=== PATIENT | female | born 1945 | race Caucasian/White ===

== ENCOUNTER 2019-12-08 06:51 | Outpatient (REF) | payer MEDICARE, SELFPAY ==
[2019-12-08 08:43] LABS: Alanine Aminotransferase 17 U/L (0-31); Anion Gap 12 (12-20); Aspartate Amino Transferase 15 U/L (5-31); Blood Urea Nitrogen 14 mg/dL (9-16); Calcium 9.5 mg/dL (8.4-10.2); Carbon Dioxide 32 mmol/L (22-29); Chloride 103 mmol/L (96-108); Cholesterol 183 mg/dL; Estimated Glomerular Filt Rate > 60; Glucose Random 138 mg/dL (60-115); HDL Cholesterol 53 mg/dL; LDL Cholesterol Calculated 107 mg/dl; Potassium 4.8 mmol/l (3.3-5.1); Sodium 142 mmol/L (135-145); Triglycerides 118 mg/dL
[2019-12-08 08:44] LABS: Creatinine Urine 74.77 mg/dL
[2019-12-08 09:12] LABS: Estimated Average Glucose 160 mg/dL; Hemoglobin A1c % 7.2 %
== END 2019-12-08 06:52 | disposition home or self-care (01) ==
LOC: HO.LAB 06:51
PROVIDERS: PCP Internal Medicine; Visit Provider Internal Medicine
DX: I10 Essential (primary) hypertension (principal); E78.5 Hyperlipidemia, unspecified; E11.9 Type 2 diabetes mellitus without complications
CPT/HCPCS: 80048; 80061; 82043; 83036; 84450; 84460

== ENCOUNTER → 2020-02-07 13:41 | Outpatient (BNVA) | payer MEDICARE, SELFPAY | PROVIDERS: PCP Internal Medicine; Visit Provider Hospitalist | DX: R91.1 Solitary pulmonary nodule (principal); G47.33 Obstructive sleep apnea (adult) (pediatric); J32.9 Chronic sinusitis, unspecified; J44.9 Chronic obstructive pulmonary disease, unspecified | CPT/HCPCS: Q3014 ==

== ENCOUNTER 2020-03-17 11:25 | Outpatient (REF) | payer MEDICARE, SELFPAY ==
[2020-03-17 14:44] LABS: Alanine Aminotransferase 17 U/L (0-31); Anion Gap 15 (12-20); Aspartate Amino Transferase 16 U/L (5-31); Blood Urea Nitrogen 15 mg/dL (9-16); Calcium 9.3 mg/dL (8.4-10.2); Carbon Dioxide 27 mmol/L (22-29); Chloride 101 mmol/L (96-108); Cholesterol 168 mg/dL; Estimated Glomerular Filt Rate > 60; Glucose Fasting 131 mg/dL (60-99); HDL Cholesterol 54 mg/dL; LDL Cholesterol Calculated 90 mg/dl; Potassium 4.2 mmol/l (3.3-5.1); Sodium 139 mmol/L (135-145); Triglycerides 121 mg/dL
[2020-03-17 14:54] LABS: Creatinine Urine 37.66 mg/dL; Microalbumin Urine < 5.0 mg/L
[2020-03-17 14:56] LABS: Estimated Average Glucose 148 mg/dL; Hemoglobin A1c % 6.8 %
[2020-03-17 15:07] LABS: Vitamin D 25-OH Total 45.7 ng/mL (>30)
== END 2020-03-17 11:26 | disposition home or self-care (01) ==
LOC: HO.HMGCLDS 11:25
PROVIDERS: PCP Internal Medicine; Visit Provider Internal Medicine
DX: E11.65 Type 2 diabetes mellitus with hyperglycemia (principal); E78.5 Hyperlipidemia, unspecified; I10 Essential (primary) hypertension; Z78.0 Asymptomatic menopausal state
CPT/HCPCS: 36415; 80048; 80061; 82043; 82306; 83036; 84450; 84460

== ENCOUNTER 2020-05-22 11:22 | Outpatient (REF) | payer MEDICARE, SELFPAY | END 2020-05-22 11:23 | disposition home or self-care (01) | LOC: HO.LAB 11:22 | PROVIDERS: Visit Provider Nurse Practitioner Family | DX: B37.49 Other urogenital candidiasis (principal) | CPT/HCPCS: 87086 ==

== ENCOUNTER 2020-07-24 06:06 | Outpatient (REF) | payer MEDICARE, SELFPAY ==
[2020-07-24 08:09] LABS: Estimated Average Glucose 160 mg/dL; Hemoglobin A1c % 7.2 %
[2020-07-24 08:25] LABS: Alanine Aminotransferase 14 U/L (0-31); Anion Gap 15 (12-20); Aspartate Amino Transferase 17 U/L (5-31); Blood Urea Nitrogen 14 mg/dL (9-16); Calcium 9.9 mg/dL (8.4-10.2); Carbon Dioxide 28 mmol/L (22-29); Chloride 101 mmol/L (96-108); Cholesterol 158 mg/dL; Estimated Glomerular Filt Rate > 60; Glucose Fasting 151 mg/dL (60-99); HDL Cholesterol 51 mg/dL; LDL Cholesterol Calculated 79 mg/dl; Potassium 4.3 mmol/L (3.3-5.1); Sodium 140 mmol/L (135-145); Triglycerides 141 mg/dL
[2020-07-24 08:31] LABS: Vitamin D 25-OH Total 54.3 ng/mL (>30)
== END 2020-07-24 06:07 | disposition home or self-care (01) ==
LOC: HO.LAB 06:06
PROVIDERS: PCP Internal Medicine; Visit Provider Internal Medicine
DX: E11.9 Type 2 diabetes mellitus without complications (principal); E78.5 Hyperlipidemia, unspecified; I10 Essential (primary) hypertension; Z78.0 Asymptomatic menopausal state
CPT/HCPCS: 36415; 80048; 80061; 82306; 83036; 84450; 84460

== ENCOUNTER 2020-07-27 10:38 | Outpatient (REF) | payer MEDICARE, SELFPAY ==
--- NOTE | ~2020-07-27 | MM_ITS ---
EXAMINATION: MM SCREENING DIGITAL BREAST TOMOSYNTHESIS, BILATERAL CLINICAL INFORMATION: Screening. Asymptomatic. The lifetime risk of breast cancer based on the Tyrer-Cuzick Model is 4.4%. COMPARISON: Mammography: May 20, 2019 and studies dating back to August 02, 2013 TECHNIQUE: Digital breast tomosynthesis is performed in both the craniocaudal and mediolateral oblique views along with computer-aided detection (CAD). Synthesized 2D images are generated from the tomosynthesis. FINDINGS: There are scattered areas of fibroglandular density (ACR BI-RADS breast composition Category b). There are no significant masses, abnormal calcifications, or other abnormalities. MM/MM tomosynthesis screening BI IMPRESSION: There are no significant changes from prior study. ASSESSMENT: BI-RADS 1: Negative RECOMMENDATION: Routine annual mammography screening. This patient's information was entered into a reminder system with a target due date for their next mammogram.
== END 2020-07-27 10:39 | disposition home or self-care (01) ==
LOC: HO.MAMMO 10:38
PROVIDERS: Visit Provider Internal Medicine
DX: Z12.31 Encounter for screening mammogram for malignant neoplasm of breast (principal)
CPT/HCPCS: 77063; 77067

== ENCOUNTER 2020-10-11 12:42 | Outpatient (REF) | payer MEDICARE, SELFPAY ==
--- NOTE | ~2020-10-11 | CT_ITS ---
EXAMINATION: CT CHEST WITHOUT CONTRAST CLINICAL INFORMATION: Lung disease. COMPARISON: 10/18/2019 and 06/05/2017 TECHNIQUE: Multidetector volumetric CT imaging of the chest was done. Axial MIP volume rendering provided. Sagittal and coronal reformatted images were obtained. This CT examination was performed using dose optimization techniques as appropriate, variously including the following: Automated exposure control. Adjustment of mA and/or kV according to patient size (this includes techniques or standardized protocols for targeted exams where dose is matched to indication/reason for exam; i.e. extremities or head). Use of iterative reconstruction technique. DLP: 267 mGy-cm FINDINGS: LUNGS: Central airways are patent. No confluent parenchymal disease. No bronchiectasis. No significant change of emphysema identified. There are numerous sub-4 mm densities present with a few being calcified. Within the right upper lobe, there is a 4 mm noncalcified density on image 172 of 534 in series #6. This is stable. There is a triangular-shaped subpleural noncalcified density seen within the right lower lobe on image 290 of 534. This is new and likely related to either atelectasis or scarring. There is a 4 mm noncalcified nodule seen within the left lower lobe on image 297 of 534. This is unchanged. There is a 7 mm noncalcified density seen within the left lower lobe on image 361 of 534. This is unchanged. MEDIASTINUM: Heart normal size. Coronary artery calcification present. Aortic and mitral valve calcification seen. No pericardial effusion. No thoracic aortic aneurysm. No mediastinal or hilar lymphadenopathy. PLEURA: There is no pleural effusion. No pleural mass or thickening. AXILLA: No lymphadenopathy. UPPER ABDOMEN: There appears to be a few subcentimeter splenic cyst present. OSSEOUS STRUCTURES: Status post right shoulder arthroplasty. No suspicious destructive bony lesions identified. CT/CT chest wo con IMPRESSION: Old granulomatous disease. Multiple stable lung nodules. New triangular-shaped subpleural density right lower lobe likely related to atelectasis.
== END 2020-10-11 12:43 | disposition home or self-care (01) ==
LOC: HO.CT 12:42
PROVIDERS: PCP Internal Medicine; Visit Provider Hospitalist
DX: R91.8 Other nonspecific abnormal finding of lung field (principal); J44.9 Chronic obstructive pulmonary disease, unspecified
CPT/HCPCS: 71250

== ENCOUNTER 2020-11-20 06:57 | Outpatient (REF) | payer MEDICARE, SELFPAY ==
[2020-11-20 08:23] LABS: Estimated Average Glucose 146 mg/dL; Hemoglobin A1c % 6.7 %
[2020-11-20 08:33] LABS: Alanine Aminotransferase 12 U/L (0-31); Anion Gap 14 (12-20); Aspartate Amino Transferase 15 U/L (5-31); Blood Urea Nitrogen 15 mg/dL (9-16); Calcium 9.6 mg/dL (8.4-10.2); Carbon Dioxide 30 mmol/L (22-29); Chloride 103 mmol/L (96-108); Cholesterol 160 mg/dL; Estimated Glomerular Filt Rate > 60; Glucose Fasting 122 mg/dL (60-99); HDL Cholesterol 50 mg/dL; LDL Cholesterol Calculated 77 mg/dl; Potassium 4.5 mmol/L (3.3-5.1); Sodium 142 mmol/L (135-145); Triglycerides 169 mg/dL
[2020-11-20 09:29] LABS: Vitamin D 25-OH Total 44.7 ng/mL (>30)
== END 2020-11-20 06:58 | disposition home or self-care (01) ==
LOC: HO.LAB 06:57
PROVIDERS: PCP Internal Medicine; Visit Provider Internal Medicine
DX: E11.65 Type 2 diabetes mellitus with hyperglycemia (principal); E78.5 Hyperlipidemia, unspecified; I10 Essential (primary) hypertension
CPT/HCPCS: 36415; 80048; 80061; 82306; 83036; 84450; 84460

== ENCOUNTER → 2020-12-01 13:40 | Outpatient (BNVA) | payer MEDICARE, SELFPAY | PROVIDERS: PCP Internal Medicine; Visit Provider Hospitalist | DX: G47.33 Obstructive sleep apnea (adult) (pediatric) (principal); J44.9 Chronic obstructive pulmonary disease, unspecified; R91.8 Other nonspecific abnormal finding of lung field | CPT/HCPCS: 99212 ==

== ENCOUNTER 2020-12-18 07:39 | Day surgery (SDC) | payer MEDICARE, SELFPAY ==
[2020-12-12 12:52] VITALS: BMI 36.0
--- NOTE | 2020-12-13 13:00 | MHC.SHP ---
Pre-Procedural Eval Section A Date of Service: 12/13/20 The patient is an INPATIENT: No Changes since office visit: No Cold of Flu in the past 2 weeks, No New Medical Problems, No Changes in Medication and No Patient answered all questions The History & Physical has been completed within 30 days and I have reviewed it.: Yes Section B Chief Complaint: cataract Allergies: Allergies Allergy/AdvReac Type Severity Reaction Status Date / Time oxycodone [Oxycodone] AdvReac Severe VOMITTING Verified 12/12/20 12:50 From OxyContin AdvReac Severe VOMITTING Uncoded 12/12/20 12:50 Plan Diagnosis/Plan: Unchanged I have reviewed the history and physical and performed a pertinent physical examination on my patient. No changes have occurred unless specified.
--- NOTE | 2020-12-15 09:45 | P.CONAN_ITS ---
Documented by User: Cesilia Arrieta NP 12/15/20 09:46 HPI - Anesthesia Eval Consult details Narrative: 75yo F for Left Cataract Extraction IOL Insertion PCP cleared No prev cataract on record O2 dependant QHS PMFSH Active Problems Active Problems: All Active Problems (Updated 12/12/20 @ 12:48 by Rosemary Alaniz, RN) Cindy infection of genital region (Acute) Preoperative examination (Acute) Pulmonary nodules (Acute) Family history of breast cancer gene mutation in first degree relative (Acute) Diabetes mellitus with hyperglycemia, without long-term current use of insulin (Acute) Type 2 diabetes mellitus without complication, without long-term current use of insulin (Acute) Asthma-COPD overlap syndrome (Acute) Menopause (Acute) Mild intermittent asthma in adult without complication (Acute) Pulmonary nodule (Acute) Obstructive sleep apnea (Acute) Irritable bowel syndrome (Acute) GERD (gastroesophageal reflux disease) (Acute) Dyslipidemia (Acute) Past Medical History Medical History (Updated 12/12/20 @ 12:48 by Rosemary Alaniz RN) Asthma-COPD overlap syndrome COVID-19 virus infection Diabetes mellitus with hyperglycemia, without long-term current use of insulin Dyslipidemia Family history of breast cancer gene mutation in first degree relative GERD (gastroesophageal reflux disease) Irritable bowel syndrome Menopause Mild intermittent asthma in adult without complication Obstructive sleep apnea PONV (postoperative nausea and vomiting) Preoperative examination Pulmonary nodule Pulmonary nodules Requires supplemental oxygen Type 2 diabetes mellitus without complication, without long-term current use of insulin Family History Family History Father Stroke Mother HTN (hypertension) Diabetes mellitus Brother Kidney disease Brother Pneumonia Daughter Invasive ductal carcinoma of breast, Onset Age: 53 Surgical History Surgical History History of appendectomy History of shoulder surgery History of total knee replacement Hx of cholecystectomy Social History Social History Housing: House Alcohol intake: never Patient Tobacco Use Status: Former Tobacco user Quit Date: 1999 Are you DNR?: No Advance Directives: No Advance Directives Information Provided: Yes (mailed info) Advance Directives on File: No Recently lost weight without trying: No Current occupational status: retired Meds Allergies Allergy/AdvReac Type Severity Reaction Status Date / Time oxycodone [Oxycodone] AdvReac Severe VOMITTING Verified 12/12/20 12:50 From OxyContin AdvReac Severe VOMITTING Uncoded 12/12/20 12:50 Home Medications Medication Instructions Recorded Confirmed Last Taken Type albuterol sulfate 90 mcg/actuation 2 puff INHALATION Q6H PRN 12/15/19 12/12/20 Unknown History aerosol inhaler carvedilol 25 mg tablet 25 mg PO BID 12/15/19 12/12/20 Unknown History dicyclomine 10 mg capsule 10 mg PO QID PRN 12/15/19 12/12/20 Unknown History escitalopram oxalate 20 mg tablet 20 mg PO DAILY 12/15/19 12/12/20 Unknown History fluticasone propionate 50 50 spray INTRANASAL DIRECTED 12/15/19 12/12/20 Unknown History mcg/actuation nasal spray,suspension magnesium oxide 250 mg PO DAILY 12/15/19 12/12/20 Unknown History meclizine 25 mg tablet 25 mg PO DIRECTED 12/15/19 12/12/20 Unknown History nystatin 100,000 unit/gram topical 100,000 unit TOPICAL TID PRN 12/15/19 12/12/20 Unknown History powder flu vacc [id number](65yr up)-PF 240 ml IM DIRECTED 02/07/20 12/08/20 Unknown History mcg/0.7 mL intramuscular syringe one touch delica plus lancets SUBCUT DAILY 05/16/20 12/08/20 Unknown History lorazepam 0.5 mg tablet 0.5 mg PO DAILY PRN 12/01/20 12/12/20 Unknown History Exam Exam Date and Time: December 15, 2020 0945 Height,Weight and Vital Signs: Height 5 ft 2 in Weight 89.358 kg Pertinent Lab Results Pertinent Lab Results: Laboratory Tests 08/22/20 11/20/20 13:37 07:08 WBC 8.5 Hgb 13.0 Hct 39.8 Plt Count 230 Sodium 142 Potassium 4.5 Chloride 103 Carbon Dioxide 30 H BUN 15 Creatinine 0.71 Assessment and Plan Assessment Anesthesia Assessment: Chart Reviewed Documented by User: Art Hammer MD 12/18/20 08:30 [facility] Past Medical History Medical History (Updated 12/12/20 @ 12:48 by Rosemary Alaniz, GENNARO) Asthma-COPD overlap syndrome COVID-19 virus infection Diabetes mellitus with hyperglycemia, without long-term current use of insulin Dyslipidemia Family history of breast cancer gene mutation in first degree relative GERD (gastroesophageal reflux disease) Irritable bowel syndrome Menopause Mild intermittent asthma in adult without complication Obstructive sleep apnea PONV (postoperative nausea and vomiting) Preoperative examination Pulmonary nodule Pulmonary nodules Requires supplemental oxygen Type 2 diabetes mellitus without complication, without long-term current use of insulin Family History Family History Father Stroke Mother HTN (hypertension) Diabetes mellitus Brother Kidney disease Brother Pneumonia Daughter Invasive ductal carcinoma of breast, Onset Age: 53 Family history of problems with anesthesia: No Surgical History Surgical History History of appendectomy History of shoulder surgery History of total knee replacement Hx of cholecystectomy History of Problems with Anesthesia: No Social History Social History Housing: House Alcohol intake: never Patient Tobacco Use Status: Former Tobacco user Quit Date: 1999 Are you DNR?: No Advance Directives: No Advance Directives Information Provided: Yes (mailed info) Advance Directives on File: No Recently lost weight without trying: No Current occupational status: retired Meds Allergies Allergy/AdvReac Type Severity Reaction Status Date / Time oxycodone [Oxycodone] AdvReac Severe VOMITTING Verified 12/12/20 12:50 From OxyContin AdvReac Severe VOMITTING Uncoded 12/12/20 12:50 Home Medications Medication Instructions Recorded Confirmed Last Taken Type albuterol sulfate 90 mcg/actuation 2 puff INHALATION Q6H PRN 12/15/19 12/12/20 Unknown History aerosol inhaler carvedilol 25 mg tablet 25 mg PO BID 12/15/19 12/12/20 Unknown History dicyclomine 10 mg capsule 10 mg PO QID PRN 12/15/19 12/12/20 Unknown History escitalopram oxalate 20 mg tablet 20 mg PO DAILY 12/15/19 12/12/20 Unknown History fluticasone propionate 50 50 spray INTRANASAL DIRECTED 12/15/19 12/12/20 Unknown History mcg/actuation nasal spray,suspension magnesium oxide 250 mg PO DAILY 12/15/19 12/12/20 Unknown History meclizine 25 mg tablet 25 mg PO DIRECTED 12/15/19 12/12/20 Unknown History nystatin 100,000 unit/gram topical 100,000 unit TOPICAL TID PRN 12/15/19 12/12/20 Unknown History powder flu vacc [id number](65yr up)-PF 240 ml IM DIRECTED 02/07/20 12/08/20 Unknown History mcg/0.7 mL intramuscular syringe one touch delica plus lancets SUBCUT DAILY 05/16/20 12/08/20 Unknown History lorazepam 0.5 mg tablet 0.5 mg PO DAILY PRN 12/01/20 12/12/20 Unknown History Exam Airway Mallampati Class: III TM Dist: >3cm Neck ROM: Full Denture: Upper and Lower Heart: [id number] Lungs: cta b/l Assessment and Plan Assessment Anesthesia Assessment: Anesthesia Plan Discussed Final Anesthetic Review Family History of Problems with Anesthesia: No History of Problems with Anesthesia: No NPO: Yes ASA Class: III Final Preanesthetic Review: No Changes in Pt Med Stat, Meds/Allgs Chart Reviewed, Consent Obtained/Reviewed and Anes Risks/Benef Reviewed Patient Risk: Intermediate Procedure Risk: Low Assessment/Block/Sedation in SS: Assess/Block/Sedation-SS Anesthetic Plan Anesthetic Plan: MAC: and Agree w/ Assess. and Plan Disposition: Standard PACU
[2020-12-18 08:42] VITALS: BP 170/84; PULSE 72; RESP 20; TEMP 36.1; O2SAT 95
[2020-12-18 08:42] LABS: Glucose, Whole Blood 149 mg/dL (60-115)
[2020-12-18] MEDS: Tetracaine HCl/PF 0.5% Oph Sol 4 ML DROPS 1 DROP EYE-LEFT (08:50)
[2020-12-18] MEDS: Lactated Ringers 500 ML 50 ML IV (08:50)
[2020-12-18] MEDS: Tropicamide 1 % Ophth Sol 3 ML BTL 1 DROP EYE-LEFT ×3 (08:51→08:58)
[2020-12-18] MEDS: Phenylephrine HCL 2.5% Oph SoL 2 ML BOTTLE 1 DROP EYE-LEFT ×3 (08:54→09:00)
--- NOTE | 2020-12-18 09:24 | HO.PNOPHT ---
Ophthalmology Procedure Procedure Date of Service: 12/18/20 Ophthalmology Viscoelastic: Healon Duet Dual Pack Pro Ophthalmology Lenses: TECNIS [id number] (20.5) Procedure Notes: PREOPERATIVE DIAGNOSIS: Decreased visual acuity left eye secondary to cataract POSTOPERATIVE DIAGNOSIS: Same PROCEDURE: Left cataract extraction with intraocular lens insertion SURGEON: Honorio Benito M.D. ANESTHESIA: Topical/MAC ESTIMATED BLOOD LOSS: None COMPLICATIONS: None After obtaining informed consent, the patient was brought to the operation room suite and placed in the supine position. After adequate sedation per anesthesia, topical drops of Tetracaine were given to the left eye. The eye was then prepped and draped in the usual sterile fashion. The operating room microscope was then positioned over the operative eye and a lid speculum placed. A paracentesis was created. Viscoelastic was then instilled into the anterior chamber. A three plane incision was then created temporally, utilizing a 2.85 mm keratome. Capsulotomy forceps were then utilized to create a circular tear capsulotomy. Hydrodissection and hydrodelineation were carried out until adequate mobilization of the nucleus occurred. Phacoemulsification was then utilized to remove the dense central nucleus followed by removal of the cortical material utilizing the automated aspiration irrigation unit. Viscoat elastic was instilled into the posterior capsular bag followed by placement of a posterior chamber intraocular lens without difficulty. The residual Viscoat elastic was then removed utilizing the automated IA machine. The wound was check and found to be watertight. The patient tolerated the procedure well and the lid speculum was removed. Intracameral injection of Vigamox 0.1 mL followed by a subtenon injection of Kenalog-40 0.2 mL were administered. The patient will be seen in the a.m.
== END 2020-12-18 10:15 | disposition home or self-care (01) ==
PROVIDERS: PCP Internal Medicine; Visit Provider Ophthalmology
PROC: (CPT 66985; principal; 2020-12-18 09:40)
DX: H25.12 Age-related nuclear cataract, left eye (principal); H54.7 Unspecified visual loss; I10 Essential (primary) hypertension; E11.9 Type 2 diabetes mellitus without complications; J44.9 Chronic obstructive pulmonary disease, unspecified; Z79.51 Long term (current) use of inhaled steroids; Z79.84 Long term (current) use of oral hypoglycemic drugs; Z79.899 Other long term (current) drug therapy
CPT/HCPCS: 66984; 82947; J2250; J3300; V2632

== ENCOUNTER 2021-01-01 07:40 | Day surgery (SDC) | payer MEDICARE, SELFPAY ==
[2020-12-12 12:55] VITALS: BMI 36.0
--- NOTE | 2020-12-28 13:44 | MHC.SHP ---
Pre-Procedural Eval Section A Date of Service: 12/28/20 The patient is an INPATIENT: No Changes since office visit: No Cold of Flu in the past 2 weeks, No New Medical Problems, No Changes in Medication and No Patient answered all questions The History & Physical has been completed within 30 days and I have reviewed it.: Yes Section B Chief Complaint: cataract Allergies: Allergies Allergy/AdvReac Type Severity Reaction Status Date / Time oxycodone [Oxycodone] AdvReac Severe VOMITTING Verified 12/12/20 12:50 From OxyContin AdvReac Severe VOMITTING Uncoded 12/12/20 12:50 Plan Diagnosis/Plan: Unchanged I have reviewed the history and physical and performed a pertinent physical examination on my patient. No changes have occurred unless specified.
--- NOTE | 2020-12-29 13:22 | HO.ANESPROP2 ---
Documented by User: Cesilia Arrieta NP 12/29/20 13:41 HPI - Anesthesia Eval Consult details Narrative: 75yo F for Right Cataract Extraction IOL Insertion PCP cleared Left eye 12/18/20 with MAC: Midaz 2 O2 @ QHS PMFSH Active Problems Active Problems: All Active Problems (Updated 12/12/20 @ 12:48 by Rosemary Alaniz, RN) Cindy infection of genital region (Acute) Preoperative examination (Acute) Pulmonary nodules (Acute) Family history of breast cancer gene mutation in first degree relative (Acute) Diabetes mellitus with hyperglycemia, without long-term current use of insulin (Acute) Type 2 diabetes mellitus without complication, without long-term current use of insulin (Acute) Asthma-COPD overlap syndrome (Acute) Menopause (Acute) Mild intermittent asthma in adult without complication (Acute) Pulmonary nodule (Acute) Obstructive sleep apnea (Acute) Irritable bowel syndrome (Acute) GERD (gastroesophageal reflux disease) (Acute) Dyslipidemia (Acute) Past Medical History Medical History (Updated 01/01/21 @ 08:43 by Nae Carter, GENNARO) Asthma-COPD overlap syndrome COVID-19 virus infection Diabetes mellitus with hyperglycemia, without long-term current use of insulin Dyslipidemia Family history of breast cancer gene mutation in first degree relative GERD (gastroesophageal reflux disease) HTN (hypertension) Irritable bowel syndrome Menopause Mild intermittent asthma in adult without complication Obstructive sleep apnea PONV (postoperative nausea and vomiting) Preoperative examination Pulmonary nodule Pulmonary nodules Requires supplemental oxygen Type 2 diabetes mellitus without complication, without long-term current use of insulin Family History Family History Father Stroke Mother HTN (hypertension) Diabetes mellitus Brother Kidney disease Brother Pneumonia Daughter Invasive ductal carcinoma of breast, Onset Age: 53 Family history of problems with anesthesia: No Surgical History Surgical History History of appendectomy History of shoulder surgery History of total knee replacement Hx of cholecystectomy History of Problems with Anesthesia: No Social History Social History Housing: House Alcohol intake: never Patient Tobacco Use Status: Former Tobacco user Quit Date: 20 years ago Are you DNR?: No Advance Directives: No Advance Directives Information Provided: Yes (info mailed) Current occupational status: retired [employer] Allergies Allergy/AdvReac Type Severity Reaction Status Date / Time oxycodone [Oxycodone] AdvReac Severe VOMITTING Verified 01/01/21 08:38 From OxyContin AdvReac Severe VOMITTING Uncoded 12/12/20 12:50 Home Medications Medication Instructions Recorded Confirmed Last Taken Type albuterol sulfate 90 mcg/actuation 2 puff INHALATION Q6H PRN 12/15/19 12/12/20 01/01/21 06:30 History aerosol inhaler carvedilol 25 mg tablet 25 mg PO BID 12/15/19 12/12/20 01/01/21 06:30 History dicyclomine 10 mg capsule 10 mg PO QID PRN 12/15/19 12/12/20 Unknown History escitalopram oxalate 20 mg tablet 20 mg PO DAILY 12/15/19 12/12/20 Unknown History fluticasone propionate 50 50 spray INTRANASAL DIRECTED 12/15/19 12/12/20 Unknown History mcg/actuation nasal spray,suspension magnesium oxide 250 mg PO DAILY 12/15/19 12/12/20 Unknown History meclizine 25 mg tablet 25 mg PO DIRECTED 12/15/19 12/12/20 Unknown History nystatin 100,000 unit/gram topical 100,000 unit TOPICAL TID PRN 12/15/19 12/12/20 Unknown History powder flu vacc [id number](65yr up)-PF 240 ml IM DIRECTED 02/07/20 12/08/20 Unknown History mcg/0.7 mL intramuscular syringe one touch delica plus lancets SUBCUT DAILY 05/16/20 12/08/20 Unknown History lorazepam 0.5 mg tablet 0.5 mg PO DAILY PRN 12/01/20 12/12/20 Unknown History Exam Exam Date and Time: December 29, 2020 1322 Height,Weight and Vital Signs: Height 5 ft 2 in Weight 89.358 kg Assessment and Plan Assessment Anesthesia Assessment: Chart Reviewed Final Anesthetic Review Family History of Problems with Anesthesia: No History of Problems with Anesthesia: No Documented by User: Giovanni Marquez MD 01/01/21 09:27 [facility] Past Medical History Medical History (Updated 01/01/21 @ 08:43 by Nae Carter, RN) Asthma-COPD overlap syndrome COVID-19 virus infection Diabetes mellitus with hyperglycemia, without long-term current use of insulin Dyslipidemia Family history of breast cancer gene mutation in first degree relative GERD (gastroesophageal reflux disease) HTN (hypertension) Irritable bowel syndrome Menopause Mild intermittent asthma in adult without complication Obstructive sleep apnea PONV (postoperative nausea and vomiting) Preoperative examination Pulmonary nodule Pulmonary nodules Requires supplemental oxygen Type 2 diabetes mellitus without complication, without long-term current use of insulin Family History Family History Father Stroke Mother HTN (hypertension) Diabetes mellitus Brother Kidney disease Brother Pneumonia Daughter Invasive ductal carcinoma of breast, Onset Age: 53 Surgical History Surgical History History of appendectomy History of shoulder surgery History of total knee replacement Hx of cholecystectomy Social History Social History Housing: House Alcohol intake: never Patient Tobacco Use Status: Former Tobacco user Quit Date: 20 years ago Are you DNR?: No Advance Directives: No Advance Directives Information Provided: Yes (info mailed) Current occupational status: retired Meds Allergies Allergy/AdvReac Type Severity Reaction Status Date / Time oxycodone [Oxycodone] AdvReac Severe VOMITTING Verified 01/01/21 08:38 From OxyContin AdvReac Severe VOMITTING Uncoded 12/12/20 12:50 Home Medications Medication Instructions Recorded Confirmed Last Taken Type albuterol sulfate 90 mcg/actuation 2 puff INHALATION Q6H PRN 12/15/19 12/12/20 01/01/21 06:30 History aerosol inhaler carvedilol 25 mg tablet 25 mg PO BID 12/15/19 12/12/20 01/01/21 06:30 History dicyclomine 10 mg capsule 10 mg PO QID PRN 12/15/19 12/12/20 Unknown History escitalopram oxalate 20 mg tablet 20 mg PO DAILY 12/15/19 12/12/20 Unknown History fluticasone propionate 50 50 spray INTRANASAL DIRECTED 12/15/19 12/12/20 Unknown History mcg/actuation nasal spray,suspension magnesium oxide 250 mg PO DAILY 12/15/19 12/12/20 Unknown History meclizine 25 mg tablet 25 mg PO DIRECTED 12/15/19 12/12/20 Unknown History nystatin 100,000 unit/gram topical 100,000 unit TOPICAL TID PRN 12/15/19 12/12/20 Unknown History powder flu vacc [id number](65yr up)-PF 240 ml IM DIRECTED 02/07/20 12/08/20 Unknown History mcg/0.7 mL intramuscular syringe one touch delica plus lancets SUBCUT DAILY 05/16/20 12/08/20 Unknown History lorazepam 0.5 mg tablet 0.5 mg PO DAILY PRN 12/01/20 12/12/20 Unknown History Exam Airway Mallampati Class: III TM Dist: >3cm Neck ROM: Full
[2021-01-01 08:44] VITALS: BP 150/66; PULSE 67; RESP 16; TEMP 36.3; O2SAT 94
[2021-01-01] MEDS: Tetracaine HCl/PF 0.5% Oph Sol 4 ML DROPS 1 DROP EYE-RIGHT (08:48)
[2021-01-01 08:50] LABS: Glucose, Whole Blood 147 mg/dL (60-115)
[2021-01-01] MEDS: Tropicamide 1 % Ophth Sol 3 ML BTL 1 DROP EYE-RIGHT ×3 (08:55→09:07)
[2021-01-01] MEDS: Phenylephrine HCL 2.5% Oph SoL 2 ML BOTTLE 1 DROP EYE-RIGHT ×3 (08:57→09:10)
[2021-01-01] MEDS: Lactated Ringers 500 ML 50 ML IV (08:59)
--- NOTE | 2021-01-01 10:08 | HO.PNOPHT ---
Ophthalmology Procedure Procedure Date of Service: 01/01/21 Ophthalmology Viscoelastic: Healtony Garayt Dual Pack Pro Ophthalmology Lenses: TECLO [id number] (20) Procedure Notes: PREOPERATIVE DIAGNOSIS: Decreased visual acuity right eye secondary to cataract POSTOPERATIVE DIAGNOSIS: Same PROCEDURE: Right cataract extraction with intraocular lens insertion SURGEON: Honorio Benito M.D. ANESTHESIA: Topical/MAC ESTIMATED BLOOD LOSS: None COMPLICATIONS: None After obtaining informed consent, the patient was brought to the operating room suite and placed in the supine position. After adequate sedation per anesthesia, topical drops of Tetracaine were given to the right eye. The eye was then prepped and draped in the usual sterile fashion. The operating room microscope was then positioned over the operative eye and a lid speculum placed. A paracentesis was created. Viscoelastic was then instilled into the anterior chamber. A three plane incision was then created temporally, utilizing a 2.85 mm keratome. Capsulotomy forceps were then utilized to create a circular tear capsulotomy. Hydrodissection and hydrodelineation were carried out until adequate mobilization of the nucleus occurred. Phacoemulsification was then utilized to remove the dense central nucleus followed by removal of the cortical material utilizing the automated aspiration irrigation unit. Viscoelastic was instilled into the posterior capsular bag followed by placement of a posterior chamber intraocular lens without difficulty. The residual Viscoelastic was then removed utilizing the automated IA machine. The wound was checked and found to be watertight. The patient tolerated the procedure well and the lid speculum was removed. Intracameral injection of Vigamox 0.1 mL followed by a subtenon injection of Kenalog-40 0.2 mL were administered. The patient will be seen in the a.m.
[2021-01-01 10:32] VITALS: BP 128/67; PULSE 65; RESP 12; TEMP 36.3; O2SAT 94
== END 2021-01-01 10:53 | disposition home or self-care (01) ==
PROVIDERS: PCP Internal Medicine; Visit Provider Ophthalmology
PROC: (CPT 66985; principal; 2021-01-01 10:00)
DX: H25.11 Age-related nuclear cataract, right eye (principal); H54.7 Unspecified visual loss; J44.9 Chronic obstructive pulmonary disease, unspecified; J45.20 Mild intermittent asthma, uncomplicated; I10 Essential (primary) hypertension; E78.5 Hyperlipidemia, unspecified; G47.33 Obstructive sleep apnea (adult) (pediatric); K21.9 Gastro-esophageal reflux disease without esophagitis; E11.65 Type 2 diabetes mellitus with hyperglycemia; Z79.84 Long term (current) use of oral hypoglycemic drugs; Z79.899 Other long term (current) drug therapy; Z79.51 Long term (current) use of inhaled steroids; Z88.8 Allergy status to other drugs, medicaments and biological substances; Z86.16 Personal history of COVID-19; Z87.891 Personal history of nicotine dependence
CPT/HCPCS: 66984; 82947; J2250; J3010; J3300; V2632

== ENCOUNTER → 2021-02-13 09:07 | Outpatient (BNVA) | payer MEDICARE, SELFPAY | PROVIDERS: PCP Internal Medicine; Visit Provider Surgery Vascular Surgery | DX: I83.11 Varicose veins of right lower extremity with inflammation (principal) | CPT/HCPCS: 99212 ==

== ENCOUNTER 2021-03-06 09:51 | Outpatient (REF) | payer MEDICARE, SELFPAY ==
--- NOTE | ~2021-03-06 | US_ITS ---
EXAMINATION: RIGHT and LEFT LOWER EXTREMITY VENOUS ULTRASOUND (Reflux Exam) CLINICAL INDICATION: leg pain and varicose veins. COMPARISON: None. TECHNIQUE: Color flow triplex imaging and compression Doppler was performed to evaluate both the deep and the superficial systems bilaterally. To evaluate the superficial system, the examination was performed in the upright position. Color-flow Doppler ultrasound and compression ultrasound were utilized. In addition, maneuvers were utilized to demonstrate reflux. FINDINGS: 1. DEEP VENOUS ULTRASOUND OF THE RIGHT LOWER EXTREMITY: Respiratory variation, normal compression and augmented flow are noted in the right common femoral vein as well as the right popliteal vein and there is no evidence of deep venous thrombosis at these locations. There is no evidence of reflux in the deep system in either the common femoral vein or the popliteal vein. There is no evidence of a Archuleta's cyst. 2. SUPERFICIAL ULTRASOUND WITH DOPPLER OF RIGHT LOWER EXTREMITY: The right great saphenous vein at the saphenofemoral junction measures 8 mm, at the mid thigh 9 mm, pyauo-wxa-spxg 3 mm, vrlyl-zor-[id number] 5 mm, at mid calf 5 mm and at the ankle measures 2 mm. There is right greater saphenous vein reflux measuring maximum greater than 3.3 seconds below the knee. There is an accessory lateral greater saphenous vein that measures 4 mm and demonstrates 0.9 seconds reflux in the mid thigh. The right small saphenous vein measures 3-4 mm and shows no reflux. There are perforators in the calf and thigh that measure 2 to 3 mm in the do not demonstrate reflux. There is a varicosity that measures 5 mm and demonstrates 3 seconds reflux. There are varicosities in the thigh at the knee and calf that measure 3 to 4 mm and demonstrates reflux maximum greater than 3.3 seconds. 3. DEEP VENOUS ULTRASOUND OF THE LEFT LOWER EXTREMITY: Respiratory variation, normal compression and augmented flow are noted in the left common femoral vein as well as the left popliteal vein and there is no evidence of deep venous thrombosis at these locations. There is no evidence of reflux in the deep system in either the common femoral vein or the popliteal vein. . There is no evidence of a Archuleta's cyst. 4. SUPERFICIAL ULTRASOUND WITH DOPPLER OF LEFT LOWER EXTREMITY: Left great saphenous vein at the saphenofemoral junction measures 8 mm, at the mid thigh 3 mm, hxlil-qjr-fkkh 3 mm, xvfjr-pou-lumn 3 mm, at mid calf 3 mm and at the ankle measures 3 mm. There is once second reflux of the saphenofemoral junction and greater than 3.2 seconds reflux in the mid calf and 2.2 seconds reflux in the ankle. There is an accessory lateral left greater saphenous vein that measures 5 to 7 mm and demonstrates greater than 3 1 seconds reflux in the mid thigh. The left small saphenous vein measures 2-3 mm and shows no reflux. There are perforators the thigh and calf. There is a 2 mm soap worker in the mid calf and demonstrates greater than 3.2 seconds reflux. There is a varicosity in the accessory saphenous vein that measures 5 mm and demonstrates greater than 3.1 seconds reflux. There are varicosities in the thigh and calf that measure 1 to 3 mm and demonstrate maximum greater than 3.4 seconds reflux. US/US venous duplex LE BI IMPRESSION: No evidence of DVT or deep venous reflux. Extensive right greater saphenous vein reflux. Reflux in an accessory lateral right greater saphenous vein. There are varicosities that demonstrate reflux, one arising from the accessory saphenous vein. Left greater saphenous vein reflux at the saphenofemoral junction and in the mid calf and ankle. Accessory left lateral greater saphenous vein with reflux. Watch Electrician in the calf with reflux. There are varicosities with reflux including a varicosity off the left accessory greater saphenous vein.
== END 2021-03-06 09:52 | disposition home or self-care (01) ==
LOC: HO.US 09:51
PROVIDERS: Visit Provider Surgery Vascular Surgery
DX: I83.11 Varicose veins of right lower extremity with inflammation (principal)
CPT/HCPCS: 93970

== ENCOUNTER → 2021-03-15 10:51 | Outpatient (BNVA) | payer MEDICARE, SELFPAY | PROVIDERS: PCP Internal Medicine; Visit Provider Surgery Vascular Surgery | DX: I83.11 Varicose veins of right lower extremity with inflammation (principal) | CPT/HCPCS: 99212 ==

== ENCOUNTER 2021-03-16 07:03 | Outpatient (REF) | payer MEDICARE, SELFPAY ==
[2021-03-16 07:46] LABS: Estimated Average Glucose 146 mg/dL; Hemoglobin A1c % 6.7 %
[2021-03-16 07:58] LABS: Alanine Aminotransferase 16 U/L (0-31); Anion Gap 11 (12-20); Aspartate Amino Transferase 16 U/L (5-31); Blood Urea Nitrogen 17 mg/dL (9-16); Calcium 9.7 mg/dL (8.4-10.2); Carbon Dioxide 32 mmol/L (22-29); Chloride 102 mmol/L (96-108); Cholesterol 186 mg/dL; Estimated Glomerular Filt Rate > 60; Glucose Fasting 152 mg/dL (60-99); HDL Cholesterol 51 mg/dL; LDL Cholesterol Calculated 94 mg/dl; Potassium 4.2 mmol/L (3.3-5.1); Sodium 141 mmol/L (135-145); Triglycerides 209 mg/dL
[2021-03-16 08:23] LABS: Vitamin D 25-OH Total 40.6 ng/mL (>30)
== END 2021-03-16 07:04 | disposition home or self-care (01) ==
LOC: HO.LAB 07:03
PROVIDERS: PCP Internal Medicine; Visit Provider Internal Medicine
DX: E11.9 Type 2 diabetes mellitus without complications (principal); I10 Essential (primary) hypertension; E78.5 Hyperlipidemia, unspecified; Z78.0 Asymptomatic menopausal state
CPT/HCPCS: 36415; 80048; 80061; 82306; 83036; 84450; 84460

== ENCOUNTER → 2021-04-20 10:30 | Outpatient (BNVA) | payer MEDICARE, SELFPAY | PROVIDERS: PCP Internal Medicine; Visit Provider Surgery Vascular Surgery | DX: I83.11 Varicose veins of right lower extremity with inflammation (principal) | CPT/HCPCS: 36482 ==

== ENCOUNTER 2021-04-24 14:03 | Outpatient (REF) | payer MEDICARE, SELFPAY ==
--- NOTE | ~2021-04-24 | US_ITS ---
EXAMINATION: US VENOUS ULTRASOUND WITH DOPPLER LOWER EXTREMITY, RIGHT CLINICAL INFORMATION: This is a 76-year-old female status post right great saphenous vein VenaSeal. The patient is status post procedure 4 days ago. COMPARISON: None TECHNIQUE: Ultrasound of the deep veins is performed from the hip to the calf with compression sonography and color and pulse Doppler assessment. Spectral analysis with color-flow imaging is performed. FINDINGS: There is normal venous compression and respiratory variation and augmented flow. The visualized common femoral vein, superficial femoral vein, profunda femoral vein, popliteal vein, and the trifurcation region shows no evidence of deep venous thrombosis. There is no significant popliteal fossa cyst. The right great saphenous vein appears occluded beginning 5.4 cm from the saphenofemoral junction. There is no extension of thrombosis into the deep venous system. US/US venous duplex LE RT IMPRESSION: No DVT demonstrated in the right lower extremity.
== END 2021-04-24 14:04 | disposition home or self-care (01) ==
LOC: HO.US 14:03
PROVIDERS: Visit Provider Surgery Vascular Surgery
DX: M79.604 Pain in right leg (principal)
CPT/HCPCS: 93971

== ENCOUNTER → 2021-05-03 10:07 | Outpatient (BNVA) | payer MEDICARE, SELFPAY | PROVIDERS: PCP Internal Medicine; Visit Provider Surgery Vascular Surgery | DX: I83.12 Varicose veins of left lower extremity with inflammation (principal) | CPT/HCPCS: 99212 ==

== ENCOUNTER 2021-05-04 10:45 | Outpatient (REF) | payer MEDICARE, SELFPAY ==
--- NOTE | ~2021-05-04 | CT_ITS ---
EXAMINATION: CT CHEST WITHOUT CONTRAST CLINICAL INFORMATION: Pulmonary nodule follow-up COMPARISON: Previous chest CT October 2020 TECHNIQUE: Multidetector volumetric CT imaging of the chest was done. Axial MIP volume rendering provided. Sagittal and coronal reformatted images were obtained. This CT examination was performed using dose optimization techniques as appropriate, variously including the following: *Automated exposure control *Adjustment of mA and/or kV according to patient size (this includes techniques or standardized protocols for targeted exams where dose is matched to indication/reason for exam; i.e. extremities or head) *Use of iterative reconstruction technique DLP: 197 mGy-cm FINDINGS: LUNGS: The pulmonary nodules are stable. Largest pulmonary nodule measures 7 mm in the left lower lobe axial image 361 series 6. No new pulmonary nodule is seen. There is heterogeneous attenuation of the lungs questionable for hypoventilatory changes or areas of air-trapping. This is new or increased from October 2020 exam. No evidence of emphysema interstitial lung disease or bronchiectasis is seen. No endobronchial or endotracheal lesion is seen. MEDIASTINUM: There is coronary artery and aortic valve calcification. The mediastinum is otherwise normal. PLEURA: There is no pleural effusion. No pleural mass or thickening. AXILLA: No lymphadenopathy. UPPER ABDOMEN: Stable low-attenuation splenic lesions probably representing small cysts. OSSEOUS STRUCTURES: There are degenerative changes of the spine. CT/CT chest wo con IMPRESSION: Stable pulmonary nodules. New increased heterogeneous attenuation in the lungs, question representing hypoventilatory changes or air-trapping. Fleischner guidelines were followed.
== END 2021-05-04 10:46 | disposition home or self-care (01) ==
LOC: HO.CT 10:45
PROVIDERS: PCP Internal Medicine; Visit Provider Hospitalist
DX: R91.8 Other nonspecific abnormal finding of lung field (principal)
CPT/HCPCS: 71250

== ENCOUNTER 2021-06-01 15:39 | Outpatient (REF) | payer MEDICARE, SELFPAY ==
--- NOTE | 2021-06-01 10:30 | PFT_ITS ---
Forced vital capacity of 55%, FEV1 of 54%, FEV1/FVC ratio is 74, normal. FEF 25/75 is 47% and MVV 57%. Postbronchodilator therapy, there is no change. Total lung capacity 83%. Residual volume 110%. Diffusion capacity 64%. CONCLUSION: There is marked decrease in the flow volumes even though FEV1/FVC ratio is normal. There is no evidence of restrictive disorder as per normal TLC and residual volume. Patient may have FEV1/FVC preserved ratio, obstructive disorder. Clinical correlation is recommended. Cassandra Potts MD MSB/MODL / [id number]
== END 2021-06-01 15:40 | disposition home or self-care (01) ==
LOC: HO.RESP 15:39
PROVIDERS: PCP Internal Medicine; Visit Provider Hospitalist
DX: J44.9 Chronic obstructive pulmonary disease, unspecified (principal)
CPT/HCPCS: 94060; 94727; 94729

== ENCOUNTER → 2021-06-06 10:52 | Outpatient (BNVA) | payer MEDICARE, SELFPAY | PROVIDERS: PCP Internal Medicine; Visit Provider Hospitalist | DX: J44.9 Chronic obstructive pulmonary disease, unspecified (principal); G47.33 Obstructive sleep apnea (adult) (pediatric); R91.8 Other nonspecific abnormal finding of lung field | CPT/HCPCS: 99212 ==

== ENCOUNTER → 2021-06-22 07:37 | Outpatient (BNVA) | payer MEDICARE, SELFPAY | PROVIDERS: PCP Internal Medicine; Visit Provider Surgery Vascular Surgery | DX: I83.12 Varicose veins of left lower extremity with inflammation (principal) | CPT/HCPCS: 36482 ==

== ENCOUNTER 2021-06-25 10:52 | Outpatient (REF) | payer MEDICARE, SELFPAY ==
--- NOTE | ~2021-06-25 | US_ITS ---
EXAMINATION: US VENOUS ULTRASOUND WITH DOPPLER LOWER EXTREMITY, LEFT CLINICAL INFORMATION: Status post left great saphenous vein ablation 06/22/2021 COMPARISON: Bilateral lower extremity reflux venous ultrasound 03/06/2021 TECHNIQUE: Ultrasound of the deep veins is performed from the hip to the calf with compression sonography and color and pulse Doppler assessment. Spectral analysis with color-flow imaging is performed. FINDINGS: The left common femoral vein demonstrate normal compressibility and color and spectral flow consistent with patency. The proximal portion of the left great saphenous vein is compressible consistent with patency. Approximately 2 cm from the left saphenofemoral junction there is echogenic material within a noncompressible left great saphenous vein consistent with history of Venaseal procedure. The left profundus femoris vein is patent. The proximal, mid and distal portions of the superficial femoral vein demonstrate normal compressibility and color flow consistent with patency. The popliteal vein demonstrate normal compressibility and color flow consistent with patency. Visualized deep calf veins demonstrate normal color flow consistent with patency. The superficial saphenous vein within the calf is compressible consistent with patency. US/US venous duplex LE LT IMPRESSION: -Left great saphenous vein is occluded 2.1 cm from the saphenofemoral junction (history of the Venaseal procedure). -No DVT demonstrated in the left lower extremity.
== END 2021-06-25 10:53 | disposition home or self-care (01) ==
LOC: HO.US 10:52
PROVIDERS: PCP Internal Medicine; Visit Provider Surgery Vascular Surgery
DX: M79.605 Pain in left leg (principal)
CPT/HCPCS: 93971

== ENCOUNTER → 2021-06-28 14:12 | Outpatient (BNVA) | payer MEDICARE, SELFPAY | PROVIDERS: PCP Internal Medicine; Visit Provider Surgery Vascular Surgery | DX: M79.89 Other specified soft tissue disorders (principal); I83.12 Varicose veins of left lower extremity with inflammation; Z98.890 Other specified postprocedural states | CPT/HCPCS: 99212 ==

== ENCOUNTER → 2021-07-05 08:50 | Outpatient (BNVA) | payer MEDICARE, SELFPAY | PROVIDERS: PCP Internal Medicine; Visit Provider Surgery Vascular Surgery | DX: Z48.812 Encounter for surgical aftercare following surgery on the circulatory system (principal); I83.12 Varicose veins of left lower extremity with inflammation | CPT/HCPCS: 99212 ==

== ENCOUNTER 2021-07-25 09:29 | Outpatient (REF) | payer MEDICARE, SELFPAY ==
--- NOTE | ~2021-07-25 | XR_ITS ---
EXAMINATION: XR RIBS, LEFT CLINICAL INFORMATION: Pain COMPARISON: 12/21/2018. 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 Also FINDINGS: Single image chest there is no pneumothorax or effusion on the chest film. Left lung is grossly comparable to previous. Hilar regions are comparable. Cardiac silhouette is within normal limits. The detailed left rib imaging does not demonstrate evidence of fracture. No suspicious bony finding. XR/XR ribs LT min 3V w CXR1V IMPRESSION: There is no fracture seen here. No underlying pneumothorax or effusion.
== END 2021-07-25 09:30 | disposition home or self-care (01) ==
LOC: HO.HMGCX 09:29
PROVIDERS: PCP Internal Medicine; Visit Provider Emergency Medicine
DX: R07.81 Pleurodynia (principal)
CPT/HCPCS: 71101

== ENCOUNTER 2021-08-02 10:47 | Outpatient (REF) | payer MEDICARE, SELFPAY ==
--- NOTE | ~2021-08-02 | MM_ITS ---
EXAMINATION: MM SCREENING DIGITAL BREAST TOMOSYNTHESIS, BILATERAL CLINICAL INFORMATION: Screening. Asymptomatic. The lifetime risk of breast cancer based on the Tyrer-Cuzick Model is 3%. COMPARISON: Mammography: 07/27/2020, 05/20/2019, 03/31/2018, 08/27/2016 TECHNIQUE: Digital breast tomosynthesis is performed in both the craniocaudal and mediolateral oblique views along with computer-aided detection (CAD). Synthesized 2D images are generated from the tomosynthesis. FINDINGS: There are scattered areas of fibroglandular density (ACR BI-RADS breast composition Category b). There are no significant masses, abnormal calcifications, or other abnormalities. There is a stable circumscribed nodule again seen anterior upper outer right breast similar to prior exams. There are bilateral vascular calcifications. The axilla are unremarkable. No significant changes. MM/MM tomosynthesis screening BI IMPRESSION: No mammographic evidence of malignancy. ASSESSMENT: BI-RADS 2: Benign RECOMMENDATION: Routine annual mammography screening. This patient's information was entered into a reminder system with a target due date for their next mammogram.
--- NOTE | ~2021-08-02 | MM_ITS ---
EXAMINATION: BONE DENSITOMETRY CLINICAL INDICATION: Unspecified menopausal and perimenopausal disorder. COMPARISON: None (current study represents initial baseline exam). TECHNIQUE: Using a [employer] DXA System (software version: 13.1) manufactured by [employer], dual-energy x-ray absorptiometry was performed of the lumbar spine and left hip. The images are of good technical quality. Summary results are attached. FINDINGS: AP SPINE L1-L2 (excluding L3 and L4): The data of L1-L4 has been changed to exclude the L3 and L4 vertebral bodies, because degenerative changes at these levels may cause overestimation of lumbar spine density. BMD 1.091 g/cm2, Z-score 0.2, T-score -0.6, normal. LEFT FEMUR, NECK: BMD 0.901 g/cm2, Z-score 0.4, T-score -1.0, normal. LEFT FEMUR, TOTAL: BMD 0.992 g/cm2, Z-score 1.0, T-score -0.1, normal. IDENTIFIED RISK FACTORS: Secondary osteoporosis (intestinal or bowel disease, early menopause). Rheumatoid arthritis. HISTORY OF FRACTURE: None listed. MEDICATIONS: Vitamin D. MM/XR DEXA axial skeleton IMPRESSION: 1. DIAGNOSIS: Normal bone density based on the lowest T-score value of -1.0 in the femoral neck applying World Health Organization criteria. 2. 10-YEAR FRACTURE RISK PREDICTION, FRAX: According to the guidelines, FRAX calculation should only be performed on patients in the osteopenia bone density category. Therefore, FRAX was not performed on this patient. 3. Treatment Recommendations: NOF guidelines recommend consideration for treatment in postmenopausal women and men age 50 and older presenting with the following: -A hip or vertebral (clinical or morphometric) fracture. -T-score less than or equal to -2.5 at the femoral neck or spine after appropriate evaluation to exclude secondary causes. -Low bone mass at the hip or spine and a 10-year fracture probability by FRAX of greater than or equal to 3% for hip fracture or greater than or equal to 20% for major osteoporotic fracture based on the [place] adapted WHO algorithm. 4. Other Recommendations: All treatment decisions require clinical judgment and consideration of individual patient factors, including patient preferences, comorbidities, previous drug use, risk factors not captured in the FRAX model (e.g. frailty, falls, vitamin D deficiency, increased bone turnover, interval significant decline in bone density) and possible under or overestimation of fracture risk by FRAX. FUTURE SCAN RECOMMENDATION: People with diagnosed cases of osteoporosis or at high risk for fracture should have regular bone mineral density tests. For patients eligible for Medicare, routine testing is allowed once every 2 years. The testing frequency can be increased to one year for patients who have rapidly progressing disease, those who are receiving or discontinuing medical therapy to restore bone mass, or have additional risk factors.
== END 2021-08-02 10:48 | disposition home or self-care (01) ==
LOC: HO.MAMMO 10:47
PROVIDERS: Visit Provider Internal Medicine
DX: Z12.31 Encounter for screening mammogram for malignant neoplasm of breast (principal); Z13.820 Encounter for screening for osteoporosis; Z78.0 Asymptomatic menopausal state
CPT/HCPCS: 77063; 77067; 77080

== ENCOUNTER 2021-08-03 06:56 | Outpatient (REF) | payer MEDICARE, SELFPAY ==
[2021-08-03 07:49] LABS: Estimated Average Glucose 146 mg/dL; Hemoglobin A1c % 6.7 %
[2021-08-03 07:54] LABS: Alanine Aminotransferase 12 U/L (0-31); Anion Gap 13 (12-20); Aspartate Amino Transferase 16 U/L (5-31); Blood Urea Nitrogen 13 mg/dL (9-16); Calcium 9.7 mg/dL (8.4-10.2); Carbon Dioxide 30 mmol/L (22-29); Chloride 103 mmol/L (96-108); Cholesterol 169 mg/dL; Estimated Glomerular Filt Rate > 60; Glucose Fasting 135 mg/dL (60-99); HDL Cholesterol 49 mg/dL; LDL Cholesterol Calculated 98 mg/dl; Potassium 4.5 mmol/L (3.3-5.1); Sodium 141 mmol/L (135-145); Triglycerides 114 mg/dL
[2021-08-03 10:35] LABS: Creatinine Urine 82.57 mg/dL; Microalbum/Creatinine Ratio Ur 9.6 ug/mg cr
== END 2021-08-03 06:57 | disposition home or self-care (01) ==
LOC: HO.LAB 06:56
PROVIDERS: PCP Internal Medicine; Visit Provider Internal Medicine
DX: E11.65 Type 2 diabetes mellitus with hyperglycemia (principal); E78.5 Hyperlipidemia, unspecified
CPT/HCPCS: 36415; 80048; 80061; 82043; 83036; 84450; 84460

== ENCOUNTER → 2021-08-07 11:33 | Outpatient (BNVA) | payer MEDICARE, SELFPAY | PROVIDERS: PCP Internal Medicine; Visit Provider Surgery Vascular Surgery | DX: I83.12 Varicose veins of left lower extremity with inflammation (principal) | CPT/HCPCS: 99212 ==

== ENCOUNTER 2021-11-15 06:34 | Outpatient (REF) | payer MEDICARE, SELFPAY ==
[2021-11-15 08:00] LABS: Alanine Aminotransferase 13 U/L (0-31); Anion Gap 14 (12-20); Aspartate Amino Transferase 16 U/L (5-31); Blood Urea Nitrogen 16 mg/dL (9-16); Calcium 9.5 mg/dL (8.4-10.2); Carbon Dioxide 30 mmol/L (22-29); Chloride 103 mmol/L (96-108); Cholesterol 163 mg/dL; Estimated Glomerular Filt Rate > 60; Glucose Fasting 127 mg/dL (60-99); HDL Cholesterol 52 mg/dL; LDL Cholesterol Calculated 84 mg/dl; Potassium 4.3 mmol/L (3.3-5.1); Sodium 143 mmol/L (135-145); Triglycerides 137 mg/dL
[2021-11-15 08:05] LABS: Vitamin D 25-OH Total 50.8 ng/mL (>30)
== END 2021-11-15 06:35 | disposition home or self-care (01) ==
LOC: HO.LAB 06:34
PROVIDERS: PCP Internal Medicine; Visit Provider Internal Medicine
DX: E11.9 Type 2 diabetes mellitus without complications (principal); E78.5 Hyperlipidemia, unspecified; I10 Essential (primary) hypertension
CPT/HCPCS: 36415; 80048; 80061; 82306; 84450; 84460

== ENCOUNTER → 2021-12-18 14:02 | Outpatient (BNVA) | payer MEDICARE, SELFPAY | PROVIDERS: PCP Internal Medicine; Visit Provider Hospitalist | DX: J98.4 Other disorders of lung (principal); J44.9 Chronic obstructive pulmonary disease, unspecified; G47.33 Obstructive sleep apnea (adult) (pediatric); R91.8 Other nonspecific abnormal finding of lung field; J01.90 Acute sinusitis, unspecified; Z87.891 Personal history of nicotine dependence | CPT/HCPCS: 99212 ==

== ENCOUNTER → 2021-12-20 10:51 | Outpatient (BNVA) | payer MEDICARE, SELFPAY | PROVIDERS: PCP Internal Medicine; Visit Provider Surgery Vascular Surgery | DX: I83.11 Varicose veins of right lower extremity with inflammation (principal); I83.12 Varicose veins of left lower extremity with inflammation | CPT/HCPCS: 99212 ==

== ENCOUNTER 2022-01-24 06:56 | Emergency (ER) | payer MEDICARE, SELFPAY ==
--- NOTE | ~2022-01-24 | XR_ITS ---
EXAMINATION: 1. RADIOGRAPHS RIGHT SHOULDER 2. RADIOGRAPHS RIGHT HUMERUS CLINICAL INFORMATION: Pain after fall COMPARISON: None TECHNIQUE: 3 views of the right shoulder and 2 views of the right humerus were obtained. 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 There is a nondisplaced fracture involving the proximal right humerus. Components continues to demonstrate expected alignment. There are mild to moderate degenerative changes of the right acromioclavicular joint. Visualized right-sided ribs and lung parenchyma are unremarkable. XR/XR shoulder RT min 2V IMPRESSION: Nondisplaced fracture involving the proximal right humerus.
--- NOTE | ~2022-01-24 | XR_ITS ---
EXAMINATION: 1. RADIOGRAPHS RIGHT SHOULDER 2. RADIOGRAPHS RIGHT HUMERUS CLINICAL INFORMATION: Pain after fall COMPARISON: None TECHNIQUE: 3 views of the right shoulder and 2 views of the right humerus were obtained. 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 There is a nondisplaced fracture involving the proximal right humerus. Components continues to demonstrate expected alignment. There are mild to moderate degenerative changes of the right acromioclavicular joint. Visualized right-sided ribs and lung parenchyma are unremarkable. XR/XR humerus RT IMPRESSION: Nondisplaced fracture involving the proximal right humerus.
--- NOTE | 2022-01-24 07:06 | ED_ITS ---
HPI - Extremity Problem General Chief complaint: Fall Stated complaint: fall, unable to move arm and shoulder Time Seen by Provider: 01/24/22 07:02 Source: patient Mode of arrival: ambulatory Limitations: no limitations History of Present Illness HPI Narrative: Patient slipped on the grass last night chasing the dog, patient with right arm pain. No LOC MD Complaint: extremity pain Onset (ago): hour(s) Pain Consistency: constant Location: right and upper extremity Quality: sharp Exacerbating factors: range of motion Related Data Home Medications Medication Instructions Recorded Confirmed carvedilol 25 mg tablet 25 mg PO BID 12/15/19 11/22/21 dicyclomine 10 mg capsule 10 mg PO QID PRN Indigestion 12/15/19 11/22/21 flu vacc [id number](65yr up)-PF 240 ml IM DIRECTED 02/07/20 11/22/21 mcg/0.7 mL intramuscular syringe one touch delica plus lancets subcut DAILY 05/16/20 11/22/21 lorazepam 0.5 mg tablet 0.5 mg PO DAILY PRN anxiety 12/01/20 11/22/21 escitalopram oxalate 20 mg tablet 20 mg PO DAILY 08/07/21 11/22/21 Previous Rx's Medication Instructions Recorded blood-glucose meter #1 ea 01/20/20 blood sugar diagnostic (OneTouch #50 ea 05/09/20 Ultra Blue Test Strip) lancets 30 gauge (OneTouch Delica #100 ea 05/30/20 Plus Lancet) budesonide-formoterol HFA 160 2 puff PO BID #10.2 grams 07/03/20 mcg-4.5 mcg/actuation aerosol inhaler blood sugar diagnostic (OneTouch #50 strips 04/10/21 Ultra Test strips) albuterol sulfate 90 mcg/actuation 2 puff inhalation Q6H PRN wheezing 06/06/21 aerosol inhaler #8.5 grams fluticasone fur. 200 mcg-umeclid 1 inh inhalation DAILY 30 days #60 06/06/21 62.5 mcg-vilant 25 mcg ea inhalat.powder (Trelegy Ellipta) fluticasone propionate 50 50 spray intranasal DAILY 30 days 06/06/21 mcg/actuation nasal #16 grams spray,suspension cholecalciferol (vitamin D3) 50 50 mcg PO DAILY #90 caps 07/17/21 mcg (2,000 unit) capsule (Vitamin D3) sitagliptin 100 mg tablet (Januvia) 100 mg PO DAILY #30 tabs 07/19/21 metformin 500 mg tablet 500 mg PO DAILY #90 tabs 07/26/21 nystatin 100,000 unit/gram topical 100,000 unit topical TID PRN 08/14/21 powder Vaginal Irritation #60 grams hydrochlorothiazide 25 mg tablet 25 mg PO QAM #90 tabs 09/07/21 losartan 100 mg tablet 100 mg PO DAILY #90 tabs 09/07/21 dapagliflozin 10 mg tablet 10 mg PO QAM 90 days #90 tabs 10/12/21 (Farxiga) mirabegron 25 mg tablet,extended 25 mg PO DAILY #30 tabs 11/13/21 release 24 hr (Myrbetriq) cwazqwlpsn-qnbevvp-qgjtdzsb 50 1 cap PO Q6H PRN pain #10 caps 11/22/21 mg-325 mg-40 mg capsule clotrimazole-betamethasone 1 1 appl topical BID PRN rash #45 11/22/21 %-0.05 % topical cream grams atorvastatin 10 mg tablet 10 mg PO DAILY #30 tabs 12/17/21 amoxicillin 875 mg-potassium 1 tab PO BID 10 days #20 tabs 12/18/21 clavulanate 125 mg tablet loratadine 10 mg tablet (Claritin) 10 mg PO DAILY 30 days #30 tabs 12/18/21 Allergies Allergy/AdvReac Type Severity Reaction Status Date / Time oxycodone [Oxycodone] AdvReac Severe VOMITTING Verified 12/20/21 10:58 From OxyContin AdvReac Severe VOMITTING Uncoded 12/20/21 10:58 Review of Systems Review of Systems: Yes all other systems are reviewed and are negative Neurologic: Denies Sensory deficit (Neuro) [facility] Past Medical History Medical History Asthma-COPD overlap syndrome Chronic restrictive lung disease COVID-19 virus infection Diabetes mellitus with hyperglycemia, without long-term current use of insulin Dyslipidemia Erythema intertrigo Family history of breast cancer gene mutation in first degree relative GERD (gastroesophageal reflux disease) Irritable bowel syndrome Menopause Obstructive sleep apnea PONV (postoperative nausea and vomiting) Preoperative examination Pulmonary nodule Pulmonary nodules Requires supplemental oxygen Rib pain Type 2 diabetes mellitus without complication, without long-term current use of insulin Type 2 diabetes mellitus without complication, without long-term current use of insulin Surgical History History of appendectomy History of shoulder surgery History of total knee replacement Hx of cholecystectomy Family History Family History Father Stroke Mother HTN (hypertension) Diabetes mellitus Brother Kidney disease Brother Pneumonia Daughter Invasive ductal carcinoma of breast, Onset Age: 53 Social History Social History Housing: House Alcohol intake: never Patient Tobacco Use Status: Former Tobacco user Quit Date: 1999 e-Cigarette/Vaping Use: Never Used Advance Directives: No Advance Directives Information Provided: No Current occupational status: retired Cognitive needs: No Hearing needs: No Vision needs: Yes Physical Exam Vital Signs: Vital Signs: Last Vital Signs Temp 98.4 F 01/24/22 07:32 Pulse 72 01/24/22 07:52 Resp 14 01/24/22 07:52 BP 141/58 H 01/24/22 07:32 Pulse Ox 99 01/24/22 07:52 O2 Del Method 01/24/22 07:52 BMI result Body Mass Index 42.0 Const: General: healthy appearing Nutritional Appearance: average body habitus Orientation/consciousness: oriented to person and patient oriented x3 Limitations: no limitations HEENT: Head: Yes normal to inspection Ears: external ears normal General nose exam: Normal external nose present Mouth: Normal oral and palatal mucosa present and oropharynx normal Throat: Yes posterior oropharynx normal Eyes: General: appearance normal, both eyes and all related structures Neck: Other: supple Neck: Yes normal visual inspection Chest: Chest palpation & inspection: normal inspection of the chest Resp: Auscultation: clear to auscultation bilaterally Cardio: Jugular venous distension: no JVD Rate: regular rate Rhythm: regular rhythm Heart sounds: S1 normal heart sound present and S2 normal heart sound present GI: Inspection: Yes normal to inspection Palpation (GI): Soft to palpation, nontender and No hepatosplenomegaly present Auscultation: normal bowel sounds : General: Yes no CVA tenderness Back/Spine/Pelvis: Back: no CVA tenderness Skin: General skin exam: no rashes or lesions noted Neuro: General: oriented to person and patient oriented x3 Cranial nerves: Yes CN's II-XII intact bilaterally Motor exam (neuro): 5/5 motor strength present throughout Sensory Exam: No Sensory deficit (Neuro) Extrem: Other: right shoulder and humerus tenderness to palpation Psych: Appearance: grossly normal Medications Administered Discontinued Medications Generic Name Dose Route Start Last Admin Trade Name Julia PRN Reason Stop Dose Admin Ketorolac Tromethamine 60 mg 01/24/22 07:09 01/24/22 07:35 Ketorolac Tromethamine 60 Mg/2 Ml Vial IM 01/24/22 07:10 60 mg ONCE ONE Administration MDM - Extremity (Nontraumatic) Imaging Data shoulder and humerus: My impression: Proximal humerus fracture around shoulder prosthesis Discharge Plan Discharge Clinical Impression: Fracture, humerus closed Patient Disposition: Home, Self-Care Instructions: Shoulder Immobilizer (ED) Prescriptions: No Action (DME) blood-glucose meter Kit See Rx Instructions .ROUTE .MEDSUPPLY Qty: 1 0RF Rx Instructions: As directed (DME) OneTouch Ultra Blue Test Strip Strip See Rx Instructions .ROUTE .MEDSUPPLY Qty: 50 8RF Rx Instructions: use one test strip once a day and as needed to test blood sugar one touch delica plus lancets subcut DAILY (DME) lancets [OneTouch Delica Plus Lancet] 30 gauge misc See Rx Instructions .ROUTE .MEDSUPPLY Qty: 100 6RF Rx Instructions: Use As directed twice a day budesonide-formoterol 160-4.5 mcg/actuation HFA aerosol inhaler 2 puff PO BID Qty: 10.2 3RF (DME) OneTouch Ultra Test Strip See Rx Instructions .ROUTE .COMPLEX Qty: 50 6RF Dose Instruction: CHECKS BLOOD SUGAR ONCE A DAY A.C. Rx Instructions: CHECKS BLOOD SUGAR ONCE A DAY A.C. cholecalciferol (vitamin D3) [Vitamin D3] 50 mcg (2,000 unit) capsule 50 mcg PO DAILY Qty: 90 3RF Januvia 100 mg tablet 100 mg PO DAILY Qty: 30 6RF hydrochlorothiazide 25 mg tablet 25 mg PO QAM Qty: 90 1RF losartan 100 mg tablet 100 mg PO DAILY Qty: 90 1RF Farxiga 10 mg tablet 10 mg PO QAM 90 Days Qty: 90 0RF Myrbetriq 25 mg tablet extended release 24 hr 25 mg PO DAILY Qty: 30 2RF atorvastatin 10 mg tablet 10 mg PO DAILY Qty: 30 4RF carvedilol 25 mg tablet 25 mg PO BID dicyclomine 10 mg capsule 10 mg PO QID PRN (Reason: Indigestion) metformin 500 mg tablet 500 mg PO DAILY Qty: 90 2RF Rx Instructions: take with supper clotrimazole-betamethasone 1-0.05 % cream 1 appl topical BID PRN (Reason: rash) Qty: 45 1RF qayuxxptok-pidfoly-zsokrwjc 50-325-40 mg capsule 1 cap PO Q6H PRN (Reason: pain) Qty: 10 0RF nystatin 100,000 unit/gram powder 100,000 unit topical TID PRN (Reason: Vaginal Irritation) Qty: 60 0RF Fluzone HighDose Quad 20-21 PF 240 mcg/0.7 mL syringe IM DIRECTED lorazepam 0.5 mg tablet 0.5 mg PO DAILY PRN (Reason: anxiety) Trelegy Ellipta 200-62.5-25 mcg blister with device 1 inh inhalation DAILY 30 Days Qty: 60 12RF albuterol sulfate 90 mcg/actuation HFA aerosol inhaler 2 puff inhalation Q6H PRN (Reason: wheezing) Qty: 8.5 11RF fluticasone propionate 50 mcg/actuation spray,suspension 50 spray intranasal DAILY 30 Days Qty: 16 11RF Rx Instructions: 2 sprays escitalopram oxalate 20 mg tablet 20 mg PO DAILY amoxicillin-pot clavulanate 875-125 mg tablet 1 tab PO BID 10 Days Qty: 20 0RF loratadine [Claritin] 10 mg tablet 10 mg PO DAILY 30 Days Qty: 30 11RF Referrals: Physician,Nonstaff [Physician] - (Call for Dr. Holland tomorrow)
[2022-01-24 07:32] VITALS: BP 141/58; PULSE 70; RESP 14; TEMP 36.9; O2SAT 96; BMI 42.0
[2022-01-24] MEDS: Ketorolac Tromethamine 60 MG/2 ML VIAL IM (07:35)
[2022-01-24 07:52] VITALS: PULSE 72; RESP 14; O2SAT 99
== END 2022-01-24 08:39 | disposition home or self-care (01) ==
PROVIDERS: Emergency Provider Emergency Medicine; PCP Internal Medicine
DX: S42.201A Unspecified fracture of upper end of right humerus, initial encounter for closed fracture (principal); W01.0XXA Fall on same level from slipping, tripping and stumbling without subsequent striking against object, initial encounter; Y93.02 Activity, running; Y92.017 Garden or yard in single-family (private) house as the place of occurrence of the external cause; Y99.9 Unspecified external cause status
CPT/HCPCS: 73030; 73060; 96372; 99284; J1885

== ENCOUNTER 2022-04-12 06:41 | Outpatient (REF) | payer MEDICARE, SELFPAY ==
[2022-04-12 06:46] LABS: MANUAL DIFF FLAG NO
[2022-04-12 07:55] LABS: Basophils Absolute Auto 0.1 X10*3/uL (0.0-0.2); Basophils Percent Auto 0.6 % (0-2); Eosinophils Absolute Auto 0.2 X10*3/uL (0.0-0.4); Eosinophils Percent Auto 1.7 % (0-4); Hemoglobin 13.5 g/dl (12.0-16.0); Imm Gran Abs Auto 0.05 X10*3/uL (0.00-0.03); Imm Gran Pct Auto 0.5 % (0.0-0.4); Lymphocytes Absolute Auto 2.7 X10*3/uL (1.2-4.9); Lymphocytes Percent Auto 26.7 % (20-40); Mean Corpuscular HGB Conc 32.1 g/dl (31.0-35.0); Mean Corpuscular Hemoglobin 31.1 pg (27.0-33.0); Mean Corpuscular Volume 96.8 fL (80.0-98.0); Mean Platelet Volume 10.1 fL (9.4-12.3); Monocytes Absolute Auto 0.9 X10*3/uL (0.1-1.2); Monocytes Percent Auto 9.1 % (2-11); Neutrophils Absolute Auto 6.3 x10*3/uL (2.0-8.3); Neutrophils Percent Auto 61.4 % (45-73); Platelet Count 234 X10*3/uL (160-400); Red Blood Count 4.34 X10*6/uL (4.20-5.50); Red Cell Distribution Width 12.4 % (11.0-16.0); White Blood Count 10.2 X10*3/uL (4.8-10.8)
[2022-04-12 08:00] LABS: Estimated Average Glucose 134 mg/dL; Hemoglobin A1c % 6.3 %
[2022-04-12 08:18] LABS: Alanine Aminotransferase 14 U/L (0-31); Anion Gap 16 (12-20); Aspartate Amino Transferase 19 U/L (5-31); Blood Urea Nitrogen 18 mg/dL (9-16); Calcium 9.8 mg/dL (8.4-10.2); Carbon Dioxide 31 mmol/L (22-29); Chloride 100 mmol/L (96-108); Cholesterol 190 mg/dL; Estimated Glomerular Filt Rate > 60; Glucose Fasting 126 mg/dL (60-99); HDL Cholesterol 57 mg/dL; LDL Cholesterol Calculated 100 mg/dl; Potassium 4.8 mmol/L (3.3-5.1); Sodium 142 mmol/L (135-145); Triglycerides 165 mg/dL
[2022-04-12 08:47] LABS: Folate 7.6 ng/mL (> or = 4.0); Vitamin B12 240 pg/mL (200-900); Vitamin D 25-OH Total 41.7 ng/mL (>30)
[2022-04-12 09:24] LABS: Creatinine Urine 55.43 mg/dL; Microalbumin Urine < 5.0 mg/L
== END 2022-04-12 06:42 | disposition home or self-care (01) ==
LOC: HO.LAB 06:41
PROVIDERS: PCP Internal Medicine; Visit Provider Internal Medicine
DX: E11.9 Type 2 diabetes mellitus without complications (principal); E78.5 Hyperlipidemia, unspecified; I10 Essential (primary) hypertension; K21.9 Gastro-esophageal reflux disease without esophagitis; Z78.0 Asymptomatic menopausal state
CPT/HCPCS: 36415; 80048; 80061; 82043; 82306; 82607; 82746; 83036; 84450; 84460; 85025

== ENCOUNTER 2022-05-08 10:33 | Outpatient (AMB) | payer MEDICARE, SELFPAY ==
--- NOTE | 2022-05-08 11:05 | A.OFFPC_ITS ---
Vital Signs 05/08/22 11:20 Height 5 ft 4 in Weight 211 lb BMI 36.2 Intake Visit Reasons: 6 month f/u Intake Note: Pt is here today for her 6 months f/u Allergies oxycodone [Oxycodone] Adverse Reaction (Severe, Verified 05/08/22 11:06) VOMITTING From OxyContin Adverse Reaction (Severe, Uncoded 05/08/22 11:06) VOMITTING Tobacco use date assessed: 05/08/22 Fall risk assessment: 1 Fall in past year Last assessed Fall Risk: 05/08/22 [facility] Medical History Asthma-COPD overlap syndrome Chronic restrictive lung disease COVID-19 virus infection Diabetes mellitus with hyperglycemia, without long-term current use of insulin Dyslipidemia Erythema intertrigo Family history of breast cancer gene mutation in first degree relative GERD (gastroesophageal reflux disease) Irritable bowel syndrome Menopause Obstructive sleep apnea PONV (postoperative nausea and vomiting) Preoperative examination Pulmonary nodule Pulmonary nodules Requires supplemental oxygen Rib pain Type 2 diabetes mellitus without complication, without long-term current use of insulin Type 2 diabetes mellitus without complication, without long-term current use of insulin Surgical History History of appendectomy History of shoulder surgery History of total knee replacement Hx of cholecystectomy Family History Father Stroke Mother HTN (hypertension) Diabetes mellitus Brother Kidney disease Brother Pneumonia Daughter Invasive ductal carcinoma of breast, Onset Age: 53 Social History Housing: House Alcohol intake: never Patient Tobacco Use Status: Former Tobacco user Quit Date: 1999 e-Cigarette/Vaping Use: Never Used Current occupational status: retired Cognitive needs: No Hearing needs: No Vision needs: Yes Questionnaire Thrive Questionnaire Date Thrive assessed: 04/16/21 AUDIT C Alcohol Use Questionnaire (AUDIT-C) 1. How often do you have a drink containing alcohol?: Never Total Score: 0 JAZMYN-7 AMB Questionnaire JAZMYN-7 Date JAZMYN - 7 assessed: 04/16/21 Source: Developed by Drs. Low Retana, Janine Amador, Pj Mckeon and colleagues, with an educational nicole from [employer]. Physical exam (Primary Care) Tobacco/Smoking Status: Tobacco use Status Tobacco use date assessed 11/22/21 11/22/21 10:39 Patient Tobacco Use Status Former Tobacco user 11/22/21 10:39 e-Cigarette/Vaping Use Never Used 11/22/21 10:39 Thrive Assessment: Date of Thrive Assessment Date Thrive assessed 04/16/21 11/22/21 10:39 Coding
[2022-05-08 11:20] VITALS: BP 132/70; PULSE 68; O2SAT 96; BMI 36.2
--- NOTE | 2022-05-08 11:26 | MHC.PC.OV ---
Vital Signs 05/08/22 11:20 Height 5 ft 4 in Weight 211 lb BMI 36.2 BP 132/70 Blood Pressure Location Lt brachial Position Sitting Pulse 68 Pulse Source Pulse Oximeter Pulse Oximetry (%) 96 Oxygen Delivery Method Room Air Intake Visit Reasons: 6 month f/u Intake Note: Pt is here today for her 6 months f/u Allergies oxycodone [Oxycodone] Adverse Reaction (Severe, Verified 10/08/22 10:02) VOMITTING From OxyContin Adverse Reaction (Severe, Uncoded 10/08/22 10:02) VOMITTING Medication List - Last Reconciled 05/08/22 by Ramonita Douglas MD albuterol sulfate 90 mcg/actuation 2 puffs inhalation Q6H PRN atorvastatin 10 mg PO DAILY blood sugar diagnostic ([employer] Ultra Blue Test Strip) use one test strip once a day and as needed to test blood sugar blood sugar diagnostic ([employer] Ultra Test strips) CHECKS BLOOD SUGAR ONCE A DAY A.C. blood-glucose meter As directed budesonide-formoterol 160-4.5 mcg/actuation 2 puffs PO BID kymmcjjjgb-oryquxr-vleqirky 50-325-40 mg 1 cap PO Q6H PRN NS carvedilol 25 mg PO BID chlorthalidone 25 mg PO DAILY cholecalciferol (vitamin D3) (Vitamin D3) 50 mcg PO DAILY clotrimazole-betamethasone 1-0.05 % 1 appl topical BID PRN dapagliflozin (Farxiga) 10 mg PO QAM 90 days dicyclomine 10 mg PO QID PRN escitalopram oxalate 20 mg PO DAILY fluticasone propionate 50 mcg/actuation 50 sprays intranasal DAILY 30 days buaelvdoiqu-lhsabkgnq-wczkweiz 200-62.5-25 mcg (Trelegy Ellipta) 1 inh inhalation DAILY 30 days lancets ([employer] Delica Plus Lancet) Use As directed twice a day lorazepam 0.5 mg PO DAILY PRN losartan 100 mg PO DAILY metformin 500 mg PO DAILY mirabegron ER (Myrbetriq) 25 mg PO DAILY nystatin 100,000 units topical TID PRN [one touch delica plus lancets subcut DAILY] sitagliptin phosphate (Januvia) 100 mg PO DAILY spironolactone 25 mg PO DAILY Tobacco use date assessed: 05/08/22 HPI 6 month f/u HPI Details 77-year-old lady here today for follow-up on her diabetes mellitus, hypertension, and dyslipidemia. She has been compliant with taking her medications, and has been trying to follow recommended diet but has not been very active during this past winter months. [facility] Medical History (Updated 10/08/22 @ 10:25 by Ramonita Douglas MD) Asthma-COPD overlap syndrome Chronic restrictive lung disease COVID-19 virus infection Diabetes mellitus with hyperglycemia, without long-term current use of insulin Dyslipidemia Erythema intertrigo Family history of breast cancer gene mutation in first degree relative GERD (gastroesophageal reflux disease) Irritable bowel syndrome Lumbago Menopause Mixed stress and urge urinary incontinence Obstructive sleep apnea PONV (postoperative nausea and vomiting) Preoperative examination Pulmonary nodule Pulmonary nodules Requires supplemental oxygen Rib pain Type 2 diabetes mellitus without complication, without long-term current use of insulin Surgical History History of appendectomy History of shoulder surgery History of total knee replacement Hx of cholecystectomy Status post ablation of incompetent vein using laser (~2021) Family History Father Stroke Mother HTN (hypertension) Diabetes mellitus Brother Kidney disease Brother Pneumonia Daughter Invasive ductal carcinoma of breast, Onset Age: 53 Social History Housing: House Alcohol intake: never Patient Tobacco Use Status: Former Tobacco user Quit Date: 1999 e-Cigarette/Vaping Use: Never Used service: No Current occupational status: retired Cognitive needs: No Hearing needs: No Vision needs: Yes Questionnaire PHQ-9 Over the last 2 weeks, how often have you been bothered by any of the following problems? 1. Little interest or pleasure in doing things: not at all 2. Feeling down, depressed, or hopeless: not at all 3. Trouble falling or staying asleep, or sleeping too much: not at all 4. Feeling tired or having little energy: more than half the days 5. Poor appetite or overeating: not at all 6. Feeling bad about yourself - or that you are a failure or have let yourself or your family down: not at all 7. Trouble concentrating on things, such as reading the newspaper or watching television: not at all 8. Moving or speaking so slowly that other people could have noticed. Or the opposite - being so fidgety or restless that you have been moving around a lot more than usual: not at all 9. Thoughts that you would be better off or of hurting yourself in some way: not at all Total score: 2 Depression Screening Interpretation: Negative 80932 - PHQ-9 Billing: Yes Source: Developed by Drs. Low Retana, Janine Amador, Pj Mckeon and colleagues, with an educational nicole from [employer]. Thrive Questionnaire Date Thrive assessed: 05/08/22 I am a: Patient What is your living situation today?: I have a steady place to live Within the past 12 months, did the food you bought not last and you didn't have the money to get more?: Never true Within the past 12 months, did you worry whether your food would run out before you got money to buy more?: Never true Do you have trouble paying for medicines?: No Do you have trouble getting transportation to medical appointments?: No Do you have trouble paying your heating and electricity bill?: No Do you have trouble taking care of your child, family member or friend?: No Do you have trouble with day-to-day activities such as bathing, preparing meals, shopping, managing finances, etc.?: No Are you currently unemployed and looking for a job?: No Are you interested in more education?: No AUDIT C Alcohol Use Questionnaire (AUDIT-C) 1. How often do you have a drink containing alcohol?: Never Total Score: 0 JAZMYN-7 AMB Questionnaire JAZMYN-7 Date JAZMYN - 7 assessed: 05/08/22 Feeling nervous, anxious, or on edge: 0 = Not at all Not being able to stop or control worryin = Not at all Worrying too much about different things: 0 = Not at all Trouble relaxin = Not at all Being so restless that it is hard to sit still: 0 = Not at all Becoming easily annoyed or irritable: 0 = Not at all Feeling afraid as if something awful might happen: 0 = Not at all Total JAZMYN-7 score (0-4 normal; 5-9 mild; 10-14 moderate; 15-21 severe): 0 Source: Developed by Drs. Low Retana, Janine Amador, Pj Mckeon and colleagues, with an educational nicole from [employer]. JAZMYN-7 Assessment Billing JAZMYN-7 Assessment Tool: JAZMYN-7 Assessment 40715 Review of Systems Const Denies fatigue, Denies fever(s), Denies frequent falls, Denies malaise, Denies weight gain and Denies weight loss Eyes Denies change in vision ENT Reports no additional complaints and Reports Normal hearing present Card Denies chest pain, Denies chest pain with activity, Denies rapid heart rate, Denies edema, Denies irregular heart rhythm and Denies dyspnea Resp Denies chest congestion, Denies cough and Denies dyspnea GI Reports no additional complaints Reports no additional complaints Musc Details: pain over varicosities, aching of lower extremities, swelling, cramping, heaviness and tiredness, itching Denies abnormal gait Neuro Reports no additional complaints, Reports Normal hearing present, Denies abnormal gait and Denies frequent falls Psych Denies no additional complaints Endo Denies fatigue Physical exam (Primary Care) Vital Signs: Last Vital Signs Pulse 68 05/08/22 11:20 BP 132/70 05/08/22 11:20 Pulse Ox 96 05/08/22 11:20 Oxygen Delivery Method Room Air 05/08/22 11:20 BMI result Body Mass Index 36.2 BMI Assessment/Plan discussion: High BMI High, discussed plan: lifestyle, weight reduction, dietary and physical activity Tobacco/Smoking Status: Tobacco use Status Tobacco use date assessed 05/08/22 05/08/22 11:28 Patient Tobacco Use Status Former Tobacco user 05/08/22 11:28 e-Cigarette/Vaping Use Never Used 05/08/22 11:28 PHQ-9: PHQ-9 Score PHQ-9: Total score 2 05/08/22 11:36 Depression Screening Interpretation: Negative Thrive Assessment: Date of Thrive Assessment Date Thrive assessed 05/08/22 05/08/22 11:28 Const General: comfortable, no acute distress and alert Orientation/consciousness: patient oriented x3 Limitations: no limitations HENMT Mouth: Normal oral and palatal mucosa present and moist mucous membranes Neck Neck: Yes full ROM, Yes no lymphadenopathy and Yes supple Resp Effort & Inspection: normal respiratory effort and able to speak in complete sentences Auscultation: clear to auscultation bilaterally Cardio Rate: regular rate Rhythm: regular rhythm Heart sounds: S1 normal heart sound present and S2 normal heart sound present GI Inspection: Yes obesity Palpation (GI): Soft to palpation, nontender, no guarding and no masses Auscultation: normal bowel sounds External Female Exam: normal external appearance Back/Spine/Pelvis Back: No back tenderness Neuro General: patient oriented x3, gait normal, tone normal, moves all extremities, Normal light touch and pain sensation and no focal motor deficits Cranial nerves: Yes Normal hearing present Cognition (Neuro): normal cognition Extrem General: Yes full ROM, Yes no joint enlargement, Yes no clubbing, cyanosis or edema and Yes no calf tenderness Psych Appearance: grossly normal and well kempt Mental Status: mental status grossly normal Speech and movement: Normal speech and movement present Affect: normal affect Attitude: cooperative Results Reviewed Results Reviewed: Laboratory Tests 11/22/21 04/12/22 04/12/22 10:46 06:44 06:44 Estimat Average Glucose 134 Hgb A1c (Clinic) 6.5 H Hemoglobin A1c % 6.3 Urine Creatinine 55.43 Urine Microalbumin < 5.0 Microalb/Creat Ratio TNP ENTERED: 04/12/[address]: ORDERED: CBC Auto Diff Test Result Flag Reference Site WBC 10.2 4.8-10.8 X10*3/uL RBC 4.34 4.20-5.50 X10*6/uL HGB 13.5 12.0-16.0 g/dl HCT 42.0 37.0-47.0 % MCV 96.8 80.0-98.0 fL MCH 31.1 27.0-33.0 pg MCHC 32.1 31.0-35.0 g/dl RDW 12.4 11.0-16.0 % PLT 234 160-400 X10*3/uL ENTERED: 04/12/[address]: ORDERED: Met Prof Fast, AST, ALT, Lipid Panel, B12FOL, Vitamin D 25-OH Test Result Flag Reference Site Sodium 142 135-145 mmol/L Potassium 4.8 3.3-5.1 mmol/L CL 100 96-108 mmol/L CO2 31 H 22-29 mmol/L Gap 16 12-20 BUN 18 H 9-16 mg/dL Creat 0.70 0.5-1.4 mg/dL EGFR > 60 NOTE: For -English individuals, multiply the result by 1.210. Chronic Kidney Disease: Estimated GFR < 60 mL/min/1.73m2 Severe Kidney Disease: Estimated GFR < 15 mL/min/1.73m2 FBS 126 H 60-99 mg/dL A fasting glucose of 126 mg/dl or greater on more than one occasion is considered diagnostic of diabetes. CA 9.8 8.4-10.2 mg/dL AST (GOT) 19 5-31 U/L ALT (GPT) 14 0-31 U/L Triglyceride 165 mg/dL Desirable Triglyceride: less than 150 mg/dL Borderline High Triglyceride 150-199 mg/dL High Triglyceride: 200-499 mg/dL Very High Triglyceride: greater than or equal to 5OO mg/dL Chol 190 mg/dL Desirable Cholesterol: less than 200 mg/dL Borderline High Cholesterol: 200-239 mg/dL High Cholesterol: greater than 239 mg/dL LDL Calculated 100 mg/dl Desirable LDL: less than 100 mg/dL Near Optimal/Above Optimal LDL: 110-129 mg/dL Borderline High LDL: 130-159 mg/dL High LDL: 160-189 mg/dL Very High LDL: greater than or equal to 190 mg/dL HDL 57 mg/dL Desirable HDL: greater than 40 mg/dL Note: This HDL assay may give artificially low results in patients with liver disease. Vitamin B12 240 200-900 pg/mL NORMAL 200-900 PG/ML INDETERMINATE 160-199 PG/ML DEFICIENT < 160 PG/ML Folate 7.6 > or = 4.0 ng/mL Reference Values: > or = 4.0 ng/mL < 4.0 ng/mL suggests folate deficiency Methotrexate, aminopterin and folinic acid (leucovorin) are chemotherapeutic agents whose molecular structures are similar to folate; therefore, the Pathology Technologist folate assay cannot be used for patients using these drugs. Vit D 25-OH Tot 41.7 >30 ng/mL Health Based Reference Values* Assessment and Plan Assessment & Plan (1) Type 2 diabetes mellitus without complication, without long-term current use of insulin: Code(s): E11.9 - Type 2 diabetes mellitus without complications Plan: Recent lab results reviewed with patient, with sugar and hemoglobin A1c stable and at goal continued on Trelegy, metformin and Farxiga. Reinforced diabetic diet and regular exercise with patient. Counseled regarding importance of yearly diabetes retinopathy screening. Patient advised to inspect feet daily, for any signs of injury, callus or infection. Compliance with diet and regular exercise again stressed. Blood pressure goal is less than 130/80, goal LDL is less than 100 and goal hemoglobin A1c is less than 7% follow-up appointment made in--5-months, after fasting labs done. (2) HTN (hypertension): Code(s): I10 - Essential (primary) hypertension Plan: Blood pressure at goal of less than 130/80. Continue with current medication. Reinforced importance of following a low sodium diet, getting regular exercise, and lowering stress levels. (3) Dyslipidemia: Code(s): E78.5 - Hyperlipidemia, unspecified Plan: Reviewed recent fasting lipid profile with patient with levels within normal limits except for elevated triglycerides. . Continue with following a low-cholesterol diet and regular exercise, at least 30 minutes 3 to 4 times a week. Advised patient to make healthy food choices, eat more fruits, vegetables, whole grains, wild caught fish and low-fat dairy. Limit amount of meat and fried or fatty food products, as well as processed foods and fast foods. Follow-up scheduled with repeat fasting lipid panel in 5 months. Orders: Orders Alanine Aminotransferase 10/07/22 E11.9 - Type 2 diabetes mellitus without complications, I10 - Essential (primary) hypertension, E78.5 - Hyperlipidemia, unspecified Aspartate Amino Transferase 10/07/22 E11.9 - Type 2 diabetes mellitus without complications, I10 - Essential (primary) hypertension, E78.5 - Hyperlipidemia, unspecified Hemoglobin A1c 10/07/22 E11.9 - Type 2 diabetes mellitus without complications, I10 - Essential (primary) hypertension, E78.5 - Hyperlipidemia, unspecified Lipid Panel 10/07/22 E11.9 - Type 2 diabetes mellitus without complications, I10 - Essential (primary) hypertension, E78.5 - Hyperlipidemia, unspecified Basic Metabolic Panel Fasting 10/07/22 E11.9 - Type 2 diabetes mellitus without complications, I10 - Essential (primary) hypertension, E78.5 - Hyperlipidemia, unspecified Vitamin D 25-OH Total 10/07/22 E11.9 - Type 2 diabetes mellitus without complications, I10 - Essential (primary) hypertension, E78.5 - Hyperlipidemia, unspecified Medications: Changed From nystatin 100,000 units topical TID PRN 60 grams 0RF Vaginal Irritation To nystatin 100,000 units topical TID PRN 60 grams 0RF Vaginal Irritation Refilled clotrimazole-betamethasone 1-0.05 % 1 appl topical BID PRN 45 grams 1RF rash B37.49 - Other urogenital candidiasis ihtjtsskzl-ohbxmhr-wmurvmjk 50-325-40 mg 1 cap PO Q6H PRN 10 caps 0RF pain NS R51.9 - Headache, unspecified Coding Level of Care Code Est Pt Level 4 (44224) Diagnoses Type 2 diabetes mellitus without complication, without long-term current use of insulin E11.9 HTN (hypertension) I10 Dyslipidemia E78.5 Additional Codes JAZMYN-7 Assessment Billing - JAZMYN-7 Assessment Tool: JAZMYN-7 Assessment 23638 ([id number])
== END 2022-05-08 12:46 | disposition home or self-care (01) ==
LOC: HO.HMGC 10:33
PROVIDERS: PCP Internal Medicine; Visit Provider Internal Medicine
DX: E11.9 Type 2 diabetes mellitus without complications (principal); I10 Essential (primary) hypertension; E78.5 Hyperlipidemia, unspecified
CPT/HCPCS: 99214

== ENCOUNTER 2022-05-16 09:02 | Outpatient (REF) | payer MEDICARE, SELFPAY ==
--- NOTE | ~2022-05-16 | CT_ITS ---
EXAMINATION: CT CHEST WITHOUT CONTRAST CLINICAL INFORMATION: Solitary pulmonary nodule COMPARISON: CT chest 05/04/2021 TECHNIQUE: Multidetector volumetric CT imaging of the chest was done. Axial MIP volume rendering provided. Sagittal and coronal reformatted images were obtained. This CT examination was performed using dose optimization techniques as appropriate, variously including the following: *Automated exposure control *Adjustment of mA and/or kV according to patient size (this includes techniques or standardized protocols for targeted exams where dose is matched to indication/reason for exam; i.e. extremities or head) *Use of iterative reconstruction technique DLP: 203 mGy-cm FINDINGS: ALTERATION WORKER: Unremarkable chest LUNGS: The lungs are expanded with multiple 1 mm and less calcified nodules likely granulomas in both lower lobes. There is a 2 mm noncalcified nodule right lower lobe axial image 32/4; 2 mm nodule left upper lobe axial image 15/4; 1 mm and 2 mm nodules right upper lobe axial image 16/4; and a 2 mm nodule left upper lobe axial image 28/4. No acute consolidation or ground-glass density seen. Focal atelectatic changes are seen in the right lower lobe adjacent to the major fissure. MEDIASTINUM: The thyroid lobes are symmetric and normal. The central trachea and the bronchi are widely patent. The heart size and the great vessels are normal caliber. There is no pericardial effusion. No abnormal size mediastinal or hilar lymph nodes seen. CORONARY ARTERY CALCIFICATION: No coronary artery calcifications are seen. PLEURA: There is no pleural effusion. No pleural mass or thickening. AXILLA: No lymphadenopathy. UPPER ABDOMEN: Visualized liver, spleen, pancreas and bilateral adrenal glands are unremarkable. OSSEOUS STRUCTURES: No aggressive lytic or sclerotic process seen. There is mild ventral spondylosis. CT/CT chest wo IV con IMPRESSION: 1. Multiple 1 mm and less calcified nodules likely granulomas. 2. There are several 2 mm noncalcified nodules in bilateral upper lobes and right lower lobes. 3. Plate-like atelectatic changes right lower lobe anterior segment. 4. No abnormal mediastinal or axillary lymph nodes seen. Fleischner guidelines were followed.
== END 2022-05-16 09:03 | disposition home or self-care (01) ==
LOC: HO.CT 09:02
PROVIDERS: PCP Internal Medicine; Visit Provider Hospitalist
DX: R91.1 Solitary pulmonary nodule (principal)
CPT/HCPCS: 71250

== ENCOUNTER → 2022-06-06 10:49 | Outpatient (BNVA) | payer MEDICARE, SELFPAY | PROVIDERS: PCP Internal Medicine; Visit Provider Surgery Vascular Surgery | DX: I83.12 Varicose veins of left lower extremity with inflammation (principal) | CPT/HCPCS: 99212 ==

== ENCOUNTER → 2022-06-10 15:20 | Outpatient (BNVA) | payer MEDICARE, SELFPAY | PROVIDERS: PCP Internal Medicine; Visit Provider Hospitalist | DX: J44.9 Chronic obstructive pulmonary disease, unspecified (principal); J98.4 Other disorders of lung; R91.8 Other nonspecific abnormal finding of lung field; G47.33 Obstructive sleep apnea (adult) (pediatric) | CPT/HCPCS: 99212 ==

== ENCOUNTER → 2022-07-15 10:36 | Outpatient (BNVA) | payer MEDICARE, SELFPAY | PROVIDERS: PCP Internal Medicine; Visit Provider Surgery Vascular Surgery | DX: S81.812A Laceration without foreign body, left lower leg, initial encounter (principal); I83.12 Varicose veins of left lower extremity with inflammation; I83.11 Varicose veins of right lower extremity with inflammation | CPT/HCPCS: 99212 ==

== ENCOUNTER 2022-08-10 08:48 | Outpatient (REF) | payer MEDICARE, SELFPAY ==
--- NOTE | ~2022-08-10 | MM_ITS ---
EXAMINATION: MM SCREENING DIGITAL BREAST TOMOSYNTHESIS, BILATERAL CLINICAL INFORMATION: Screening. Asymptomatic. The lifetime risk of breast cancer based on the Tyrer-Cuzick Model is 3%. COMPARISON: Mammography: 08/02/2021, 07/27/2020, 07/20/2019, 03/31/2018, 08/27/2016 TECHNIQUE: Digital breast tomosynthesis is performed in both the craniocaudal and mediolateral oblique views along with computer-aided detection (CAD). Synthesized 2D images are generated from the tomosynthesis. FINDINGS: There are scattered areas of fibroglandular density (ACR BI-RADS breast composition Category b). There are no significant masses, abnormal calcifications, or other abnormalities. No developing density or architectural abnormality. There is a small chronic oval nodule posterior 9:00 right breast possibly an intramammary node or cyst. The axilla and skin contours are unremarkable. No significant changes. MM/MM tomosynthesis screening BI IMPRESSION: No mammographic evidence of malignancy. ASSESSMENT: BI-RADS 2: Benign RECOMMENDATION: Routine annual mammography screening. This patient's information was entered into a reminder system with a target due date for their next mammogram.
== END 2022-08-10 08:49 | disposition home or self-care (01) ==
LOC: HO.MAMMO 08:48
PROVIDERS: PCP Internal Medicine; Visit Provider Internal Medicine
DX: Z12.31 Encounter for screening mammogram for malignant neoplasm of breast (principal)
CPT/HCPCS: 77063; 77067

== ENCOUNTER 2022-09-07 08:31 | Outpatient (REF) | payer MEDICARE, SELFPAY ==
[2022-09-07 10:20] LABS: Alanine Aminotransferase 13 U/L (0-31); Anion Gap 16 (12-20); Aspartate Amino Transferase 17 U/L (5-31); Blood Urea Nitrogen 14 mg/dL (9-16); Calcium 10.2 mg/dL (8.4-10.2); Carbon Dioxide 27 mmol/L (22-29); Chloride 104 mmol/L (96-108); Cholesterol 163 mg/dL; Estimated Glomerular Filt Rate > 60; Glucose Fasting 141 mg/dL (60-99); HDL Cholesterol 47 mg/dL; LDL Cholesterol Calculated 87 mg/dl; Potassium 4.5 mmol/L (3.3-5.1); Sodium 142 mmol/L (135-145); Triglycerides 145 mg/dL
== END 2022-09-07 08:32 | disposition home or self-care (01) ==
LOC: HO.LAB 08:31
PROVIDERS: PCP Internal Medicine; Visit Provider Internal Medicine
DX: E11.9 Type 2 diabetes mellitus without complications (principal); I10 Essential (primary) hypertension; E78.5 Hyperlipidemia, unspecified
CPT/HCPCS: 36415; 80048; 80061; 82306; 83036; 84450; 84460

== ENCOUNTER 2022-10-08 09:28 | Outpatient (AMB) | payer MEDICARE, SELFPAY ==
--- NOTE | 2022-10-08 09:29 | MHC.PC.OV ---
Vital Signs 10/08/22 09:40 Height 5 ft 2 in Weight 207 lb BMI 37.9 BP 122/60 Blood Pressure Location Lt brachial Position Sitting Pulse 59 Pulse Source Pulse Oximeter Pulse Oximetry (%) 96 Oxygen Delivery Method Room Air Intake Visit Reasons: Annual Physical Intake Note: Pt is here today for her PE Allergies oxycodone [Oxycodone] Adverse Reaction (Severe, Verified 10/08/22 10:02) VOMITTING From OxyContin Adverse Reaction (Severe, Uncoded 10/08/22 10:02) VOMITTING Medication List - Last Reconciled 10/08/22 by Ramonita Douglas MD albuterol sulfate 90 mcg/actuation 2 puffs inhalation Q6H PRN atorvastatin 10 mg PO DAILY blood sugar diagnostic (In[employer] Ultra Blue Test Strip) use one test strip once a day and as needed to test blood sugar blood sugar diagnostic ([employer] Ultra Test strips) CHECKS BLOOD SUGAR ONCE A DAY A.C. blood-glucose meter As directed budesonide-formoterol 160-4.5 mcg/actuation 2 puffs PO BID xwulzymilv-dwyfkxz-wtfjtxsy 50-325-40 mg 1 cap PO Q6H PRN NS carvedilol 25 mg PO BID chlorthalidone 25 mg PO DAILY cholecalciferol (vitamin D3) (Vitamin D3) 50 mcg PO DAILY clotrimazole-betamethasone 1-0.05 % 1 appl topical BID PRN dapagliflozin propanediol (Farxiga) 10 mg PO QAM 90 days dicyclomine 10 mg PO QID PRN escitalopram oxalate 20 mg PO DAILY fluticasone propionate 50 mcg/actuation 2 sprays intranasal DAILY hydrochlorothiazide 25 mg PO QAM lancets (OneTouch Delica Plus Lancet) Use As directed twice a day loratadine 10 mg PO DAILY lorazepam 0.5 mg PO DAILY PRN losartan 100 mg PO DAILY metformin 500 mg PO DAILY mirabegron ER (Myrbetriq) 25 mg PO DAILY nystatin 100,000 units topical TID PRN [one touch delica plus lancets subcut DAILY] sitagliptin phosphate (Januvia) 100 mg PO DAILY spironolactone 25 mg PO DAILY Trelegy Ellipta 200-62.5-25 mcg (vnlartmoopd-singlssxg-pyebidyy) 1 inh inhalation DAILY NS Tobacco use date assessed: 10/08/22 Fall risk assessment: 1 Fall in past year Last assessed Fall Risk: 10/08/22 Dental Screening Dental Screen Date: 10/08/22 Did you have a dental visit in the last 12 months?: No Was dental information given to patient?: Patient declined HPI Annual Physical HPI Details 77-year-old lady here today for her annual physical exam. She is up-to-date with her screening mammogram, bone density scan done earlier this year and is not due yet for colonoscopy, last done 2016 with normal findings. She is complete with her COVID vaccines including her bivalent booster, up-to-date with her pneumococcal vaccinations,. But did not get her flu shot last year, and has not yet had her shingles vaccine. She has has mellitus-COPD overlap syndrome, diabetes mellitus,, hypertension, bilateral varicosities, IBS, GERD and dyslipidemia stable controlled present treatment. Complains of frequent urination, usually controlled during the daytime with Mirabegron, but complains of nocturia , gets up every 2-3 hours just to urinate and has a very disturbed sleep. She has tried limiting her intake of fluids does before bedtime but with no improvement. She also is complaining of pain in her left lower back, worse with extended periods of walking or standing. Pain would occasionally he has radiate down her left hip but does not go all the way down the low lower extremity or toes. There was no accompanying weakness, no numbness or tingling reported. [facility] Medical History (Updated 10/08/22 @ 10:25 by Ramonita Douglas MD) Asthma-COPD overlap syndrome Chronic restrictive lung disease COVID-19 virus infection Diabetes mellitus with hyperglycemia, without long-term current use of insulin Dyslipidemia Erythema intertrigo Family history of breast cancer gene mutation in first degree relative GERD (gastroesophageal reflux disease) Irritable bowel syndrome Lumbago Menopause Mixed stress and urge urinary incontinence Obstructive sleep apnea PONV (postoperative nausea and vomiting) Preoperative examination Pulmonary nodule Pulmonary nodules Requires supplemental oxygen Rib pain Type 2 diabetes mellitus without complication, without long-term current use of insulin Surgical History History of appendectomy History of shoulder surgery History of total knee replacement Hx of cholecystectomy Status post ablation of incompetent vein using laser (~2021) Family History Father Stroke Mother HTN (hypertension) Diabetes mellitus Brother Kidney disease Brother Pneumonia Daughter Invasive ductal carcinoma of breast, Onset Age: 53 Social History Housing: House Alcohol intake: never Patient Tobacco Use Status: Former Tobacco user Quit Date: 1999 e-Cigarette/Vaping Use: Never Used service: No Current occupational status: retired Cognitive needs: No Hearing needs: No Vision needs: Yes Questionnaire Thrive Questionnaire Date Thrive assessed: 05/08/22 JAZMYN-7 AMB Questionnaire JAZMYN-7 Date JAZMYN - 7 assessed: 05/08/22 Source: Developed by Drs. Low Retana, Janine Amador, Pj Mckeon and colleagues, with an educational nicole from [employer]. Review of Systems Const Denies chills, Denies fever(s) and Denies headache(s) Eyes Denies change in vision ENT Reports Normal hearing present, Denies dysphagia and Denies headache(s) Card Denies chest pain, Denies chest pain at rest, Denies chest pain with activity, Denies pedal edema, Denies lightheadedness, Denies dyspnea and Denies dyspnea on exertion Resp Denies cough, Denies dyspnea, Denies dyspnea on exertion and Denies wheezing GI Denies abdominal pain, Denies change in bowel habits, Denies dysphagia, Denies dyspepsia and Denies heartburn Reports as per HPI, Denies difficulty voiding, Denies dysuria, Denies pelvic pain, Denies urinary hesitancy and Reports urinary urgency Musc Details: Tenderness on palpation over left paraspinal muscle lumbar area, negative straight leg raising sign bilaterally Denies abnormal gait, Denies joint swelling and Denies radiating pain into limb Skin/Breast Denies breast pain, Denies breast mass, Denies change in breast shape, Denies skin ulcer and Denies wounds Neuro Reports Normal hearing present, Denies abnormal gait and Denies headache(s) Psych Reports no additional complaints Endo Reports no additional complaints Lloyd/Lymph Reports no additional complaints Aller/Immun Denies wheezing Physical exam (Primary Care) Vital Signs: Last Vital Signs Pulse 59 10/08/22 09:40 BP 122/60 10/08/22 09:40 Pulse Ox 96 10/08/22 09:40 Oxygen Delivery Method Room Air 10/08/22 09:40 BMI result Body Mass Index 37.9 BMI Assessment/Plan discussion: High BMI High, discussed plan: lifestyle, weight reduction, dietary and physical activity Tobacco/Smoking Status: Tobacco use Status Tobacco use date assessed 10/08/22 10/08/22 09:32 Patient Tobacco Use Status Former Tobacco user 10/08/22 09:32 e-Cigarette/Vaping Use Never Used 10/08/22 09:32 Thrive Assessment: Date of Thrive Assessment Date Thrive assessed 05/08/22 10/08/22 09:32 Const General: comfortable, no acute distress and alert Orientation/consciousness: patient oriented x3 Limitations: no limitations HENMT Mouth: Normal oral and palatal mucosa present and moist mucous membranes Eyes General: appearance normal, both eyes and all related structures Neck Neck: Yes full ROM, Yes no lymphadenopathy and Yes supple Chest Breast/axilla palpation: normal palpation of the breasts Resp Effort & Inspection: normal respiratory effort and able to speak in complete sentences Auscultation: clear to auscultation bilaterally Cardio Rate: regular rate Rhythm: regular rhythm Heart sounds: S1 normal heart sound present and S2 normal heart sound present GI Inspection: Yes obesity Palpation (GI): Soft to palpation, nontender, no guarding and no masses Auscultation: normal bowel sounds External Female Exam: normal external appearance Back/Spine/Pelvis Back: No back tenderness Skin Other: Erythematous patch on inguinal area and under breasts Neuro General: patient oriented x3, gait normal, tone normal, moves all extremities, Normal light touch and pain sensation and no focal motor deficits Cranial nerves: Yes Normal hearing present Cognition (Neuro): normal cognition Extrem General: Yes full ROM, Yes no joint enlargement, Yes no clubbing, cyanosis or edema and Yes no calf tenderness Psych Appearance: grossly normal and well kempt Mental Status: mental status grossly normal Speech and movement: Normal speech and movement present Affect: normal affect Attitude: cooperative Thought process: Normal thought process present Thought content: Normal thought content present Results Reviewed Results Reviewed: ENTERED: 09/07/22-835 NATHALY RASMUSSEN: ORDERED: Met Prof Fast, AST, ALT, Lipid Panel, Vitamin D 25-OH Test Result Flag Reference Site Sodium 142 135-145 mmol/L Potassium 4.5 3.3-5.1 mmol/L CL 104 96-108 mmol/L CO2 27 22-29 mmol/L Gap 16 12-20 BUN 14 9-16 mg/dL Creat 0.73 0.5-1.4 mg/dL EGFR > 60 NOTE: For -[place] individuals, multiply the result by 1.210. Chronic Kidney Disease: Estimated GFR < 60 mL/min/1.73m2 Severe Kidney Disease: Estimated GFR < 15 mL/min/1.73m2 FBS 141 H 60-99 mg/dL A fasting glucose of 126 mg/dl or greater on more than one occasion is considered diagnostic of diabetes. CA 10.2 8.4-10.2 mg/dL AST (GOT) 17 5-31 U/L ALT (GPT) 13 0-31 U/L Triglyceride 145 mg/dL Desirable Triglyceride: less than 150 mg/dL Borderline High Triglyceride 150-199 mg/dL High Triglyceride: 200-499 mg/dL Very High Triglyceride: greater than or equal to 5OO mg/dL Chol 163 mg/dL Desirable Cholesterol: less than 200 mg/dL Borderline High Cholesterol: 200-239 mg/dL High Cholesterol: greater than 239 mg/dL LDL Calculated 87 mg/dl Desirable LDL: less than 100 mg/dL Near Optimal/Above Optimal LDL: 110-129 mg/dL Borderline High LDL: 130-159 mg/dL High LDL: 160-189 mg/dL Very High LDL: greater than or equal to 190 mg/dL HDL 47 mg/dL Desirable HDL: greater than 40 mg/dL Note: This HDL assay may give artificially low results in patients with liver disease. Vit D 25-OH Tot 46.0 >30 ng/mL Health Based Reference Values* < 20 ng/mL Deficient 20-30 ng/mL Insufficient > 30 ng/mL Sufficient Laboratory Tests 09/07/22 08:45 Estimat Average Glucose 126 Hemoglobin A1c % 6.0 Assessment and Plan Assessment & Plan (1) Type 2 diabetes mellitus without complication, without long-term current use of insulin: Code(s): E11.9 - Type 2 diabetes mellitus without complications Plan: Diabetes mellitus controlled with and hemoglobin A1c at 6%. Will continue on metformin 500 mg once a day in addition to Trelegy at 30 units daily, may switch dosing to a.m. instead of p.m., continue with Farxiga 10 mg daily in a.m.. Importance of adhering to recommended diet getting regular exercise, Counseled regarding importance of yearly diabetes retinopathy screening. Patient advised to inspect feet daily, for any signs of injury, callus or infection. Compliance with diet and regular exercise again stressed. Blood pressure goal is less than 130/80, goal LDL is less than 100 and goal hemoglobin A1c is less than 7% follow-up appointment made in-3--months, after fasting labs done. (2) HTN (hypertension): Code(s): I10 - Essential (primary) hypertension Plan: Blood pressure at goal of less than 130/80. Continue with current medication. Reinforced importance of following a low sodium diet, getting regular exercise, and lowering stress levels. (3) Irritable bowel syndrome: Code(s): K58.9 - Irritable bowel syndrome without diarrhea Plan: Continue with dicyclomine 10 mg 4 times a day as needed which has been helping regulate her bowel movements and control her bloating (4) Dyslipidemia: Code(s): E78.5 - Hyperlipidemia, unspecified Plan: Reviewed recent fasting lipid profile with patient with levels within normal limits . Continue with atorvastatin 10 mg daily , in addition to adherence to low-cholesterol diet and regular exercise, at least 30 minutes 3 to 4 times a week. Advised patient to make healthy food choices, eat more fruits, vegetables, whole grains, wild caught fish and low-fat dairy. Limit amount of meat and fried or fatty food products, as well as processed foods and fast foods. Follow-up scheduled with repeat fasting lipid panel in 3 months. (5) Asthma-COPD overlap syndrome: Code(s): J44.9 - Chronic obstructive pulmonary disease, unspecified Plan: Currently being followed by Pulmonary, doing well on Trelezack Ellipta (6) Erythema intertrigo: Code(s): L30.4 - Erythema intertrigo Plan: Refill prescription sent for clotrimazole-betamethasone, to apply sparingly to affected area once or twice a day for no more than 10 days at a time. Past affected areas clean and dry at all times. (7) Lumbago: Code(s): M54.50 - Low back pain, unspecified Plan: Ordered x-ray of lumbar spine, continue taking Tylenol I alternating with ibuprofen as needed, apply moist heat or ice alternating to affected area in the lower back at least 2 to 3 times a week. Prescription sent for tizanidine 4 mg per tablet to take 1/2 tablet initially once a day as needed for painful muscle spasm, patient cautioned that it may make her very drowsy or lightheaded (8) Mixed stress and urge urinary incontinence: Code(s): N39.46 - Mixed incontinence Plan: Mirabegron affording only temporary relief , urology consult obtained Orders: Orders XR lumbar spine 2-3V 10/08/22 M54.50 - Low back pain, unspecified Alanine Aminotransferase 01/01/23 E11.9 - Type 2 diabetes mellitus without complications, E78.5 - Hyperlipidemia, unspecified, I10 - Essential (primary) hypertension, J44.9 - Chronic obstructive pulmonary disease, unspecified, K21.9 - Gastro-esophageal reflux disease without esophagitis, K58.9 - Irritable bowel syndrome without diarrhea, Z78.0 - Asymptomatic menopausal state Aspartate Amino Transferase 01/01/23 E11.9 - Type 2 diabetes mellitus without complications, E78.5 - Hyperlipidemia, unspecified, I10 - Essential (primary) hypertension, J44.9 - Chronic obstructive pulmonary disease, unspecified, K21.9 - Gastro-esophageal reflux disease without esophagitis, K58.9 - Irritable bowel syndrome without diarrhea, Z78.0 - Asymptomatic menopausal state Basic Metabolic Panel Fasting 01/01/23 E11.9 - Type 2 diabetes mellitus without complications, E78.5 - Hyperlipidemia, unspecified, I10 - Essential (primary) hypertension, J44.9 - Chronic obstructive pulmonary disease, unspecified, K21.9 - Gastro-esophageal reflux disease without esophagitis, K58.9 - Irritable bowel syndrome without diarrhea, Z78.0 - Asymptomatic menopausal state Hemoglobin A1c 01/01/23 E11.9 - Type 2 diabetes mellitus without complications, E78.5 - Hyperlipidemia, unspecified, I10 - Essential (primary) hypertension, J44.9 - Chronic obstructive pulmonary disease, unspecified, K21.9 - Gastro-esophageal reflux disease without esophagitis, K58.9 - Irritable bowel syndrome without diarrhea, Z78.0 - Asymptomatic menopausal state Lipid Panel 01/01/23 E11.9 - Type 2 diabetes mellitus without complications, E78.5 - Hyperlipidemia, unspecified, I10 - Essential (primary) hypertension, J44.9 - Chronic obstructive pulmonary disease, unspecified, K21.9 - Gastro-esophageal reflux disease without esophagitis, K58.9 - Irritable bowel syndrome without diarrhea, Z78.0 - Asymptomatic menopausal state Vitamin D 25-OH Total 01/01/23 E11.9 - Type 2 diabetes mellitus without complications, E78.5 - Hyperlipidemia, unspecified, I10 - Essential (primary) hypertension, J44.9 - Chronic obstructive pulmonary disease, unspecified, K21.9 - Gastro-esophageal reflux disease without esophagitis, K58.9 - Irritable bowel syndrome without diarrhea, Z78.0 - Asymptomatic menopausal state Referrals Urology Referral N39.46 - Mixed incontinence Medications: New tizanidine 4 mg PO BID PRN 10 tabs 0RF muscle spasticity Refilled clotrimazole-betamethasone 1-0.05 % 1 appl topical BID PRN 45 grams 1RF rash B37.49 - Other urogenital candidiasis Coding Level of Care Code Est Pt Prev Care >65y(61682) Diagnoses Type 2 diabetes mellitus without complication, without long-term current use of insulin E11.9 HTN (hypertension) I10 Irritable bowel syndrome K58.9 Dyslipidemia E78.5 Asthma-COPD overlap syndrome J44.9 Erythema intertrigo L30.4 Lumbago M54.50 Mixed stress and urge urinary incontinence N39.46
[2022-10-08 09:40] VITALS: BP 122/60; PULSE 59; O2SAT 96; BMI 37.9
== END 2022-10-08 10:59 | disposition home or self-care (01) ==
PROVIDERS: PCP Internal Medicine; Visit Provider Internal Medicine
DX: Z00.00 Encounter for general adult medical examination without abnormal findings (principal); E11.9 Type 2 diabetes mellitus without complications; I10 Essential (primary) hypertension; K58.9 Irritable bowel syndrome, unspecified; E78.5 Hyperlipidemia, unspecified; J44.9 Chronic obstructive pulmonary disease, unspecified; L30.4 Erythema intertrigo; M54.50 Low back pain, unspecified; N39.46 Mixed incontinence
CPT/HCPCS: 99397

== ENCOUNTER 2022-10-08 10:27 | Outpatient (REF) | payer MEDICARE, SELFPAY ==
--- NOTE | ~2022-10-08 | XR_ITS ---
EXAMINATION: XR LUMBOSACRAL SPINE CLINICAL INFORMATION: Reason for Exam M54.50 - Low back pain, unspecified COMPARISON: None TECHNIQUE: 3 views of the lumbar spine FINDINGS: 5 nonrib-bearing lumbar-type vertebral bodies. Vertebral body heights are maintained. Grade 1 anterolisthesis of L5 on S1. Multilevel degenerative disc disease worst at L3-L4 where there is advanced loss of disc space height and degenerative endplate changes with more mild degenerative disc disease at additional levels and lower lumbosacral facet arthropathy Atherosclerotic calcifications of the abdominal aorta. XR/XR lumbar spine 2-3V IMPRESSION: Multilevel degenerative disc disease worst at L3-L4 where there is advanced loss of disc space height and degenerative endplate changes with more mild degenerative disc disease at additional levels and lower lumbosacral facet arthropathy. Grade 1 anterolisthesis of L5 on S1.
== END 2022-10-08 10:28 | disposition home or self-care (01) ==
LOC: HO.HMGCX 10:27
PROVIDERS: PCP Internal Medicine; Visit Provider Internal Medicine
DX: M54.50 Low back pain, unspecified (principal)
CPT/HCPCS: 72100

== ENCOUNTER 2022-11-25 10:47 | Outpatient (AMB) | payer MEDICARE, SELFPAY ==
--- NOTE | 2022-11-25 10:55 | MHC.OFFVIS ---
Intake Intake Visit Reasons: Urinary incontinence Intake Note: New Patient presents for initial visit incontinence Urology Medications: myrbetriq Blood Thinner: none PVR: 188ml's Bar Host/Hostess Required: No Accompanied by: Self / Same As Patient Allergies oxycodone [Oxycodone] Adverse Reaction (Severe, Verified 11/25/22 20:14) VOMITTING From OxyContin Adverse Reaction (Severe, Uncoded 11/25/22 20:14) VOMITTING Medication List - Last Reconciled 11/25/22 by MIKE Luong albuterol sulfate 90 mcg/actuation 2 puffs inhalation Q6H PRN atorvastatin 10 mg PO DAILY blood sugar diagnostic ([employer] Ultra Blue Test Strip) use one test strip once a day and as needed to test blood sugar blood sugar diagnostic ([employer] Ultra Test strips) CHECKS BLOOD SUGAR ONCE A DAY A.C. blood-glucose meter As directed budesonide-formoterol 160-4.5 mcg/actuation 2 puffs PO BID tjzcgfxlxk-jeearfs-cvnnkaxf 50-325-40 mg 1 cap PO Q6H PRN NS carvedilol 25 mg PO BID chlorthalidone 25 mg PO DAILY cholecalciferol (vitamin D3) (Vitamin D3) 50 mcg PO DAILY clotrimazole-betamethasone 1-0.05 % 1 appl topical BID PRN dapagliflozin propanediol (Farxiga) 10 mg PO QAM 90 days dicyclomine 10 mg PO QID PRN escitalopram oxalate 20 mg PO DAILY fluticasone propionate 50 mcg/actuation 2 sprays intranasal DAILY hydrochlorothiazide 25 mg PO QAM lancets (OneTouch Delica Plus Lancet) Use As directed twice a day loratadine 10 mg PO DAILY lorazepam 0.5 mg PO DAILY PRN losartan 100 mg PO DAILY metformin 500 mg PO DAILY mirabegron ER (Myrbetriq) 25 mg PO DAILY 30 days nystatin 100,000 units topical TID PRN [one touch delica plus lancets subcut DAILY] sitagliptin phosphate (Januvia) 100 mg PO DAILY spironolactone 25 mg PO DAILY tizanidine 4 mg PO BID PRN Trelegy Ellipta 200-62.5-25 mcg (urmempuvdcg-oqsmfyebh-nqidcvqx) 1 inh inhalation DAILY NS HPI HPI Comments History of Present Illness Details Shey is a very pleasant 77-year-old female patient of Dr. Douglas. She has a past medical history of chronic restrictive lung disease, diabetes, pulmonary nodules, obstructive sleep apnea, irritable bowel syndrome, GERD, and dyslipidemia. She presents to the office today as a new patient for urinary incontinence. In discussion with the patient today she reports to be doing and feeling well. She reports noting ongoing issues with mixed urinary incontinence for quite some time. She reports being on Myrbetriq 25 mg p.r.n. and reports this works well for her. She reports utilizing Myrbetriq when out for appointments. When asked she does report Myrbetriq to help lessen episodes of urinary incontinence. When asked she reports having a history of 7 vaginal births. She discusses having 3 daughters in the medical field to were nurses and 1 who is a nurse practitioner at [employer]. She also discusses her youngest child Eze who lives in [facility]. When asked she denies hematuria, dysuria, foul smelling urine, changes to urinary stream, flank pain, fever, and or chills. Discussed obtaining retroperitoneal ultrasound for further assessment evaluation. Discussed taking Myrbetriq daily 25 mg verses p.r.n.. In office urinalysis results reviewed with the patient today. PVR 188 mL. Discussed at length affects and causes of incomplete bladder emptying. She otherwise offers no issues or concerns at this time. [facility] Medical History Lumbago Mixed stress and urge urinary incontinence Chronic restrictive lung disease Erythema intertrigo Type 2 diabetes mellitus without complication, without long-term current use of insulin Rib pain PONV (postoperative nausea and vomiting) Requires supplemental oxygen Preoperative examination Pulmonary nodules Family history of breast cancer gene mutation in first degree relative Diabetes mellitus with hyperglycemia, without long-term current use of insulin COVID-19 virus infection Asthma-COPD overlap syndrome Menopause Pulmonary nodule Obstructive sleep apnea Irritable bowel syndrome GERD (gastroesophageal reflux disease) Dyslipidemia Surgical History Status post ablation of incompetent vein using laser (~2021) History of shoulder surgery History of total knee replacement History of appendectomy Hx of cholecystectomy Family History Father Stroke Mother HTN (hypertension) Diabetes mellitus Brother Kidney disease Brother Pneumonia Daughter Invasive ductal carcinoma of breast, Onset Age: 53 Social History Housing: House Alcohol intake: never Patient Tobacco Use Status: Former Tobacco user Quit Date: 1999 e-Cigarette/Vaping Use: Never Used service: No Current occupational status: retired Cognitive needs: No Hearing needs: No Vision needs: Yes Review of Systems Const Reports no additional complaints Eyes Reports no additional complaints ENT Reports no additional complaints Card Reports as per HPI Resp Reports as per HPI GI Reports as per HPI Reports no additional complaints Neuro Reports no additional complaints Psych Reports no additional complaints Endo Reports as per HPI Lloyd/Lymph Reports no additional complaints Aller/Immun Reports no additional complaints Physical Exam Const General: cooperative, healthy appearing, comfortable, no acute distress, well developed, alert and awake Nutritional Appearance: overweight Orientation/consciousness: patient oriented x3 Limitations: no limitations HEENT Head: Yes normal to inspection, Yes normocephalic and Yes atraumatic Ears: hearing grossly normal bilaterally Eyes General: appearance normal, both eyes and all related structures Neck Neck: Yes normal visual inspection and Yes trachea midline Chest Chest palpation & inspection: normal inspection of the chest Resp Effort & Inspection: normal respiratory effort and able to speak in complete sentences Cardio Rate: regular rate GI Inspection: Yes normal to inspection General: Yes no CVA tenderness Back/Spine/Pelvis Back: no CVA tenderness Skin General skin exam: no rashes or lesions noted Neuro General: patient oriented x3 Extrem General: Yes normal to inspection Psych Appearance: grossly normal and well kempt Mental Status: mental status grossly normal Speech and movement: Normal speech and movement present and Clear speech present Affect: normal affect Attitude: cooperative Thought process: Normal thought process present Thought content: Normal thought content present Insight: Good insight present (Psych) Judgement: Good judgement present (Psych) Office Procedures Post Void Residual Post Residual Void Post Void Residual (PVR): 188 [id number] Void Residual by ultrasound Results AMB Urinalysis, Automated UA Leukoctes 0 Annika/uL Last Edit by Elpidio Hicks on 11/25/22 11:15 UA Nitrite Negative Last Edit by Elpidio Hicks on 11/25/22 11:15 UA Urobilinogen 0.2 mg/dL Last Edit by Elpidio Hicks on 11/25/22 11:15 UA Protein 0 mg/dL Last Edit by Elpidio Oliviajuan on 11/25/22 11:15 UA pH 6.0 Last Edit by Elpidio Oliviajuan on 11/25/22 11:15 UA Blood 0 Joe/uL Last Edit by Elpidio Hicks on 11/25/22 11:15 UA Specific [place] 1.015 Last Edit by Elpidio Oliviajuan on 11/25/22 11:15 UA Ketone Negative Last Edit by Elpidio Oliviajuan on 11/25/22 11:15 UA Bilirubin 0 mg/dL Last Edit by Elpidio Hicks on 11/25/22 11:15 UA Glucose 0 mg/dL Last Edit by Elpidio Hicks on 11/25/22 11:15 Results Reviewed Results Reviewed: Laboratory Last Values Urine pH (Auto) 6.0 11/25/22 10:57 Specific [place] (Auto) 1.015 11/25/22 10:57 Urine Protein (Auto) 0 mg/dL 11/25/22 10:57 Glucose (UA)(Auto) 0 mg/dL 11/25/22 10:57 Urine Ketones (Auto) Negative 11/25/22 10:57 Urine Blood (Auto) 0 Joe/uL 11/25/22 10:57 Urine Nitrite (Auto) Negative 11/25/22 10:57 Urine Bilirubin (Auto) 0 mg/dL 11/25/22 10:57 Urine Urobilinogen (Auto) 0.2 mg/dL 11/25/22 10:57 Leukocyte Esterase (Auto) 0 Annika/uL 11/25/22 10:57 Assessment & Plan Assessment & Plan (1) Mixed stress and urge urinary incontinence: Code(s): N39.46 - Mixed incontinence Plan In office urinalysis results reviewed with the patient today; as noted above. PVR 188 mL. Will obtain retroperitoneal ultrasound for further assessment evaluation. Discussed at length bladder triggers/irritants. Discussed pelvic floor therapy. Discussed importance of managing diabetes for improvement in urinary symptoms as well as overall health and well-being. Discussed importance of compliance with sleep apnea machine for improvement in urinary symptoms as well as overall health and well-being. Start Myrbetriq 25 mg daily as discussed and prescribed. Discussed at length causes and affects of incomplete bladder emptying. Discussed possible near future in office cystoscopy if symptoms persist and/or worsen. Follow-up in 6-8 weeks with imaging to be completed prior; or sooner with any issues, concerns, and or questions. Orders: Orders AMB Post Void Residual by ultrasound Today N39.46 - Mixed incontinence AMB Urinalysis Automated Today Z13.9 - Encounter for screening, unspecified US retroperitoneal comp Today N39.46 - Mixed incontinence Medications: Changed From mirabegron ER (Myrbetriq) 25 mg PO DAILY 30 tabs 2RF N39.41 - Urge incontinence To mirabegron ER (Myrbetriq) 25 mg PO DAILY 30 days 30 tabs 2RF N39.41 - Urge incontinence Patient Instructions: The patient had an opportunity to ask questions regarding the treatment plan. All questions were answered. Physical exam, labs, and imaging were discussed and reviewed in detail. As well as risks, benefits, and discussion of treatment choices. No major barriers to understanding were identified. The patient expressed understanding and agreement with the above treatment plan. The patient was made aware they should contact our office by phone for worsening of their current condition, the appearance of new symptoms, or with any questions or concerns. Compliance is encouraged with any medications and follow up testing that is ordered. It is a privilege to be allowed the opportunity to participate in? your urological care.? Again, if you have any questions or concerns If you have any questions or concerns please do not hesitate to contact me. The office is [phone]. This note is constructed using voice recognition software. While every effort has been made to ensure accuracy membership sales manager errors may have been included. Yours sincerely, MIKE Luong Coding Level of Care Code New Pt Level 4 (38642) Diagnoses Mixed stress and urge urinary incontinence N39.46 CPT Codes Post Residual Void - PVR CPT Code: 02762-Xjls Void Residual by ultrasound ([id number])
== END 2022-11-25 11:55 | disposition home or self-care (01) ==
PROVIDERS: PCP Internal Medicine; Visit Provider Nurse Practitioner Family
DX: N39.46 Mixed incontinence (principal)
CPT/HCPCS: 99204

== ENCOUNTER → 2022-11-25 10:47 | Outpatient (BNVA) | payer MEDICARE, SELFPAY | PROVIDERS: PCP Internal Medicine; Visit Provider Nurse Practitioner Family | DX: N39.46 Mixed incontinence (principal) | CPT/HCPCS: 51798; 81003 ==

== ENCOUNTER 2022-12-04 10:51 | Outpatient (AMB) | payer MEDICARE, SELFPAY ==
[2022-12-04 11:13] VITALS: PULSE 60; O2SAT 93; BMI 37.5
--- NOTE | 2022-12-04 11:13 | A.OFFVIS_ITS ---
Intake Vital Signs 12/04/22 11:13 Height 5 ft 2 in Weight 205 lb BMI 37.5 Pulse 60 Pulse Source Pulse Oximeter Pulse Oximetry (%) 93 Oxygen Delivery Method Room Air Intake Visit Reasons: copd Allergies oxycodone [Oxycodone] Adverse Reaction (Severe, Verified 12/04/22 11:14) VOMITTING From OxyContin Adverse Reaction (Severe, Uncoded 12/04/22 11:14) VOMITTING HPI HPI Comments History of Present Illness Details The patient is a 77-year-old woman with a known history of COPD and pulmonary nodules. To note she did have a recent CT scan of the chest on November 20 2018 at [facility]. It appeared that her pulmonary nodules are stable measuring between 2 and 3 mm in size. The patient has been complaining of worsening cough productive in nature. Moderate in severity. She did get Zpak from her primary care. However, she is no better. Has had some subjective fevers and chills. Also has been complaining of worsening shortness of breath. She is concerned about her CT scan of the chest. We did look at her CT scan that she had at [facility] in November 2018 from October 2019 it appears that the left lower lobe nodular density is her largest nodule measuring about 7 mm in size. Is about the same size. The actual nodule her ever looks a little more dense. This may be techniques and we using different CT scans. However, further follow-up is warranted. 02/07/2020 the patient has a telephone visit. She states that she was in her usual state health until about 2 3 days ago when she started developing significant sinus discomfort. She is also having significant nasal congestion and has a upper respiratory illness. She denies any fevers or any sore throat. She is having a cough. Intermittent and mild to moderate. Denies any significant wheezing. Denies any exposure to anybody with COVID-19 infection. The patient will be treated for sinusitis at this time. If however her symptoms do not improved she patient needs to be tested for COVID-19. In the meantime we did talk about her CT scan demonstrating stable pulmonary nodules. She should have a repeat CT scan sometime in October of 2020. 12/01/2020 the patient is here for a pulmonary follow-up visit. She is complaining of worsening dyspnea on exertion [id number] severity. She has been using her rescue inhaler more often. Will start the patient on Anoro this time. In the meantime she also underwent a CT scan of the chest that was personally viewed by me in the office. It appears that she has stable pulmonary nodules, although, she has a new nodular density intermediate size in the right lower lobe. Will plan to follow this nodular density little closer. 06/06/2021 the patient is here for a pulmonary follow-up visit. She is complaining of increasing chest tightness and shortness of breath along with increasing wheezing. Moderate severity. She has been using all her respiratory medications including Symbicort and a rescue inhaler on a daily basis. The patient did have a CT scan of the chest that was personally by me demonstrating stable pulmonary nodules which is reassuring. Although, she did have evidence of mosaic pattern in her trapping. Explained to her that this is likely related to her asthma and small airways disease. She did undergo pulmonary function studies as well that we personally reviewed which demonstrated no definitive obstructive nor restrictive ventilatory defects. However, she did have evidence of small airways disease again likely consistent with asthma although they did not reverse after the bronchodilators were administered. She has been on Symbicort so for will going to switch over to a different inhaler such as Trelegy and hoping that the broader coverage will help her with bronchodilation. In addition to that based on her symptoms and the findings will go ahead and treated with a course of prednisone. She does have diabetes therefore she take half does and she can also stop in early if she does feel better. She can also consider singular as an option in the future. 12/18/2021 the patient is here for a pulmonary follow-up visit. She is complaining of significant nasal congestion and postnasal drip. She is couple more. Sometimes she does cough up some yellowish phlegm. Moderate severity. Complains about ear fullness. I did look at her years and she does have significant fluid buildup in along with some redness. The patient also continues use her respiratory therapy. She does complaint of dyspnea on exer tion. We did look at her pulmonary function studies horta she does have a restrictive ventilatory defect consistent with restrictive lung disease. The patient needs to start pulmonary rehabilitation to strengthen her respiratory capacity in to additional stamina. Will make a referral at this time. The patient is willing and interested in doing so. The patient also had a CT scan back in June 2020 demonstrating pulmonary nodules in addition to some air trapping. Will go ahead and repeat the CT scan around the same time next year in order to follow-up with the pulmonary nodules hopefully to find stability. The 06/10/2022 the patient is here for pulmonary follow-up visit. The patient had been doing well until about a week or so prior to this visit. She continues use her Trelegy inhaler and a rescue medicine. She was exposed to a sick contact in started developing a worsening cough chest tightness and chest congestion with yellowish green sputum. She did have some amoxicillin left over and she did start taking it for the last 3 days. She has seen improvement. She does have a nebulizer machine at this point do not think she needs 1. Although an Acapella valve will be helpful with her mucus clearance. If she develops any chest tightness or wheezing she can always call the office will provide her with a nebulizer. The patient did have a CT scan of the chest in mid May and will personally viewed together. Appears that all her pulmonary nodules are stable. The largest nodule is an oval-shaped nodule in her left lower lobe that measures about 7 mm. Will back 2020 in the nodules specially the same. Therefore no significant findings tear. I did reassure her that her nodules appear to be benign as that they have been stable for more than 2 years. 12/04/2022 the patient is here for pulmonary follow-up visit. Overall she is doing well. She continues on the Trelegy inhaler. She has not had to use her rescue medication. She does complaint of sinus pressure and also earache. She has some sinus congestion and some nasal congestion as well. The patient has been like this for the last few days. Denies any sick contacts. The patient also is concerned about her CT scan of the chest. Was done back in May 2022 demonstrating stable pulmonary nodules. Will go ahead and repeat the CT scan in May of 2023 to make sure the nodules have not changed. Specially with worsening symptoms. The patient will be treated for sinusitis. She does have some fluid in ears suggesting some degree of nasal congestion sinusitis. If the patient is no better she can always call for further recommendations. She also needs to get vaccinated she will get her Prevnar 20 vaccine today change he is not too sick. Also needs to get her RSV vaccine and will get the other flu and COVID vaccine when available. She has a planned trip on a cruise and I did recommend she can get all her vaccines before going on the cruise. [facility] Medical History Lumbago Mixed stress and urge urinary incontinence Chronic restrictive lung disease Erythema intertrigo Type 2 diabetes mellitus without complication, without long-term current use of insulin Rib pain PONV (postoperative nausea and vomiting) Requires supplemental oxygen Preoperative examination Pulmonary nodules Family history of breast cancer gene mutation in first degree relative Diabetes mellitus with hyperglycemia, without long-term current use of insulin COVID-19 virus infection Asthma-COPD overlap syndrome Menopause Pulmonary nodule Obstructive sleep apnea Irritable bowel syndrome GERD (gastroesophageal reflux disease) Dyslipidemia Surgical History Status post ablation of incompetent vein using laser (~2021) History of shoulder surgery History of total knee replacement History of appendectomy Hx of cholecystectomy Family History Father Stroke Mother HTN (hypertension) Diabetes mellitus Brother Kidney disease Brother Pneumonia Daughter Invasive ductal carcinoma of breast, Onset Age: 53 Social History Housing: House Alcohol intake: never Patient Tobacco Use Status: Former Tobacco user Quit Date: 1999 e-Cigarette/Vaping Use: Never Used service: No Current occupational status: retired Cognitive needs: No Hearing needs: No Vision needs: Yes Review of Systems Const Reports headache(s) and Denies night sweats ENT Denies change in voice, Reports facial pain, Reports headache(s), Denies lip swelling, Denies mouth pain, Reports nasal congestion, Reports nasal discharge, Reports nasal obstruction, Reports post nasal drip, Reports sinus pain, Reports sinus pressure and Denies tongue swelling Card Denies chest pain and Reports dyspnea on exertion Resp Reports chest congestion, Reports cough, Reports dyspnea on exertion and Reports wheezing GI Denies abdominal pain Musc Denies no additional complaints Neuro Denies Neuro-related abnormal movements and Reports headache(s) Psych Denies no additional complaints Lloyd/Lymph Denies easy bleeding and Denies lymphadenopathy Aller/Immun Denies lip swelling, Denies tongue swelling and Reports wheezing Physical Exam Vital Signs: Last Vital Signs Pulse 60 12/04/22 11:13 Pulse Ox 93 12/04/22 11:13 Oxygen Delivery Method Room Air 12/04/22 11:13 BMI result Body Mass Index 37.5 Const General: alert HEENT Ears: TM abnormal dull and with fluid behind the TM Neck Neck: Yes normal visual inspection, Yes full ROM and Yes no lymphadenopathy Chest Chest palpation & inspection: normal inspection of the chest Resp Auscultation: no wheezes and diminished lung sounds Cardio Rate: regular rate Rhythm: regular rhythm Heart sounds: S1 normal heart sound present and S2 normal heart sound present GI Palpation (GI): Soft to palpation and nontender Auscultation: normal bowel sounds Skin General skin exam: rashes and/or lesions noted Immunizations pneumoc 20-stanley conj-dip cr(PF) 0.5 mL IM syringe Performing Provider: Noah Valencia MD Performing Location: [facility] Administered by: Negar Alan LPN on 12/04/22 11:39 Dose Route Admin Location Dispensed Lot Number Expiration Date NDC Nursing Care Attendant 0.5 mL IM Left Deltoid 0.5 mL [id number] 01/01/24 6563-7293-31 [employer] VIS Given Date VIS Provided VIS Publication Date 12/04/22 Single Vaccine 21 Eligibility Eligibility Date Funding Source Not [facility] Eligible 12/04/22 Private Assessment & Plan Assessment & Plan (1) Asthma-COPD overlap syndrome: Code(s): J44.9 - Chronic obstructive pulmonary disease, unspecified (2) Obstructive sleep apnea: Comment: unable to tolerate CPAP Code(s): G47.33 - Obstructive sleep apnea (adult) (pediatric) (3) Pulmonary nodules: Code(s): R91.8 - Other nonspecific abnormal finding of lung field (4) Chronic restrictive lung disease: Code(s): J98.4 - Other disorders of lung (5) Sinusitis: Code(s): J32.9 - Chronic sinusitis, unspecified Qualifiers: Sinusitis location: unspecified location Chronicity: subacute Qualified Code(s): J01.90 - Acute sinusitis, unspecified Plan continue Trelegy inhaler short-acting beta agonist as needed continue fluticasone nasal spray Start Doxycycline Claritin for allergies Pulmonary rehab CT chest in 6 months Follow-up in 6 months Orders: Orders CT chest wo IV con 6 Months R91.1 - Solitary pulmonary nodule Pneumococcal 20 Immunization Today Z23 - Encounter for immunization Medications: New doxycycline monohydrate 100 mg PO BID 14 days 28 tabs 0RF Coding Level of Care Code Est Pt Level 4 (33612) Diagnoses Asthma-COPD overlap syndrome J44.9 Obstructive sleep apnea G47.33 Pulmonary nodules R91.8 Chronic restrictive lung disease J98.4 Subacute sinusitis, unspecified location J01.90 Sinusitis location: unspecified location Chronicity: subacute Time Spent (min) 17
== END 2022-12-04 11:38 | disposition home or self-care (01) ==
PROVIDERS: PCP Internal Medicine; Visit Provider Hospitalist
DX: J44.9 Chronic obstructive pulmonary disease, unspecified (principal); G47.33 Obstructive sleep apnea (adult) (pediatric); R91.8 Other nonspecific abnormal finding of lung field; J98.4 Other disorders of lung; J01.90 Acute sinusitis, unspecified
CPT/HCPCS: 99214

== ENCOUNTER → 2022-12-04 10:51 | Outpatient (BNVA) | payer MEDICARE, SELFPAY | PROVIDERS: PCP Internal Medicine; Visit Provider Hospitalist | DX: J44.9 Chronic obstructive pulmonary disease, unspecified (principal); G47.33 Obstructive sleep apnea (adult) (pediatric); R91.8 Other nonspecific abnormal finding of lung field; J98.4 Other disorders of lung; J01.90 Acute sinusitis, unspecified; Z23 Encounter for immunization | CPT/HCPCS: 90471; 90677; 99212 ==

== ENCOUNTER 2022-12-10 10:51 | Outpatient (AMB) | payer MEDICARE, SELFPAY ==
[2022-12-10 10:49] VITALS: BMI 38.4
--- NOTE | 2022-12-10 10:49 | MHC.OFFVIS ---
Intake Vital Signs 12/10/22 10:49 Height 5 ft 2 in Weight 210 lb BMI 38.4 Intake Visit Reasons: 6 mth vein check Intake Note: 6 mo follow up vein check, at last visit, she had a bleeding VV from hitting her Left pretibial area on a car door. Hx of Right GSV Venaseal 04/20/2021 and Left GSV Venaseal 06/22/2021. Pt states she is sore to the touch Accompanied by: Self / Same As Patient Allergies oxycodone [Oxycodone] Adverse Reaction (Severe, Verified 12/10/22 10:56) VOMITTING From OxyContin Adverse Reaction (Severe, Uncoded 12/10/22 10:56) VOMITTING HPI 6 mth vein check HPI Details Very pleasant 77-year-old female presents for routine follow-up regarding venous disease. She had actually seen us in the beginning of 2021 where she had undergone prior venous treatment. Back in July of this year she had seen us for a nonhealing left pretibial ulcer from a traumatic injury from a car door. That has gone on to heal. She is now for routine follow-up regarding her venous disease. She does have a fair amount of varicosities in particular the left thigh. She has been compliant with her compression which has provided minimal relief. [facility] Medical History Lumbago Mixed stress and urge urinary incontinence Chronic restrictive lung disease Erythema intertrigo Type 2 diabetes mellitus without complication, without long-term current use of insulin Rib pain PONV (postoperative nausea and vomiting) Requires supplemental oxygen Preoperative examination Pulmonary nodules Family history of breast cancer gene mutation in first degree relative Diabetes mellitus with hyperglycemia, without long-term current use of insulin COVID-19 virus infection Asthma-COPD overlap syndrome Menopause Pulmonary nodule Obstructive sleep apnea Irritable bowel syndrome GERD (gastroesophageal reflux disease) Dyslipidemia Surgical History Status post ablation of incompetent vein using laser (~2021) History of shoulder surgery History of total knee replacement History of appendectomy Hx of cholecystectomy Family History Father Stroke Mother HTN (hypertension) Diabetes mellitus Brother Kidney disease Brother Pneumonia Daughter Invasive ductal carcinoma of breast, Onset Age: 53 Social History Housing: House Alcohol intake: never Patient Tobacco Use Status: Former Tobacco user Quit Date: 1999 e-Cigarette/Vaping Use: Never Used service: No Current occupational status: retired Cognitive needs: No Hearing needs: No Vision needs: Yes Review of Systems Const Reports as per HPI ENT Reports no additional complaints Card Denies chest pain, Denies chest pain at rest and Denies chest pain with activity Resp Denies chest congestion and Denies cough GI Reports no additional complaints Musc Details: pain over varicosities, aching of lower extremities, swelling, cramping, heaviness and tiredness, itching Denies abnormal gait Skin/Breast Reports pruritus and Denies wounds Neuro Reports no additional complaints and Denies abnormal gait Psych Denies no additional complaints Physical Exam Vital Signs: BMI result Body Mass Index 38.4 Const General: cooperative, healthy appearing and comfortable Orientation/consciousness: oriented to person, oriented to place and oriented to time Neck Carotids: no bruits Chest Chest palpation & inspection: normal inspection of the chest and normal palpation of entire chest wall Resp Effort & Inspection: normal respiratory effort and able to speak in complete sentences Cardio Rate: regular rate Heart sounds: S1 normal heart sound present and S2 normal heart sound present Peripheral pulses: Peripheral pulses 2+ throughout GI Inspection: Yes normal to inspection Skin Other: +2 edema, large rope-like varicosities greater than 4 mm left thigh CEAP Classification C4 - skin color changes Ep - Etiology Primary As - superficial veins P - reflux General skin exam: dry skin Neuro General: oriented to person, oriented to place and oriented to time Extrem Right lower extremity: full ROM, normal capillary refill and edema Left lower extremity: full ROM, normal capillary refill and edema Psych Mental Status: mental status grossly normal Results Reviewed Results Reviewed: Venous insufficiency testing from 03/06/2021 was reviewed. Written report and images Assessment & Plan Assessment & Plan (1) Varicose veins of right lower extremity with inflammation: Comment: 04/20/2021 - right great saphenous vein Cyanoacralate ablation Code(s): I83.11 - Varicose veins of right lower extremity with inflammation Plan: In short patient appears to have healed from her venous ulcers. She continues to have a fair amount varicosities. I have taken the liberty of ordering repeat venous insufficiency testing to see if prior ablation is appear to be functioning well in addition if new accessory veins have developed. In addition she will require left leg microphlebectomy in particular her left thigh. Will plan for repeat venous insufficiency testing and follow-up. We did discuss continued conservative measures including compression elevation and exercise. Thank you for allowing us to assist in her care. If there are any questions or concerns please do not hesitate to contact us. (2) Varicose veins of left lower extremity with inflammation: Comment: 06/22/2021 - left great saphenous vein Cyanoacralate ablation Code(s): I83.12 - Varicose veins of left lower extremity with inflammation Orders: Orders US venous duplex LE BI 1 Week I83.12 - Varicose veins of left lower extremity with inflammation Coding Level of Care Code Est Pt Level 4 (40598) Diagnoses Varicose veins of right lower extremity with inflammation I83.11 Varicose veins of left lower extremity with inflammation I83.12
== END 2022-12-10 11:45 | disposition home or self-care (01) ==
PROVIDERS: Visit Provider Surgery Vascular Surgery
DX: I83.11 Varicose veins of right lower extremity with inflammation (principal); I83.12 Varicose veins of left lower extremity with inflammation
CPT/HCPCS: 99214

== ENCOUNTER → 2022-12-10 10:51 | Outpatient (BNVA) | payer MEDICARE, SELFPAY | PROVIDERS: Visit Provider Surgery Vascular Surgery | DX: I83.11 Varicose veins of right lower extremity with inflammation (principal); I83.12 Varicose veins of left lower extremity with inflammation | CPT/HCPCS: 99212 ==

== ENCOUNTER 2022-12-13 10:14 | Outpatient (REF) | payer MEDICARE, SELFPAY ==
--- NOTE | ~2022-12-13 | US_ITS ---
EXAMINATION: US RETROPERITONEAL COMPLETE (RENAL) CLINICAL INFORMATION: Mixed incontinence. COMPARISON: Ultrasound abdomen complete 05/24/2015. CT abdomen and pelvis 11/24/2013. TECHNIQUE: Real-time imaging of the kidneys and bladder. Limited visualization due to bowel gas. FINDINGS: RIGHT KIDNEY: 12.5 x 3.9 x 4.8 cm (SAG x AP x TRV). No hydronephrosis. No renal calculi. Renal cortical thickness is normal. Limited visualization. LEFT KIDNEY: 11.7 x 5.9 x 4.5 cm (SAG x AP x TRV). No hydronephrosis. No renal calculi. Renal cortical thickness is normal. Limited visualization. BLADDER: Partially distended, limiting evaluation. Right ureteral jet is demonstrated; left is not. Prevoid bladder volume is 226.3 mL. Postvoid bladder volume is 10.5 mL. US/US retroperitoneal comp IMPRESSION: No hydronephrosis. No renal calculi. Bladder is partially distended, limiting evaluation. Postvoid bladder volume is 10.5 mL.
== END 2022-12-13 10:15 | disposition home or self-care (01) ==
LOC: HO.US 10:14
PROVIDERS: PCP Internal Medicine; Visit Provider Nurse Practitioner Family
DX: N39.46 Mixed incontinence (principal)
CPT/HCPCS: 76770

== ENCOUNTER 2022-12-17 12:38 | Outpatient (REF) | payer MEDICARE, SELFPAY ==
--- NOTE | ~2022-12-17 | US_ITS ---
EXAMINATION: US LOWER EXTREMITY VENOUS (REFLUX EXAM), BILATERAL CLINICAL INDICATION: Chronic venous insufficiency with lower extremity varicose veins and pain. History of prior bilateral great saphenous Venaseal ablation COMPARISON: Ultrasounds from 06/25/2021 and 04/24/2021 TECHNIQUE: Color flow triplex imaging and compression Doppler was performed to evaluate both the deep and the superficial systems bilaterally. To evaluate the superficial system, the examination was performed in the upright position. Color-flow Doppler ultrasound and compression ultrasound were utilized. In addition, maneuvers were utilized to demonstrate reflux. FINDINGS: 1. DEEP VENOUS ULTRASOUND OF THE RIGHT LOWER EXTREMITY: Common Femoral Vein: Compressible, normal respiratory variation and augmented flow. Femoral Vein: Compressible, normal color flow and augmentation. Popliteal Vein: Compressible, normal augmentation. Deep Reflux: There is no evidence of reflux in the deep system in either the common femoral vein or the popliteal vein. There is no evidence of a Archuleta's cyst. 2. SUPERFICIAL ULTRASOUND WITH DOPPLER OF RIGHT LOWER EXTREMITY: GREAT SAPHENOUS VEIN: Saphenofemoral Junction: 10 cm; Reflux: 0 ms Proximal Thigh: 0.3 cm; Reflux: 1348 ms Mid Thigh: 0.4 cm; occluded Above Knee: 0.3 cm; occluded At Knee: 0.3 cm; occluded Below Knee: 0.7 cm; partially occluded Reflux: 2856 ms Mid Calf: 0.5 cm; Reflux: 2564 ms Ankle: 0.3 cm; Reflux: 0 ms DUPLICATED MEDIAL GREAT SAPHENOUS VEIN: Diameter: None imaged Reflux: NA DUPLICATED LATERAL GREAT SAPHENOUS VEIN: Diameter: 0.4 to 0.5 cm Reflux: 1616 ms SMALL SAPHENOUS VEIN: Proximal: 0.4 cm; Reflux: 0 ms Distal: 0.4 cm; Reflux: 0 ms VEIN OF GIACOMINI: Size: NA Reflux: NA PERFORATORS: Location: Mid thigh Size: 0.3 cm Reflux: V VARICOSITIES: Location: Distal thigh and knee arising off the lateral duplicated great saphenous vein Size: 0.5 cm Reflux: Ranging from 952 ms to 2812 ms VARICOSITIES: Location: Proximal and mid calf medially off the residual great saphenous vein Size: 0.3 to 0.4 cm Reflux: Ranging from 2836 ms to 2912 ms 3. DEEP VENOUS ULTRASOUND OF THE LEFT LOWER EXTREMITY: Common Femoral Vein: Compressible, normal respiratory variation and augmented flow. Femoral Vein: Compressible, normal color flow and augmentation. Popliteal Vein: Compressible, normal augmentation. Deep Reflux: There is no evidence of reflux in the deep system in either the common femoral vein or the popliteal vein. There is no evidence of a Archuleta's cyst. 4. SUPERFICIAL ULTRASOUND WITH DOPPLER OF LEFT LOWER EXTREMITY: GREAT SAPHENOUS VEIN: Saphenofemoral Junction: 0.9 cm; Reflux: 0 ms Proximal Thigh: 0.6 cm; Reflux: 0 ms Mid Thigh: 0.3 cm; occluded Above Knee: 0.3 cm; occluded At Knee: 0.3 cm; occluded Below Knee: 0.3 cm; occluded Mid Calf: 0.3 cm; occluded Ankle: 0.3 cm; Reflux: 720 ms DUPLICATED MEDIAL GREAT SAPHENOUS VEIN: Diameter: None imaged Reflux: NA DUPLICATED LATERAL GREAT SAPHENOUS VEIN: Diameter: 0.9 cm Reflux: 3032 ms SMALL SAPHENOUS VEIN: Proximal: 0.4 cm; Reflux: 0 ms Distal: 0.2 cm; Reflux: 0 ms VEIN OF GIACOMINI: Size: NA Reflux: NA PERFORATORS: Location: Mid calf Size: 0.4 cm Reflux: 1620 ms VARICOSITIES: Location: Proximal thigh and distal thigh off the lateral duplicated great saphenous vein Size: 0.5 to 0.7 cm Reflux: Ranging from 2848 ms to 2960 ms VARICOSITIES: Location: Distal calf off the great saphenous vein Size: 0.4 cm Reflux: 504 ms US/US venous duplex LE BI IMPRESSION: Right: Venous occlusion of the right great saphenous vein as described above. Residual great saphenous vein demonstrates reflux within the calf. Dilated lateral duplicated great saphenous vein with severe reflux. Residual patent varicosities seen within the thigh off the lateral duplicated great saphenous vein and calf off the great saphenous vein Left: Venous occlusion of the left great saphenous vein as described above. Residual great saphenous vein demonstrates reflux within the distal calf. Dilated lateral duplicated great saphenous vein with severe reflux. Residual patent varicosities seen within the thigh off the lateral duplicated great saphenous vein and calf off the great saphenous vein
== END 2022-12-17 12:39 | disposition home or self-care (01) ==
LOC: HO.US 12:38
PROVIDERS: PCP Internal Medicine; Visit Provider Surgery Vascular Surgery
DX: I83.12 Varicose veins of left lower extremity with inflammation (principal)
CPT/HCPCS: 93970

== ENCOUNTER 2022-12-21 08:44 | Outpatient (REF) | payer MEDICARE, SELFPAY ==
[2022-12-21 10:37] LABS: Estimated Average Glucose 131 mg/dL; Hemoglobin A1c % 6.2 % (<6.0)
[2022-12-21 11:05] LABS: Alanine Aminotransferase 16 U/L (0-31); Anion Gap 15 (12-20); Aspartate Amino Transferase 19 U/L (5-31); Blood Urea Nitrogen 17 mg/dL (9-16); Carbon Dioxide 26 mmol/L (22-29); Chloride 101 mmol/L (96-108); Cholesterol 143 mg/dL (<200); Estimated Glomerular Filt Rate > 60; Glucose Fasting 126 mg/dL (60-99); HDL Cholesterol 48 mg/dL (>40); LDL Cholesterol Calculated 77 mg/dL (<100); Potassium 4.2 mmol/L (3.3-5.1); Sodium 138 mmol/L (135-145); Triglycerides 93 mg/dL (<150)
== END 2022-12-21 08:45 | disposition home or self-care (01) ==
LOC: HO.LAB 08:44
PROVIDERS: PCP Internal Medicine; Visit Provider Internal Medicine
DX: E11.9 Type 2 diabetes mellitus without complications (principal); I10 Essential (primary) hypertension; K58.9 Irritable bowel syndrome, unspecified; K21.9 Gastro-esophageal reflux disease without esophagitis; E78.5 Hyperlipidemia, unspecified; J44.9 Chronic obstructive pulmonary disease, unspecified; Z78.0 Asymptomatic menopausal state
CPT/HCPCS: 36415; 80048; 80061; 82306; 83036; 84450; 84460

== ENCOUNTER 2022-12-30 11:34 | Outpatient (AMB) | payer MEDICARE, SELFPAY ==
[2022-12-30 11:34] VITALS: BMI 38.4
--- NOTE | 2022-12-30 11:34 | A.OFFVIS_ITS ---
Intake Vital Signs 12/30/22 11:34 Height 5 ft 2 in Weight 210 lb BMI 38.4 Intake Visit Reasons: Add-on for hematoma Intake Note: Pt here for Right LE bump over VV, questioning hematoma. Hx of Right GSV Venaseal 04/20/2021 & Left GSV Venaseal 06/22/2021. Accompanied by: Self / Same As Patient Allergies oxycodone [Oxycodone] Adverse Reaction (Severe, Verified 12/30/22 11:40) VOMITTING From OxyContin Adverse Reaction (Severe, Uncoded 12/30/22 11:40) VOMITTING HPI Add-on for hematoma HPI Details Very pleasant 77-year-old female presents for follow-up regarding leg swelling and venous disease. She actually had a fall last week and had significant bruising in the right lower extremity and actually hit the stove in her left eye. She reports that seem to be doing okay pain did not go to the emergency room. She reports that there was significant swelling on the right side and she was concerned about the knee. She reached out to her orthopedist in we did on the phone for nearly an hour and was unable to get in. She now presents for follow-up. [facility] Medical History Lumbago Mixed stress and urge urinary incontinence Chronic restrictive lung disease Erythema intertrigo Type 2 diabetes mellitus without complication, without long-term current use of insulin Rib pain PONV (postoperative nausea and vomiting) Requires supplemental oxygen Preoperative examination Pulmonary nodules Family history of breast cancer gene mutation in first degree relative Diabetes mellitus with hyperglycemia, without long-term current use of insulin COVID-19 virus infection Asthma-COPD overlap syndrome Menopause Pulmonary nodule Obstructive sleep apnea Irritable bowel syndrome GERD (gastroesophageal reflux disease) Dyslipidemia Surgical History Status post ablation of incompetent vein using laser (~2021) History of shoulder surgery History of total knee replacement History of appendectomy Hx of cholecystectomy Family History Father Stroke Mother HTN (hypertension) Diabetes mellitus Brother Kidney disease Brother Pneumonia Daughter Invasive ductal carcinoma of breast, Onset Age: 53 Social History Housing: House Alcohol intake: never Patient Tobacco Use Status: Former Tobacco user Quit Date: 1999 e-Cigarette/Vaping Use: Never Used service: No Current occupational status: retired Cognitive needs: No Hearing needs: No Vision needs: Yes Review of Systems Const Reports as per HPI ENT Reports no additional complaints Card Denies chest pain, Denies chest pain at rest and Denies chest pain with activity Resp Denies chest congestion and Denies cough GI Reports no additional complaints Musc Details: pain over varicosities, aching of lower extremities, swelling, cramping, heaviness and tiredness, itching Denies abnormal gait Skin/Breast Reports pruritus and Denies wounds Neuro Reports no additional complaints and Denies abnormal gait Psych Denies no additional complaints Physical Exam Vital Signs: BMI result Body Mass Index 38.4 Const General: cooperative, healthy appearing and comfortable Orientation/consciousness: oriented to person, oriented to place and oriented to time Neck Carotids: no bruits Chest Chest palpation & inspection: normal inspection of the chest and normal palpation of entire chest wall Resp Effort & Inspection: normal respiratory effort and able to speak in complete sentences Cardio Rate: regular rate Heart sounds: S1 normal heart sound present and S2 normal heart sound present Peripheral pulses: Peripheral pulses 2+ throughout GI Inspection: Yes normal to inspection Skin Other: +2 edema, large rope-like varicosities greater than 4 mm CEAP Classification C4 - skin color changes Ep - Etiology Primary As - superficial veins P - reflux General skin exam: dry skin Neuro General: oriented to person, oriented to place and oriented to time Extrem Right lower extremity: full ROM, normal capillary refill and edema Left lower extremity: full ROM, normal capillary refill and edema Psych Mental Status: mental status grossly normal Results Reviewed Results Reviewed: Brief summary of venous insufficiency testing is as follows: right great saphenous vein: Focally positive knee on down right small saphenous vein: negative right accessory vein: none present left great saphenous vein: negative left small saphenous vein: negative left accessory vein: Present and positive Please note there is no evidence of any venous aneurysms or significant tortuosity Assessment & Plan Assessment & Plan (1) Varicose veins of right lower extremity with inflammation: Comment: 04/20/2021 - right great saphenous vein Cyanoacralate ablation Code(s): I83.11 - Varicose veins of right lower extremity with inflammation Plan: In short patient has developed a significant hematoma after her fall. The concern is that this is near the knee and there is an underlying prosthetic. At the current time it does not appear to be infected. She was informed that should this become erythematous or she develops fevers or chills to immediately contact her orthopedic surgeon and have a follow-up with them. In terms of the venous insufficiency at the current time will manage this conservatively until the bruising goes down. I have scheduled a routine 6 month follow-up for her. She was also inform should this event happened in the future it would be prudent to go to the emergency room to get checked out. Thank you for allowing us to assist in her care. If there are any questions or concerns please do not hesitate to contact us. (2) Varicose veins of left lower extremity with inflammation: Comment: 06/22/2021 - left great saphenous vein Cyanoacralate ablation Code(s): I83.12 - Varicose veins of left lower extremity with inflammation Coding Level of Care Code Est Pt Level 4 (10540) Diagnoses Varicose veins of right lower extremity with inflammation I83.11 Varicose veins of left lower extremity with inflammation I83.12
== END 2022-12-30 12:43 | disposition home or self-care (01) ==
PROVIDERS: PCP Internal Medicine; Visit Provider Surgery Vascular Surgery
DX: I83.11 Varicose veins of right lower extremity with inflammation (principal); I83.12 Varicose veins of left lower extremity with inflammation
CPT/HCPCS: 99213

== ENCOUNTER → 2022-12-30 11:34 | Outpatient (BNVA) | payer MEDICARE, SELFPAY | PROVIDERS: PCP Internal Medicine; Visit Provider Surgery Vascular Surgery | DX: I83.11 Varicose veins of right lower extremity with inflammation (principal); I83.12 Varicose veins of left lower extremity with inflammation | CPT/HCPCS: 99212 ==

== ENCOUNTER 2022-12-31 10:46 | Emergency (ER) | payer MEDICARE, SELFPAY ==
--- NOTE | ~2022-12-31 | XR_ITS ---
EXAMINATION: XR KNEE, RIGHT CLINICAL INFORMATION: Knee pain status post fall COMPARISON: None available. TECHNIQUE: Four views of the right knee. FINDINGS: Status post right knee total arthroplasty. Trace joint effusion. Bones are diffusely demineralized. Hardware appears intact. Alignment preserved. XR/XR knee RT 4V IMPRESSION: Status post right knee total arthroplasty. Trace joint effusion. Hardware appears intact. Additional imaging with CT scan or MRI should be considered for better visualization as these modalities are much more sensitive for detection of fracture or other underlying pathology.
--- NOTE | ~2022-12-31 | CT_ITS ---
EXAMINATION: CT HEAD WITHOUT CONTRAST CT CERVICAL SPINE WITHOUT CONTRAST CT MAXILLOFACIAL WITHOUT CONTRAST CLINICAL INFORMATION: Head strike. Syncope. COMPARISON: None TECHNIQUE: CT of the head, cervical spine, and maxillofacial structures was performed without intravenous contrast. Multiplanar reformats were rendered and reviewed. This CT examination was performed using dose optimization techniques as appropriate, variously including the following: *Automated exposure control *Adjustment of mA and/or kV according to patient size (this includes techniques or standardized protocols for targeted exams where dose is matched to indication/reason for exam; i.e. extremities or head) *Use of iterative reconstruction technique DLP: 1443 mGy-cm. FINDINGS: CT HEAD: There is no intracranial hemorrhage, extra-axial collection, mass effect, or infarction. The ventricles are normal in size. There is no calvarial fracture. The extracranial structures are within normal limits. CT MAXILLOFACIAL: There is no preseptal soft tissue swelling. The orbital odonnell and orbital rims are intact. There is no infiltration of the intraorbital fat or evidence of retrobulbar hematoma. The extraocular muscles and optic nerve sheath complexes are symmetric and normal in appearance. The globes are normal and symmetric. The zygomas and zygomaticomaxillary buttresses are intact. The nasal bones and dsmj-wlnqtu-zbribvz complex are intact. The maxillary alveolus and hard palate are intact. The mandible is intact with mandibular condyles normally positioned within the glenoid fossa. The osseous structures of the central skull base are intact. There is mild paranasal sinus mucosal thickening without fluid levels. There is significant rightward deviation of the nasal septum. The mastoids and middle ear cavities are essentially clear. CT CERVICAL SPINE: The cervical vertebral bodies maintain normal heights and alignment. No fracture is seen. Mild degenerative changes are seen at the atlantodental articulation. The facet joints are normally aligned. There is severe facet arthropathy on the left at C3-C4. There is no significant disc height loss. The spinal canal appears grossly patent. No high-grade neural foraminal stenosis is seen. The upper lungs are clear. CT/CT head/brain wo IV con IMPRESSION: CT HEAD: No acute intracranial abnormality. CT CERVICAL SPINE: No cervical spine fracture or traumatic malalignment. Severe facet arthropathy on the left at C3-C4. CT FACE: No fracture.
--- NOTE | ~2022-12-31 | CT_ITS ---
EXAMINATION: CT KNEE WITHOUT CONTRAST, RIGHT CLINICAL INFORMATION: Right knee pain COMPARISON: X-rays of the right knee performed earlier same day. TECHNIQUE: CT scan of the right knee is performed without contrast with reconstruction imaging performed at the acquisition workstation. This CT examination was performed using dose optimization techniques as appropriate, variously including the following: *Automated exposure control *Adjustment of mA and/or kV according to patient size (this includes techniques or standardized protocols for targeted exams where dose is matched to indication/reason for exam; i.e. extremities or head) *Use of iterative reconstruction technique DLP: 142 mGy-cm FINDINGS: There is a right total knee arthroplasty in place with the components in usual position. There is expected metallic artifact resulting in beam hardening artifact partially obscuring portions of the surrounding tissues. There is no periprosthetic fracture or suspicious area of lucency. There is a mass lateral subcutaneous soft tissues of the knee beginning at the joint line and extending distally. This mass cm transverse 1.8 cm AP and 8.5 cm craniocaudal. This minimal stranding in the subcutaneous soft tissues compatible edema or soft tissue contusion. The aforementioned mass anterior and peroneal compartment of the lower leg. There is moderate atrophy and fatty infiltration of the peroneal muscles. Muscles and tendons otherwise unremarkable. Arterial calcification noted. CT/CT knee RT wo IV con IMPRESSION: 1. Right total knee arthroplasty in place without evidence for periprosthetic fracture or suspicious area of lucency. 2. Mass/masslike complex collection along the anterior lateral subcutaneous soft tissues of the knee. This most likely reflects a traumatic etiology likely reflecting an evolving hematoma. Abscess cannot be excluded. Tumor tumor is considered much less likely. Correlate clinically to eliminate this possibility in the differential diagnosis 3. Atrophy and fatty infiltration of the peroneal muscles.
--- NOTE | ~2022-12-31 | US_ITS ---
EXAMINATION: US VENOUS ULTRASOUND WITH DOPPLER LOWER EXTREMITY, RIGHT CLINICAL INFORMATION: Right lower extremity swelling COMPARISON: Venous ultrasound of the right lower extremity 04/24/2021, negative TECHNIQUE: Ultrasound of the deep veins is performed from the hip to the calf with compression sonography and color and pulse Doppler assessment. Spectral analysis with color-flow imaging is performed. FINDINGS: There is normal venous compression and respiratory variation and augmented flow. The visualized common femoral vein, superficial femoral vein, profunda femoral vein, popliteal vein, and the posterior tibial and peroneal veins shows no evidence of deep venous thrombosis. The contralateral common femoral vein demonstrates normal flow, compressibility and respiratory variation. US/US venous duplex LE RT IMPRESSION: No DVT demonstrated in the right lower extremity.
--- NOTE | ~2022-12-31 | CT_ITS ---
EXAMINATION: CT HEAD WITHOUT CONTRAST CT CERVICAL SPINE WITHOUT CONTRAST CT MAXILLOFACIAL WITHOUT CONTRAST CLINICAL INFORMATION: Head strike. Syncope. COMPARISON: None TECHNIQUE: CT of the head, cervical spine, and maxillofacial structures was performed without intravenous contrast. Multiplanar reformats were rendered and reviewed. This CT examination was performed using dose optimization techniques as appropriate, variously including the following: *Automated exposure control *Adjustment of mA and/or kV according to patient size (this includes techniques or standardized protocols for targeted exams where dose is matched to indication/reason for exam; i.e. extremities or head) *Use of iterative reconstruction technique DLP: 1443 mGy-cm. FINDINGS: CT HEAD: There is no intracranial hemorrhage, extra-axial collection, mass effect, or infarction. The ventricles are normal in size. There is no calvarial fracture. The extracranial structures are within normal limits. CT MAXILLOFACIAL: There is no preseptal soft tissue swelling. The orbital odonnell and orbital rims are intact. There is no infiltration of the intraorbital fat or evidence of retrobulbar hematoma. The extraocular muscles and optic nerve sheath complexes are symmetric and normal in appearance. The globes are normal and symmetric. The zygomas and zygomaticomaxillary buttresses are intact. The nasal bones and yqob-kcchxi-ueliryv complex are intact. The maxillary alveolus and hard palate are intact. The mandible is intact with mandibular condyles normally positioned within the glenoid fossa. The osseous structures of the central skull base are intact. There is mild paranasal sinus mucosal thickening without fluid levels. There is significant rightward deviation of the nasal septum. The mastoids and middle ear cavities are essentially clear. CT CERVICAL SPINE: The cervical vertebral bodies maintain normal heights and alignment. No fracture is seen. Mild degenerative changes are seen at the atlantodental articulation. The facet joints are normally aligned. There is severe facet arthropathy on the left at C3-C4. There is no significant disc height loss. The spinal canal appears grossly patent. No high-grade neural foraminal stenosis is seen. The upper lungs are clear. CT/CT cervical spine wo IV con IMPRESSION: CT HEAD: No acute intracranial abnormality. CT CERVICAL SPINE: No cervical spine fracture or traumatic malalignment. Severe facet arthropathy on the left at C3-C4. CT FACE: No fracture.
--- NOTE | ~2022-12-31 | CT_ITS ---
EXAMINATION: CT HEAD WITHOUT CONTRAST CT CERVICAL SPINE WITHOUT CONTRAST CT MAXILLOFACIAL WITHOUT CONTRAST CLINICAL INFORMATION: Head strike. Syncope. COMPARISON: None TECHNIQUE: CT of the head, cervical spine, and maxillofacial structures was performed without intravenous contrast. Multiplanar reformats were rendered and reviewed. This CT examination was performed using dose optimization techniques as appropriate, variously including the following: *Automated exposure control *Adjustment of mA and/or kV according to patient size (this includes techniques or standardized protocols for targeted exams where dose is matched to indication/reason for exam; i.e. extremities or head) *Use of iterative reconstruction technique DLP: 1443 mGy-cm. FINDINGS: CT HEAD: There is no intracranial hemorrhage, extra-axial collection, mass effect, or infarction. The ventricles are normal in size. There is no calvarial fracture. The extracranial structures are within normal limits. CT MAXILLOFACIAL: There is no preseptal soft tissue swelling. The orbital odonnell and orbital rims are intact. There is no infiltration of the intraorbital fat or evidence of retrobulbar hematoma. The extraocular muscles and optic nerve sheath complexes are symmetric and normal in appearance. The globes are normal and symmetric. The zygomas and zygomaticomaxillary buttresses are intact. The nasal bones and kfpt-kgbqxd-heqtszc complex are intact. The maxillary alveolus and hard palate are intact. The mandible is intact with mandibular condyles normally positioned within the glenoid fossa. The osseous structures of the central skull base are intact. There is mild paranasal sinus mucosal thickening without fluid levels. There is significant rightward deviation of the nasal septum. The mastoids and middle ear cavities are essentially clear. CT CERVICAL SPINE: The cervical vertebral bodies maintain normal heights and alignment. No fracture is seen. Mild degenerative changes are seen at the atlantodental articulation. The facet joints are normally aligned. There is severe facet arthropathy on the left at C3-C4. There is no significant disc height loss. The spinal canal appears grossly patent. No high-grade neural foraminal stenosis is seen. The upper lungs are clear. CT/CT facial bones wo IV con IMPRESSION: CT HEAD: No acute intracranial abnormality. CT CERVICAL SPINE: No cervical spine fracture or traumatic malalignment. Severe facet arthropathy on the left at C3-C4. CT FACE: No fracture.
[2022-12-31 10:52] VITALS: BP 144/45; PULSE 70; RESP 20; TEMP 36.4; O2SAT 95; BMI 37.6
--- NOTE | 2022-12-31 12:30 | ECG_ITS ---
Test Reason : dizziness, syncope Blood Pressure : / mmHG Vent. Rate : 061 BPM Atrial Rate : 061 BPM P-R Int : 132 ms QRS Dur : 074 ms QT Int : 420 ms P-R-T Axes : 000 024 018 degrees QTc Int : 422 ms Poor data quality Normal sinus rhythm with sinus arrhythmia RSR' or QR pattern in V1 suggests right ventricular conduction delay Borderline ECG When compared with ECG of 02-JUL-2017 16:28, No significant change was found Referred By: Aicha Anglin Electronically Signed By:ELSA ROLLINS MD
[2022-12-31 12:47] LABS: MANUAL DIFF FLAG NO
[2022-12-31 12:54] LABS: Basophils Absolute Auto 0.1 X10*3/uL (0.0-0.2); Basophils Percent Auto 0.6 % (0-2); Eosinophils Absolute Auto 0.2 X10*3/uL (0.0-0.4); Eosinophils Percent Auto 1.7 % (0-4); Hematocrit 38.9 % (37.0-47.0); Hemoglobin 12.8 g/dl (12.0-16.0); Imm Gran Abs Auto 0.04 X10*3/uL (0.00-0.03); Imm Gran Pct Auto 0.4 % (0.0-0.4); Lymphocytes Absolute Auto 2.7 X10*3/uL (1.2-4.9); Lymphocytes Percent Auto 28.4 % (20-40); Mean Corpuscular HGB Conc 32.9 g/dl (31.0-35.0); Mean Corpuscular Hemoglobin 31.7 pg (27.0-33.0); Mean Corpuscular Volume 96.3 fL (80.0-98.0); Mean Platelet Volume 9.8 fL (9.4-12.3); Monocytes Absolute Auto 0.8 X10*3/uL (0.1-1.2); Monocytes Percent Auto 8.4 % (2-11); Neutrophils Absolute Auto 5.7 x10*3/uL (2.0-8.3); Neutrophils Percent Auto 60.5 % (45-73); Platelet Count 233 X10*3/uL (160-400); Red Blood Count 4.04 X10*6/uL (4.20-5.50); Red Cell Distribution Width 12.3 % (11.0-16.0); White Blood Count 9.3 X10*3/uL (4.8-10.8)
[2022-12-31 13:04] LABS: Alanine Aminotransferase 15 U/L (0-31); Albumin Level 4.5 g/dL (3.5-5.0); Alkaline Phosphatase 33 U/L (39-117); Anion Gap 15 (12-20); Aspartate Amino Transferase 20 U/L (5-31); Bilirubin Direct 0.3 mg/dL (0.0-0.5); Blood Urea Nitrogen 19 mg/dL (9-16); Calcium 11.3 mg/dL (8.4-10.2); Carbon Dioxide 28 mmol/L (22-29); Chloride 103 mmol/L (96-108); Estimated Glomerular Filt Rate > 60; Glucose Random 122 mg/dL (60-115); Magnesium 2.2 mg/dL (1.6-2.6); Potassium 4.9 mmol/L (3.3-5.1); Sodium 141 mmol/L (135-145); Total Protein 8.4 g/dL (6.5-8.0)
[2022-12-31 13:14] LABS: Troponin-I High Sensitivity < 2.7 ng/L (<3.5-17.0)
[2022-12-31 14:36] VITALS: BP 126/53; PULSE 64; RESP 20; TEMP 36.6; O2SAT 98
--- NOTE | 2022-12-31 14:52 | ED.GENADULT ---
HPI - General Adult General Chief complaint: General Medical Stated complaint: Eye & Knee Injury S/P Fall 12/26/22 Time Seen by Provider: 12/31/22 11:40 Source: patient, family and RN notes reviewed Mode of arrival: ambulatory Limitations: no limitations History of Present Illness HPI narrative: This is a 77-year-old female, with a history of asthma, COPD, diabetes, dyslipidemia, GERD, and BOB, presenting to the emergency department with complaints of left eye, facial pain, headaches, dizziness and right knee pain status post fall which occurred 4 days ago. Patient states that while she was ambulating throughout her home wearing slippers she believes that 1 of her slippers got caught in the siddharth and she fell forward. She states that she felt well prior to the fall. She states that she struck the right side of her face on the stove and struck her right knee on the ground. Patient denies loss of consciousness. She states that she was on the ground for about 5-10 minutes wall she called for her to help her up. She has been able to ambulate on her right leg however reports significant decreased range of motion and pain with ambulation. She is concerned given she had a total knee replacement of this right knee. She also reports ongoing headache since the incident. She is not on anticoagulants. She denies chest pain or shortness of breath. No abdominal pain, nausea, vomiting or diarrhea. She states that she felt well prior to the fall. No other complaints or concerns at this time. MD complaint: Fall Onset (ago): day(s) Location: face and lower extremity Severity: moderate Quality: aching Pain Consistency: constant Relieving factors: none Exacerbating factors: none Associated symptoms: denies other symptoms Treatments prior to arrival: none Related Data Home Medications Medication Instructions Recorded Confirmed carvedilol 25 mg tablet 25 mg PO BID 12/15/19 10/08/22 dicyclomine 10 mg capsule 10 mg PO QID PRN Indigestion 12/15/19 10/08/22 one touch delica plus lancets subcut DAILY 05/16/20 10/08/22 lorazepam 0.5 mg tablet 0.5 mg PO DAILY PRN anxiety 12/01/20 10/08/22 escitalopram oxalate 20 mg tablet 20 mg PO DAILY 08/07/21 10/08/22 chlorthalidone 25 mg tablet 25 mg PO DAILY 05/08/22 10/08/22 spironolactone 25 mg tablet 25 mg PO DAILY 05/08/22 10/08/22 Previous Rx's Medication Instructions Recorded blood-glucose meter #1 ea 01/20/20 blood sugar diagnostic (OneTouch #50 ea 05/09/20 Ultra Blue Test Strip) lancets 30 gauge (OneTouch Delica #100 ea 05/30/20 Plus Lancet) budesonide-formoterol HFA 160 2 puff PO BID #10.2 grams 07/03/20 mcg-4.5 mcg/actuation aerosol inhaler albuterol sulfate 90 mcg/actuation 2 puff inhalation Q6H PRN wheezing 06/06/21 aerosol inhaler #8.5 grams blood sugar diagnostic (OneTouch #50 strips 04/21/22 Ultra Test strips) atorvastatin 10 mg tablet 10 mg PO DAILY #90 tabs 04/30/22 jtpzcrpmak-rwddynq-rwmoogbo 50 1 cap PO Q6H PRN pain #10 caps 05/08/22 mg-325 mg-40 mg capsule nystatin 100,000 unit/gram topical 100,000 unit topical TID PRN 05/08/22 powder Vaginal Irritation #60 grams Trelegy Ellipta 200 mcg-62.5 1 inh inhalation DAILY #60 ea 06/24/22 mcg-25 mcg powder for inhalation (frjtrrmtgmt-jfzcngdmh-sacplpxm) sitagliptin phosphate 100 mg 100 mg PO DAILY #90 tabs 07/21/22 tablet (Januvia) fluticasone propionate 50 2 spray intranasal DAILY #48 mL 07/23/22 mcg/actuation nasal spray,suspension hydrochlorothiazide 25 mg tablet 25 mg PO QAM #90 tabs 09/11/22 losartan 100 mg tablet 100 mg PO DAILY #90 tabs 09/11/22 cholecalciferol (vitamin D3) 50 50 mcg PO DAILY #90 caps 10/04/22 mcg (2,000 unit) capsule (Vitamin D3) clotrimazole-betamethasone 1 1 appl topical BID PRN rash #45 10/08/22 %-0.05 % topical cream grams tizanidine 4 mg tablet 4 mg PO BID PRN muscle spasticity 10/08/22 #10 tabs metformin 500 mg tablet 500 mg PO DAILY #90 tabs 10/27/22 loratadine 10 mg tablet 10 mg PO DAILY #90 tabs 10/31/22 mirabegron 25 mg tablet,extended 25 mg PO DAILY 30 days #30 tabs 11/25/22 release 24 hr (Myrbetriq) doxycycline monohydrate 100 mg 100 mg PO BID 14 days #28 tabs 12/04/22 tablet dapagliflozin propanediol 10 mg 10 mg PO QAM 90 days #90 tabs 12/12/22 tablet (Farxiga) Allergies Allergy/AdvReac Type Severity Reaction Status Date / Time oxycodone [Oxycodone] AdvReac Severe VOMITTING Verified 12/31/22 10:51 From OxyContin AdvReac Severe VOMITTING Uncoded 12/30/22 11:40 Review of Systems Review of Systems: Yes all other systems are reviewed and are negative Constitutional: Constitutional: Reports as per [facility] Past Medical History Attestation statement: The following information was validated with the patient. Medical History Lumbago Mixed stress and urge urinary incontinence Chronic restrictive lung disease Erythema intertrigo Type 2 diabetes mellitus without complication, without long-term current use of insulin Rib pain PONV (postoperative nausea and vomiting) Requires supplemental oxygen Preoperative examination Pulmonary nodules Family history of breast cancer gene mutation in first degree relative Diabetes mellitus with hyperglycemia, without long-term current use of insulin COVID-19 virus infection Asthma-COPD overlap syndrome Menopause Pulmonary nodule Obstructive sleep apnea Irritable bowel syndrome GERD (gastroesophageal reflux disease) Dyslipidemia Surgical History Status post ablation of incompetent vein using laser (~2021) History of shoulder surgery History of total knee replacement History of appendectomy Hx of cholecystectomy Family History Family History Father Stroke Mother HTN (hypertension) Diabetes mellitus Brother Kidney disease Brother Pneumonia Daughter Invasive ductal carcinoma of breast, Onset Age: 53 Social History Social History Housing: House Alcohol intake: never Patient Tobacco Use Status: Former Tobacco user Quit Date: 1999 e-Cigarette/Vaping Use: Never Used Advance Directives: No Advance Directives Information Provided: Yes service: No Current occupational status: retired Cognitive needs: No Hearing needs: No Vision needs: Yes Physical Exam ED Vital Signs: Vital Signs - 24 hr 12/31/22 10:52 12/31/22 14:36 Temperature 97.6 F 98 F Pulse Rate 70 64 Respiratory Rate 20 20 Blood Pressure 144/45 H 126/53 L Pulse Oximetry 95 98 Oxygen Delivery Method Room Air Room Air BMI result Body Mass Index 37.6 Const General: cooperative, comfortable and no acute distress Orientation/consciousness: patient oriented x3 Limitations: no limitations HENMT Other: Mild tenderness to palpation along the nasal bridge no bony step-off Head: Yes normal to inspection, Yes normocephalic and Yes atraumatic Ears: hearing grossly normal bilaterally General nose exam: Normal external nose present Face and sinus: Yes normal facial exam Mouth: Normal oral and palatal mucosa present, oropharynx normal and moist mucous membranes Throat: Yes posterior oropharynx normal Eyes Other: Healing left periorbital ecchymosis noted, no eye entrapment, no pupillary defect. Tenderness to palpation along the superior orbit. No bony step-off or deformity. General: appearance normal, both eyes and all related structures Eyelids: Yes eyelids normal Conjunctivae: conjunctivae normal Sclerae: sclerae normal Pupils: Equal, round and reactive pupils present EOM: EOMs intact bilaterally Neck Other: No cervical midline spine tenderness Neck: Yes normal visual inspection, Yes full ROM and Yes no lymphadenopathy Lymphatic: no lymphadenopathy noted Chest Other: No ecchymosis or step-off noted to the anterior chest wall. No tenderness. Chest palpation & inspection: normal inspection of the chest and normal palpation of entire chest wall Resp Effort & Inspection: normal respiratory effort and able to speak in complete sentences Auscultation: clear to auscultation bilaterally, no crackles, no rales, no rhonchi and no wheezes Cardio Other: Systolic murmur auscultated Rate: regular rate Rhythm: regular rhythm Heart sounds: S1 normal heart sound present and S2 normal heart sound present GI Other: Abdomen is soft nontender, no ecchymosis noted throughout the abdomen Inspection: Yes normal to inspection Skin General skin exam: no rashes or lesions noted Trauma: no lacerations or abrasions Wounds: no wounds Neuro General: patient oriented x3 and moves all extremities Cranial nerves: Yes Equal, round and reactive pupils present Extrem Other: Right knee with moderate edema, and tenderness to palpation along the patella and lateral joint line with moderate swelling and ecchymosis noted. No surrounding erythema or warmth. Limited range of motion, able to flex at about 30?. DP pulse 2 +. Leg is well perfused. No calf tenderness. General: Yes normal to inspection Right upper extremity: normal to inspection Left upper extremity: normal to inspection Left lower extremity: normal to inspection Course Reevaluation(s) Reevaluation #1: Cervical spine CT revealing severe facet arthropathy, CT head, facial CT negative. Ultrasound negative for DVT. X-ray of the right knee was obtained however recommended CT for further evaluation Time: 15:00 Reevaluation #2: Right TKA in place without evidence for periprosthetic fracture or suspicious area of lucency. There is a masslike complex collection along the anterior lateral subcutaneous soft tissues of the knee likely evolving hematoma. Further report abscess cannot be excluded. No profound warmth, erythema. No white blood cell count. Likely reflective of a hematoma. Discussed findings with patient and at bedside. Given return precautions. Patient understands and agrees with plan. Patient stable for discharge. Time: 16:05 Medical Decision Making Medical Decision Making [facility] Narrative: This is a 77-year-old female, with a history of asthma, COPD, diabetes, dyslipidemia, GERD, and BOB, presenting to the emergency department with complaints of left eye, facial pain, headaches, dizziness and right knee pain status post fall which occurred 4 days ago. Blood pressure mildly elevated at 1444/45, all other vital signs within normal limits. Patient has ecchymosis noted to the right orbit with right knee ecchymosis and tenderness. Concerning for orbital bone fracture, globe rupture unlikely given no conjunctival hemorrhage or pupillary defect as well as questionable knee hardware malalignment, fracture. Patient has been ambulating since the fall. Plan: Labs, CT head, face, ultrasound right lower extremity, C-spine, knee x-ray. Differential Diagnosis Differential Diagnoses: The differential diagnosis associated with the presentation includes ICH, closed head injury, orbital bone fracture hematoma, DVT Admission/Observation Consideration of admission/observation: Escalation of care including admission/observation considered Patient would have been admitted to the hospital had her work up had any findings where hospital admission was appropriate and her clinical presentation warranted hospital admission. Lab Data [facility] Lab Attestation statement: I reviewed the patient's lab results. No leukocytosis, stable H&H, chemistry within normal limits, troponin negative 12/31/22 12:41 12/31/22 12:41 Labs: Lab Results 12/31/22 Range/Units 12:41 WBC 9.3 (4.8-10.8) X10*3/uL RBC 4.04 L (4.20-5.50) X10*6/uL Hgb 12.8 (12.0-16.0) g/dl Hct 38.9 (37.0-47.0) % MCV 96.3 (80.0-98.0) fL MCH 31.7 (27.0-33.0) pg MCHC 32.9 (31.0-35.0) g/dl RDW 12.3 (11.0-16.0) % Plt Count 233 (160-400) X10*3/uL MPV 9.8 (9.4-12.3) fL Immature Gran % (Auto) 0.4 (0.0-0.4) % Neut % (Auto) 60.5 (45-73) % Lymph % (Auto) 28.4 (20-40) % [place] % (Auto) 8.4 (2-11) % Eos % (Auto) 1.7 (0-4) % Baso % (Auto) 0.6 (0-2) % Lymph # (Auto) 2.7 (1.2-4.9) X10*3/uL [place] # (Auto) 0.8 (0.1-1.2) X10*3/uL Eos # (Auto) 0.2 (0.0-0.4) X10*3/uL Baso # (Auto) 0.1 (0.0-0.2) X10*3/uL Abs Immat Gran (auto) 0.04 H (0.00-0.03) X10*3/uL Absolute Neuts (auto) 5.7 (2.0-8.3) x10*3/uL Absolute Nucleated RBC 0.000 (0.0-0.012) X10*3/uL Nucleated RBC % (auto) 0.0 (0.0-0.2) /100WBC Sodium 141 (135-145) mmol/L Potassium 4.9 (3.3-5.1) mmol/L Chloride 103 (96-108) mmol/L Carbon Dioxide 28 (22-29) mmol/L Anion Gap 15 (12-20) BUN 19 H (9-16) mg/dL Creatinine 0.77 (0.5-1.4) mg/dL Estim Creat Clear Calc 66.0 Estimated GFR > 60 Random Glucose 122 H (60-115) mg/dL Calcium 11.3 H D (8.4-10.2) mg/dL Magnesium 2.2 (1.6-2.6) mg/dL Total Bilirubin 1.0 (0.0-1.0) mg/dL Direct Bilirubin 0.3 (0.0-0.5) mg/dL AST 20 (5-31) U/L ALT 15 (0-31) U/L Alkaline Phosphatase 33 L (39-117) U/L Troponin I High Sens < 2.7 (<3.5-17.0) ng/L Total Protein 8.4 H (6.5-8.0) g/dL Albumin 4.5 (3.5-5.0) g/dL Radiology Impression Discussion of test interpretation with radiology: I have reviewed the radiologist's reading. Radiologist Impression: EXAMINATION: CT KNEE WITHOUT CONTRAST, RIGHT CLINICAL INFORMATION: Right knee pain COMPARISON: X-rays of the right knee performed earlier same day. TECHNIQUE: CT scan of the right knee is performed without contrast with reconstruction imaging performed at the acquisition workstation. This CT examination was performed using dose optimization techniques as appropriate, variously including the following: *Automated exposure control *Adjustment of mA and/or kV according to patient size (this includes techniques or standardized protocols for targeted exams where dose is matched to indication/reason for exam; i.e. extremities or head) *Use of iterative reconstruction technique DLP: 142 mGy-cm FINDINGS: There is a right total knee arthroplasty in place with the components in usual position. There is expected metallic artifact resulting in beam hardening artifact partially obscuring portions of the surrounding tissues. There is no periprosthetic fracture or suspicious area of lucency. There is a mass lateral subcutaneous soft tissues of the knee beginning at the joint line and extending distally. This mass cm transverse 1.8 cm AP and 8.5 cm craniocaudal. This minimal stranding in the subcutaneous soft tissues compatible edema or soft tissue contusion. The aforementioned mass anterior and peroneal compartment of the lower leg. There is moderate atrophy and fatty infiltration of the peroneal muscles. Muscles and tendons otherwise unremarkable. Arterial calcification noted. CT/CT knee RT wo IV con IMPRESSION: 1. Right total knee arthroplasty in place without evidence for periprosthetic fracture or suspicious area of lucency. 2. Mass/masslike complex collection along the anterior lateral subcutaneous soft tissues of the knee. This most likely reflects a traumatic etiology likely reflecting an evolving hematoma. Abscess cannot be excluded. Tumor tumor is considered much less likely. Correlate clinically to eliminate this possibility in the differential diagnosis 3. Atrophy and fatty infiltration of the peroneal muscles. Dictated By: Flex Parnell MD FINDINGS: CT HEAD: There is no intracranial hemorrhage, extra-axial collection, mass effect, or infarction. The ventricles are normal in size. There is no calvarial fracture. The extracranial structures are within normal limits. CT MAXILLOFACIAL: There is no preseptal soft tissue swelling. The orbital odonnell and orbital rims are intact. There is no infiltration of the intraorbital fat or evidence of retrobulbar hematoma. The extraocular muscles and optic nerve sheath complexes are symmetric and normal in appearance. The globes are normal and symmetric. The zygomas and zygomaticomaxillary buttresses are intact. The nasal bones and twsk-ngxkhi-bjgbwbr complex are intact. The maxillary alveolus and hard palate are intact. The mandible is intact with mandibular condyles normally positioned within the glenoid fossa. The osseous structures of the central skull base are intact. There is mild paranasal sinus mucosal thickening without fluid levels. There is significant rightward deviation of the nasal septum. The mastoids and middle ear cavities are essentially clear. CT CERVICAL SPINE: The cervical vertebral bodies maintain normal heights and alignment. No fracture is seen. Mild degenerative changes are seen at the atlantodental articulation. The facet joints are normally aligned. There is severe facet arthropathy on the left at C3-C4. There is no significant disc height loss. The spinal canal appears grossly patent. No high-grade neural foraminal stenosis is seen. The upper lungs are clear. CT/CT head/brain wo IV con IMPRESSION: CT HEAD: No acute intracranial abnormality. CT CERVICAL SPINE: No cervical spine fracture or traumatic malalignment. Severe facet arthropathy on the left at C3-C4. CT FACE: No fracture. Dictated By: MARLEY ARCOS MD Independent Historian Clinical information obtained from an independent historian. History obtained from or confirmed by: Spouse Discharge Plan Discharge Clinical Impression: Fall, Periorbital ecchymosis, Contusion of right knee Patient Disposition: Home, Self-Care Instructions: Contusion in Adults (ED), Fall Prevention (ED), Hematoma (ED) Additional Instructions: Your presented to the emergency department after a fall. We obtained multiple images based on your physical exam today. Your head CT, neck CT, facial bone CT, knee CT, knee x-ray, did not show any acute findings. Ultrasound does not show a DVT. Your lab work and EKG were reassuring. Your right knee CT did reveal a hematoma, this is a bruise. Please use Tra wrap, ice, elevate your leg. Gentle range of motion, massage can also help with your symptoms. Watch for any signs of infection including but not limited to increased redness, swelling, fevers or chills, decreased range of motion, please return for re-evaluation. Prescriptions: No Action (DME) blood-glucose meter Kit See Rx Instructions .ROUTE .MEDSUPPLY Qty: 1 0RF Rx Instructions: As directed (DME) OneTouch Ultra Blue Test Strip Strip See Rx Instructions .ROUTE .MEDSUPPLY Qty: 50 8RF Rx Instructions: use one test strip once a day and as needed to test blood sugar one touch delica plus lancets subcut DAILY (DME) lancets [OneTouch Delica Plus Lancet] 30 gauge misc See Rx Instructions .ROUTE .MEDSUPPLY Qty: 100 6RF Rx Instructions: Use As directed twice a day budesonide-formoterol 160-4.5 mcg/actuation HFA aerosol inhaler 2 puff PO BID Qty: 10.2 3RF (DME) OneTouch Ultra Test Strip See Rx Instructions .ROUTE .COMPLEX Qty: 50 6RF Dose Instruction: CHECKS BLOOD SUGAR ONCE A DAY A.C. Rx Instructions: CHECKS BLOOD SUGAR ONCE A DAY A.C. atorvastatin 10 mg tablet 10 mg PO DAILY Qty: 90 1RF Trelegy Ellipta 200-62.5-25 mcg blister with device 1 inh inhalation DAILY Qty: 60 12RF Januvia 100 mg tablet 100 mg PO DAILY Qty: 90 1RF fluticasone propionate 50 mcg/actuation spray,suspension 2 spray intranasal DAILY Qty: 48 3RF losartan 100 mg tablet 100 mg PO DAILY Qty: 90 1RF hydrochlorothiazide 25 mg tablet 25 mg PO QAM Qty: 90 1RF cholecalciferol (vitamin D3) [Vitamin D3] 50 mcg (2,000 unit) capsule 50 mcg PO DAILY Qty: 90 1RF metformin 500 mg tablet 500 mg PO DAILY Qty: 90 1RF Rx Instructions: take with supper loratadine 10 mg tablet 10 mg PO DAILY Qty: 90 1RF Farxiga 10 mg tablet 10 mg PO QAM 90 Days Qty: 90 1RF carvedilol 25 mg tablet 25 mg PO BID dicyclomine 10 mg capsule 10 mg PO QID PRN (Reason: Indigestion) spironolactone 25 mg tablet 25 mg PO DAILY chlorthalidone 25 mg tablet 25 mg PO DAILY nystatin 100,000 unit/gram powder 100,000 unit topical TID PRN (Reason: Vaginal Irritation) Qty: 60 0RF ffwwiynisa-ebzvsgz-etwfmynz 50-325-40 mg capsule 1 cap PO Q6H PRN (Reason: pain) Qty: 10 0RF tizanidine 4 mg tablet 4 mg PO BID PRN (Reason: muscle spasticity) Qty: 10 0RF clotrimazole-betamethasone 1-0.05 % cream 1 appl topical BID PRN (Reason: rash) Qty: 45 1RF lorazepam 0.5 mg tablet 0.5 mg PO DAILY PRN (Reason: anxiety) albuterol sulfate 90 mcg/actuation HFA aerosol inhaler 2 puff inhalation Q6H PRN (Reason: wheezing) Qty: 8.5 11RF escitalopram oxalate 20 mg tablet 20 mg PO DAILY doxycycline monohydrate 100 mg tablet 100 mg PO BID 14 Days Qty: 28 0RF Myrbetriq 25 mg tablet extended release 24 hr 25 mg PO DAILY 30 Days Qty: 30 2RF Interventions: ED Discharge Assessment Last Done: 12/31/22 16:29 Discharge Date/Time: 12/31/22 16:29
== END 2022-12-31 16:29 | disposition home or self-care (01) ==
PROVIDERS: Physician Assistant Medical; Emergency Provider Emergency Medicine; PCP Internal Medicine
DX: S00.11XA Contusion of right eyelid and periocular area, initial encounter (principal); S80.01XA Contusion of right knee, initial encounter; W01.198A Fall on same level from slipping, tripping and stumbling with subsequent striking against other object, initial encounter; M79.604 Pain in right leg; R51.9 Headache, unspecified; E11.9 Type 2 diabetes mellitus without complications; I10 Essential (primary) hypertension; E78.5 Hyperlipidemia, unspecified; J98.4 Other disorders of lung; Z99.81 Dependence on supplemental oxygen; Z96.651 Presence of right artificial knee joint; Z87.891 Personal history of nicotine dependence; Z79.899 Other long term (current) drug therapy; Z79.84 Long term (current) use of oral hypoglycemic drugs; Y93.89 Activity, other specified; Y92.010 Kitchen of single-family (private) house as the place of occurrence of the external cause; Y99.9 Unspecified external cause status
CPT/HCPCS: 36415; 70450; 70486; 72125; 73564; 73700; 80048; 80076; 83735; 84484; 85025; 93005; 93971; 99284

== ENCOUNTER 2023-01-06 10:43 | Outpatient (AMB) | payer MEDICARE, SELFPAY ==
--- NOTE | 2023-01-06 10:57 | MHC.OFFVIS ---
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 blood-glucose meter As directed budesonide-formoterol 160-4.5 mcg/actuation 2 puffs PO BID cbvbcpxdtf-ucxyjcu-hvaffqgh 50-325-40 mg 1 cap PO Q6H PRN NS carvedilol 25 mg PO BID chlorthalidone 25 mg PO DAILY cholecalciferol (vitamin D3) (Vitamin D3) 50 mcg PO DAILY clotrimazole-betamethasone 1-0.05 % 1 appl topical BID PRN dapagliflozin propanediol (Farxiga) 10 mg PO QAM 90 days dicyclomine 10 mg PO QID PRN escitalopram oxalate 20 mg PO DAILY fluticasone propionate 50 mcg/actuation 2 sprays intranasal DAILY hydrochlorothiazide 25 mg PO QAM lancets (OneTouch Delica Plus Lancet) Use As directed twice a day loratadine 10 mg PO DAILY lorazepam 0.5 mg PO DAILY PRN losartan 100 mg PO DAILY metformin 500 mg PO DAILY mirabegron ER (Myrbetriq) 25 mg PO DAILY 30 days nystatin 100,000 units topical TID PRN [one touch delica plus lancets subcut DAILY] sitagliptin phosphate (Januvia) 100 mg PO DAILY spironolactone 25 mg PO DAILY tizanidine 4 mg PO BID PRN Trelegy Ellipta 200-62.5-25 mcg (wacdrivzccg-bldnadufj-klhmipgm) 1 inh inhalation DAILY NS HPI HPI Comments History of Present Illness Details Shey is a very pleasant 77-year-old female patient of Dr. Douglas. She has a past medical history of chronic restrictive lung disease, diabetes, pulmonary nodules, obstructive sleep apnea, irritable bowel syndrome, GERD, and dyslipidemia. She presents to the office today for a follow up of her urinary incontinence. Of note, patient was seen approximately 6 weeks ago at which time a retroperitoneal ultrasound was ordered for further assessment evaluation. These results reviewed with the patient today. Bilateral kidneys with no hydronephrosis or calculi noted. Partially distended, limiting evaluation. Right ureteral jet is demonstrated; left is not. Prevoid bladder volume is 230 mLs. Postvoid bladder volume is 10.5 mL. In discussion with the patient today she reports to be doing and feeling well. She reports noting significant improvement in lower urinary tract symptoms since taking Myrbetriq 25 mg daily. She has a previous history of 7 vaginal births. When asked she denies hematuria, dysuria, foul smelling urine, changes to urinary stream, flank pain, fever, and or chills. In office urinalysis results reviewed with the patient today. PVR 0 mL. She discusses having followed up with her PCP and ER due to most recent fall she had experience after tripping over her slipper. She reports needing to follow-up with [facility] for previous right-sided knee replacement that she has noted increasing swelling to since her fall. She otherwise offers no issues or concerns at this time. [facility] Medical History Lumbago Mixed stress and urge urinary incontinence Chronic restrictive lung disease Erythema intertrigo Type 2 diabetes mellitus without complication, without long-term current use of insulin Rib pain PONV (postoperative nausea and vomiting) Requires supplemental oxygen Preoperative examination Pulmonary nodules Family history of breast cancer gene mutation in first degree relative Diabetes mellitus with hyperglycemia, without long-term current use of insulin COVID-19 virus infection Asthma-COPD overlap syndrome Menopause Pulmonary nodule Obstructive sleep apnea Irritable bowel syndrome GERD (gastroesophageal reflux disease) Dyslipidemia Surgical History Status post ablation of incompetent vein using laser (~2021) History of shoulder surgery History of total knee replacement History of appendectomy Hx of cholecystectomy Family History Father Stroke Mother HTN (hypertension) Diabetes mellitus Brother Kidney disease Brother Pneumonia Daughter Invasive ductal carcinoma of breast, Onset Age: 53 Social History Housing: House Alcohol intake: never Patient Tobacco Use Status: Former Tobacco user Quit Date: 1999 e-Cigarette/Vaping Use: Never Used service: No Current occupational status: retired Cognitive needs: No Hearing needs: No Vision needs: Yes Review of Systems Const Reports no additional complaints Eyes Reports no additional complaints ENT Reports no additional complaints Card Reports as per HPI Resp Reports as per HPI GI Reports as per HPI Reports no additional complaints Neuro Reports no additional complaints Psych Reports no additional complaints Endo Reports as per HPI Lloyd/Lymph Reports no additional complaints Aller/Immun Reports no additional complaints Physical Exam Const General: cooperative, healthy appearing, comfortable, no acute distress, well developed, alert and awake Nutritional Appearance: overweight Orientation/consciousness: patient oriented x3 Limitations: no limitations HEENT Head: Yes normal to inspection, Yes normocephalic and Yes atraumatic Ears: hearing grossly normal bilaterally Eyes General: appearance normal, both eyes and all related structures Neck Neck: Yes normal visual inspection and Yes trachea midline Chest Chest palpation & inspection: normal inspection of the chest Resp Effort & Inspection: normal respiratory effort and able to speak in complete sentences Cardio Rate: regular rate GI Inspection: Yes normal to inspection General: Yes no CVA tenderness Back/Spine/Pelvis Back: no CVA tenderness Skin General skin exam: no rashes or lesions noted Neuro General: patient oriented x3 Extrem General: Yes normal to inspection Psych Appearance: grossly normal and well kempt Mental Status: mental status grossly normal Speech and movement: Normal speech and movement present and Clear speech present Affect: normal affect Attitude: cooperative Thought process: Normal thought process present Thought content: Normal thought content present Insight: Good insight present (Psych) Judgement: Good judgement present (Psych) Office Procedures Post Void Residual Post Residual Void Post Void Residual (PVR): 0 25037-Ixgy Void Residual by ultrasound Results Reviewed Results Reviewed: Date of Service: 12/13/22 EXAMINATION: US RETROPERITONEAL COMPLETE (RENAL) FINDINGS: RIGHT KIDNEY: 12.5 x 3.9 x 4.8 cm (SAG x AP x TRV). No hydronephrosis. No renal calculi. Renal cortical thickness is normal. Limited visualization. LEFT KIDNEY: 11.7 x 5.9 x 4.5 cm (SAG x AP x TRV). No hydronephrosis. No renal calculi. Renal cortical thickness is normal. Limited visualization. BLADDER: Partially distended, limiting evaluation. Right ureteral jet is demonstrated; left is not. Prevoid bladder volume is 226.3 mL. Postvoid bladder volume is 10.5 mL. US/US retroperitoneal comp IMPRESSION: No hydronephrosis. No renal calculi. Bladder is partially distended, limiting evaluation. Postvoid bladder volume is 10.5 mL. Assessment & Plan Assessment & Plan (1) Mixed stress and urge urinary incontinence: Code(s): N39.46 - Mixed incontinence Plan In office urinalysis results reviewed with the patient today; as noted above. PVR 0 mL. Patient reports be happy with current voiding parameters on 25 mg of Myrbetriq daily. Continue Myrbetriq 25 mg daily as discussed and prescribed. Recent retroperitoneal ultrasound results reviewed with the patient today; as noted above. Patient otherwise denies any bothersome urinary issues or concerns at this time. Follow-up in 6 months with PVR; or sooner with any issues, concerns, and or questions. Orders: Orders AMB Urinalysis Automated Today Z13.9 - Encounter for screening, unspecified AMB Post Void Residual by ultrasound Today N39.46 - Mixed incontinence Patient Instructions: The patient had an opportunity to ask questions regarding the treatment plan. All questions were answered. Physical exam, labs, and imaging were discussed and reviewed in detail. As well as risks, benefits, and discussion of treatment choices. No major barriers to understanding were identified. The patient expressed understanding and agreement with the above treatment plan. The patient was made aware they should contact our office by phone for worsening of their current condition, the appearance of new symptoms, or with any questions or concerns. Compliance is encouraged with any medications and follow up testing that is ordered. It is a privilege to be allowed the opportunity to participate in? your urological care.? Again, if you have any questions or concerns If you have any questions or concerns please do not hesitate to contact me. The office is [phone]. This note is constructed using voice recognition software. While every effort has been made to ensure accuracy first aid officer errors may have been included. Yours sincerely, AISHA Luong-BC Coding Level of Care Code Est Pt Level 3 (20164) Diagnoses Mixed stress and urge urinary incontinence N39.46 CPT Codes Post Residual Void - PVR CPT Code: 18202-Bemr Void Residual by ultrasound ([id number])
== END 2023-01-06 11:29 | disposition home or self-care (01) ==
PROVIDERS: PCP Internal Medicine; Visit Provider Nurse Practitioner Family
DX: N39.46 Mixed incontinence (principal)
CPT/HCPCS: 99213

== ENCOUNTER → 2023-01-06 10:43 | Outpatient (BNVA) | payer MEDICARE, SELFPAY | PROVIDERS: PCP Internal Medicine; Visit Provider Nurse Practitioner Family | DX: N39.46 Mixed incontinence (principal); Z79.899 Other long term (current) drug therapy | CPT/HCPCS: 51798; 99212 ==

== ENCOUNTER 2023-03-15 09:01 | Outpatient (REF) | payer MEDICARE, SELFPAY ==
[2023-03-15 09:38] LABS: Estimated Average Glucose 134 mg/dL; Hemoglobin A1C 152.3767 umol/L; Hemoglobin A1c % 6.3 % (<6.0)
[2023-03-15 10:13] LABS: Alanine Aminotransferase 14 U/L (0-31); Anion Gap 13 (12-20); Aspartate Amino Transferase 16 U/L (5-31); Blood Urea Nitrogen 22 mg/dL (9-16); Carbon Dioxide 25 mmol/L (22-29); Chloride 104 mmol/L (96-108); Cholesterol 155 mg/dL (<200); Estimated Glomerular Filt Rate > 60; Glucose Fasting 130 mg/dL (60-99); HDL Cholesterol 46 mg/dL (>40); LDL Cholesterol Calculated 84 mg/dL (<100); Potassium 4.1 mmol/L (3.3-5.1); Sodium 138 mmol/L (135-145); Triglycerides 126 mg/dL (<150)
[2023-03-15 10:53] LABS: Creatinine Urine 72.14 mg/dL; Microalbum/Creatinine Ratio Ur 16.6 ug/mg cr (<30)
[2023-03-17 11:23] LABS: Calcium, Ionized 5.3 mg/dL (4.7-5.5)
== END 2023-03-15 09:02 | disposition home or self-care (01) ==
LOC: HO.LAB 09:01
PROVIDERS: PCP Internal Medicine; Visit Provider Internal Medicine
DX: E11.9 Type 2 diabetes mellitus without complications (principal); I10 Essential (primary) hypertension; E83.52 Hypercalcemia; E78.5 Hyperlipidemia, unspecified; Z78.0 Asymptomatic menopausal state
CPT/HCPCS: 36415; 80048; 80061; 82043; 82306; 82330; 82570; 83036; 83970; 84450; 84460

== ENCOUNTER 2023-04-18 10:26 | Outpatient (AMB) | payer MEDICARE, SELFPAY ==
[2023-04-18 10:40] VITALS: BP 110/62; PULSE 65; O2SAT 98; BMI 37.3
--- NOTE | 2023-04-18 10:40 | A.OFFPC_ITS ---
Vital Signs 04/18/23 10:40 Height 5 ft 2 in Weight 204 lb BMI 37.3 BP 110/62 Blood Pressure Location Rt radial Position Sitting Pulse 65 Pulse Source Pulse Oximeter Pulse Oximetry (%) 98 Oxygen Delivery Method Room Air Intake Visit Reasons: 3 mo. f/u labs resched Intake Note: Pt is here today for her 3 months f/u labs Allergies oxycodone [Oxycodone] Adverse Reaction (Severe, Verified 04/18/23 11:06) VOMITTING From OxyContin Adverse Reaction (Severe, Uncoded 04/18/23 11:06) VOMITTING Medication List - Last Reconciled 04/18/23 by Ramonita Douglas MD albuterol sulfate 90 mcg/actuation 2 puffs inhalation Q6H PRN atorvastatin 10 mg PO DAILY blood sugar diagnostic ([employer] Ultra Blue Test Strip) use one test strip once a day and as needed to test blood sugar blood sugar diagnostic ([employer] Ultra Test strips) CHECKS BLOOD SUGAR ONCE A DAY A.C. blood-glucose meter As directed budesonide-formoterol 160-4.5 mcg/actuation 2 puffs PO BID yjvfnhypdd-ojnjfwr-zyznouee 50-325-40 mg 1 cap PO Q6H PRN NS carvedilol 25 mg PO BID chlorthalidone 25 mg PO DAILY cholecalciferol (vitamin D3) (Vitamin D3) 50 mcg PO DAILY clotrimazole-betamethasone 1-0.05 % 1 appl topical BID PRN dapagliflozin propanediol (Farxiga) 10 mg PO QAM 90 days dicyclomine 10 mg PO QID PRN escitalopram oxalate 20 mg PO DAILY fluticasone propionate 50 mcg/actuation 2 sprays intranasal DAILY hydrochlorothiazide 25 mg PO QAM lancets (OneTouch Delica Plus Lancet) Use As directed twice a day levalbuterol tartrate 45 mcg/actuation (Xopenex HFA) 2 puffs inhalation Q6H PRN 30 days loratadine 10 mg PO DAILY lorazepam 0.5 mg PO DAILY PRN losartan 100 mg PO DAILY metformin 500 mg PO DAILY mirabegron ER (Myrbetriq) 25 mg PO DAILY 90 days nystatin 100,000 units topical TID PRN [one touch delica plus lancets subcut DAILY] sitagliptin phosphate (Januvia) 100 mg PO DAILY spironolactone 25 mg PO DAILY tizanidine 4 mg PO BID PRN Trelegy Ellipta 200-62.5-25 mcg (fwxlsrhofgm-vofwaemro-xoxvhdag) 1 inh inhalation DAILY NS Tobacco use date assessed: 04/18/23 Fall risk assessment: 2 + Falls in past year Last assessed Fall Risk: 04/18/23 Dental Screening Dental Screen Date: 04/18/23 Did you have a dental visit in the last 12 months?: No Was dental information given to patient?: No HPI 3 mo. f/u labs resched HPI Details 77-year-old lady with chronic restrictiv e lung disease, here today complaining of persistent cough now present for the last 3 weeks or more, nonproductive, accompanied by mild shortness of breath on exertion, and occasional wheezing but no fever. She has been taking uxro-pwq-zykmrbb cough medications which has afforded only temporary relief. Complains of slight pain on dorsal aspect of last wrist after a fall sustained yesterday. Patient states that she tripped on a step. She also has had another fall several months ago and landed on her right knee. At that time patient states that her right knee just gave out on her. She is also here for follow-up on her diabetes mellitus, hypertension and hyperlipidemia, had recent fasting labs done which showed hemoglobin A1c at 6.3% and fasting lipids, electrolytes and renal function are within normal limits. Blood pressure controlled on present treatment, [facility] Medical History (Updated 04/18/23 @ 14:14 by Ramonita Douglas MD) Frequent falls History of fall Lumbago Mixed stress and urge urinary incontinence Chronic restrictive lung disease Erythema intertrigo Type 2 diabetes mellitus without complication, without long-term current use of insulin Rib pain PONV (postoperative nausea and vomiting) Requires supplemental oxygen Preoperative examination Pulmonary nodules Family history of breast cancer gene mutation in first degree relative Diabetes mellitus with hyperglycemia, without long-term current use of insulin COVID-19 virus infection Asthma-COPD overlap syndrome Menopause Pulmonary nodule Obstructive sleep apnea Irritable bowel syndrome GERD (gastroesophageal reflux disease) Dyslipidemia Surgical History Status post ablation of incompetent vein using laser (~2021) History of shoulder surgery History of total knee replacement History of appendectomy Hx of cholecystectomy Family History Father Stroke Mother HTN (hypertension) Diabetes mellitus Brother Kidney disease Brother Pneumonia Daughter Invasive ductal carcinoma of breast, Onset Age: 53 Social History Housing: House Alcohol intake: never Patient Tobacco Use Status: Former Tobacco user Quit Date: 1999 e-Cigarette/Vaping Use: Never Used service: No Current occupational status: retired Cognitive needs: No Hearing needs: No Vision needs: Yes Questionnaire PHQ-9 Over the last 2 weeks, how often have you been bothered by any of the following problems? 1. Little interest or pleasure in doing things: not at all 2. Feeling down, depressed, or hopeless: not at all 3. Trouble falling or staying asleep, or sleeping too much: not at all 4. Feeling tired or having little energy: not at all 5. Poor appetite or overeating: not at all 6. Feeling bad about yourself - or that you are a failure or have let yourself or your family down: not at all 7. Trouble concentrating on things, such as reading the newspaper or watching television: not at all 8. Moving or speaking so slowly that other people could have noticed. Or the opposite - being so fidgety or restless that you have been moving around a lot more than usual: not at all 9. Thoughts that you would be better off or of hurting yourself in some way: not at all Total score: 0 Depression Screening Interpretation: Negative Depression Screening Done: Yes 95503 - PHQ-9 Billing: Yes Source: Developed by Drs. Low Retana, Janine Amador, Pj Mckeon and colleagues, with an educational nicole from [employer]. Thrive Questionnaire Date Thrive assessed: 04/18/23 I am a: Patient What is your living situation today?: I have a steady place to live Within the past 12 months, did the food you bought not last and you didn't have the money to get more?: Never true Within the past 12 months, did you worry whether your food would run out before you got money to buy more?: Never true Do you have trouble paying for medicines?: No Do you have trouble getting transportation to medical appointments?: No Do you have trouble paying your heating and electricity bill?: No Do you have trouble taking care of your child, family member or friend?: No Do you have trouble with day-to-day activities such as bathing, preparing meals, shopping, managing finances, etc.?: No Are you currently unemployed and looking for a job?: No Are you interested in more education?: No THRIVE Score: 0 AUDIT C Alcohol Use Questionnaire (AUDIT-C) 1. How often do you have a drink containing alcohol?: Never Total Score: 0 JAZMYN-7 AMB Questionnaire JAZMYN-7 Date JAZMYN - 7 assessed: 04/18/23 Feeling nervous, anxious, or on edge: 0 = Not at all Not being able to stop or control worryin = Not at all Worrying too much about different things: 0 = Not at all Trouble relaxin = Not at all Being so restless that it is hard to sit still: 0 = Not at all Becoming easily annoyed or irritable: 0 = Not at all Feeling afraid as if something awful might happen: 0 = Not at all Total JAZMYN-7 score (0-4 normal; 5-9 mild; 10-14 moderate; 15-21 severe): 0 Source: Developed by Drs. Low Retana, Janine Amador, Pj Mckeon and colleagues, with an educational nicole from [employer]. JAZMYN-7 Assessment Billing JAZMYN-7 Assessment Tool: JAZMYN-7 Assessment 67433 Review of Systems Const Denies chills, Denies fever(s) and Denies headache(s) Eyes Denies change in vision ENT Reports Normal hearing present and Denies headache(s) Card Denies chest pain, Denies pedal edema, Denies lightheadedness and Denies dyspnea Resp Denies dyspnea GI Denies abdominal pain, Denies change in bowel habits and Denies heartburn Denies difficulty voiding, Denies dysuria, Denies pelvic pain, Denies urinary hesitancy and Reports urinary urgency Musc Reports as per HPI, Denies abnormal gait, Reports arthralgias (Both knees right more than the left) and Reports stiffness Neuro Reports Normal hearing present, Denies abnormal gait and Denies headache(s) Endo Reports no additional complaints Lloyd/Lymph Reports no additional complaints Physical exam (Primary Care) Vital Signs: Last Vital Signs Pulse 65 04/18/23 10:40 BP 110/62 04/18/23 10:40 Pulse Ox 98 04/18/23 10:40 Oxygen Delivery Method Room Air 04/18/23 10:40 BMI result Body Mass Index 37.3 Tobacco/Smoking Status: Tobacco use Status Tobacco use date assessed 04/18/23 04/18/23 10:41 Patient Tobacco Use Status Former Tobacco user 04/18/23 10:41 e-Cigarette/Vaping Use Never Used 04/18/23 10:41 PHQ-9: PHQ-9 Score PHQ-9: Total score 0 04/18/23 14:06 Depression Screening Interpretation: Negative Thrive Assessment: Date of Thrive Assessment Date Thrive assessed 04/18/23 04/18/23 10:46 Const General: comfortable, no acute distress and alert Orientation/consciousness: patient oriented x3 HENMT Mouth: Normal oral and palatal mucosa present and moist mucous membranes Eyes General: appearance normal, both eyes and all related structures Neck Neck: Yes full ROM, Yes no lymphadenopathy and Yes supple Resp Effort & Inspection: normal respiratory effort and able to speak in complete sentences Cardio Rate: regular rate Rhythm: regular rhythm Heart sounds: S1 normal heart sound present and S2 normal heart sound present GI Inspection: Yes obesity Palpation (GI): Soft to palpation, nontender, no guarding and no masses Auscultation: normal bowel sounds Neuro General: patient oriented x3, gait normal, tone normal, moves all extremities, Normal light touch and pain sensation and no focal motor deficits Cranial nerves: Yes Normal hearing present Cognition (Neuro): normal cognition Extrem Other: Slightly tender bony protuberance over dorsal aspect of left wrist joint at the radial side, decreased range of motion of wrist Tenderness on palpation over anterior aspect of right knee, no joint swelling seen General: Yes no joint enlargement and Yes no clubbing, cyanosis or edema Results Reviewed Results Reviewed: Laboratory Tests 03/15/23 09:17 Estimat Average Glucose 134 Hemoglobin A1c % 6.3 H ENTERED: 03/15/23 NATHALY RASMUSSEN: ORDERED: Met Prof Fast, AST, ALT, Lipid Panel, Vitamin D 25-OH Test Result Flag Reference Sodium 138 135-145 mmol/L Potassium 4.1 3.3-5.1 mmol/L CL 104 96-108 mmol/L CO2 25 22-29 mmol/L Gap 13 12-20 BUN 22 H 9-16 mg/dL Creat 0.79 0.5-1.4 mg/dL EGFR > 60 NOTE: For -[place] individuals, multiply the result by 1.210. Chronic Kidney Disease: Estimated GFR < 60 mL/min/1.73m2 Severe Kidney Disease: Estimated GFR < 15 mL/min/1.73m2 FBS 130 H 60-99 mg/dL A fasting glucose of 126 mg/dl or greater on more than one occasion is considered diagnostic of diabetes. CA 10.0 # 8.4-10.2 mg/dL AST (GOT) 16 5-31 U/L ALT (GPT) 14 0-31 U/L Triglyceride 126 <150 mg/dL Desirable Triglyceride: less than 150 mg/dL Borderline High Triglyceride 150-199 mg/dL High Triglyceride: 200-499 mg/dL Very High Triglyceride: greater than or equal to 5OO mg/dL Cholesterol 155 <200 mg/dL Desirable Cholesterol: less than 200 mg/dL Borderline High Cholesterol: 200-239 mg/dL High Cholesterol: greater than 239 mg/dL LDL Calculated 84 <100 mg/dL Desirable LDL: less than 100 mg/dL Near Optimal/Above Optimal LDL: 110-129 mg/dL Borderline High LDL: 130-159 mg/dL High LDL: 160-189 mg/dL Very High LDL: greater than or equal to 190 mg/dL HDL 46 >40 mg/dL Desirable HDL: greater than 40 mg/dL Note: This HDL assay may give artificially low results in patients with liver disease. Vit D 25-OH Tot 50.0 >30 ng/mL Health Based Reference Values* < 20 ng/mL Deficient 20-30 ng/mL Insufficient > 30 ng/mL Sufficient Assessment and Plan Assessment & Plan (1) Left wrist pain: Code(s): M25.532 - Pain in left wrist Plan: X-ray of left wrist ordered, advised to try massaging Voltaren gel to 2 3 times a day as needed for pain control (2) Persistent cough for 3 weeks or longer: Code(s): R05.3 - Chronic cough Plan: Chest x-ray ordered. May take Mucinex imtk-cez-tvaogub as needed for cough (3) Right anterior knee pain: Code(s): M25.561 - Pain in right knee Plan: Referred for physical therapy (4) Type 2 diabetes mellitus without complication, without long-term current use of insulin: Code(s): E11.9 - Type 2 diabetes mellitus without complications Plan: Recent lab results reviewed with patient, with sugar and hemoglobin A1c stable and at goal . Continue sitagliptin 100 mg daily, metformin 500 mg daily and Farxiga 10 mg in the morning. continue to check fasting blood sugar at home, maintain log and bring to next appointment for review. Reinforced diabetic diet and regular exercise with patient. Counseled regarding importance of yearly diabetes retinopathy screening. Patient advised to inspect feet daily, for any signs of injury, callus or infection. Compliance with diet and regular exercise again stressed. Blood pressure goal is less than 130/80, goal LDL is less than 100 and goal hemoglobin A1c is less than 7% follow-up appointment made in-3--months, after fasting labs done. (5) HTN (hypertension): Code(s): I10 - Essential (primary) hypertension Qualifiers: Hypertension type: primary hypertension Qualified Code(s): I10 - Essential (primary) hypertension Plan: Blood pressure at goal of less than 130/80. Continue with current medication. Reinforced importance of following a low sodium diet, getting regular exercise, and lowering stress levels. (6) Dyslipidemia: Code(s): E78.5 - Hyperlipidemia, unspecified Plan: Reviewed recent fasting lipid profile with patient with levels within normal limits . Continue with atorvastatin 10 mg daily, in addition to adherence to low-cholesterol diet and regular exercise, at least 30 minutes 3 to 4 times a week. Advised patient to make healthy food choices, eat more fruits, vegetables, whole grains, wild caught fish and low-fat dairy. Limit amount of meat and fried or fatty food products, as well as processed foods and fast foods. Follow-up scheduled with repeat fasting lipid panel in 3 months. Orders: Orders XR hand wrist LT Today M25.532 - Pain in left wrist, Z91.81 - History of falling Lipid Panel 07/28/23 E11.9 - Type 2 diabetes mellitus without complications, E78.5 - Hyperlipidemia, unspecified, I10 - Essential (primary) hypertension, R29.6 - Repeated falls Basic Metabolic Panel Fasting 07/28/23 E11.9 - Type 2 diabetes mellitus without complications, E78.5 - Hyperlipidemia, unspecified, I10 - Essential (primary) hypertension, R29.6 - Repeated falls XR chest 2V Today R05.3 - Chronic cough PT Evaluation and Treatment Today M25.561 - Pain in right knee, R29.6 - Repeated falls Hemoglobin A1c 07/28/23 E11.9 - Type 2 diabetes mellitus without complications, E78.5 - Hyperlipidemia, unspecified, I10 - Essential (primary) hypertension, R29.6 - Repeated falls Alanine Aminotransferase 07/28/23 E11.9 - Type 2 diabetes mellitus without complications, E78.5 - Hyperlipidemia, unspecified, I10 - Essential (primary) hypertension, R29.6 - Repeated falls Aspartate Amino Transferase 07/28/23 E11.9 - Type 2 diabetes mellitus without complications, E78.5 - Hyperlipidemia, unspecified, I10 - Essential (primary) hypertension, R29.6 - Repeated falls Complete Blood Count Auto Diff 07/28/23 E11.9 - Type 2 diabetes mellitus without complications, E78.5 - Hyperlipidemia, unspecified, I10 - Essential (primary) hypertension, R29.6 - Repeated falls Coding Level of Care Code Est Pt Level 4 (09063) Diagnoses Left wrist pain M25.532 Persistent cough for 3 weeks or longer R05.3 Right anterior knee pain M25.561 Type 2 diabetes mellitus without complication, without long-term current use of insulin E11.9 Primary hypertension I10 Hypertension type: primary hypertension Dyslipidemia E78.5 Additional Codes JAZMYN-7 Assessment Billing - JAZMYN-7 Assessment Tool: JAZMYN-7 Assessment 03177 ([id number])
== END 2023-04-18 11:33 | disposition home or self-care (01) ==
PROVIDERS: PCP Internal Medicine; Visit Provider Internal Medicine
DX: E11.69 Type 2 diabetes mellitus with other specified complication (principal); M25.532 Pain in left wrist; R05.3 Chronic cough; M25.561 Pain in right knee; I10 Essential (primary) hypertension; E78.5 Hyperlipidemia, unspecified
CPT/HCPCS: 99214

== ENCOUNTER 2023-04-18 11:29 | Outpatient (REF) | payer MEDICARE, SELFPAY ==
--- NOTE | ~2023-04-18 | XR_ITS ---
EXAMINATION: XR HAND/WRIST, LEFT CLINICAL INFORMATION: Fell down, left hand and wrist injury and pain COMPARISON: None TECHNIQUE: PA, lateral, and oblique views of the left hand and wrist. FINDINGS: BONES: Bony structures are osteopenic and intact. Gullwing shape osteophytosis is seen at the base of left 2nd-4th fingers distal phalanges. There is no focal bone destruction or periosteal reaction seen. JOINTS: There is volar subluxation of the left second metacarpophalangeal joint. Left first carpometacarpal joint and left augcilgiv-upmdxhhcq-dvfxkgzz joint show marked loss of joint space. Asymmetric irregular loss of joint spaces are seen in the left second two fourth fingers distal interphalangeal joint. SOFT TISSUE: Soft tissue is normal. No radiopaque foreign body or abnormal air collection is seen. XR/XR hand wrist LT IMPRESSION: 1. 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 2. Left second metacarpophalangeal joint volar subluxation is present. 3. Advanced left first carpometacarpal joint, left afumdynhg-yqyjkxrwt-iaeqmmfi joint osteoarthritis is present. 4. No fracture or dislocation or signs of osteomyelitis are found.
--- NOTE | ~2023-04-18 | XR_ITS ---
EXAMINATION: XR CHEST CLINICAL INFORMATION: Chronic cough COMPARISON: Chest x-ray on 07/25/2021 TECHNIQUE: 2 views of the chest were obtained. FINDINGS: vascularity. LUNGS: Patchy airspace disease with air bronchograms is seen in posterior left lung base. No pneumothorax is seen. BONES: Bony skeleton is intact. Right glenohumeral reverse arthroplasty prostheses are partially visualized. XR/XR chest 2V IMPRESSION: 1. Interval development of posterior left lung base airspace disease, compatible with subsegmental atelectasis or pneumonia. 2. Unchanged status post right glenohumeral reverse arthroplasty.
== END 2023-04-18 11:30 | disposition home or self-care (01) ==
LOC: HO.HMGCX 11:29
PROVIDERS: PCP Internal Medicine; Visit Provider Internal Medicine
DX: R05.3 Chronic cough (principal); M25.532 Pain in left wrist; Z91.81 History of falling
CPT/HCPCS: 71046; 73110; 73130

== ENCOUNTER 2023-05-27 12:39 | Outpatient (REF) | payer MEDICARE, SELFPAY ==
--- NOTE | ~2023-05-27 | CT_ITS ---
EXAMINATION: CT CHEST WITHOUT CONTRAST CLINICAL INFORMATION: Solitary pulmonary nodule. COMPARISON: 05/16/2022 and 10/11/2020 TECHNIQUE: Multidetector volumetric CT imaging of the chest was done. Axial MIP volume rendering provided. Sagittal and coronal reformatted images were obtained. This CT examination was performed using dose optimization techniques as appropriate, variously including the following: *Automated exposure control *Adjustment of mA and/or kV according to patient size (this includes techniques or standardized protocols for targeted exams where dose is matched to indication/reason for exam; i.e. extremities or head) *Use of iterative reconstruction technique DLP: 221 mGy-cm FINDINGS: LUNGS: 3 mm nodule right upper lobe on image 178. 3 mm nodule right upper lobe on image 214. 3 mm nodule right lower lobe on image 334. 3 mm and 4 mm nodules left lower lobe on image 365. 8 mm nodule left lower lobe on image 443. 4 mm nodule left lower lobe on image 455. 3 mm nodule left lower lobe on image 431. No new or enlarging pulmonary nodules. No focal consolidation. Central airways are patent. MEDIASTINUM: No bulky axillary, hilar or mediastinal lymphadenopathy. CORONARY ARTERY CALCIFICATION: Mild. PLEURA: No pleural effusion. UPPER ABDOMEN: Small hiatal hernia. No adrenal mass. OSSEOUS STRUCTURES: Right total shoulder arthroplasty. CT/CT chest wo IV con IMPRESSION: Stable bilateral pulmonary nodules measuring up to 8 mm. These nodules have been stable relative to 10/12/2020.
== END 2023-05-27 12:40 | disposition home or self-care (01) ==
LOC: HO.CT 12:39
PROVIDERS: PCP Internal Medicine; Visit Provider Hospitalist
DX: R91.1 Solitary pulmonary nodule (principal)
CPT/HCPCS: 71250

== ENCOUNTER 2023-06-03 10:37 | Outpatient (AMB) | payer MEDICARE, SELFPAY ==
[2023-06-03 11:14] VITALS: PULSE 63; O2SAT 94; BMI 37.3
--- NOTE | 2023-06-03 11:14 | MHC.OFFVIS ---
Intake Vital Signs 06/03/23 11:14 Height 5 ft 2 in Weight 204 lb BMI 37.3 Pulse 63 Pulse Source Pulse Oximeter Pulse Oximetry (%) 94 Oxygen Delivery Method Room Air Intake Visit Reasons: asthma- COPD overlap Vessel Operator Required: No Allergies oxycodone [Oxycodone] Adverse Reaction (Severe, Verified 06/03/23 11:15) VOMITTING From OxyContin Adverse Reaction (Severe, Uncoded 06/03/23 11:15) VOMITTING HPI HPI Comments History of Present Illness Details The patient is a 78-year-old woman with a known history of COPD and pulmonary nodules. To note she did have a recent CT scan of the chest on November [address] [facility]. It appeared that her pulmonary nodules are stable measuring between 2 and 3 mm in size. The patient has been complaining of worsening cough productive in nature. Moderate in severity. She did get Zpak from her primary care. However, she is no better. Has had some subjective fevers and chills. Also has been complaining of worsening shortness of breath. She is concerned about her CT scan of the chest. We did look at her CT scan that she had at [facility] in November 2018 from October 2019 it appears that the left lower lobe nodular density is her largest nodule measuring about 7 mm in size. Is about the same size. The actual nodule her ever looks a little more dense. This may be techniques and we using different CT scans. However, further follow-up is warranted. 02/07/2020 the patient has a telephone visit. She states that she was in her usual state health until about 2 3 days ago when she started developing significant sinus discomfort. She is also having significant nasal congestion and has a upper respiratory illness. She denies any fevers or any sore throat. She is having a cough. Intermittent and mild to moderate. Denies any significant wheezing. Denies any exposure to anybody with COVID-19 infection. The patient will be treated for sinusitis at this time. If however her symptoms do not improved she patient needs to be tested for COVID-19. In the meantime we did talk about her CT scan demonstrating stable pulmonary nodules. She should have a repeat CT scan sometime in October of 2020. 12/01/2020 the patient is here for a pulmonary follow-up visit. She is complaining of worsening dyspnea on exertion [id number] severity. She has been using her rescue inhaler more often. Will start the patient on Anoro this time. In the meantime she also underwent a CT scan of the chest that was personally viewed by me in the office. It appears that she has stable pulmonary nodules, although, she has a new nodular density intermediate size in the right lower lobe. Will plan to follow this nodular density little closer. 06/06/2021 the patient is here for a pulmonary follow-up visit. She is complaining of increasing chest tightness and shortness of breath along with increasing wheezing. Moderate severity. She has been using all her respiratory medications including Symbicort and a rescue inhaler on a daily basis. The patient did have a CT scan of the chest that was personally by me demonstrating stable pulmonary nodules which is reassuring. Although, she did have evidence of mosaic pattern in her trapping. Explained to her that this is likely related to her asthma and small airways disease. She did undergo pulmonary function studies as well that we personally reviewed which demonstrated no definitive obstructive nor restrictive ventilatory defects. However, she did have evidence of small airways disease again likely consistent with asthma although they did not reverse after the bronchodilators were administered. She has been on Symbicort so for will going to switch over to a different inhaler such as Trelegy and hoping that the broader coverage will help her with bronchodilation. In addition to that based on her symptoms and the findings will go ahead and treated with a course of prednisone. She does have diabetes therefore she take half does and she can also stop in early if she does feel better. She can also consider singular as an option in the future. 12/18/2021 the patient is here for a pulmonary follow-up visit. She is complaining of significant nasal congestion and postnasal drip. She is couple more. Sometimes she does cough up some yellowish phlegm. Moderate severity. Complains about ear fullness. I did look at her years and she does have significant fluid buildup in along with some redness. The patient also continues use her respiratory therapy. She does complaint of dyspnea on exertion. We did look at her pulmonary function studies horta she does have a restrictive ventilatory defect consistent with restrictive lung disease. The patient needs to start pulmonary rehabilitation to strengthen her respiratory capacity in to additional stamina. Will make a referral at this time. The patient is willing and interested in doing so. The patient also had a CT scan back in June 2020 demonstrating pulmonary nodules in addition to some air trapping. Will go ahead and repeat the CT scan around the same time next year in order to follow-up with the pulmonary nodules hopefully to find stability. The 06/10/2022 the patient is here for pulmonary follow-up visit. The patient had been doing well until about a week or so prior to this visit. She continues use her Trelegy inhaler and a rescue medicine. She was exposed to a sick contact in started developing a worsening cough chest tightness and chest congestion with yellowish green sputum. She did have some amoxicillin left over and she did start taking it for the last 3 days. She has seen improvement. She does have a nebulizer machine at this point do not think she needs 1. Although an Acapella valve will be helpful with her mucus clearance. If she develops any chest tightness or wheezing she can always call the office will provide her with a nebulizer. The patient did have a CT scan of the chest in mid May and will personally viewed together. Appears that all her pulmonary nodules are stable. The largest nodule is an oval-shaped nodule in her left lower lobe that measures about 7 mm. Will back 2020 in the nodules specially the same. Therefore no significant findings tear. I did reassure her that her nodules appear to be benign as that they have been stable for more than 2 years. 12/04/2022 the patient is here for pulmonary follow-up visit. Overall she is doing well. She continues on the Trelegy inhaler. She has not had to use her rescue medication. She does complaint of sinus pressure and also earache. She has some sinus congestion and some nasal congestion as well. The patient has been like this for the last few days. Denies any sick contacts. The patient also is concerned about her CT scan of the chest. Was done back in May 2022 demonstrating stable pulmonary nodules. Will go ahead and repeat the CT scan in May of 2023 to make sure the nodules have not changed. Specially with worsening symptoms. The patient will be treated for sinusitis. She does have some fluid in ears suggesting some degree of nasal congestion sinusitis. If the patient is no better she can always call for further recommendations. She also needs to get vaccinated she will get her Prevnar 20 vaccine today change he is not too sick. Also needs to get her RSV vaccine and will get the other flu and COVID vaccine when available. She has a planned trip on a cruise and I did recommend she can get all her vaccines before going on the cruise. 06/03/2023 the patient is here for a pulmonary follow-up visit. She is feeling better now. The patient had a respiratory illness several weeks ago.She did call the office but we did not have any availability was recommended she go to an urgent care. The patient is reluctant to do so therefore she did not. Ultimately she ended up getting some antibiotics from primary care doctor. She did feel better afterwards. She was upset with the fact that we were not available to see her. Explained to her that we do our best to accommodate everyone, but, as difficult during a busy respiratory season. She continues respiratory therapy with good effect. she did undergo a CT scan of the chest that was pre plan to assess her pulmonary nodules. Has not been officially read but I did look at a. the largest nodule in the left lower lobe appears to be stable in size measuring 7-8 mm in size. The other nodules also appeared to be stable. No evidence of any airspace disease. [facility] Medical History (Updated 04/18/23 @ 14:14 by Ramonita Douglas MD) Frequent falls History of fall Lumbago Mixed stress and urge urinary incontinence Chronic restrictive lung disease Erythema intertrigo Type 2 diabetes mellitus without complication, without long-term current use of insulin Rib pain PONV (postoperative nausea and vomiting) Requires supplemental oxygen Preoperative examination Pulmonary nodules Family history of breast cancer gene mutation in first degree relative Diabetes mellitus with hyperglycemia, without long-term current use of insulin COVID-19 virus infection Asthma-COPD overlap syndrome Menopause Pulmonary nodule Obstructive sleep apnea Irritable bowel syndrome GERD (gastroesophageal reflux disease) Dyslipidemia Surgical History Status post ablation of incompetent vein using laser (~2021) History of shoulder surgery History of total knee replacement History of appendectomy Hx of cholecystectomy Family History Father Stroke Mother HTN (hypertension) Diabetes mellitus Brother Kidney disease Brother Pneumonia Daughter Invasive ductal carcinoma of breast, Onset Age: 53 Social History Housing: House Alcohol intake: never Patient Tobacco Use Status: Former Tobacco user Quit Date: 1999 e-Cigarette/Vaping Use: Never Used service: No Current occupational status: retired Cognitive needs: No Hearing needs: No Vision needs: Yes Review of Systems Const Denies night sweats ENT Reports nasal congestion Card Denies chest pain and Reports dyspnea on exertion Resp Reports cough, Reports dyspnea on exertion and Reports wheezing GI Denies abdominal pain Musc Denies no additional complaints Neuro Denies Neuro-related abnormal movements Psych Denies no additional complaints Lloyd/Lymph Denies easy bleeding and Denies lymphadenopathy Aller/Immun Reports wheezing Physical Exam Vital Signs: Last Vital Signs Pulse 63 06/03/23 11:14 Pulse Ox 94 06/03/23 11:14 Oxygen Delivery Method Room Air 06/03/23 11:14 BMI result Body Mass Index 37.3 Const General: alert Neck Neck: Yes normal visual inspection, Yes full ROM and Yes no lymphadenopathy Chest Chest palpation & inspection: normal inspection of the chest Resp Auscultation: no wheezes and diminished lung sounds Cardio Rate: regular rate Rhythm: regular rhythm Heart sounds: S1 normal heart sound present and S2 normal heart sound present GI Palpation (GI): Soft to palpation and nontender Auscultation: normal bowel sounds Skin General skin exam: rashes and/or lesions noted Assessment & Plan Assessment & Plan (1) Asthma-COPD overlap syndrome: Code(s): J44.9 - Chronic obstructive pulmonary disease, unspecified (2) Obstructive sleep apnea: Comment: unable to tolerate CPAP Code(s): G47.33 - Obstructive sleep apnea (adult) (pediatric) (3) Pulmonary nodules: Code(s): R91.8 - Other nonspecific abnormal finding of lung field (4) Chronic restrictive lung disease: Code(s): J98.4 - Other disorders of lung Plan continue Trelegy inhaler short-acting beta agonist as needed continue fluticasone nasal spray Claritin for allergies Pulmonary rehab CT chest in 1 yr if stable. Awaiting final report Follow-up in 3-6 months Coding Level of Care Code Est Pt Level 4 (88802) Diagnoses Asthma-COPD overlap syndrome J44.9 Obstructive sleep apnea G47.33 Pulmonary nodules R91.8 Chronic restrictive lung disease J98.4 Time Spent (min) 17
== END 2023-06-03 11:39 | disposition home or self-care (01) ==
PROVIDERS: PCP Internal Medicine; Visit Provider Hospitalist
DX: J44.9 Chronic obstructive pulmonary disease, unspecified (principal); G47.33 Obstructive sleep apnea (adult) (pediatric); R91.8 Other nonspecific abnormal finding of lung field; J98.4 Other disorders of lung
CPT/HCPCS: 99214

== ENCOUNTER → 2023-06-03 10:37 | Outpatient (BNVA) | payer MEDICARE, SELFPAY | PROVIDERS: PCP Internal Medicine; Visit Provider Hospitalist | DX: J44.9 Chronic obstructive pulmonary disease, unspecified (principal); J98.4 Other disorders of lung; R91.8 Other nonspecific abnormal finding of lung field; G47.33 Obstructive sleep apnea (adult) (pediatric) | CPT/HCPCS: 99212 ==

== ENCOUNTER 2023-06-10 10:40 | Outpatient (AMB) | payer MEDICARE, SELFPAY ==
[2023-06-10 10:43] VITALS: BMI 36.9
--- NOTE | 2023-06-10 10:43 | A.OFFVIS_ITS ---
Intake Vital Signs 06/10/23 10:43 Height 5 ft 2 in Weight 202 lb BMI 36.9 Intake Visit Reasons: 6 mo follow up Vein check Intake Note: Pt presents to the office today for a 6 month follow up vein check. Pt states in 2022 she fell on her right leg and states it is still a little painful.Hx of Right GSV Venaseal 04/20/2021 & Left GSV Venaseal 06/22/2021. Pt denies any leg swelling or pain. Pt states she does wear compression stockings occasionally. Allergies oxycodone [Oxycodone] Adverse Reaction (Severe, Verified 06/10/23 10:43) VOMITTING From OxyContin Adverse Reaction (Severe, Uncoded 06/10/23 10:43) VOMITTING HPI 6 mo follow up Vein check HPI Details Very pleasant 78-year-old female presents to us for follow-up regarding lower extremity swelling. She actually presented to us about 6 months ago where she had a fall and had significant swelling of the leg at that time. We attributed that to the knee. Of note she had had prior bilateral venous ablation is performed by us nearly 2 years ago. She now presents to us for follow-up her legs are persistently swollen. She does have large varicosities which have been a source of discomfort for her. She does use compression with minimal relief PFSH Medical History Frequent falls History of fall Lumbago Mixed stress and urge urinary incontinence Chronic restrictive lung disease Erythema intertrigo Type 2 diabetes mellitus without complication, without long-term current use of insulin Rib pain PONV (postoperative nausea and vomiting) Requires supplemental oxygen Preoperative examination Pulmonary nodules Family history of breast cancer gene mutation in first degree relative Diabetes mellitus with hyperglycemia, without long-term current use of insulin COVID-19 virus infection Asthma-COPD overlap syndrome Menopause Pulmonary nodule Obstructive sleep apnea Irritable bowel syndrome GERD (gastroesophageal reflux disease) Dyslipidemia Surgical History Status post ablation of incompetent vein using laser (~2021) History of shoulder surgery History of total knee replacement History of appendectomy Hx of cholecystectomy Family History Father Stroke Mother HTN (hypertension) Diabetes mellitus Brother Kidney disease Brother Pneumonia Daughter Invasive ductal carcinoma of breast, Onset Age: 53 Social History (Reviewed 06/10/23 @ 10:44 by Maria E Acosta [facility] [address]) Housing: House Alcohol intake: never Patient Tobacco Use Status: Former Tobacco user Quit Date: 1999 e-Cigarette/Vaping Use: Never Used service: No Current occupational status: retired Cognitive needs: No Hearing needs: No Vision needs: Yes Review of Systems Const Reports as per HPI ENT Reports no additional complaints Card Denies chest pain, Denies chest pain at rest and Denies chest pain with activity Resp Denies chest congestion and Denies cough GI Reports no additional complaints Musc Details: pain over varicosities, aching of lower extremities, swelling, cramping, heaviness and tiredness, itching Denies abnormal gait Skin/Breast Reports pruritus and Denies wounds Neuro Reports no additional complaints and Denies abnormal gait Psych Denies no additional complaints Physical Exam Vital Signs: BMI result Body Mass Index 36.9 Const General: cooperative, healthy appearing and comfortable Orientation/consciousness: oriented to person, oriented to place and oriented to time Neck Carotids: no bruits Chest Chest palpation & inspection: normal inspection of the chest and normal palpation of entire chest wall Resp Effort & Inspection: normal respiratory effort and able to speak in complete sentences Cardio Rate: regular rate Heart sounds: S1 normal heart sound present and S2 normal heart sound present Peripheral pulses: Peripheral pulses 2+ throughout GI Inspection: Yes normal to inspection Skin Other: +2 edema, large rope-like varicosities greater than 4 mm bilateral calf and thigh right greater than left CEAP Classification C4 - skin color changes Ep - Etiology Primary As - superficial veins P - reflux General skin exam: dry skin Neuro General: oriented to person, oriented to place and oriented to time Extrem Right lower extremity: full ROM, normal capillary refill and edema Left lower extremity: full ROM, normal capillary refill and edema Psych Mental Status: mental status grossly normal Assessment & Plan Assessment & Plan (1) Varicose veins of right lower extremity with inflammation: Comment: 04/20/2021 - right great saphenous vein Cyanoacralate ablation Code(s): I83.11 - Varicose veins of right lower extremity with inflammation Plan: This patient has varicose veins with inflammation. They continue to be a source of discomfort for the patient. The patient has tried conservative treatment with compression, leg elevation and exercise program for over 3 months time. They have been compliant with all treatment. This has provided minimal relief for the patient. I do not anticipate this course of treatment will alter the underlying etiology. The patient has been scheduled for lower extremity venous treatment inclusive of --- right leg microphlebectomy. Risks, benefits, and complications of this procedure has been discussed in detail with the patient including but not limited to bleeding, infection, and the development of a DVT. The patient has demonstrated a clear understanding and has consented. We will schedule the patient as soon as possible. Thank you for allowing us to participate in this patient's care. If there are any questions or concerns please do not hesitate to contact us. Coding Level of Care Code Est Pt Level 4 (88731) Diagnoses Varicose veins of right lower extremity with inflammation I83.11
== END 2023-06-10 11:17 | disposition home or self-care (01) ==
PROVIDERS: PCP Internal Medicine; Visit Provider Surgery Vascular Surgery
DX: I83.11 Varicose veins of right lower extremity with inflammation (principal)
CPT/HCPCS: 99214

== ENCOUNTER → 2023-06-10 10:40 | Outpatient (BNVA) | payer MEDICARE, SELFPAY | PROVIDERS: PCP Internal Medicine; Visit Provider Surgery Vascular Surgery | DX: I83.11 Varicose veins of right lower extremity with inflammation (principal) | CPT/HCPCS: 99212 ==

== ENCOUNTER 2023-06-13 14:00 | Outpatient (RCR) | payer MEDICARE, SELFPAY ==
--- NOTE | 2023-05-23 16:17 | MHC.PT.EP ---
[facility] [place] Office [place] Office [place] Office [address] [phone] F: [phone] F: [phone] F: [phone] F: [phone] Physical Therapy Plan of Care Date of Evaluation: 05/23/23 Date of Surgery: Diagnosis: R knee pain. Assessment: Pt is a 78 y/o female with Hx of B TKA and DM and HTN who is referred to PT for eval and treat of R knee pain and balance issues as Pt's condition demonstrates decreased B LE strength, decreased R knee ROM, gait abnormality and pain. Pt is deemed an appropriate candidate to receive skilled PT services to address their physical impairments in order to improve their functional ability. Frequency and Duration: The patient will be seen 2 x/ wk x 3 wks. Short Term Goals: Initiate home program. Improve pain with ambulation to < 3/10; initial: 4-5/10. Snf Goals: I with home program. Pt will be able to walk 2 blocks with at most a little bit of difficulty; initial: moderate difficulty. Improve R knee ext MMT strength by at least 1/2 MMT grade. I with use of SPC. Treatment Plan: Modalities to reduce pain, spasms and effusion. Manual therapy to restore motion and function. Therapeutic exercise to improve strength and flexibility. Neuromuscular re-education for posture and balance. Therapeutic activities to return to functional activities of daily living. Electronically signed by: Basim Moseley PT. Please sign and return to therapist. Thank you for your referral.
--- NOTE | 2023-09-30 12:37 | MHC.PT.DC ---
[facility] [place] Office [place] Office [place] Office [address] Munir [place]wood [address] [phone] F: [phone] F: [phone] F: [phone] F: [phone] Physical Therapy Discharge Report Diagnosis: R knee pain. Date of Surgery: Date of Evaluation: 05/23/23 Date of Discharge: 09/30/23 Treatments to Date: 4 Cancellations to Date: No Shows to Date: Discharge Status: Patient Elected to Stop Discharge Summary: 06/12: Pt continues to do well with gradual progress of gentle AROM / strengthening program. No adverse effects. NV return to [facility] with SPC sequencing. 06/08: Pt tolerated program well despite reporting increased soreness in knees after doing a lot of stairs this weekend. Return to [facility] NV working on sequencing; reports difficulty getting pattern at home. Have her bring SPC to following visit after next. 3 week program. Good katherine for initial program. Electronically signed by: Basim Moseley PT. Please sign and return to therapist. Thank you for your referral.
== END 2023-09-30 12:37 | disposition home or self-care (01) ==
LOC: HO.PT 14:00
PROVIDERS: PCP Internal Medicine; Visit Provider Internal Medicine
DX: R29.6 Repeated falls (principal); M25.561 Pain in right knee
CPT/HCPCS: 97110; 97112; 97116; 97140; 97162

== ENCOUNTER 2023-07-07 08:25 | Day surgery (SDC) | payer MEDICARE, SELFPAY ==
[2023-07-03 11:10] VITALS: BMI 36.9
--- NOTE | 2023-07-04 09:20 | HO.ANESPROP2 ---
Documented by User: Cesilia Arrieta NP 07/04/23 09:21 HPI - Anesthesia Eval Consult details Narrative: 78yo F for Right Micro Phlebectomy Anesthesia Pre-Procedure Meds Is the patient on any of the following meds?: GLP1/DPP4 (Januvia) and SGLT2 Inhib (Farxiga) PMFSH Active Problems Active Problems: All Active Problems Frequent falls (Acute) Mixed stress and urge urinary incontinence (Acute) Chronic restrictive lung disease (Acute) Erythema intertrigo (Acute) Type 2 diabetes mellitus without complication, without long-term current use of insulin (Acute) HTN (hypertension) (Acute) Varicose veins of left lower extremity with inflammation (Acute) Varicose veins of right lower extremity with inflammation (Acute) Family history of breast cancer gene mutation in first degree relative (Acute) Asthma-COPD overlap syndrome (Acute) Pulmonary nodule (Acute) Obstructive sleep apnea (Acute) Irritable bowel syndrome (Acute) GERD (gastroesophageal reflux disease) (Acute) Dyslipidemia (Acute) Past Medical History Medical History HTN (hypertension) Frequent falls History of fall Lumbago Mixed stress and urge urinary incontinence Chronic restrictive lung disease Erythema intertrigo Type 2 diabetes mellitus without complication, without long-term current use of insulin Rib pain PONV (postoperative nausea and vomiting) Requires supplemental oxygen Preoperative examination Pulmonary nodules Family history of breast cancer gene mutation in first degree relative Diabetes mellitus with hyperglycemia, without long-term current use of insulin COVID-19 virus infection Asthma-COPD overlap syndrome Menopause Pulmonary nodule Obstructive sleep apnea Irritable bowel syndrome GERD (gastroesophageal reflux disease) Dyslipidemia Family History Family History Father Stroke Mother HTN (hypertension) Diabetes mellitus Brother Kidney disease Brother Pneumonia Daughter Invasive ductal carcinoma of breast, Onset Age: 53 Family history of problems with anesthesia: No Surgical History Surgical History Status post ablation of incompetent vein using laser (~2021) History of shoulder surgery History of total knee replacement History of appendectomy Hx of cholecystectomy History of Problems with Anesthesia: No Social History Social History Housing: House Alcohol intake: never Patient Tobacco Use Status: Former Tobacco user Quit Date: >20yrs ago e-Cigarette/Vaping Use: Never Used Use of substances other than those prescribed or required for medical reasons: No Are you DNR?: No Advance Directives: No Advance Directives Information Provided: Yes service: No Current occupational status: retired Cognitive needs: No Hearing needs: No Vision needs: Yes Meds Allergies Allergy/AdvReac Type Severity Reaction Status Date / Time oxycodone [Oxycodone] AdvReac Severe VOMITTING Verified 07/07/23 09:27 From OxyContin AdvReac Severe VOMITTING Uncoded 06/10/23 10:43 Home Medications ?Medication ?Instructions ?Recorded ?Confirmed ?Last Taken ?Type carvedilol 25 mg tablet 25 mg PO BID 12/15/19 10/08/22 07/07/23 06:45 History dicyclomine 10 mg capsule 10 mg PO QID PRN Indigestion 12/15/19 10/08/22 Unknown History one touch delica plus lancets subcut DAILY 05/16/20 10/08/22 Unknown History lorazepam 0.5 mg tablet 0.5 mg PO DAILY PRN anxiety 12/01/20 10/08/22 Unknown History escitalopram oxalate 20 mg tablet 20 mg PO DAILY 08/07/21 10/08/22 Unknown History chlorthalidone 25 mg tablet 25 mg PO DAILY 05/08/22 10/08/22 07/07/23 06:45 History Exam Height,Weight and Vital Signs: Height 5 ft 2 in Weight 91.626 kg Pertinent Lab Results Pertinent Lab Results: Laboratory Tests 12/31/22 03/15/23 12:41 09:17 WBC 9.3 Hgb 12.8 Hct 38.9 Plt Count 233 Sodium 138 Potassium 4.1 Chloride 104 Carbon Dioxide 25 BUN 22 H Creatinine 0.79 Narrative Narrative: EKG 12/2022 Vent. Rate : 061 BPM Atrial Rate : 061 BPM P-R Int : 132 ms QRS Dur : 074 ms QT Int : 420 ms P-R-T Axes : 000 024 018 degrees QTc Int : 422 ms Poor data quality Normal sinus rhythm with sinus arrhythmia RSR' or QR pattern in V1 suggests right ventricular conduction delay Borderline ECG When compared with ECG of 02-JUL-2017 16:28, No significant change was found Assessment and Plan Assessment Anesthesia Assessment: Chart Reviewed Final Anesthetic Review Family History of Problems with Anesthesia: No History of Problems with Anesthesia: No Documented by User: Anais Langston MD 07/07/23 11:42 HPI - Anesthesia Eval Anesthesia Pre-Procedure Meds Is the patient on any of the following meds?: GLP1/DPP4 (Januvia 07/04/23) and SGLT2 Inhib (Farxiga 07/03/23) If yes to any meds - educate patient: Pt education - increased risk of aspiration and/or euvolemic DKA PMFSH Active Problems Active Problems: All Active Problems Frequent falls (Acute) Mixed stress and urge urinary incontinence (Acute) Chronic restrictive lung disease (Acute) Erythema intertrigo (Acute) Type 2 diabetes mellitus without complication, without long-term current use of insulin (Acute) HTN (hypertension) (Acute) Varicose veins of left lower extremity with inflammation (Acute) Varicose veins of right lower extremity with inflammation (Acute) Family history of breast cancer gene mutation in first degree relative (Acute) Asthma-COPD overlap syndrome (Acute) Pulmonary nodule (Acute) Obstructive sleep apnea (Acute). Cannot tolerate CPAP. On home O2 Irritable bowel syndrome (Acute) GERD (gastroesophageal reflux disease) (Acute) Dyslipidemia (Acute) Past Medical History Medical History HTN (hypertension) Frequent falls History of fall Lumbago Mixed stress and urge urinary incontinence Chronic restrictive lung disease Erythema intertrigo Type 2 diabetes mellitus without complication, without long-term current use of insulin Rib pain PONV (postoperative nausea and vomiting) Requires supplemental oxygen Preoperative examination Pulmonary nodules Family history of breast cancer gene mutation in first degree relative Diabetes mellitus with hyperglycemia, without long-term current use of insulin COVID-19 virus infection Asthma-COPD overlap syndrome Menopause Pulmonary nodule Obstructive sleep apnea Irritable bowel syndrome GERD (gastroesophageal reflux disease) Dyslipidemia Family History Family History Father Stroke Mother HTN (hypertension) Diabetes mellitus Brother Kidney disease Brother Pneumonia Daughter Invasive ductal carcinoma of breast, Onset Age: 53 Family history of problems with anesthesia: No Surgical History Surgical History Status post ablation of incompetent vein using laser (~2021) History of shoulder surgery History of total knee replacement History of appendectomy Hx of cholecystectomy History of Problems with Anesthesia: No Social History Social History Housing: House Alcohol intake: never Patient Tobacco Use Status: Former Tobacco user Quit Date: >20yrs ago e-Cigarette/Vaping Use: Never Used Use of substances other than those prescribed or required for medical reasons: No Are you DNR?: No Advance Directives: No Advance Directives Information Provided: Yes service: No Current occupational status: retired Cognitive needs: No Hearing needs: No Vision needs: Yes Meds Allergies Allergy/AdvReac Type Severity Reaction Status Date / Time oxycodone [Oxycodone] AdvReac Severe VOMITTING Verified 07/07/23 09:27 From OxyContin AdvReac Severe VOMITTING Uncoded 06/10/23 10:43 Home Medications ?Medication ?Instructions ?Recorded ?Confirmed ?Last Taken ?Type carvedilol 25 mg tablet 25 mg PO BID 12/15/19 10/08/22 07/07/23 06:45 History dicyclomine 10 mg capsule 10 mg PO QID PRN Indigestion 12/15/19 10/08/22 Unknown History one touch delica plus lancets subcut DAILY 05/16/20 10/08/22 Unknown History lorazepam 0.5 mg tablet 0.5 mg PO DAILY PRN anxiety 12/01/20 10/08/22 Unknown History escitalopram oxalate 20 mg tablet 20 mg PO DAILY 08/07/21 10/08/22 Unknown History chlorthalidone 25 mg tablet 25 mg PO DAILY 05/08/22 10/08/22 07/07/23 06:45 History Exam Height,Weight and Vital Signs: Height 5 ft 2 in Weight 91.626 kg Vital Signs Temp Pulse Resp BP Pulse Ox O2 Del Method 07/07/23 09:54 97.9 F 60 17 180/75 H 96 Room Air Pertinent Lab Results Pertinent Lab Results: Laboratory Tests 12/31/22 03/15/23 12:41 09:17 WBC 9.3 Hgb 12.8 Hct 38.9 Plt Count 233 Sodium 138 Potassium 4.1 Chloride 104 Carbon Dioxide 25 BUN 22 H Creatinine 0.79 Lab Results 07/07/23 Range/Units 09:25 POC Glucose 129 H (60-115) mg/dL Airway Mallampati Class: II TM Dist: >3cm Neck ROM: Full Denture: Upper and Lower Loose/Missing/Broken Teeth: Yes Heart: RRR Lungs: CTAB Assessment and Plan Assessment Anesthesia Assessment: Anesthesia Plan Discussed and Chart Reviewed Final Anesthetic Review Family History of Problems with Anesthesia: No History of Problems with Anesthesia: No NPO: Yes ASA Class: III Final Preanesthetic Review: No Changes in Pt Med Stat, Meds/Allgs Chart Reviewed, Consent Obtained/Reviewed and Anes Risks/Benef Reviewed Patient Risk: Intermediate Procedure Risk: Low Assessment/Block/Sedation in SS: Assess/Block/Sedation-SS Anesthetic Plan Anesthetic Plan: GA Disposition: Standard PACU
[2023-07-07] VITALS (9 sets, daily range): BP systolic 161–182; BP diastolic 44–75; PULSE 60–70; RESP 14–18; TEMP 36.3–36.6; O2SAT 95–98; BMI 38.4
--- NOTE | 2023-07-07 07:40 | MHC.SHP ---
Pre-Procedural Eval Section A - 24 Hr Update-Section A only Date of Service: 07/07/23 The patient is an INPATIENT: No Changes since office visit: Yes Patient answered all questions The patient has been examined within 24 hours of the surgical procedure. The History & Physical has been completed within 30 days and I have reviewed it.: Yes Section B - Complete if H&P > 30 days Chief Complaint: Varicose veins of other specified sites Allergies: Allergies Allergy/AdvReac Type Severity Reaction Status Date / Time oxycodone [Oxycodone] AdvReac Severe VOMITTING Verified 06/10/23 10:43 From OxyContin AdvReac Severe VOMITTING Uncoded 06/10/23 10:43 Plan I have reviewed the history and physical and performed a pertinent physical examination on my patient. No changes have occurred unless specified. Time Spent With Patient Time: Total time managing care of this patient today ____ minutes.
[2023-07-07] MEDS: Scopolamine 1.5 MG PATCH.TD.3 TRANSDERMA (09:34)
[2023-07-07 09:40] LABS: Glucose, Whole Blood 129 mg/dL (60-115)
[2023-07-07] MEDS: Lactated Ringers 1,000 ML 100 ML IVCONT (10:14)
--- NOTE | 2023-07-07 12:04 | P.OP_ITS ---
Operative Note Operative Note Date of Service: 07/07/23 Narrative: Operative note by [facility] Preoperative diagnosis: Right leg varicose veins with inflammation Postoperative diagnosis: Same Procedure:1. Right leg microphlebectomy (23) 2. Ligation venous cluster Surgeon:Rhys Mondragon M.D. Police Service Technician: Juanjo Anesthesia: General Specimens: 1 Drains: None Estimated blood loss: Minimal Indications: Very pleasant 78-year-old female who has prior history of right leg varicose veins with inflammation. Now presents for microphlebectomy. The patient has signed the informed consent after reviewing risks, complications, benefits, and alternatives previously discussed with the patient. The patient was given the opportunity to ask any additional questions or voice any concerns. All questions were answered to the patient's satisfaction. Procedure in detail: Varicose veins were marked in the standing position on the right leg and the patient was then placed in the supine position. The right lower extremity was prepared and draped to allow knee flexion in the sterile field. The patient had large superficial varicose veins with significant symptoms of pain. It was therefore determined to perform microphlebectomies of the clusters of varicose veins. The patient had bulging varicose veins which were previously marked in the standing position. A small stab incision was made longitudinally directly overlying the varicose vein in the calf and the varicose vein was grasped with a hemostat aided by a vein hook. It was then dissected as far proximally and distally as possible and avulsed. A total of 23 stab incisions were made and the procedure of stab phlebectomies was repeated 23 times. In addition there was a cluster varicosities on the right medial thigh. We cut down to the base. This was suture ligated with a 2-0 Polysorb. Residual varicosities were removed. Hemostasis was checked and stab incision sites were closed with steri-strips and sterile dressing was given with gauze and krilex wrap followed by an latasha bandage. There were no complications and blood loss was minimal. Post-Op instructions were given and a follow-up appointment was recommended. This note is constructed using voice recognition software. While every effort has been made to ensure accuracy, metal reed tuner errors may have been included. Thank you for allowing me to participate in the care of your patient. Yours sincerely, Rhys Mondragon MD, FACS, R.P.V.I.
[2023-07-07] MEDS: fentaNYL citrate/PF 100 MCG/2 ML VIAL 25 MCG IVPUSH (12:40)
== END 2023-07-07 13:50 | disposition home or self-care (01) ==
PROVIDERS: PCP Internal Medicine; Visit Provider Surgery Vascular Surgery
PROC: (CPT 37766; principal; 2023-07-07 10:40)
DX: I83.11 Varicose veins of right lower extremity with inflammation (principal); Z91.81 History of falling; G47.33 Obstructive sleep apnea (adult) (pediatric); J44.9 Chronic obstructive pulmonary disease, unspecified; E11.65 Type 2 diabetes mellitus with hyperglycemia; Z79.899 Other long term (current) drug therapy; Z88.5 Allergy status to narcotic agent; Z98.890 Other specified postprocedural states; Z87.891 Personal history of nicotine dependence
CPT/HCPCS: 37766; 37785; 82947; 88304; A4364; J0131; J0690; J1100; J2405; J2704; J2795; J3010

== ENCOUNTER → 2023-07-07 08:25 | Outpatient (BNV) | payer MEDICARE, SELFPAY | PROVIDERS: PCP Internal Medicine; Visit Provider Surgery Vascular Surgery | DX: I83.11 Varicose veins of right lower extremity with inflammation (principal) | CPT/HCPCS: 37766; 37785 ==

== ENCOUNTER 2023-07-22 10:33 | Outpatient (AMB) | payer MEDICARE, SELFPAY ==
--- NOTE | 2023-07-22 10:53 | A.OFFVIS_ITS ---
Intake Visit Reasons: 2 week post op Right MICRO OR 07/07/23 Intake Note: 2 week follow up Right Micro 07/07/23 in the OR, still has some steri-strips and Bruising on the Right LE. Accompanied by: Self / Same As Patient Allergies oxycodone [Oxycodone] Adverse Reaction (Severe, Verified 07/22/23 10:56) VOMITTING From OxyContin Adverse Reaction (Severe, Uncoded 07/22/23 10:56) VOMITTING HPI HPI 2 week post op Right MICRO OR 07/07/23: Details: Very pleasant 78-year-old female presents for follow-up status post right leg operative microphlebectomy. Appears to be doing extremely well postoperatively. She has no postoperative issues aside from extensive bruising. She reports that the swelling and discomfort have decreased. She now presents for postoperative follow-up [facility] Medical History HTN (hypertension) Frequent falls History of fall Lumbago Mixed stress and urge urinary incontinence Chronic restrictive lung disease Erythema intertrigo Type 2 diabetes mellitus without complication, without long-term current use of insulin Rib pain PONV (postoperative nausea and vomiting) Requires supplemental oxygen Preoperative examination Pulmonary nodules Family history of breast cancer gene mutation in first degree relative Diabetes mellitus with hyperglycemia, without long-term current use of insulin COVID-19 virus infection Asthma-COPD overlap syndrome Menopause Pulmonary nodule Obstructive sleep apnea Irritable bowel syndrome GERD (gastroesophageal reflux disease) Dyslipidemia Surgical History Status post ablation of incompetent vein using laser (~2021) History of shoulder surgery History of total knee replacement History of appendectomy Hx of cholecystectomy Family History Father Stroke Mother HTN (hypertension) Diabetes mellitus Brother Kidney disease Brother Pneumonia Daughter Invasive ductal carcinoma of breast, Onset Age: 53 Social History Housing: House Alcohol intake: never Patient Tobacco Use Status: Former Tobacco user Quit Date: >20yrs ago e-Cigarette/Vaping Use: Never Used service: No Current occupational status: retired Cognitive needs: No Hearing needs: No Vision needs: Yes Review of Systems Const Reports as per HPI ENT Reports no additional complaints Card Denies chest pain, Denies chest pain at rest and Denies chest pain with activity Resp Denies chest congestion and Denies cough GI Reports no additional complaints Musc Details: pain over varicosities, aching of lower extremities, swelling, cramping, heaviness and tiredness, itching Denies abnormal gait Skin/Breast Reports pruritus and Denies wounds Neuro Reports no additional complaints and Denies abnormal gait Psych Denies no additional complaints Physical Exam Const General: cooperative, healthy appearing and comfortable Orientation/consciousness: oriented to person, oriented to place and oriented to time Neck Carotids: no bruits Chest Chest palpation & inspection: normal inspection of the chest and normal palpation of entire chest wall Resp Effort & Inspection: normal respiratory effort and able to speak in complete sentences Cardio Rate: regular rate Heart sounds: S1 normal heart sound present and S2 normal heart sound present Peripheral pulses: Peripheral pulses 2+ throughout GI Inspection: Yes normal to inspection Skin Other: +2 edema, large rope-like varicosities greater than 4 mm left thigh and calf CEAP Classification C4 - skin color changes Ep - Etiology Primary As - superficial veins P - reflux Right leg incisions well healed General skin exam: dry skin Neuro General: oriented to person, oriented to place and oriented to time Extrem Right lower extremity: full ROM, normal capillary refill and edema Left lower extremity: full ROM, normal capillary refill and edema Psych Mental Status: mental status grossly normal Assessment & Plan Assessment & Plan (1) Varicose veins of right lower extremity with inflammation: Comment: 04/20/2021 - right great saphenous vein Cyanoacralate ablation 07/07/2023 - right leg microphlebectomy Code(s): I83.11 - Varicose veins of right lower extremity with inflammation Category: Medical Plan: Did well in terms of her right leg microphlebectomy. We did talk about post phlebitic issues in the use of warm compresses and nonsteroidal anti- inflammatories. She will follow up with us about her left leg. (2) Varicose veins of left lower extremity with inflammation: Comment: 06/22/2021 - left great saphenous vein Cyanoacralate ablation Code(s): I83.12 - Varicose veins of left lower extremity with inflammation Category: Medical Plan: She does have a large varicosity in her left thigh and calf. It does seem to be a source of discomfort for her. At the current time she would like to manage this conservatively. She will follow up with us in approximately 3 months if she wishes to pursue a left leg microphlebectomy. Coding Level of Care Code Est Pt Level 3 (52470) Diagnoses Varicose veins of right lower extremity with inflammation I83.11 Varicose veins of left lower extremity with inflammation I83.12
== END 2023-07-22 11:14 | disposition home or self-care (01) ==
PROVIDERS: PCP Internal Medicine; Visit Provider Surgery Vascular Surgery
DX: I83.11 Varicose veins of right lower extremity with inflammation (principal); I83.12 Varicose veins of left lower extremity with inflammation
CPT/HCPCS: 99024

== ENCOUNTER → 2023-07-22 10:33 | Outpatient (BNVA) | payer MEDICARE, SELFPAY | PROVIDERS: PCP Internal Medicine; Visit Provider Surgery Vascular Surgery | DX: I83.11 Varicose veins of right lower extremity with inflammation (principal); I83.12 Varicose veins of left lower extremity with inflammation | CPT/HCPCS: 99212 ==

== ENCOUNTER 2023-08-02 10:03 | Outpatient (REF) | payer MEDICARE, SELFPAY ==
[2023-08-02 10:17] LABS: MANUAL DIFF FLAG NO
[2023-08-02 10:52] LABS: Basophils Percent Auto 0.5 % (0-2); Eosinophils Absolute Auto 0.1 X10*3/uL (0.0-0.4); Eosinophils Percent Auto 1.6 % (0-4); Hematocrit 39.2 % (37.0-47.0); Imm Gran Abs Auto 0.02 X10*3/uL (0.00-0.03); Imm Gran Pct Auto 0.3 % (0.0-0.4); Lymphocytes Absolute Auto 2.4 X10*3/uL (1.2-4.9); Lymphocytes Percent Auto 32.6 % (20-40); Mean Corpuscular HGB Conc 33.2 g/dl (31.0-35.0); Mean Corpuscular Hemoglobin 31.5 pg (27.0-33.0); Mean Corpuscular Volume 94.9 fL (80.0-98.0); Monocytes Absolute Auto 0.7 X10*3/uL (0.1-1.2); Monocytes Percent Auto 9.1 % (2-11); Neutrophils Absolute Auto 4.1 x10*3/uL (2.0-8.3); Neutrophils Percent Auto 55.9 % (45-73); Platelet Count 242 X10*3/uL (160-400); Red Blood Count 4.13 X10*6/uL (4.20-5.50); White Blood Count 7.3 X10*3/uL (4.8-10.8)
[2023-08-02 11:16] LABS: Estimated Average Glucose 131 mg/dL; Hemoglobin A1C 150.4195 umol/L; Hemoglobin A1c % 6.2 % (<6.0)
[2023-08-02 11:36] LABS: Alanine Aminotransferase 14 U/L (0-31); Anion Gap 15 (12-20); Aspartate Amino Transferase 17 U/L (5-31); Blood Urea Nitrogen 19 mg/dL (9-16); Calcium 10.1 mg/dL (8.4-10.2); Carbon Dioxide 26 mmol/L (22-29); Chloride 103 mmol/L (96-108); Cholesterol 181 mg/dL (<200); Estimated Glomerular Filt Rate > 60; Glucose Fasting 144 mg/dL (60-99); HDL Cholesterol 51 mg/dL (>40); LDL Cholesterol Calculated 110 mg/dL (<100); Potassium 4.7 mmol/L (3.3-5.1); Sodium 139 mmol/L (135-145); Triglycerides 103 mg/dL (<150)
== END 2023-08-02 10:04 | disposition home or self-care (01) ==
LOC: HO.LAB 10:03
PROVIDERS: PCP Internal Medicine; Visit Provider Internal Medicine
DX: E11.9 Type 2 diabetes mellitus without complications (principal); I10 Essential (primary) hypertension; E78.5 Hyperlipidemia, unspecified; R29.6 Repeated falls
CPT/HCPCS: 36415; 80048; 80061; 83036; 84450; 84460; 85025

== ENCOUNTER 2023-08-11 11:06 | Outpatient (AMB) | payer MEDICARE, SELFPAY ==
--- NOTE | 2023-08-11 11:18 | A.OFFPC_ITS ---
Vital Signs 08/11/23 11:33 Height 5 ft 2 in Weight 207 lb BMI 37.9 BP 100/60 Blood Pressure Location Lt brachial Position Sitting Pulse 58 Pulse Source Pulse Oximeter Pulse Oximetry (%) 96 Oxygen Delivery Method Room Air Intake Visit Reasons: follow up Intake Note: Pt is here today to f/u DM Allergies oxycodone [Oxycodone] Adverse Reaction (Severe, Verified 08/28/23 00:27) VOMITTING From OxyContin Adverse Reaction (Severe, Uncoded 08/28/23 00:27) VOMITTING Medication List - Last Reconciled 08/11/23 by Ramonita Douglas MD albuterol sulfate 90 mcg/actuation 2 puffs inhalation Q6H PRN atorvastatin 10 mg PO DAILY blood sugar diagnostic ([email or web address] Ultra Blue Test Strip) use one test strip once a day and as needed to test blood sugar blood sugar diagnostic ([employer] Ultra Test strips) CHECKS BLOOD SUGAR ONCE A DAY A.C. blood-glucose meter As directed xvnzeoycyg-yxeknew-gwftjvuw 50-325-40 mg 1 cap PO Q6H PRN NS carvedilol 25 mg PO BID chlorthalidone 25 mg PO DAILY cholecalciferol (vitamin D3) (Vitamin D3) 50 mcg PO DAILY clotrimazole-betamethasone 1-0.05 % 1 appl topical BID PRN dapagliflozin propanediol (Farxiga) 10 mg PO QAM 90 days dicyclomine 10 mg PO QID PRN escitalopram oxalate 20 mg PO DAILY esomeprazole magnesium 40 mg PO DAILY fluticasone propionate 50 mcg/actuation 2 sprays intranasal DAILY hydrochlorothiazide 25 mg PO QAM lancets (OneTouch Delica Plus Lancet) Use As directed twice a day loratadine 10 mg PO DAILY lorazepam 0.5 mg PO DAILY PRN losartan 100 mg PO DAILY metformin 500 mg PO DAILY mirabegron ER (Myrbetriq) 25 mg PO DAILY 90 days nystatin 100,000 units topical TID PRN [one touch delica plus lancets subcut DAILY] sitagliptin phosphate (Januvia) 100 mg PO DAILY Trelegy Ellipta 200-62.5-25 mcg (fkryuefiqna-cqbenkqzo-filumjea) 1 inh inhalation DAILY NS Tobacco use date assessed: 08/11/23 Fall risk assessment: 2 + Falls in past year Last assessed Fall Risk: 08/11/23 Dental Screening Dental Screen Date: 08/11/23 Did you have a dental visit in the last 12 months?: No Was dental information given to patient?: Patient declined HPI follow up HPI Details 78-year-old lady here today for follow-u p on her diabetes mellitus. She is currently taking dapagliflozin 10 mg 1 tablet in the morning an hour before breakfast, metformin 500 mg once a day and sitagliptin 100 mg once a day.. PFSH Medical History HTN (hypertension) Frequent falls History of fall Lumbago Mixed stress and urge urinary incontinence Chronic restrictive lung disease Erythema intertrigo Type 2 diabetes mellitus without complication, without long-term current use of insulin Rib pain PONV (postoperative nausea and vomiting) Requires supplemental oxygen Preoperative examination Pulmonary nodules Family history of breast cancer gene mutation in first degree relative Diabetes mellitus with hyperglycemia, without long-term current use of insulin COVID-19 virus infection Asthma-COPD overlap syndrome Menopause Pulmonary nodule Obstructive sleep apnea Irritable bowel syndrome GERD (gastroesophageal reflux disease) Dyslipidemia Surgical History Status post ablation of incompetent vein using laser (~2021) History of shoulder surgery History of total knee replacement History of appendectomy Hx of cholecystectomy Family History Father Stroke Mother HTN (hypertension) Diabetes mellitus Brother Kidney disease Brother Pneumonia Daughter Invasive ductal carcinoma of breast, Onset Age: 53 Social History Housing: House Alcohol intake: never Patient Tobacco Use Status: Former Tobacco user e-Cigarette/Vaping Use: Never Used service: No Current occupational status: retired Cognitive needs: No Hearing needs: No Vision needs: Yes Questionnaire PHQ-9 Over the last 2 weeks, how often have you been bothered by any of the following problems? Depression Screening Interpretation: Negative Depression Screening Done: Yes Source: Developed by Drs. Low Retana, Janine Amador, Pj Mckeon and colleagues, with an educational nicole from [employer]. Thrive Questionnaire Date Thrive assessed: 04/18/23 JAZMYN-7 AMB Questionnaire JAZMYN-7 Date JAZMYN - 7 assessed: 04/18/23 Source: Developed by Drs. Low Retana, Janine Amador, Pj Mckeon and colleagues, with an educational nicole from [employer]. Review of Systems Const Denies chills, Denies fever(s) and Denies headache(s) Eyes Details: She sees Dr. Benito Denies change in vision ENT Reports Normal hearing present and Denies headache(s) Card Denies chest pain, Denies pedal edema, Denies lightheadedness and Denies dyspnea Resp Denies dyspnea GI Denies abdominal pain, Denies change in bowel habits and Denies heartburn Denies dysuria, Denies pelvic pain, Denies urinary hesitancy and Reports urinary urgency Musc Denies abnormal gait, Reports arthralgias (Both knees right more than the left) and Reports stiffness Neuro Reports Normal hearing present, Denies abnormal gait and Denies headache(s) Endo Reports no additional complaints Lloyd/Lymph Reports no additional complaints Physical exam (Primary Care) Vital Signs: Last Vital Signs Pulse 58 08/11/23 11:33 BP 100/60 08/11/23 11:33 Pulse Ox 96 08/11/23 11:33 Oxygen Delivery Method Room Air 08/11/23 11:33 BMI result Body Mass Index 37.9 Tobacco/Smoking Status: Tobacco use Status Tobacco use date assessed 08/11/23 08/11/23 11:20 Patient Tobacco Use Status Former Tobacco user 08/11/23 11:20 e-Cigarette/Vaping Use Never Used 08/11/23 11:20 Depression Screening Interpretation: Negative Thrive Assessment: Date of Thrive Assessment Date Thrive assessed 04/18/23 08/11/23 11:20 Const General: comfortable, no acute distress and alert Orientation/consciousness: patient oriented x3 HENMT Mouth: Normal oral and palatal mucosa present and moist mucous membranes Eyes General: appearance normal, both eyes and all related structures Neck Neck: Yes full ROM, Yes no lymphadenopathy and Yes supple Resp Effort & Inspection: normal respiratory effort and able to speak in complete sentences Cardio Rate: regular rate Rhythm: regular rhythm Heart sounds: S1 normal heart sound present and S2 normal heart sound present GI Inspection: Yes obesity Palpation (GI): Soft to palpation, nontender, no guarding and no masses Auscultation: normal bowel sounds Neuro General: patient oriented x3, gait normal, tone normal, moves all extremities, Normal light touch and pain sensation and no focal motor deficits Cranial nerves: Yes Normal hearing present Cognition (Neuro): normal cognition Extrem General: Yes no joint enlargement and Yes no clubbing, cyanosis or edema Results Reviewed Results Reviewed: Laboratory Tests 08/02/23 10:16 Estimat Average Glucose 131 Hemoglobin A1c % 6.2 H Name: Shey Ingram Age/Sex: 78/F : 1945 Unit#: [id number] Attend Dr: Ramonita Douglas MD Re08/02/23 Status: DEP [facility]F [facility] Disch: SPEC : [id number] LISA: 08/02/23 STATUS: COMP REQ : [id number] RECD: 08/02/[address]: Ramonita Douglas MD COMP: 08/02/23 ENTERED: 08/02/23-[address]: ORDERED: Met Prof Fast, AST, ALT, Lipid Panel Test Result Flag Reference Sodium 139 135-145 mmol/L Potassium 4.7 3.3-5.1 mmol/L CL 103 96-108 mmol/L CO2 26 22-29 mmol/L Gap 15 12-20 BUN 19 H 9-16 mg/dL Creat 0.78 0.5-1.4 mg/dL EGFR > 60 NOTE: For -[place] individuals, multiply the result by 1.210. Chronic Kidney Disease: Estimated GFR < 60 mL/min/1.73m2 Severe Kidney Disease: Estimated GFR < 15 mL/min/1.73m2 FBS 144 H 60-99 mg/dL A fasting glucose of 126 mg/dl or greater on more than one occasion is considered diagnostic of diabetes. CA 10.1 8.4-10.2 mg/dL AST (GOT) 17 5-31 U/L ALT (GPT) 14 0-31 U/L Triglyceride 103 <150 mg/dL Desirable Triglyceride: less than 150 mg/dL Borderline High Triglyceride 150-199 mg/dL High Triglyceride: 200-499 mg/dL Very High Triglyceride: greater than or equal to 5OO mg/dL Cholesterol 181 <200 mg/dL Desirable Cholesterol: less than 200 mg/dL Borderline High Cholesterol: 200-239 mg/dL High Cholesterol: greater than 239 mg/dL LDL Calculated 110 H <100 mg/dL Desirable LDL: less than 100 mg/dL Near Optimal/Above Optimal LDL: 110-129 mg/dL Borderline High LDL: 130-159 mg/dL High LDL: 160-189 mg/dL Very High LDL: greater than or equal to 190 mg/dL HDL 51 >40 mg/dL Desirable HDL: greater than 40 mg/dL Note: This HDL assay may give artificially low results in patients with liver disease. Assessment and Plan Assessment & Plan (1) Dyslipidemia: Code(s): E78.5 - Hyperlipidemia, unspecified Plan: Reviewed recent fasting lipid profile with patient with LDL cholesterol not at goal of less than 100 mg/dL. . Continue atorvastatin 10 mg daily , in addition to adherence to low-cholesterol diet and regular exercise, at least 30 minutes 3 to 4 times a week. Advised patient to make healthy food choices, eat more fruits, vegetables, whole grains, wild caught fish and low-fat dairy. Limit amount of meat and fried or fatty food products, as well as processed foods and fast foods. Follow-up scheduled with repeat fasting lipid panel in 3 months. (2) HTN (hypertension): Code(s): I10 - Essential (primary) hypertension Qualifiers: Hypertension type: primary hypertension Qualified Code(s): I10 - Essential (primary) hypertension Plan: Hypertension stable controlled on losartan 100 mg daily and hydrochlorothiazide 25 mg in the more, carvedilol 25 mg 1 tablet twice a day and chlorthalidone 25 mg daily. Reinforced importance of following a low-salt diet and staying active, getting regular exercise (3) Type 2 diabetes mellitus without complication, without long-term current use of insulin: Code(s): E11.9 - Type 2 diabetes mellitus without complications Plan: Recent lab results reviewed with patient, with sugar and hemoglobin A1c at goal of less than 6.5%. Continue with metformin, dapagliflozin and sitagliptin at the same dose. continue to check fasting blood sugar at home, maintain log and bring to next appointment for review. Reinforced diabetic diet and regular exercise with patient. Counseled regarding importance of yearly diabetes retinopathy screening. Patient advised to inspect feet daily, for any signs of injury, callus or infection. Compliance with diet and regular exercise again stressed. Blood pressure goal is less than 130/80, goal LDL is less than 100 and goal hemoglobin A1c is less than 7% follow-up appointment made in-3--months, after fasting labs done. Orders: Orders Lipid Panel 11/02/23 E78.5 - Hyperlipidemia, unspecified, I10 - Essential (primary) hypertension, E11.9 - Type 2 diabetes mellitus without complications Alanine Aminotransferase 11/02/23 E78.5 - Hyperlipidemia, unspecified, I10 - Essential (primary) hypertension, E11.9 - Type 2 diabetes mellitus without complications Hemoglobin A1c 11/02/23 E78.5 - Hyperlipidemia, unspecified, I10 - Essential (primary) hypertension, E11.9 - Type 2 diabetes mellitus without complications Aspartate Amino Transferase 11/02/23 E78.5 - Hyperlipidemia, unspecified, I10 - Essential (primary) hypertension, E11.9 - Type 2 diabetes mellitus without complications Coding Level of Care Code Est Pt Level 4 (73881) Complex EM visit Add On G2211 Diagnoses Dyslipidemia E78.5 Primary hypertension I10 Hypertension type: primary hypertension Type 2 diabetes mellitus without complication, without long-term current use of insulin E11.9
[2023-08-11 11:33] VITALS: BP 100/60; PULSE 58; O2SAT 96; BMI 37.9
== END 2023-08-11 12:16 | disposition home or self-care (01) ==
PROVIDERS: PCP Internal Medicine; Visit Provider Internal Medicine
DX: E78.5 Hyperlipidemia, unspecified (principal); I10 Essential (primary) hypertension; E11.69 Type 2 diabetes mellitus with other specified complication
CPT/HCPCS: 99214; G2211

== ENCOUNTER 2023-08-19 10:15 | Outpatient (REF) | payer MEDICARE, SELFPAY | END 2023-08-19 10:16 | disposition home or self-care (01) | LOC: HO.MAMMO 10:15 | PROVIDERS: PCP Internal Medicine; Visit Provider Internal Medicine | DX: Z12.31 Encounter for screening mammogram for malignant neoplasm of breast (principal) | CPT/HCPCS: 77063; 77067 ==

== ENCOUNTER → 2023-08-19 10:30 | Outpatient (BNV) | payer MEDICARE, SELFPAY | PROVIDERS: PCP Internal Medicine; Visit Provider Radiology Diagnostic Radiology | DX: Z12.31 Encounter for screening mammogram for malignant neoplasm of breast (principal) | CPT/HCPCS: 77063; 77067 ==

== ENCOUNTER 2023-08-25 11:19 | Outpatient (AMB) | payer MEDICARE, SELFPAY ==
--- NOTE | 2023-08-25 11:21 | MHC.OFFVIS ---
Intake Visit Reasons: 6m/ Intake Note: Patient presents for follow up visit incontinence Urology Medications: myrbetriq Blood Thinner: none PVR: 0ml's Food And Beverage Manager Required: No Accompanied by: Self / Same As Patient Allergies oxycodone [Oxycodone] Adverse Reaction (Severe, Verified 08/25/23 11:54) VOMITTING From OxyContin Adverse Reaction (Severe, Uncoded 08/25/23 11:54) VOMITTING Medication List - Last Reconciled 08/25/23 by MIKE Luong albuterol sulfate 90 mcg/actuation 2 puffs inhalation Q6H PRN atorvastatin 10 mg PO DAILY blood sugar diagnostic ([employer] Ultra Blue Test Strip) use one test strip once a day and as needed to test blood sugar blood sugar diagnostic ([employer] Ultra Test strips) CHECKS BLOOD SUGAR ONCE A DAY A.C. blood-glucose meter As directed lrqwfnxbrk-frirwtj-gjkuqids 50-325-40 mg 1 cap PO Q6H PRN NS carvedilol 25 mg PO BID chlorthalidone 25 mg PO DAILY cholecalciferol (vitamin D3) (Vitamin D3) 50 mcg PO DAILY clotrimazole-betamethasone 1-0.05 % 1 appl topical BID PRN dapagliflozin propanediol (Farxiga) 10 mg PO QAM 90 days dicyclomine 10 mg PO QID PRN escitalopram oxalate 20 mg PO DAILY esomeprazole magnesium 40 mg PO DAILY fluticasone propionate 50 mcg/actuation 2 sprays intranasal DAILY hydrochlorothiazide 25 mg PO QAM lancets (OneTouch Delica Plus Lancet) Use As directed twice a day loratadine 10 mg PO DAILY lorazepam 0.5 mg PO DAILY PRN losartan 100 mg PO DAILY metformin 500 mg PO DAILY mirabegron ER (Myrbetriq) 25 mg PO DAILY 90 days nystatin 100,000 units topical TID PRN [one touch delica plus lancets subcut DAILY] sitagliptin phosphate (Januvia) 100 mg PO DAILY Trelegy Ellipta 200-62.5-25 mcg (wravuakxnkb-rygvtnmlx-swbxsaih) 1 inh inhalation DAILY NS HPI Comments Details: Shey is a very pleasant 78-year-old female patient of Dr. Douglas. She has a past medical history of chronic restrictive lung disease, diabetes, pulmonary nodules, obstructive sleep apnea, irritable bowel syndrome, GERD, and dyslipidemia. She presents to the office today for a follow up of her urinary incontinence. In discussion with the patient today she reports to be doing and feeling well. She reports to be extremely happy with current voiding parameters on 25 mg of Myrbetriq. She discusses how life changing this medication has been for her. As she feels she no longer needs to bathroom planned. She discusses her upcoming travel to [place] with her family. Previous workup has included a retroperitoneal ultrasound noting bilateral kidneys with no hydronephrosis or calculi noted. Partially distended, limiting evaluation. Right ureteral jet is demonstrated; left is not. Prevoid bladder volume is 230 mLs. Postvoid bladder volume is 10.5 mL. She has a previous history of 7 vaginal births. When asked she denies hematuria, dysuria, foul smelling urine, changes to urinary stream, flank pain, fever, and or chills. In office urinalysis results reviewed with the patient today. PVR 0 mL. She otherwise offers no issues or concerns at this time. [facility] Medical History HTN (hypertension) Frequent falls History of fall Lumbago Mixed stress and urge urinary incontinence Chronic restrictive lung disease Erythema intertrigo Type 2 diabetes mellitus without complication, without long-term current use of insulin Rib pain PONV (postoperative nausea and vomiting) Requires supplemental oxygen Preoperative examination Pulmonary nodules Family history of breast cancer gene mutation in first degree relative Diabetes mellitus with hyperglycemia, without long-term current use of insulin COVID-19 virus infection Asthma-COPD overlap syndrome Menopause Pulmonary nodule Obstructive sleep apnea Irritable bowel syndrome GERD (gastroesophageal reflux disease) Dyslipidemia Surgical History Status post ablation of incompetent vein using laser (~2021) History of shoulder surgery History of total knee replacement History of appendectomy Hx of cholecystectomy Family History Father Stroke Mother HTN (hypertension) Diabetes mellitus Brother Kidney disease Brother Pneumonia Daughter Invasive ductal carcinoma of breast, Onset Age: 53 Social History Housing: House Alcohol intake: never Patient Tobacco Use Status: Former Tobacco user e-Cigarette/Vaping Use: Never Used service: No Current occupational status: retired Cognitive needs: No Hearing needs: No Vision needs: Yes Review of Systems Const Reports no additional complaints Eyes Reports no additional complaints ENT Reports no additional complaints Card Reports as per HPI Resp Reports as per HPI GI Reports as per HPI Reports no additional complaints Neuro Reports no additional complaints Psych Reports no additional complaints Endo Reports as per HPI Lloyd/Lymph Reports no additional complaints Aller/Immun Reports no additional complaints Physical Exam Const General: cooperative, healthy appearing, comfortable, no acute distress, well developed, alert and awake Nutritional Appearance: overweight Orientation/consciousness: patient oriented x3 Limitations: no limitations HEENT Head: Yes normal to inspection, Yes normocephalic and Yes atraumatic Ears: hearing grossly normal bilaterally Eyes General: appearance normal, both eyes and all related structures Neck Neck: Yes normal visual inspection and Yes trachea midline Chest Chest palpation & inspection: normal inspection of the chest Resp Effort & Inspection: normal respiratory effort and able to speak in complete sentences Cardio Rate: regular rate GI Inspection: Yes normal to inspection General: Yes no CVA tenderness Back/Spine/Pelvis Back: no CVA tenderness Skin General skin exam: no rashes or lesions noted Neuro General: patient oriented x3 Extrem General: Yes normal to inspection Psych Appearance: grossly normal and well kempt Mental Status: mental status grossly normal Speech and movement: Normal speech and movement present and Clear speech present Affect: normal affect Attitude: cooperative Thought process: Normal thought process present Thought content: Normal thought content present Insight: Fair insight present (Psych) Judgement: Fair judgement present (Psych) Office Procedures Post Void Residual Post Residual Void Post Void Residual (PVR): 0 [id number]-[id number] Void Residual by ultrasound Results AMB Urinalysis, Automated UA Leukoctes 0 Annika/uL Last Edit by [employer] on 08/25/23 11:42 UA Nitrite Negative Last Edit by [employer] on 08/25/23 11:42 UA Urobilinogen 0.2 mg/dL Last Edit by [employer] on 08/25/23 11:42 UA Protein 0 mg/dL Last Edit by [employer] on 08/25/23 11:42 UA pH 6.0 Last Edit by [employer] on 08/25/23 11:42 UA Blood 0 Joe/uL Last Edit by Elpidio Hicks on 08/25/23 11:42 UA Specific Newcomb 1.010 Last Edit by Elpidio Bakerjuan on 08/25/23 11:42 UA Ketone Negative Last Edit by Elpidio Bakerjuan on 08/25/23 11:42 UA Bilirubin 0 mg/dL Last Edit by Elpidio Bakerjuan on 08/25/23 11:42 UA Glucose 1000 mg/dL Last Edit by Elpidio Bakerjuan on 08/25/23 11:42 Results Reviewed Results Reviewed: Laboratory Last Values Urine pH (Auto) 6.0 08/25/23 11:41 Specific Newcomb (Auto) 1.010 08/25/23 11:41 Urine Protein (Auto) 0 mg/dL 08/25/23 11:41 Glucose (UA)(Auto) 1000 mg/dL 08/25/23 11:41 Urine Ketones (Auto) Negative 08/25/23 11:41 Urine Blood (Auto) 0 Joe/uL 08/25/23 11:41 Urine Nitrite (Auto) Negative 08/25/23 11:41 Urine Bilirubin (Auto) 0 mg/dL 08/25/23 11:41 Urine Urobilinogen (Auto) 0.2 mg/dL 08/25/23 11:41 Leukocyte Esterase (Auto) 0 Annika/uL 08/25/23 11:41 Assessment & Plan Assessment & Plan (1) Mixed stress and urge urinary incontinence: Code(s): N39.46 - Mixed incontinence Category: Medical Plan In office urinalysis results reviewed with the patient today; as noted above. PVR 0 mL. Patient currently denies any bothersome urinary issues or concerns. She reports be happy with current voiding parameters on 25 mg of Myrbetriq; will continue; refill provided. Discussed bladder triggers/irritants. Discussed pelvic floor therapy/exercises. Discussed, educated, and stressed the importance of managing diabetes for improvement lower urinary tract symptoms as well as for overall health and wellbeing. Follow-up in 6 months with PVR; or sooner with any issues, concerns, and or questions. Orders: Orders AMB Urinalysis Automated Today Z13.9 - Encounter for screening, unspecified AMB Post Void Residual by ultrasound Today N39.46 - Mixed incontinence Medications: Refilled mirabegron ER (Myrbetriq) 25 mg PO DAILY 90 days 90 tabs 3RF N39.41 - Urge incontinence Patient Instructions: The patient had an opportunity to ask questions regarding the treatment plan. All questions were answered. Physical exam, labs, and imaging were discussed and reviewed in detail. As well as risks, benefits, and discussion of treatment choices. No major barriers to understanding were identified. The patient expressed understanding and agreement with the above treatment plan. The patient was made aware they should contact our office by phone for worsening of their current condition, the appearance of new symptoms, or with any questions or concerns. Compliance is encouraged with any medications and follow up testing that is ordered. It is a privilege to be allowed the opportunity to participate in? your urological care.? Again, if you have any questions or concerns If you have any questions or concerns please do not hesitate to contact me. The office is [phone]. This note is constructed using voice recognition software. While every effort has been made to ensure accuracy order editor errors may have been included. Yours sincerely, MIKE Luong Coding Level of Care Code Est Pt Level 3 (59876) Diagnoses Mixed stress and urge urinary incontinence N39.46 CPT Codes Post Residual Void - PVR CPT Code: 71851-Celb Void Residual by ultrasound ([id number])
== END 2023-08-25 11:55 | disposition home or self-care (01) ==
PROVIDERS: PCP Internal Medicine; Visit Provider Nurse Practitioner Family
DX: Z13.9 Encounter for screening, unspecified (principal); N39.46 Mixed incontinence
CPT/HCPCS: 99213

== ENCOUNTER → 2023-08-25 11:19 | Outpatient (BNVA) | payer MEDICARE, SELFPAY | PROVIDERS: PCP Internal Medicine; Visit Provider Nurse Practitioner Family | DX: N39.46 Mixed incontinence (principal) | CPT/HCPCS: 51798; 81003; 99212 ==

== ENCOUNTER 2023-11-01 10:00 | Outpatient (REF) | payer MEDICARE, SELFPAY ==
[2023-11-01 11:44] LABS: Estimated Average Glucose 131 mg/dL; Hemoglobin A1c % 6.2 % (<6.0)
[2023-11-01 12:06] LABS: Alanine Aminotransferase 14 U/L (0-31); Aspartate Amino Transferase 17 U/L (5-31); Cholesterol 158 mg/dL (<200); HDL Cholesterol 46 mg/dL (>40); LDL Cholesterol Calculated 88 mg/dL (<100); Triglycerides 122 mg/dL (<150)
== END 2023-11-01 10:01 | disposition home or self-care (01) ==
LOC: HO.LAB 10:00
PROVIDERS: PCP Internal Medicine; Visit Provider Internal Medicine
DX: E78.5 Hyperlipidemia, unspecified (principal); I10 Essential (primary) hypertension; E11.9 Type 2 diabetes mellitus without complications
CPT/HCPCS: 36415; 80061; 83036; 84450; 84460

== ENCOUNTER 2023-11-07 09:52 | Outpatient (AMB) | payer MEDICARE, SELFPAY ==
--- NOTE | 2023-11-07 09:58 | MHC.OFFVIS ---
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 To note she did have a recent CT scan of the chest on November 20 2018 at [facility]. It appeared that her pulmonary nodules are stable measuring between 2 and 3 mm in size. The patient has been complaining of worsening cough productive in nature. Moderate in severity. She did get Zpak from her primary care. However, she is no better. Has had some subjective fevers and chills. Also has been complaining of worsening shortness of breath. She is concerned about her CT scan of the chest. We did look at her CT scan that she had at [facility] in November 2018 from October 2019 it appears that the left lower lobe nodular density is her largest nodule measuring about 7 mm in size. Is about the same size. The actual nodule her ever looks a little more dense. This may be techniques and we using different CT scans. However, further follow-up is warranted. 02/07/2020 the patient has a telephone visit. She states that she was in her usual state health until about 2 3 days ago when she started developing significant sinus discomfort. She is also having significant nasal congestion and has a upper respiratory illness. She denies any fevers or any sore throat. She is having a cough. Intermittent and mild to moderate. Denies any significant wheezing. Denies any exposure to anybody with COVID-19 infection. The patient will be treated for sinusitis at this time. If however her symptoms do not improved she patient needs to be tested for COVID-19. In the meantime we did talk about her CT scan demonstrating stable pulmonary nodules. She should have a repeat CT scan sometime in October of 2020. 12/01/2020 the patient is here for a pulmonary follow-up visit. She is complaining of worsening dyspnea on exertion [id number] severity. She has been using her rescue inhaler more often. Will start the patient on Anoro this time. In the meantime she also underwent a CT scan of the chest that was personally viewed by me in the office. It appears that she has stable pulmonary nodules, although, she has a new nodular density intermediate size in the right lower lobe. Will plan to follow this nodular density little closer. 06/06/2021 the patient is here for a pulmonary follow-up visit. She is complaining of increasing chest tightness and shortness of breath along with increasing wheezing. Moderate severity. She has been using all her respiratory medications including Symbicort and a rescue inhaler on a daily basis. The patient did have a CT scan of the chest that was personally by me demonstrating stable pulmonary nodules which is reassuring. Although, she did have evidence of mosaic pattern in her trapping. Explained to her that this is likely related to her asthma and small airways disease. She did undergo pulmonary function studies as well that we personally reviewed which demonstrated no definitive obstructive nor restrictive ventilatory defects. However, she did have evidence of small airways disease again likely consistent with asthma although they did not reverse after the bronchodilators were administered. She has been on Symbicort so for will going to switch over to a different inhaler such as Trelegy and hoping that the broader coverage will help her with bronchodilation. In addition to that based on her symptoms and the findings will go ahead and treated with a course of prednisone. She does have diabetes therefore she take half does and she can also stop in early if she does feel better. She can also consider singular as an option in the future. 12/18/2021 the patient is here for a pulmonary follow-up visit. She is complaining of significant nasal congestion and postnasal drip. She is couple more. Sometimes she does cough up some yellowish phlegm. Moderate severity. Complains about ear fullness. I did look at her years and she does have significant fluid buildup in along with some redness. The patient also continues use her respiratory therapy. She does complaint of dyspnea on exertion. We did look at her pulmonary function studies horta she does have a restrictive ventilatory defect consistent with restrictive lung disease. The patient needs to start pulmonary rehabilitation to strengthen her respiratory capacity in to additional stamina. Will make a referral at this time. The patient is willing and interested in doing so. The patient also had a CT scan back in June 2020 demonstrating pulmonary nodules in addition to some air trapping. Will go ahead and repeat the CT scan around the same time next year in order to follow-up with the pulmonary nodules hopefully to find stability. The 06/10/2022 the patient is here for pulmonary follow-up visit. The patient had been doing well until about a week or so prior to this visit. She continues use her Trelegy inhaler and a rescue medicine. She was exposed to a sick contact in started developing a worsening cough chest tightness and chest congestion with yellowish green sputum. She did have some amoxicillin left over and she did start taking it for the last 3 days. She has seen improvement. She does have a nebulizer machine at this point do not think she needs 1. Although an Acapella valve will be helpful with her mucus clearance. If she develops any chest tightness or wheezing she can always call the office will provide her with a nebulizer. The patient did have a CT scan of the chest in mid May and will personally viewed together. Appears that all her pulmonary nodules are stable. The largest nodule is an oval-shaped nodule in her left lower lobe that measures about 7 mm. Will back 2020 in the nodules specially the same. Therefore no significant findings tear. I did reassure her that her nodules appear to be benign as that they have been stable for more than 2 years. 12/04/2022 the patient is here for pulmonary follow-up visit. Overall she is doing well. She continues on the Trelegy inhaler. She has not had to use her rescue medication. She does complaint of sinus pressure and also earache. She has some sinus congestion and some nasal congestion as well. The patient has been like this for the last few days. Denies any sick contacts. The patient also is concerned about her CT scan of the chest. Was done back in May 2022 demonstrating stable pulmonary nodules. Will go ahead and repeat the CT scan in May of 2023 to make sure the nodules have not changed. Specially with worsening symptoms. The patient will be treated for sinusitis. She does have some fluid in ears suggesting some degree of nasal congestion sinusitis. If the patient is no better she can always call for further recommendations. She also needs to get vaccinated she will get her Prevnar 20 vaccine today change he is not too sick. Also needs to get her RSV vaccine and will get the other flu and COVID vaccine when available. She has a planned trip on a cruise and I did recommend she can get all her vaccines before going on the cruise. 06/03/2023 the patient is here for a pulmonary follow-up visit. She is feeling better now. The patient had a respiratory illness several weeks ago.She did call the office but we did not have any availability was recommended she go to an urgent care. The patient is reluctant to do so therefore she did not. Ultimately she ended up getting some antibiotics from primary care doctor. She did feel better afterwards. She was upset with the fact that we were not available to see her. Explained to her that we do our best to accommodate everyone, but, as difficult during a busy respiratory season. She continues respiratory therapy with good effect. she did undergo a CT scan of the chest that was pre plan to assess her pulmonary nodules. Has not been officially read but I did look at a. the largest nodule in the left lower lobe appears to be stable in size measuring 7-8 mm in size. The other nodules also appeared to be stable. No evidence of any airspace disease. 11/07/2023 the patient is here for a pulmonary follow-up visit. she has been dealing with a sinus pressure and headache. This has been going on for the last weeks. It has been slow to improve. Significant obstruction of the nasal passages. In addition to that she continues with respiratory medicine with good effect. She did have a CT scan of the chest which we personally reviewed from 05/2023 demonstrating pulmonary nodule measuring 8 mm in size. It has not changed. Will plan to follow-up with a CT scan in 05/20/2024 to make sure this continues stability of the nodule. If it has not changed by then we can follow it as needed. The patient will continue with current respiratory therapy will treat her for sinusitis and will follow-up after her CT scan. [facility] Medical History HTN (hypertension) Frequent falls History of fall Lumbago Mixed stress and urge urinary incontinence Chronic restrictive lung disease Erythema intertrigo Type 2 diabetes mellitus without complication, without long-term current use of insulin Rib pain PONV (postoperative nausea and vomiting) Requires supplemental oxygen Preoperative examination Pulmonary nodules Family history of breast cancer gene mutation in first degree relative Diabetes mellitus with hyperglycemia, without long-term current use of insulin COVID-19 virus infection Asthma-COPD overlap syndrome Menopause Pulmonary nodule Obstructive sleep apnea Irritable bowel syndrome GERD (gastroesophageal reflux disease) Dyslipidemia Surgical History Status post ablation of incompetent vein using laser (~2021) History of shoulder surgery History of total knee replacement History of appendectomy Hx of cholecystectomy Family History Father Stroke Mother HTN (hypertension) Diabetes mellitus Brother Kidney disease Brother Pneumonia Daughter Invasive ductal carcinoma of breast, Onset Age: 53 Social History Housing: House Alcohol intake: never Patient Tobacco Use Status: Former Tobacco user e-Cigarette/Vaping Use: Never Used service: No Current occupational status: retired Cognitive needs: No Hearing needs: No Vision needs: Yes Review of Systems Const Denies night sweats ENT Reports nasal congestion Card Denies chest pain and Reports dyspnea on exertion Resp Reports cough, Reports dyspnea on exertion and Reports wheezing GI Denies abdominal pain Musc Denies no additional complaints Neuro Denies Neuro-related abnormal movements Psych Denies no additional complaints Lloyd/Lymph Denies easy bleeding and Denies lymphadenopathy Aller/Immun Reports wheezing Physical Exam Vital Signs: Last Vital Signs Pulse 90 11/07/23 10:02 BP 128/70 11/07/23 10:02 Pulse Ox 96 11/07/23 10:02 Oxygen Delivery Method Room Air 11/07/23 10:02 BMI result Body Mass Index 36.9 Const General: alert Neck Neck: Yes normal visual inspection, Yes full ROM and Yes no lymphadenopathy Chest Chest palpation & inspection: normal inspection of the chest Resp Auscultation: no wheezes and diminished lung sounds Cardio Rate: regular rate Rhythm: regular rhythm Heart sounds: S1 normal heart sound present and S2 normal heart sound present GI Palpation (GI): Soft to palpation and nontender Auscultation: normal bowel sounds Skin General skin exam: rashes and/or lesions noted Assessment & Plan Assessment & Plan (1) Asthma-COPD overlap syndrome: Code(s): J44.9 - Chronic obstructive pulmonary disease, unspecified Category: Medical (2) Obstructive sleep apnea: Comment: unable to tolerate CPAP Code(s): G47.33 - Obstructive sleep apnea (adult) (pediatric) Category: Medical (3) Pulmonary nodules: Code(s): R91.8 - Other nonspecific abnormal finding of lung field Category: Medical (4) Chronic restrictive lung disease: Code(s): J98.4 - Other disorders of lung Category: Medical (5) Sinusitis: Code(s): J32.9 - Chronic sinusitis, unspecified Category: Medical Qualifiers: Sinusitis location: unspecified location Chronicity: acute Recurrence: not specified as recurrent Qualified Code(s): J01.90 - Acute sinusitis, unspecified Plan continue Trelegy inhaler short-acting beta agonist as needed continue fluticasone nasal spray Claritin for allergies CT chest 05/2024 Follow-up in 6 months Orders: Orders CT chest wo IV con 05/10/24 R91.1 - Solitary pulmonary nodule Medications: New oxymetazoline 0.05% (Afrin Sinus (oxymetazoline)) 2 sprays intranasal Q12H PRN 22 mL 0RF nasal congestion 5 days doxycycline monohydrate 100 mg PO BID 28 tabs 0RF 14 days Coding Level of Care Code Est Pt Level 4 (20932) Diagnoses Asthma-COPD overlap syndrome J44.9 Obstructive sleep apnea G47.33 Pulmonary nodules R91.8 Chronic restrictive lung disease J98.4 Acute sinusitis, recurrence not specified, unspecified location J01.90 Sinusitis location: unspecified location Chronicity: acute Recurrence: not specified as recurrent Time Spent (min) 17
[2023-11-07 10:02] VITALS: BP 128/70; PULSE 90; O2SAT 96; BMI 36.9
== END 2023-11-07 10:30 | disposition home or self-care (01) ==
PROVIDERS: PCP Internal Medicine; Visit Provider Hospitalist
DX: J44.9 Chronic obstructive pulmonary disease, unspecified (principal); G47.33 Obstructive sleep apnea (adult) (pediatric); R91.8 Other nonspecific abnormal finding of lung field; J98.4 Other disorders of lung; J01.90 Acute sinusitis, unspecified
CPT/HCPCS: 99214

== ENCOUNTER → 2023-11-07 09:52 | Outpatient (BNVA) | payer MEDICARE, SELFPAY | PROVIDERS: PCP Internal Medicine; Visit Provider Hospitalist | DX: J44.9 Chronic obstructive pulmonary disease, unspecified (principal); J98.4 Other disorders of lung; J01.90 Acute sinusitis, unspecified; G47.33 Obstructive sleep apnea (adult) (pediatric); R91.8 Other nonspecific abnormal finding of lung field | CPT/HCPCS: 99212 ==

== ENCOUNTER → 2023-11-11 10:37 | Outpatient (RCR) | payer MEDICARE, SELFPAY ==
[2020-08-22 13:22] VITALS: BP 173/78; PULSE 74; RESP 18; TEMP 36.6; O2SAT 93; BMI 37.5
--- NOTE | 2020-08-22 13:49 | P.CNHO_ITS ---
Subjective - Subjective Chief complaint: Family history of BRCA mutation. Patient: new to practice Consult date: 08/22/20 Requesting Physician: Stella. 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 HPI - Consult Narrative Reason for consult: Consult for positive family history of breast cancer gene. Narrative: Shey Ingram is a pleasant 75 year old lady, who tells me her 52-year-old daughter was recently diagnosed with invasive ductal breast cancer. She has triple negative disease. 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 She and her are here to have genetic testing done. Her menarche was at 13. Menopause, between 41 and 51 years. ROS: She does feel fatigued at times. No fever nor chills. Appetite is good. Weight is stable. She denies headaches. Occasional dizziness. No chest pain. Sometimes gets trouble breathing, she has COPD. Denies abdominal pain nausea vomiting heartburn indigestion. Bowels are working without any gross blood in it. She had a colonoscopy in [place] few years ago which was negative. Denies dysuria or hematuria. Does have history of arthritis. She has had 2 knee replacements and a right shoulder replacement done. She does feel rather depressed. She is on antidepressant from Dr. Sarah Mike. Family history: Grandfather had throat cancer. Two brothers with skin cancer. One was melanoma. A brother had colon polyps. 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 She is . Has 7 children. She smoked a pack-a-day quit 18 years ago. She drinks alcohol on occasion. Review of Systems - Constitutional Reports system reviewed and no additional complaints, except as documented - Eyes Reports system reviewed and no additional complaints, except as documented - ENT Reports system reviewed and no additional complaints, except as documented - Cardiovascular Reports system reviewed and no additional complaints, except as documented - Respiratory Reports no additional respiratory complaints - Gastrointestinal Reports system reviewed and no additional complaints, except as documented - Genitourinary Reports no additional female genitourinary complaints - Musculoskeletal Reports system reviewed and no additional complaints, except as documented - Integumentary/Breasts Skin/Breast: Reports no additional skin complaints - Neurologic Reports system reviewed and no additional complaints, except as documented - Psychiatric Reports system reviewed and no additional complaints, except as documented - Endocrine Reports no additional endocrine complaints - Hematologic/Lymphatic Reports system reviewed and no additional complaints, except as documented - Allergic/Immunologic Reports system reviewed and no additional complaints, except as documented Oncology Screenings - ECOG Performance Status ECOG Performance Status: 0 [facility] Medical History: Medical History (Last Reviewed 07/31/20 @ 21:45 by Ramonita Douglas MD) Asthma-COPD overlap syndrome COVID-19 virus infection Diabetes mellitus with hyperglycemia, without long-term current use of insulin Dyslipidemia Family history of breast cancer gene mutation in first degree relative GERD (gastroesophageal reflux disease) Irritable bowel syndrome Menopause Mild intermittent asthma in adult without complication Obstructive sleep apnea Pulmonary nodule Type 2 diabetes mellitus without complication, without long-term current use of insulin Functional capacity: independent ambulation Patient : No Family History: Family History (Last Reviewed 07/31/20 @ 21:45 by Ramonita Douglas MD) Father Stroke Mother HTN (hypertension) Diabetes mellitus Brother Kidney disease Brother Pneumonia Daughter Invasive ductal carcinoma of breast, Onset Age: 53 Surgical History: Surgical History (Last Reviewed 07/31/20 @ 21:45 by Ramonita Douglas MD) History of appendectomy History of shoulder surgery History of total knee replacement Hx of cholecystectomy Social History: Social History (Last Reviewed 07/31/20 @ 21:45 by Ramonita Douglas MD) Alcohol History: Alcohol intake: never Tobacco History: Patient Tobacco Use Status: Former Tobacco user Smoke Quit Date: 20 years ago Home Medications and Allergies Home Medications Medication Instructions Recorded Confirmed Type albuterol sulfate 90 mcg/actuation 2 puff INHALATION Q6H PRN 12/15/19 08/22/20 History aerosol inhaler carvedilol 25 mg tablet 25 mg PO BID 12/15/19 08/22/20 History dicyclomine 10 mg capsule 10 mg PO QID PRN 12/15/19 08/22/20 History escitalopram oxalate 20 mg tablet 20 mg PO DAILY 12/15/19 08/22/20 History fluticasone propionate 50 50 spray INTRANASAL DIRECTED 12/15/19 08/22/20 History mcg/actuation nasal spray,suspension magnesium oxide 250 mg PO DAILY 12/15/19 08/22/20 History meclizine 25 mg tablet 25 mg PO DIRECTED 12/15/19 08/22/20 History nystatin 100,000 unit/gram topical 100,000 unit TOPICAL TID PRN 12/15/19 08/22/20 History powder flu vacc [id number](65yr up)-PF 240 ml IM DIRECTED 02/07/20 07/26/20 History mcg/0.7 mL intramuscular syringe one touch delica plus lancets SUBCUT DAILY 05/16/20 07/26/20 History Allergies Allergy/AdvReac Type Severity Reaction Status Date / Time oxycodone [Oxycodone] AdvReac Severe VOMITTING Verified 07/26/20 10:25 atorvastatin [ATORVASTATIN] AdvReac Unknown MUSCLE Verified 07/26/20 10:25 CRAMPS metformin AdvReac Unknown diarrhea Verified 07/26/20 10:25 From OxyContin AdvReac Severe VOMITTING Uncoded 02/07/20 13:45 Physical Exam Vital signs: Vital Signs Temp 97.8 F 08/22/20 13:22 Pulse 74 08/22/20 13:22 Resp 18 08/22/20 13:22 BP 173/78 H 08/22/20 13:22 Pulse Ox 93 08/22/20 13:22 Intake & Output 08/21/20 08/22/20 08/22/20 18:59 06:59 18:59 Other: Weight 93.2 kg Weight in Grams 21499 Weight 93.2 kg - Constitutional Present: no acute distress - Routine HEENT Exam Head: Present: normocephalic ENT: Present: normal exam - Routine Neck Exam Present: supple - Routine Chest/Breast/Axilla Exam Axillae: Absent: lymphadenopathy - Routine Cardiovascular Exam Cardiovascular: Present: S1, S2. Absent: S3, S4 - Routine Extremities Exam Present: full ROM, nontender - Routine Skin Exam Present: intact, normal turgor Hem/Onc Consult Result - Labs CBC & Chem 7: 08/22/20 13:37 08/22/20 13:37 Assessment and Plan (1) Family history of breast cancer gene mutation in first degree relative Status: Acute This is a pleasant 75-year-old lady with a family history of PALB-2 mutation in her daughter who has triple negative breast cancer. PALB 2 (the partner and localizer of BRCA 2 GENE.) PALB 2 gene mutations are inherited in an autosomal dominant fashion. Parents of individuals with this mutation have a 50% chance of having the mutation. Women have a 2 to 4 fold increased lifetime risk of breast cancer compared with the general population risk of 12%. I went over the details of genetic mutations as well as the risk of malignancy associated with them. She washed a video. She underwent genetic counseling. PLAN: She had labs drawn. She will return in a month for follow-up to review the results. Will make further recommendations based upon the results of genetic testing. All her questions were answered to her satisfaction. Thank you, CC: Dr. Douglas.
[2020-08-22 14:06] LABS: MANUAL DIFF FLAG NO
[2020-08-22 14:11] LABS: Basophils Percent Auto 0.5 % (0-2); Eosinophils Absolute Auto 0.2 X10*3/uL (0.0-0.4); Eosinophils Percent Auto 2.1 % (0-4); Hematocrit 39.8 % (37-47); Imm Gran Abs Auto 0.03 X10*3/uL (0.00-0.03); Imm Gran Pct Auto 0.4 % (0.0-0.4); Lymphocytes Percent Auto 34.9 % (20-40); Mean Corpuscular HGB Conc 32.7 g/dl (31.0-35.0); Mean Corpuscular Volume 91.7 fL (80-98); Mean Platelet Volume 10.1 fL (9.4-12.3); Monocytes Absolute Auto 0.8 X10*3/uL (0.1-1.2); Monocytes Percent Auto 9.1 % (2-11); Neutrophils Absolute Auto 4.5 X10*3/uL (2.0-8.3); Platelet Count 230 X10*3/uL (160-400); Red Blood Count 4.34 X10*6/uL (4.20-5.50); Red Cell Distribution Width 12.1 % (11.0-16.0); White Blood Count 8.5 X10*3/uL (4.8-10.8)
[2020-08-22 14:34] LABS: Alanine Aminotransferase 10 U/L (0-31); Albumin Level 4.2 g/dL (3.5-5.0); Alkaline Phosphatase 40 U/L (39-117); Anion Gap 15 (12-20); Aspartate Amino Transferase 17 U/L (5-31); Bilirubin Total 0.8 mg/dL (0.0-1.0); Blood Urea Nitrogen 12 mg/dL (9-16); Calcium 9.5 mg/dL (8.4-10.2); Carbon Dioxide 27 mmol/L (22-29); Chloride 102 mmol/L (96-108); Creatinine Clr Calc Pharmacy 71.8; Estimated Glomerular Filt Rate > 60; Glucose Random 145 mg/dL (60-115); Potassium 4.1 mmol/L (3.3-5.1); Sodium 140 mmol/L (135-145); Total Protein 7.3 g/dL (6.5-8.0)
--- NOTE | 2020-08-22 15:51 | MHC.HEMONC ---
Pt here for Onc consult with Dr Hensley. Clinical summary updated by nurse. Labs drawn by mechanic recovery-specimen to lab. Dr Hensley into see pt. Plan for genetic testing secondary to daughter with breast cancer. Genetic testing consent obtained, specimen drawn by matlab developer. Specimen out for mailing. Follow up appointment scheduled and given to pt. Discharged home.
--- NOTE | 2020-11-20 14:55 | MHC.HEMONCMA ---
Pt came in for genetic testing results and everything is normal. pt will call if apt needed.
--- NOTE | 2020-11-20 16:31 | PM.HEMONCPN ---
Medical Summary - Medical Summary Date of Service: 11/20/20 Chief complaint: Follow-up for family history of breast cancer. 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 Interval History Interval history: Shey Ingram is a pleasant 75 year old lady, here for a follow-up visit. She does feel fatigued at times. No fever nor chills. Appetite is good. Weight is stable. She denies headaches. Occasional dizziness. No chest pain. Sometimes gets trouble breathing, she has COPD. Denies abdominal pain nausea vomiting heartburn indigestion. Bowels are working without any gross blood in it. She had a colonoscopy in [place] few years ago which was negative. Denies dysuria or hematuria. Does have history of arthritis. She has had 2 knee replacements and a right shoulder replacement done. She does feel rather depressed. She is on antidepressant from Dr. Sarah Mike. Previous history: She tells me her 52-year-old daughter was recently diagnosed with invasive ductal breast cancer. She has triple negative disease. 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 She and her came here to have genetic testing done. Her menarche was at 13. Menopause, between 41 and 51 years. Family history: Grandfather had throat cancer. Two brothers with skin cancer. One was melanoma. A brother had colon polyps. 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 She is . Has 7 children. She smoked a pack-a-day quit 18 years ago. She drinks alcohol on occasion. Review of Systems - Constitutional Reports no additional constitutional complaints - Eyes Reports no additional eye complaints - ENT Reports no additional ear, nose, mouth, and throat complaints - Cardiovascular Reports no additional cardiovascular complaints - Respiratory Reports no additional respiratory complaints - Gastrointestinal Reports no additional gastrointestinal complaints - Genitourinary Reports no additional female genitourinary complaints - Musculoskeletal Reports no additional musculoskeletal complaints - Integumentary/Breasts Skin/Breast: Reports no additional skin complaints - Neurologic Reports no additional neurologic complaints - Psychiatric Reports no additional psychiatric complaints - Endocrine Reports no additional endocrine complaints - Hematologic/Lymphatic Reports no additional hematologic/lymphatic complaints - Allergic/Immunologic Reports no additional allergic/immunologic complaints [facility] Medical History: Medical History (Last Reviewed 07/31/20 @ 21:45 by Ramonita Douglas MD) Asthma-COPD overlap syndrome COVID-19 virus infection Diabetes mellitus with hyperglycemia, without long-term current use of insulin Dyslipidemia Family history of breast cancer gene mutation in first degree relative GERD (gastroesophageal reflux disease) Irritable bowel syndrome Menopause Mild intermittent asthma in adult without complication Obstructive sleep apnea Pulmonary nodule Type 2 diabetes mellitus without complication, without long-term current use of insulin Functional capacity: independent ambulation Patient : No Family History: Family History (Last Reviewed 07/31/20 @ 21:45 by Ramonita Douglas MD) Father Stroke Mother HTN (hypertension) Diabetes mellitus Brother Kidney disease Brother Pneumonia Daughter Invasive ductal carcinoma of breast, Onset Age: 53 Surgical History: Surgical History (Last Reviewed 07/31/20 @ 21:45 by Ramonita Douglas MD) History of appendectomy History of shoulder surgery History of total knee replacement Hx of cholecystectomy Social History: Social History (Last Reviewed 07/31/20 @ 21:45 by Ramonita Douglas MD) Alcohol History: Alcohol intake: never Tobacco History: Patient Tobacco Use Status: Former Tobacco user Smoke Quit Date: 20 years ago Nutrition Assessment: Patient : No Oncology Screenings - ECOG Performance Status ECOG Performance Status: 0 Home Medications and Allergies Home Medications Medication Instructions Recorded Confirmed Type albuterol sulfate 90 mcg/actuation 2 puff INHALATION Q6H PRN 12/15/19 08/22/20 History aerosol inhaler carvedilol 25 mg tablet 25 mg PO BID 12/15/19 08/22/20 History dicyclomine 10 mg capsule 10 mg PO QID PRN 12/15/19 08/22/20 History escitalopram oxalate 20 mg tablet 20 mg PO DAILY 12/15/19 08/22/20 History fluticasone propionate 50 50 spray INTRANASAL DIRECTED 12/15/19 08/22/20 History mcg/actuation nasal spray,suspension magnesium oxide 250 mg PO DAILY 12/15/19 08/22/20 History meclizine 25 mg tablet 25 mg PO DIRECTED 12/15/19 08/22/20 History nystatin 100,000 unit/gram topical 100,000 unit TOPICAL TID PRN 12/15/19 08/22/20 History powder flu vacc [id number](65yr up)-PF 240 ml IM DIRECTED 02/07/20 07/26/20 History mcg/0.7 mL intramuscular syringe one touch delica plus lancets SUBCUT DAILY 05/16/20 07/26/20 History Allergies Allergy/AdvReac Type Severity Reaction Status Date / Time oxycodone [Oxycodone] AdvReac Severe VOMITTING Verified 07/26/20 10:25 atorvastatin [ATORVASTATIN] AdvReac Unknown MUSCLE Verified 07/26/20 10:25 CRAMPS metformin AdvReac Unknown diarrhea Verified 07/26/20 10:25 From OxyContin AdvReac Severe VOMITTING Uncoded 02/07/20 13:45 Exam Vital signs: Vital Signs Temp 97.8 F 08/22/20 13:22 Pulse 74 08/22/20 13:22 Resp 18 08/22/20 13:22 BP 173/78 H 08/22/20 13:22 Pulse Ox 93 08/22/20 13:22 Weight 93.2 kg Body Mass Index 37.5 - Constitutional Present: no acute distress - Routine HEENT Exam Head: Present: normocephalic Eye: Present: normal appearance ENT: Present: mucous membranes moist - Routine Neck Exam Present: full ROM - Routine Respiratory Exam Present: CTAB - Routine Cardiovascular Exam Cardiovascular: Present: S1, S2. Absent: S3, S4 - Routine Abdominal Exam Present: soft, nontender - Routine Rectal Exam Patient deferred: digital exam - Routine Extremities Exam Present: full ROM, nontender - Routine Back/Spine/Pelvis Exam Back/Spine: Present: full ROM - Routine Skin Exam Present: intact, normal turgor - Routine Neurological Exam Present: alert, oriented X3 - Routine Psychiatric Exam Present: normal affect Data - Labs CBC & Chem 7: 08/22/20 13:37 08/22/20 13:37 Labs: 08/22/20 13:37 CMP [Comprehensive Met. Panel] Routine Complete Blood Count Auto Diff Routine Laboratory Last Values WBC 8.5 X10*3/uL (4.8-10.8) 08/22/20 13:37 RBC 4.34 X10*6/uL (4.20-5.50) 08/22/20 13:37 Hgb 13.0 g/dl (12.0-16.0) 08/22/20 13:37 Hct 39.8 % (37-47) 08/22/20 13:37 MCV 91.7 fL (80-98) 08/22/20 13:37 MCH 30.0 pg (27.0-33.0) 08/22/20 13:37 MCHC 32.7 g/dl (31.0-35.0) 08/22/20 13:37 RDW 12.1 % (11.0-16.0) 08/22/20 13:37 Plt Count 230 X10*3/uL (160-400) 08/22/20 13:37 MPV 10.1 fL (9.4-12.3) 08/22/20 13:37 Immature Gran % (Auto) 0.4 % (0.0-0.4) 08/22/20 13:37 Neut % (Auto) 53.0 % (45-73) 08/22/20 13:37 Lymph % (Auto) 34.9 % (20-40) 08/22/20 13:37 [place] % (Auto) 9.1 % (2-11) 08/22/20 13:37 Eos % (Auto) 2.1 % (0-4) 08/22/20 13:37 Baso % (Auto) 0.5 % (0-2) 08/22/20 13:37 Lymph # (Auto) 3.0 X10*3/uL (1.2-4.9) 08/22/20 13:37 [place] # (Auto) 0.8 X10*3/uL (0.1-1.2) 08/22/20 13:37 Eos # (Auto) 0.2 X10*3/uL (0.0-0.4) 08/22/20 13:37 Baso # (Auto) 0.0 X10*3/uL (0.0-0.2) 08/22/20 13:37 Abs Immat Gran (auto) 0.03 X10*3/uL (0.00-0.03) 08/22/20 13:37 Absolute Neuts (auto) 4.5 X10*3/uL (2.0-8.3) 08/22/20 13:37 Absolute Nucleated RBC 0.000 X10*3/uL (0.0-0.012) 08/22/20 13:37 Nucleated RBC % (auto) 0.0 /100WBC (0.0-0.2) 08/22/20 13:37 Sodium 140 mmol/L (135-145) 08/22/20 13:37 Potassium 4.1 mmol/L (3.3-5.1) 08/22/20 13:37 Chloride 102 mmol/L (96-108) 08/22/20 13:37 Carbon Dioxide 27 mmol/L (22-29) 08/22/20 13:37 Anion Gap 15 (12-20) 08/22/20 13:37 BUN 12 mg/dL (9-16) 08/22/20 13:37 Creatinine 0.73 mg/dL (0.5-1.4) 08/22/20 13:37 Estim Creat Clear Calc 71.8 08/22/20 13:37 Estimated GFR > 60 08/22/20 13:37 Random Glucose 145 mg/dL (60-115) H 08/22/20 13:37 Calcium 9.5 mg/dL (8.4-10.2) 08/22/20 13:37 Total Bilirubin 0.8 mg/dL (0.0-1.0) 08/22/20 13:37 AST 17 U/L (5-31) 08/22/20 13:37 ALT 10 U/L (0-31) 08/22/20 13:37 Alkaline Phosphatase 40 U/L (39-117) 08/22/20 13:37 Total Protein 7.3 g/dL (6.5-8.0) 08/22/20 13:37 Albumin 4.2 g/dL (3.5-5.0) 08/22/20 13:37 Assessment and Plan Patient Active problem list reviewed?: Yes (1) Family history of breast cancer gene mutation in first degree relative Status: Acute Assessment and plan: This is a pleasant 75-year-old lady with a family history of PALB-2 mutation in her daughter who has triple negative breast cancer. PALB 2 (the partner and localizer of BRCA 2 GENE.) PALB 2 gene mutations are inherited in an autosomal dominant fashion. Parents of individuals with this mutation have a 50% chance of having the mutation. Women have a 2 to 4 fold increased lifetime risk of breast cancer compared with the general population risk of 12%. I went over the details of genetic mutations as well as the risk of malignancy associated with them. She watched a video. She underwent genetic counseling. She had labs drawn. She is now here to review the results. PLAN: The results are negative. No mutations were noted. This is reassuring. Her it is genetic testing revealed heterozygous PALB 2 mutation. Further recommendations have been made regarding screening for breast and prostate cancer. They were also advised to have there 5 other kids undergo genetic testing. All her questions were answered to her satisfaction. Thank you, CC: Dr. Douglas. - Time Spent With Patient Time Spent with Patient (in minutes): 20
== END | disposition home or self-care (01) ==
LOC: HO.ONC 08-22 13:13
PROVIDERS: PCP Internal Medicine; Referring Provider Internal Medicine; Visit Provider Internal Medicine Medical Oncology
DX: Z71.83 Encounter for nonprocreative genetic counseling (principal); Z80.3 Family history of malignant neoplasm of breast; Z84.81 Family history of carrier of genetic disease
CPT/HCPCS: 36415; 80053; 85025; 99204; 99213

== ENCOUNTER 2023-11-12 13:26 | Outpatient (AMB) | payer MEDICARE, SELFPAY ==
[2023-11-12 13:47] VITALS: BP 106/64; PULSE 66; O2SAT 94; BMI 38.0
--- NOTE | 2023-11-12 13:47 | A.OFFPC_ITS ---
Vital Signs 11/12/23 13:47 Height 5 ft 2 in Weight 208 lb BMI 38.0 BP 106/64 Blood Pressure Location Lt brachial Position Sitting Pulse 66 Pulse Source Pulse Oximeter Pulse Oximetry (%) 94 Oxygen Delivery Method Room Air Intake Visit Reasons: Annual Physical/OK Per E - see comments Intake Note: Pt is here today for PE. Allergies oxycodone [Oxycodone] Adverse Reaction (Severe, Verified 11/12/23 13:59) VOMITTING From OxyContin Adverse Reaction (Severe, Uncoded 11/12/23 13:59) VOMITTING Medication List - Last Reconciled 11/12/23 by Ramonita Douglas MD albuterol sulfate 90 mcg/actuation 2 puffs inhalation Q6H PRN atorvastatin 10 mg PO DAILY blood sugar diagnostic (Booodl Ultra Blue Test Strip) use one test strip once a day and as needed to test blood sugar blood sugar diagnostic (x.aiTouch Ultra Test strips) CHECKS BLOOD SUGAR ONCE A DAY A.C. blood-glucose meter As directed rkytnqehlr-nikkgva-yboqyorn 50-325-40 mg 1 cap PO Q6H PRN NS carvedilol 25 mg PO BID chlorthalidone 25 mg PO DAILY cholecalciferol (vitamin D3) (Vitamin D3) 50 mcg PO DAILY clotrimazole-betamethasone 1-0.05 % 1 appl topical BID PRN dapagliflozin propanediol (Farxiga) 10 mg PO QAM 90 days dicyclomine 10 mg PO QID PRN doxycycline monohydrate 100 mg PO BID 14 days escitalopram oxalate 20 mg PO DAILY esomeprazole magnesium 40 mg PO DAILY fluticasone propionate 50 mcg/actuation 2 sprays intranasal DAILY hydrochlorothiazide 25 mg PO QAM lancets (OneTouch Delica Plus Lancet) Use As directed twice a day loratadine 10 mg PO DAILY lorazepam 0.5 mg PO DAILY PRN losartan 100 mg PO DAILY metformin 500 mg PO DAILY mirabegron ER (Myrbetriq) 25 mg PO DAILY 90 days nystatin 100,000 units topical TID PRN [one touch delica plus lancets subcut DAILY] oxymetazoline 0.05% (Afrin Sinus (oxymetazoline)) 2 sprays intranasal Q12H PRN 5 days sitagliptin phosphate (Januvia) 100 mg PO DAILY spironolactone 25 mg PO DAILY Trelegy Ellipta 200-62.5-25 mcg (oahgsasrong-qmrijmgcr-rwcilruk) 1 inh inhalation DAILY NS Tobacco use date assessed: 11/12/23 Dental Screening Dental Screen Date: 08/11/23 HPI Annual Physical/OK Per Dr. Morley - see comments HPI Details 78-year-old lady with type 2 diabetes me llitus , chronic restrictive lung disease, with asthma COPD overlap syndrome, obstructive sleep apnea, IBS, GERD, dyslipidemia and hypertension, here today for her physical exam. She has been feeling well, compliant with taking her medications, and stays active. She is up-to-date with her screening mammogram, done earlier this year, had a normal bone density scan done 2 years ago, with no history of fractures, and is up-to-date with her screening colonoscopy done in 2016, due again in [address] Ga.. She has been feeling well, with no complaints at present time. She is up-to-date with all her vaccinations including RSV [facility] Medical History (Updated 11/16/23 @ 18:13 by Ramonita Douglas MD) Cardiac murmur, unspecified Carotid bruit present HTN (hypertension) Frequent falls History of fall Lumbago Mixed stress and urge urinary incontinence Chronic restrictive lung disease Erythema intertrigo Type 2 diabetes mellitus without complication, without long-term current use of insulin Rib pain PONV (postoperative nausea and vomiting) Requires supplemental oxygen Preoperative examination Pulmonary nodules Family history of breast cancer gene mutation in first degree relative Diabetes mellitus with hyperglycemia, without long-term current use of insulin COVID-19 virus infection Asthma-COPD overlap syndrome Menopause Pulmonary nodule Obstructive sleep apnea Irritable bowel syndrome GERD (gastroesophageal reflux disease) Dyslipidemia Surgical History Status post ablation of incompetent vein using laser (~2021) History of shoulder surgery History of total knee replacement History of appendectomy Hx of cholecystectomy Family History Father Stroke Mother HTN (hypertension) Diabetes mellitus Brother Kidney disease Brother Pneumonia Daughter Invasive ductal carcinoma of breast, Onset Age: 53 Social History (Reviewed 11/12/23 @ 13:52 by DORA iDaz Housing: House Alcohol intake: never Patient Tobacco Use Status: Former Tobacco user e-Cigarette/Vaping Use: Never Used service: No Current occupational status: retired Cognitive needs: No Hearing needs: No Vision needs: Yes Questionnaire PHQ-9 Over the last 2 weeks, how often have you been bothered by any of the following problems? 1. Little interest or pleasure in doing things: not at all 2. Feeling down, depressed, or hopeless: not at all 3. Trouble falling or staying asleep, or sleeping too much: not at all 4. Feeling tired or having little energy: not at all 5. Poor appetite or overeating: not at all 6. Feeling bad about yourself - or that you are a failure or have let yourself or your family down: not at all 7. Trouble concentrating on things, such as reading the newspaper or watching television: not at all 8. Moving or speaking so slowly that other people could have noticed. Or the opposite - being so fidgety or restless that you have been moving around a lot more than usual: not at all 9. Thoughts that you would be better off or of hurting yourself in some way: not at all Total score: 0 Depression Screening Interpretation: Negative Depression Screening Done: Yes 37482 - PHQ-9 Billing: Yes Source: Developed by Drs. Low Retana, Janine Amador, Pj Mckeon and colleagues, with an educational nicole from [employer]. Thrive Questionnaire Date Thrive assessed: 11/12/23 I am a: Patient What is your living situation today?: I have a steady place to live Within the past 12 months, did the food you bought not last and you didn't have the money to get more?: Never true Within the past 12 months, did you worry whether your food would run out before you got money to buy more?: Never true Do you have trouble paying for medicines?: No Do you have trouble getting transportation to medical appointments?: No Do you have trouble paying your heating and electricity bill?: No Do you have trouble taking care of your child, family member or friend?: No Do you have trouble with day-to-day activities such as bathing, preparing meals, shopping, managing finances, etc.?: No Are you currently unemployed and looking for a job?: No Are you interested in more education?: No Please select the resources that you would like help with: None Currently or been in a relationship where the following occur: No concerns reported THRIVE Score: 0 AUDIT C Alcohol Use Questionnaire (AUDIT-C) 1. How often do you have a drink containing alcohol?: Never Total Score: 0 JAZMYN-7 AMB Questionnaire JAZMYN-7 Date JAZMYN - 7 assessed: 11/12/23 Feeling nervous, anxious, or on edge: 0 = Not at all Not being able to stop or control worryin = Not at all Worrying too much about different things: 0 = Not at all Trouble relaxin = Not at all Being so restless that it is hard to sit still: 0 = Not at all Becoming easily annoyed or irritable: 0 = Not at all Feeling afraid as if something awful might happen: 0 = Not at all Total JAZMYN-7 score (0-4 normal; 5-9 mild; 10-14 moderate; 15-21 severe): 0 Source: Developed by Drs. Low Retana, Janine Amador, Pj Mckeon and colleagues, with an educational nicole from [employer]. JAZMYN-7 Assessment Billing JAZMYN-7 Assessment Tool: JAZMYN-7 Assessment 82036 Review of Systems Const Denies night sweats Eyes Denies change in vision ENT Reports Normal hearing present and Reports nasal congestion Card Denies chest pain, Denies dyspnea and Denies dyspnea on exertion Resp Denies cough, Denies dyspnea, Denies dyspnea on exertion and Denies wheezing GI Denies abdominal pain Reports as per HPI Musc Denies no additional complaints Skin/Breast Denies breast pain, Denies breast mass, Denies lesions and Denies rash Neuro Reports Normal hearing present and Denies Neuro-related abnormal movements Psych Denies no additional complaints Endo Reports no additional complaints Lloyd/Lymph Denies easy bleeding and Denies lymphadenopathy Aller/Immun Denies wheezing Physical exam (Primary Care) Vital Signs: Last Vital Signs Pulse 66 11/12/23 13:47 BP 106/64 11/12/23 13:47 Pulse Ox 94 11/12/23 13:47 Oxygen Delivery Method Room Air 11/12/23 13:47 BMI result Body Mass Index 38.0 Tobacco/Smoking Status: Tobacco use Status Tobacco use date assessed 11/12/23 11/12/23 13:52 Patient Tobacco Use Status Former Tobacco user 11/12/23 13:52 e-Cigarette/Vaping Use Never Used 11/12/23 13:52 PHQ-9: PHQ-9 Score PHQ-9: Total score 0 11/12/23 14:29 Depression Screening Interpretation: Negative Thrive Assessment: Date of Thrive Assessment Date Thrive assessed 11/12/23 11/12/23 13:52 Currently or been in a relationship where the following occur: No concerns reported Const General: comfortable, no acute distress and alert Orientation/consciousness: patient oriented x3 HENMT Mouth: Normal oral and palatal mucosa present and moist mucous membranes Eyes General: appearance normal, both eyes and all related structures Neck Neck: Yes full ROM, Yes no lymphadenopathy and Yes supple Thyroid: Thyroid normal Carotids: bruit Chest Breast/axilla palpation: normal palpation of the breasts Resp Effort & Inspection: normal respiratory effort and able to speak in complete sentences Cardio Rate: regular rate Rhythm: regular rhythm Heart sounds: S1 normal heart sound present, S2 normal heart sound present and Murmur heart sound present systolic GI Inspection: Yes obesity Palpation (GI): Soft to palpation, nontender, no guarding and no masses Auscultation: normal bowel sounds General: Yes no CVA tenderness Back/Spine/Pelvis Back: no CVA tenderness and No back tenderness Skin General skin exam: no rashes or lesions noted Neuro General: patient oriented x3, gait normal, tone normal, moves all extremities, Normal light touch and pain sensation and no focal motor deficits Cranial nerves: Yes Normal hearing present Cognition (Neuro): normal cognition Extrem General: Yes no joint enlargement and Yes no clubbing, cyanosis or edema Psych Appearance: grossly normal and well kempt Mental Status: mental status grossly normal Speech and movement: Normal speech and movement present Affect: normal affect Attitude: cooperative Thought process: Normal thought process present Results Reviewed Results Reviewed: me: Shey Ingram Age/Sex: 78/F : 1945 Unit#: [id number] Attend Dr: Ramonita Douglas MD Re08/02/23 Status: DEP [facility]F [facility] Disch: SPEC : [id number] LISA: 08/02/23-1015 STATUS: COMP REQ : [id number] RECD: 08/02/23 [facility] DR: Ramonita Douglas MD COMP: 08/02/23 ENTERED: 08/02/[address] [facility] [address]: ORDERED: CBC Auto Diff Test Result Flag Reference WBC 7.3 4.8-10.8 X10*3/uL RBC 4.13 L 4.20-5.50 X10*6/uL HGB 13.0 12.0-16.0 g/dl HCT 39.2 37.0-47.0 % MCV 94.9 80.0-98.0 fL MCH 31.5 27.0-33.0 pg MCHC 33.2 31.0-35.0 g/dl RDW 12.0 11.0-16.0 % PLT 242 160-400 X10*3/uL MPV 10.0 9.4-12.3 fL Neut Pct Auto 55.9 45-73 % ImGran Pct Auto 0.3 0.0-0.4 % Lymp Pct Auto 32.6 20-40 % Hartley Pct Auto 9.1 2-11 % Eos Pct Auto 1.6 0-4 % Baso Pct Auto 0.5 0-2 % NRBC Pct Auto 0.0 0.0-0.2 /100WBC ANC Neut Abs # 4.1 2.0-8.3 x10*3/uL ImGran Abs Auto 0.02 0.00-0.03 X10*3/uL Lymph Abs Auto 2.4 1.2-4.9 X10*3/uL Hartley Abs Auto 0.7 0.1-1.2 X10*3/uL Eos Abs Auto 0.1 0.0-0.4 X10*3/uL Baso Abs Auto 0.0 0.0-0.2 X10*3/uL NRBC Abs Auto 0.000 0.0-0.012 X10*3/uL Name: Shey Ingram Age/Sex: 78/F : 1945 Unit#: [id number] Attend Dr: Ramonita Douglas MD Re11/01/23 Status: DEP REF Location: [facility] Disch: SPEC : [id number] LISA: 11/01/23-1099 STATUS: COMP REQ : [id number] RECD: 11/01/23-1107 [facility] DR: Ramonita Douglas MD COMP: 11/01/23-1206 ENTERED: 11/01/23-[address] [facility] [address]: ORDERED: AST, ALT, Lipid Panel Test Result Flag Reference AST (GOT) 17 5-31 U/L ALT (GPT) 14 0-31 U/L Triglyceride 122 <150 mg/dL Desirable Triglyceride: less than 150 mg/dL Borderline High Triglyceride 150-199 mg/dL High Triglyceride: 200-499 mg/dL Very High Triglyceride: greater than or equal to 5OO mg/dL Cholesterol 158 <200 mg/dL Desirable Cholesterol: less than 200 mg/dL Borderline High Cholesterol: 200-239 mg/dL High Cholesterol: greater than 239 mg/dL LDL Calculated 88 <100 mg/dL Desirable LDL: less than 100 mg/dL Near Optimal/Above Optimal LDL: 110-129 mg/dL Borderline High LDL: 130-159 mg/dL High LDL: 160-189 mg/dL Very High LDL: greater than or equal to 190 mg/dL HDL 46 >40 mg/dL Desirable HDL: greater than 40 mg/dL Note: This HDL assay may give artificially low results in patients with liver disease. Laboratory Tests 11/01/23 11:00 Estimat Average Glucose 131 Hemoglobin A1c % 6.2 H Assessment and Plan Assessment & Plan (1) Carotid bruit present: Code(s): R09.89 - Other specified symptoms and signs involving the circulatory and respiratory systems Qualifiers: Laterality: bilateral Qualified Code(s): R09.89 - Other specified symptoms and signs involving the circulatory and respiratory systems Plan: Ordered ultrasound of carotids bilateral (2) Cardiac murmur, unspecified: Code(s): R01.1 - Cardiac murmur, unspecified Plan: Has thoracic echocardiogram ordered (3) Dyslipidemia: Code(s): E78.5 - Hyperlipidemia, unspecified Plan: Reviewed recent fasting lipid profile with patient with levels within normal . Continue atorvastatin 10 mg daily , in addition to adherence to low- cholesterol diet and regular exercise, at least 30 minutes 3 to 4 times a week. Advised patient to make healthy food choices, eat more fruits, vegetables, whole grains, wild caught fish and low-fat dairy. Limit amount of meat and fried or fatty food products, as well as processed foods and fast foods. Follow-up scheduled with repeat fasting lipid panel in 3 months. (4) GERD (gastroesophageal reflux disease): Code(s): K21.9 - Gastro-esophageal reflux disease without esophagitis Plan: Currently on esomeprazole 40 mg daily (5) Irritable bowel syndrome: Code(s): K58.9 - Irritable bowel syndrome without diarrhea Plan: Continue with dicyclomine 10 mg 1 tablet 4 times a day as needed (6) Obstructive sleep apnea: Comment: unable to tolerate CPAP Code(s): G47.33 - Obstructive sleep apnea (adult) (pediatric) Plan: Unable to tolerate CPAP, followed by Pulmonary (7) Asthma-COPD overlap syndrome: Code(s): J44.9 - Chronic obstructive pulmonary disease, unspecified Plan: Followed by Pulmonary Clinic currently on Trelegy Ellipta and has albuterol inhaler as needed for episodes of bronchospasm and wheezing. (8) HTN (hypertension): Code(s): I10 - Essential (primary) hypertension Qualifiers: Hypertension type: primary hypertension Qualified Code(s): I10 - Essential (primary) hypertension Plan: Blood pressure at goal of less than 130/80. Continue with current medication. Reinforced importance of following a low sodium diet, getting regular exercise, and lowering stress levels. (9) Type 2 diabetes mellitus without complication, without long-term current use of insulin: Code(s): E11.9 - Type 2 diabetes mellitus without complications Plan: Diabetes mellitus controlled with hemoglobin A1c at 6.2%, continue with Farxiga 10 mg daily in a.m., and metformin 500 mg once a day together with sitagliptin 100 mg daily (10) Chronic restrictive lung disease: Code(s): J98.4 - Other disorders of lung Plan: Followed by Pulmonary (11) Mixed stress and urge urinary incontinence: Code(s): N39.46 - Mixed incontinence Plan: Currently on mirabegron ER 25 mg once a day Orders: Orders CA echo transthoracic complete 11/12/23 R01.1 - Cardiac murmur, unspecified Hemoglobin A1c 02/02/24 E11.9 - Type 2 diabetes mellitus without complications, E78.5 - Hyperlipidemia, unspecified, G47.33 - Obstructive sleep apnea (adult) (pediatric), I10 - Essential (primary) hypertension, J44.9 - Chronic obstructive pulmonary disease, unspecified, J98.4 - Other disorders of lung, K21.9 - Gastro- esophageal reflux disease without esophagitis, K58.9 - Irritable bowel syndrome without diarrhea, N39.46 - Mixed incontinence Vitamin D 25-OH Total 02/02/24 E11.9 - Type 2 diabetes mellitus without complications, E78.5 - Hyperlipidemia, unspecified, G47.33 - Obstructive sleep apnea (adult) (pediatric), I10 - Essential (primary) hypertension, J44.9 - Ch ronic obstructive pulmonary disease, unspecified, J98.4 - Other disorders of lung, K21.9 - Gastro-esophageal reflux disease without esophagitis, K58.9 - Irritable bowel syndrome without diarrhea, N39.46 - Mixed incontinence US carotid duplex BI 11/12/23 R09.89 - Other specified symptoms and signs involving the circulatory and respiratory systems Alanine Aminotransferase 02/02/24 E11.9 - Type 2 diabetes mellitus without complications, E78.5 - Hyperlipidemia, unspecified, G47.33 - Obstructive sleep apnea (adult) (pediatric), I10 - Essential (primary) hypertension, J44.9 - Chronic obstructive pulmonary disease, unspecified, J98.4 - Other disorders of lung, K21.9 - Gastro-esophageal reflux disease without esophagitis, K58.9 - Irritable bowel syndrome without diarrhea, N39.46 - Mixed incontinence Aspartate Amino Transferase 02/02/24 E11.9 - Type 2 diabetes mellitus without complications, E78.5 - Hyperlipidemia, unspecified, G47.33 - Obstructive sleep apnea (adult) (pediatric), I10 - Essential (primary) hypertension, J44.9 - Chronic obstructive pulmonary disease, unspecified, J98.4 - Other disorders of lung, K21.9 - Gastro-esophageal reflux disease without esophagitis, K58.9 - Irritable bowel syndrome without diarrhea, N39.46 - Mixed incontinence Basic Metabolic Panel Fasting 02/02/24 E11.9 - Type 2 diabetes mellitus without complications, E78.5 - Hyperlipidemia, unspecified, G47.33 - Obstructive sleep apnea (adult) (pediatric), I10 - Essential (primary) hypertension, J44.9 - Chronic obstructive pulmonary disease, unspecified, J98.4 - Other disorders of lung, K21.9 - Gastro-esophageal reflux disease without esophagitis, K58.9 - Irritable bowel syndrome without diarrhea, N39.46 - Mixed incontinence Lipid Panel 02/02/24 E11.9 - Type 2 diabetes mellitus without complications, E78.5 - Hyperlipidemia, unspecified, G47.33 - Obstructive sleep apnea (adult) (pediatric), I10 - Essential (primary) hypertension, J44.9 - Chronic obstructive pulmonary disease, unspecified, J98.4 - Other disorders of lung, K21.9 - Gastro- esophageal reflux disease without esophagitis, K58.9 - Irritable bowel syndrome without diarrhea, N39.46 - Mixed incontinence Coding Level of Care Code Est Pt Prev Care >65y(94699) Diagnoses Bilateral carotid bruits R09.89 Laterality: bilateral Cardiac murmur, unspecified R01.1 Dyslipidemia E78.5 GERD (gastroesophageal reflux disease) K21.9 Irritable bowel syndrome K58.9 Obstructive sleep apnea G47.33 Asthma-COPD overlap syndrome J44.9 Primary hypertension I10 Hypertension type: primary hypertension Type 2 diabetes mellitus without complication, without long-term current use of insulin E11.9 Chronic restrictive lung disease J98.4 Mixed stress and urge urinary incontinence N39.46 Additional Codes JAZMYN-7 Assessment Billing - JAZMYN-7 Assessment Tool: JAZMYN-7 Assessment [id number] ([id number])
== END 2023-11-12 14:31 | disposition home or self-care (01) ==
PROVIDERS: PCP Internal Medicine; Visit Provider Internal Medicine
DX: Z00.00 Encounter for general adult medical examination without abnormal findings (principal); E11.69 Type 2 diabetes mellitus with other specified complication; J44.9 Chronic obstructive pulmonary disease, unspecified; R09.89 Other specified symptoms and signs involving the circulatory and respiratory systems; R01.1 Cardiac murmur, unspecified; E78.5 Hyperlipidemia, unspecified; K21.9 Gastro-esophageal reflux disease without esophagitis; K58.9 Irritable bowel syndrome, unspecified; G47.33 Obstructive sleep apnea (adult) (pediatric); I10 Essential (primary) hypertension; J98.4 Other disorders of lung; N39.46 Mixed incontinence
CPT/HCPCS: 99397

== ENCOUNTER → 2023-11-17 12:26 | Outpatient (REF) | payer MEDICARE, SELFPAY ==
--- NOTE | 2023-11-17 12:29 | CA_ITS ---
Transthoracic Echocardiogram Patient (Last, First, Middle): Shey Ingram E Gender: Female Date of : 1945 Age: 78 Procedure Date: 11/17/2023 Procedure Type: Transthoracic Echocardiogram Location: OP Height: 157.48 cm Weight: 94.35 kg BSA: 1.94 m2 Heart Rate: 58 bpm BP: 106 / 64 mmHg Sustainable Systems Analyst: SB Referring MD: Ramonita Douglas MD Foreign Service Officer: Angel Bailey MD Symptoms: R01.1 - Cardiac murmur, unspecified Study Quality: Fair but adequate ECG Rhythm: Bradycardia Conclusions: - 1. Normal LV ejection fraction 55-60% with grade 2 diastolic dysfunction 2. Mild aortic stenosis and moderate mitral annular calcification 3. Normal RV systolic pressure 4. No gross pericardial effusion Findings Procedure Information Contrast agent, definity, is being given per protocol without apparent complications. The quality of the study was technically difficult. The study quality is limited by patients body habitus and lung artifact. Left Ventricle Normal left ventricular size, thickness, and systolic function. The visually estimated ejection fraction is between 55-60%. Spectral Doppler is indicative of a pseudonormal filling pattern. Elevated filling pressures. E/E prime ratio is >15, consistent with elevated filling pressures. Evidence suggests grade II (moderate) diastolic dysfunction. Right Ventricle Normal right ventricular cavity size and systolic function. Atria Both atria are normal in size. Interatrial shunt cannot be excluded. Aortic Valve There is moderate calcification of the aortic valve. There is mild thickening of the aortic valve. There is mild aortic valve stenosis. The peak aortic gradient is 15 mmHg.The mean gradient is 8 mmHg. The aortic valve area is 1.46 cm2. There is no aortic valve regurgitation. Mitral Valve There is mild anterior and moderate posterior mitral leaflet thickening. There is moderate mitral annular calcification. There is trace mitral valve regurgitation. There is no mitral valve stenosis. Pulmonic Valve The pulmonic valve is likely normal. Tricuspid Valve Normal tricuspid valve structure. There is trace tricuspid valve regurgitation. The right ventricular systolic pressure is normal. The right ventricular systolic pressure is 20 mmHg. Normal right atrial pressure. There is no evidence of pulmonary hypertension. Great Vessels All visible segments of the aorta are normal in size. The pulmonary artery was not well visualized. There is no dilatation of the ascending aorta measuring 3.20 cm. Venous The inferior vena cava is normal in size and collapses greater than 50% with inspiration. Pericardium/Pleural There is no evidence of pericardial effusion. Prior Study Comparison No prior study available for comparison. Measurements 2D Linear Measurements IVSd: 0.81 0.6-0.9/0.6-1.0 cm LVIDd: 4.88 3.9-5.3/4.2-5.9 cm LVIDd Index: 2.52 2.4-3.2/2.2-3.1 cm/m2 LVIDs: 3.86 2.0-3.6 cm LVPWd: 0.67 0.7-1.1 cm LA Diam: 3.50 2.7-3.8/3.0-4.0 cm LAIDs Index: 1.80 1.5-2.3 cm/m2 LV Mass: 146.94 67-162/88-224 g LV Mass Index: 75.74 43-95/49-115 g/m2 LVOT Diam: 2.30 3.0+(-)1.3 cm 2D Systolic Function EF 4C: 37.90 >55% EF 2C: 68.40 >55% EF BiP: 56.40 >55% Mitral Valve MV VTI: 0.41 MV Pk Lalo: 1.29 MV Mn Lalo: 0.65 MV Pk Grad: 7.00 MV Mn Grad: 2.00 MV Pk E: 1.16 MV PK A: 0.83 MV Decel Time: 223.00 E/A: 1.40 E'Lateral: 6.53 E'Medial: 5.66 E/E' Med: 20.50 E/E' Lat: 17.80 PHT: 65.00 MVA PHT: 3.38 MVA Continuity: 1.80 Decel Stone: 5.18 Aortic Valve AoV Pk Lalo: 1.93 AoV Mn Lalo: 1.33 AoV VTI: 0.51 AoV Pk Grad: 15.00 Aov Mn Grad: 8.00 HILARIO Cont.VTI: 1.46 LVOT LVOT Pk Lalo: 0.72 LVOT Mn Lalo: 0.47 LVOT VTI: 0.18 LVOT Pk Grad: 2.00 LVOT Mn Grad: 1.00 LVOT Diam: 2.30 LVOT Area: 4.15 Diastolic Function MV Pk E: 1.16 MV Pk A: 0.83 E/A: 1.40 E'Medial: 5.66 E/E' Med: 20.50 E' Laterial: 6.53 E/E' Lat: 17.80 Right Ventricle TAPSE (mm): 24.90 TVS' Lalo: 11.50 Tricuspid Valve TR Pk Lalo: 2.06 TR Pk Grad: 17.00 RA Press: 3.00 RVSP: 20.00 Great Vessels Aorta Sinus of Valsalva: 3.10 2.0-3.5 cm Ao Asc: 3.20 2.1-3.4 cm Pulmonary Veins Pulm Vein S/D 0.90 Pulmonary Valve PV Pk Lalo: 0.71 Peak PV Grad: 2.00 Updated in Other Vendor System with Status of Final Angel Bailey MD electronically signed on 11/17/2023 4:52:33 PM with status of Final
== END ==
LOC: HO.CARD 12:26
PROVIDERS: PCP Internal Medicine; Visit Provider Internal Medicine
DX: R01.1 Cardiac murmur, unspecified (principal)
CPT/HCPCS: 93306

== ENCOUNTER → 2023-11-17 12:29 | Outpatient (BNV) | payer MEDICARE, SELFPAY | PROVIDERS: PCP Internal Medicine; Visit Provider Internal Medicine Cardiovascular Disease | DX: I35.0 Nonrheumatic aortic (valve) stenosis (principal); I35.8 Other nonrheumatic aortic valve disorders; I34.81 Nonrheumatic mitral (valve) annulus calcification; I51.89 Other ill-defined heart diseases | CPT/HCPCS: 93306 ==

== ENCOUNTER 2023-11-17 13:29 | Outpatient (REF) | payer MEDICARE, SELFPAY ==
--- NOTE | ~2023-11-17 | US_ITS ---
EXAMINATION: US EXTRACRANIAL CAROTID DUPLEX, BILATERAL CLINICAL INFORMATION: Bruit COMPARISON: None available. TECHNIQUE: Real-time ultrasound and Doppler techniques (integrating B-mode 2-D vascular images, Doppler spectral analysis and color-flow Doppler imaging) were utilized to interrogate the extracranial carotid arteries, the vertebral arteries and proximal subclavian arteries bilaterally. The degree of stenosis is determined by criteria similar to NASCET. FINDINGS: Right Side: 1. There is mild atherosclerotic plaque seen in the bifurcation/proximal ICA region. 2. The common carotid artery PSV proximally is 81 cm/s and distally 63 cm/s. 3. The proximal internal carotid artery velocities are 65 cm/s systolic and 19 cm/s diastolic. 4. The proximal external carotid artery PSV is 63 cm/s. 5. The vertebral artery shows antegrade flow. 6. The subclavian artery waveforms are normal. Left Side: 1. There is mild atherosclerotic plaque seen in the bifurcation/proximal ICA region. 2. The common carotid artery PSV proximally is 59 cm/s and distally 67 cm/s. 3. The proximal internal carotid artery velocities are 79 cm/s systolic and 19 cm/s diastolic. 4. The proximal external carotid artery PSV is 64 cm/s. 5. The vertebral artery shows antegrade flow. 6. The subclavian artery waveforms are normal. US/US carotid duplex BI IMPRESSION: 1. RIGHT: Minimal, non-hemodynamically significant stenosis of the proximal right internal carotid artery corresponding to a 0-49% stenosis by velocity criteria. 2. LEFT: Minimal, non-hemodynamically significant stenosis of the proximal left internal carotid artery corresponding to a 0-49% stenosis by velocity criteria. Electronically signed by: Candi Alcala MD 11/18/2023 04:31 PM EDT
== END 2023-11-17 13:30 | disposition home or self-care (01) ==
LOC: HO.US 13:29
PROVIDERS: PCP Internal Medicine; Visit Provider Internal Medicine
DX: R09.89 Other specified symptoms and signs involving the circulatory and respiratory systems (principal)
CPT/HCPCS: 93306; 93880

== ENCOUNTER 2023-11-25 10:42 | Outpatient (AMB) | payer MEDICARE, SELFPAY ==
--- NOTE | 2023-11-25 10:50 | MHC.OFFVIS ---
Intake Visit Reasons: 3 mo leg check Intake Note: Patient presents for 3 month leg check. She has a new concern on her left leg that she initially thought was dry skin. It does not hurt or itch. No other complaints. Accompanied by: Self / Same As Patient Allergies oxycodone [Oxycodone] Adverse Reaction (Severe, Verified 11/25/23 10:53) VOMITTING From OxyContin Adverse Reaction (Severe, Uncoded 11/12/23 13:59) VOMITTING HPI HPI 3 mo leg check: Details: Very pleasant 78-year-old female presents for follow-up regarding her venous disease. She had undergone microphlebectomy and she has had some other varicosities which have been a source of concern for her in particular her left leg. She does have some varicosities in her thigh and calf which have been a source of concern. They have been a source of discomfort as well [facility] Medical History Cardiac murmur, unspecified Carotid bruit present HTN (hypertension) Frequent falls History of fall Lumbago Mixed stress and urge urinary incontinence Chronic restrictive lung disease Erythema intertrigo Type 2 diabetes mellitus without complication, without long-term current use of insulin Rib pain PONV (postoperative nausea and vomiting) Requires supplemental oxygen Preoperative examination Pulmonary nodules Family history of breast cancer gene mutation in first degree relative Diabetes mellitus with hyperglycemia, without long-term current use of insulin COVID-19 virus infection Asthma-COPD overlap syndrome Menopause Pulmonary nodule Obstructive sleep apnea Irritable bowel syndrome GERD (gastroesophageal reflux disease) Dyslipidemia Surgical History Status post ablation of incompetent vein using laser (~2021) History of shoulder surgery History of total knee replacement History of appendectomy Hx of cholecystectomy Family History Father Stroke Mother HTN (hypertension) Diabetes mellitus Brother Kidney disease Brother Pneumonia Daughter Invasive ductal carcinoma of breast, Onset Age: 53 Social History Housing: House Alcohol intake: never Patient Tobacco Use Status: Former Tobacco user e-Cigarette/Vaping Use: Never Used service: No Current occupational status: retired Cognitive needs: No Hearing needs: No Vision needs: Yes Review of Systems Const Reports as per HPI ENT Reports no additional complaints Card Denies chest pain, Denies chest pain at rest and Denies chest pain with activity Resp Denies chest congestion and Denies cough GI Reports no additional complaints Musc Details: pain over varicosities, aching of lower extremities, swelling, cramping, heaviness and tiredness, itching Denies abnormal gait Skin/Breast Reports pruritus and Denies wounds Neuro Reports no additional complaints and Denies abnormal gait Psych Denies no additional complaints Physical Exam Const General: cooperative, healthy appearing and comfortable Orientation/consciousness: oriented to person, oriented to place and oriented to time Neck Carotids: no bruits Chest Chest palpation & inspection: normal inspection of the chest and normal palpation of entire chest wall Resp Effort & Inspection: normal respiratory effort and able to speak in complete sentences Cardio Rate: regular rate Heart sounds: S1 normal heart sound present and S2 normal heart sound present Peripheral pulses: Peripheral pulses 2+ throughout GI Inspection: Yes normal to inspection Skin Other: +2 edema, large rope-like varicosities greater than 4 mm - developed an unusual left pretibial blister. Unsure if that is bruising or a blister. CEAP Classification C4 - skin color changes Ep - Etiology Primary As - superficial veins P - reflux General skin exam: dry skin Neuro General: oriented to person, oriented to place and oriented to time Extrem Right lower extremity: full ROM, normal capillary refill and edema Left lower extremity: full ROM, normal capillary refill and edema Psych Mental Status: mental status grossly normal Assessment & Plan Assessment & Plan (1) Varicose veins of left lower extremity with inflammation: Comment: 06/22/2021 - left great saphenous vein Cyanoacralate ablation Code(s): I83.12 - Varicose veins of left lower extremity with inflammation Category: Medical Plan: In short Shey has significantly large varicosities. I do think they are amenable to microphlebectomy and may be considered in the future. At the current time she is planning to travel to [place] and will plan for follow-up visit after her return. We did discuss routine conservative measures including use of compression elevation and exercise especially during her trip to [place]. She will schedule follow up with us sometime in January. Thank you for allowing us to assist in her care. If there are any questions or concerns please do not hesitate to contact us. (2) Varicose veins of right lower extremity with inflammation: Comment: 04/20/2021 - right great saphenous vein Cyanoacralate ablation 07/07/2023 - right leg microphlebectomy Code(s): I83.11 - Varicose veins of right lower extremity with inflammation Category: Medical Plan: See above Coding Level of Care Code Est Pt Level 3 (31716) Diagnoses Varicose veins of left lower extremity with inflammation I83.12 Varicose veins of right lower extremity with inflammation I83.11
== END 2023-11-25 11:25 | disposition home or self-care (01) ==
PROVIDERS: PCP Internal Medicine; Visit Provider Surgery Vascular Surgery
DX: I83.12 Varicose veins of left lower extremity with inflammation (principal); I83.11 Varicose veins of right lower extremity with inflammation
CPT/HCPCS: 99213

== ENCOUNTER → 2023-11-25 10:42 | Outpatient (BNVA) | payer MEDICARE, SELFPAY | PROVIDERS: PCP Internal Medicine; Visit Provider Surgery Vascular Surgery | DX: I83.12 Varicose veins of left lower extremity with inflammation (principal); I83.11 Varicose veins of right lower extremity with inflammation | CPT/HCPCS: 99212 ==

== ENCOUNTER 2024-01-12 09:16 | Inpatient (IN) | payer MEDICARE, SELFPAY ==
[2024-01-12] VITALS (9 sets, daily range): BP systolic 107–164; BP diastolic 44–86; PULSE 67–77; RESP 15–18; TEMP 36.4–37.2; O2SAT 96–97; BMI 37.3
--- NOTE | 2024-01-12 | ECG_ITS ---
Test Reason : syncopy Blood Pressure : / mmHG Vent. Rate : 071 BPM Atrial Rate : 071 BPM P-R Int : 142 ms QRS Dur : 076 ms QT Int : 392 ms P-R-T Axes : 056 029 044 degrees QTc Int : 425 ms Normal sinus rhythm Nonspecific ST abnormality Abnormal ECG When compared with ECG of 31-DEC-2022 13:03, No significant change was found Referred By: Generic ED Physician Electronically Signed By:Tong Enciso
--- NOTE | ~2024-01-12 | CT_ITS ---
EXAMINATION: CT ABDOMEN AND PELVIS WITHOUT CONTRAST CLINICAL INFORMATION: Lower abdominal pain, diarrhea. COMPARISON: CT 11/24/2013. TECHNIQUE: Multidetector volumetric imaging was performed from the superior aspect of the liver through the pubic symphysis. Sagittal and coronal reformatted images were obtained on the technologist's workstation. This CT examination was performed using dose optimization techniques as appropriate, variously including the following: *Automated exposure control *Adjustment of mA and/or kV according to patient size (this includes techniques or standardized protocols for targeted exams where dose is matched to indication/reason for exam; i.e. extremities or head) *Use of iterative reconstruction technique DLP: 630 mGy-cm FINDINGS: LUNG BASES: The visualized lung bases are unremarkable. LIVER, GALLBLADDER, AND BILIARY TREE: The liver is normal in size, shape, and attenuation. No focal hepatic lesion or biliary ductal dilatation is present. Gallbladder is not visualized, likely surgically removed. PANCREAS: Unremarkable. SPLEEN: Unremarkable. ADRENAL GLANDS: Unremarkable. KIDNEYS AND URETERS: The kidneys are normal in size, shape, and attenuation. No hydronephrosis, hydroureter, or calculi seen. No perinephric stranding. BLADDER: Unremarkable. GASTROINTESTINAL TRACT: Stomach is nondistended. No dilated small bowel loops. Large colon is nondistended. Diverticulosis of the sigmoid colon. No findings to suggest definite diverticulitis. No free fluid. No free air. ABDOMINAL WALL: No significant hernia is appreciated. LYMPH NODES: No adenopathy is seen. VASCULAR: Atherosclerotic vascular calcification. No abdominal aortic aneurysm dilatation. PELVIC VISCERA: Unremarkable. OSSEOUS STRUCTURES: Multilevel degenerative changes in the spine. No destructive process seen. CT/CT abdomen pelvis wo IV con IMPRESSION: 1. Colonic diverticulosis. No CT findings to suggest definite diverticulitis. 2. Cause of the patient's symptoms has not been determined by CT. Fleischner guidelines were followed. Electronically signed by: Shiva Draper MD 01/12/2024 03:20 PM [facility]
--- NOTE | ~2024-01-12 | CT_ITS ---
EXAMINATION: CT HEAD WITHOUT CONTRAST CLINICAL INFORMATION: Fall, headaches COMPARISON: None available. TECHNIQUE: Contiguous axial imaging was performed from the skull base to vertex without intravenous administration of contrast. This CT examination was performed using dose optimization techniques as appropriate, variously including the following: *Automated exposure control *Adjustment of mA and/or kV according to patient size (this includes techniques or standardized protocols for targeted exams where dose is matched to indication/reason for exam; i.e. extremities or head) *Use of iterative reconstruction technique DLP: 613 mGy-cm FINDINGS: There is no evidence of acute intracranial hemorrhage or edematous large vessel territorial infarction. No abnormal mass effect or midline shift is seen. Holley to white matter differentiation is well preserved. No abnormal extra-axial fluid collections are identified. The ventricles are normal in size. No abnormal attenuation in the brain parenchyma. No acute calvarial fracture.. Paranasal sinuses and mastoid air cells are well-aerated. CT/CT head/brain wo IV con IMPRESSION: No CT evidence of acute intracranial hemorrhage or edematous territorial infarction. Electronically signed by: Shiva Draper MD 01/12/2024 11:43 AM [facility]
--- NOTE | ~2024-01-12 | XR_ITS ---
EXAMINATION: XR KNEE, LEFT CLINICAL INFORMATION: Fall. COMPARISON: Radiograph left knee 04/20/2013. TECHNIQUE: Two views of the left knee. FINDINGS: Prosthetic components of the total knee arthroplasty are appropriately aligned without periprosthetic fracture or abnormal lucency. No component migration. No acute fracture or dislocation. Trace joint effusion. Scattered vascular calcifications. XR/XR knee LT 2V IMPRESSION: 1. Appropriate alignment of the left total knee arthroplasty without evidence of complications. 2. Trace joint effusion. Electronically signed by: Bianca Magaña MD 01/12/2024 10:56 PM [facility]
--- NOTE | ~2024-01-12 | XR_ITS ---
EXAMINATION: XR CHEST CLINICAL INFORMATION: Known pneumonia COMPARISON: Chest radiograph 04/18/2023. TECHNIQUE: Frontal view of the chest was obtained. FINDINGS: The lungs are adequately expanded. No focal consolidation. No pleural effusions or pneumothorax. The cardiomediastinal silhouette is within normal limits. No acute osseous abnormality. Postsurgical changes related to right total shoulder arthroplasty. XR/XR chest 1V IMPRESSION: No acute pulmonary disease. Electronically signed by: Ryan Desai MD 01/12/2024 01:01 PM [facility]
[2024-01-12 09:39] LABS: MANUAL DIFF FLAG NO
[2024-01-12 09:42] LABS: Basophils Absolute Auto 0.1 X10*3/uL (0.0-0.2); Basophils Percent Auto 0.4 % (0-2); Eosinophils Absolute Auto 0.2 X10*3/uL (0.0-0.4); Eosinophils Percent Auto 1.7 % (0-4); Hematocrit 38.9 % (37.0-47.0); Hemoglobin 13.1 g/dl (12.0-16.0); Imm Gran Abs Auto 0.04 X10*3/uL (0.00-0.03); Imm Gran Pct Auto 0.3 % (0.0-0.4); Lymphocytes Absolute Auto 2.9 X10*3/uL (1.2-4.9); Lymphocytes Percent Auto 24.5 % (20-40); Mean Corpuscular HGB Conc 33.7 g/dl (31.0-35.0); Mean Corpuscular Hemoglobin 32.1 pg (27.0-33.0); Mean Corpuscular Volume 95.3 fL (80.0-98.0); Mean Platelet Volume 9.5 fL (9.4-12.3); Monocytes Absolute Auto 1.1 X10*3/uL (0.1-1.2); Monocytes Percent Auto 9.2 % (2-11); Neutrophils Absolute Auto 7.5 x10*3/uL (2.0-8.3); Neutrophils Percent Auto 63.9 % (45-73); Platelet Count 200 X10*3/uL (160-400); Red Blood Count 4.08 X10*6/uL (4.20-5.50); Red Cell Distribution Width 12.3 % (11.0-16.0); White Blood Count 11.8 X10*3/uL (4.8-10.8)
[2024-01-12 09:46] LABS: Prothrombin Time 11.1 SEC (10.9-12.4)
[2024-01-12 09:58] LABS: Alanine Aminotransferase 18 U/L (0-31); Albumin Level 3.9 g/dL (3.5-5.0); Alkaline Phosphatase 37 U/L (39-117); Anion Gap 10 (12-20); Aspartate Amino Transferase 19 U/L (5-31); Bilirubin Total 1.1 mg/dL (0.0-1.0); Blood Urea Nitrogen 16 mg/dL (9-16); Calcium 9.6 mg/dL (8.4-10.2); Carbon Dioxide 28 mmol/L (22-29); Chloride 103 mmol/L (96-108); Creatinine Clr Calc Pharmacy 62.3; Estimated Glomerular Filt Rate > 60; Glucose Random 178 mg/dL (60-115); Lipase 21 U/L (8-78); Magnesium 1.8 mg/dL (1.6-2.6); Potassium 4.4 mmol/L (3.3-5.1); Sodium 137 mmol/L (135-145); Total Protein 7.2 g/dL (6.5-8.0)
--- NOTE | 2024-01-12 10:41 | ED_ITS ---
HPI - General Adult General Chief complaint: Fall Stated complaint: syncope Time Seen by Provider: 01/12/24 10:17 Source: patient Mode of arrival: ambulatory Limitations: no limitations History of Present Illness ED Provider: NUVIA WEST PA-C HPI narrative: 78-year-old female with pmhx significant for asthma, COPD, diabetes, HTN, HDL, GERD, BOB presents to the ED today for evaluation of multiple syncopal episodes. Patient reports being seen at urgent care 1 week ago for cough where she was diagnosed with pneumonia. She was started on doxycycline, azithromycin and prednisone. Reports taking these as prescribed. Admits that on Friday(3 days ago) she began to have sharp lower abdominal pains followed by multiple episodes of diarrhea. Last episode of diarrhea was yesterday. States her stool is yellow. Denies any hematochezia, melena, bright red blood. States her abdominal pain at present is very mild. After an episode of diarrhea on Friday, she reports getting up from the toilet and attempting to walk to her kitchen. The next thing she knew, she woke up on the floor of her kitchen. Does not recall losing consciousness. Reports hitting the back of her head on the floor. Not on anticoagulation. Her is at bedside to assist with history. He reports that she has had at least 1 syncopal episode a day for the last 3 days. These episodes occur when she stands from a seated position and begins to walk. Reports feeling lightheaded prior to losing consciousness. States she is on multiple antihypertensives. Admits that she was concered the diarrhea was due to her current antibiotics. States that she did not take her last for pills as she could not tolerate the diarrhea any longer. Reports completing the prednisone. Admits to continued cough. No known sick contacts. No recent travel or long car rides. Denies fever, chills, chest pain, shortness of breath nausea or vomiting, dysuria, hematuria. Related Data Home Medications ?Medication ?Instructions ?Recorded ?Confirmed carvedilol 25 mg tablet 25 mg PO BID 12/15/19 08/25/23 dicyclomine 10 mg capsule 10 mg PO QID PRN Indigestion 12/15/19 08/25/23 one touch delica plus lancets subcut DAILY 05/16/20 08/25/23 lorazepam 0.5 mg tablet 0.5 mg PO DAILY PRN anxiety 12/01/20 08/25/23 escitalopram oxalate 20 mg tablet 20 mg PO DAILY 08/07/21 08/25/23 esomeprazole magnesium 40 mg 40 mg PO DAILY 07/22/23 08/25/23 capsule,delayed release spironolactone 25 mg tablet 25 mg PO DAILY 11/07/23 Previous Rx's ?Medication ?Instructions ?Recorded blood-glucose meter #1 ea 01/20/20 blood sugar diagnostic (OneTouch #50 ea 05/09/20 Ultra Blue Test Strip) lancets 30 gauge (OneTouch Delica #100 ea 05/30/20 Plus Lancet) blood sugar diagnostic (OneTouch #50 strips 04/21/22 Ultra Test strips) hmdiedsyam-flqtxfn-wgphrcrl 50 1 cap PO Q6H PRN pain #10 caps 05/08/22 mg-325 mg-40 mg capsule nystatin 100,000 unit/gram topical 100,000 unit topical TID PRN 05/08/22 powder Vaginal Irritation #60 grams fluticasone propionate 50 2 spray intranasal DAILY #48 mL 07/23/22 mcg/actuation nasal spray,suspension hydrochlorothiazide 25 mg tablet 25 mg PO QAM #90 tabs 09/11/22 clotrimazole-betamethasone 1 1 appl topical BID PRN rash #45 10/08/22 %-0.05 % topical cream grams loratadine 10 mg tablet 10 mg PO DAILY #90 tabs 10/31/22 albuterol sulfate 90 mcg/actuation 2 puff inhalation Q6H PRN wheezing 03/11/23 aerosol inhaler #1 ea cholecalciferol (vitamin D3) 50 50 mcg PO DAILY #90 caps 04/08/23 mcg (2,000 unit) capsule (Vitamin D3) losartan 100 mg tablet 100 mg PO DAILY #90 tabs 08/12/23 dapagliflozin propanediol 10 mg 10 mg PO QAM 90 days #90 tabs 08/24/23 tablet (Farxiga) mirabegron 25 mg tablet,extended 25 mg PO DAILY 90 days #90 tabs 08/25/23 release 24 hr (Myrbetriq) sitagliptin phosphate 100 mg 100 mg PO DAILY #90 tabs 09/09/23 tablet (Januvia) Trelegy Ellipta 200 mcg-62.5 1 inh inhalation DAILY #60 ea 09/10/23 mcg-25 mcg powder for inhalation (xvlnalfmugi-qujbkxaqs-mjzyaizc) doxycycline monohydrate 100 mg 100 mg PO BID 14 days #28 tabs 11/07/23 tablet oxymetazoline 0.05 % nasal spray 2 spray intranasal Q12H PRN nasal 11/07/23 (Afrin Sinus (oxymetazoline)) congestion 5 days #22 mL chlorthalidone 25 mg tablet 25 mg PO DAILY #90 tabs 11/15/23 metformin 500 mg tablet 500 mg PO DAILY #90 tabs 12/19/23 atorvastatin 10 mg tablet 10 mg PO DAILY #90 tabs 01/09/24 Allergies Allergy/AdvReac Type Severity Reaction Status Date / Time oxycodone [Oxycodone] AdvReac Severe VOMITTING Verified 01/12/24 09:24 From OxyContin AdvReac Severe VOMITTING Uncoded 01/12/24 09:24 Review of Systems 2 Review of Systems: Constitutional: No fever, chills, fatigue, night sweats, weight changes ENT/Mouth: No ear pain, hearing loss, nasal congestion, sinus pain, rhinorrhea, sore throat Eyes: No eye pain, swelling, redness, vision changes, discharge Cardio: No chest pain, palpitations, TINAJERO, orthopnea, peripheral edema Pulm: No SOB, cough, sputum, wheezing, dyspnea, hemoptysis GI: No nausea, vomiting, hematemesis, constipation, hematochezia, melena, + abdominal pain, + diarrhea : No irregular bleeding, dysuria, frequency, urgency, hesitancy, hematuria, flank pain, urinary flow changes, urinary incontinence or retention MSK: No back pain, neck pain, joint pain, myalgias Skin: No lesions, rashes Neuro: No weakness, numbness, paresthesias, LOC, dizziness, headache, + syncope Psych: No anxiety/panic, depression, SI/HI, AH/VH All other systems reviewed and are negative. [facility] Past Medical History Attestation statement: The following information was validated with the patient. Source: old records reviewed and nursing notes reviewed Medical History Cardiac murmur, unspecified Carotid bruit present HTN (hypertension) Frequent falls History of fall Lumbago Mixed stress and urge urinary incontinence Chronic restrictive lung disease Erythema intertrigo Type 2 diabetes mellitus without complication, without long-term current use of insulin Rib pain PONV (postoperative nausea and vomiting) Requires supplemental oxygen Preoperative examination Pulmonary nodules Family history of breast cancer gene mutation in first degree relative Diabetes mellitus with hyperglycemia, without long-term current use of insulin COVID-19 virus infection Asthma-COPD overlap syndrome Menopause Pulmonary nodule Obstructive sleep apnea Irritable bowel syndrome GERD (gastroesophageal reflux disease) Dyslipidemia Surgical History Status post ablation of incompetent vein using laser (~2021) History of shoulder surgery History of total knee replacement History of appendectomy Hx of cholecystectomy Family History Family History Father Stroke Mother HTN (hypertension) Diabetes mellitus Brother Kidney disease Brother Pneumonia Daughter Invasive ductal carcinoma of breast, Onset Age: 53 Social History Social History Housing: House Alcohol intake: never Patient Tobacco Use Status: Former Tobacco user Smoked in Last 30 Days: No e-Cigarette/Vaping Use: Never Used Use of substances other than those prescribed or required for medical reasons: No Advance Directives: No Advance Directives Information Provided: Yes Do you have a plan to hurt others: No Plan service: No Current occupational status: retired Cognitive needs: No Hearing needs: No Vision needs: Yes Physical Exam ED Vital Signs: Vital Signs - 24 hr 01/12/24 09:21 01/12/24 15:08 01/12/24 15:09 Temperature 98.9 F Pulse Rate 70 72 77 Respiratory Rate 18 Blood Pressure 136/86 131/53 L 107/47 L Pulse Oximetry 97 Oxygen Delivery Method Room Air 01/12/24 15:11 01/12/24 16:51 01/12/24 19:15 Temperature 98.3 F Pulse Rate 67 70 68 Respiratory Rate 15 Blood Pressure 130/45 L 134/56 L 134/44 L Pulse Oximetry Oxygen Delivery Method 01/12/24 19:18 01/12/24 19:21 01/12/24 20:26 Temperature 97.5 F Pulse Rate 69 71 69 Respiratory Rate 16 Blood Pressure 145/47 H 126/47 L 164/59 H Pulse Oximetry 96 Oxygen Delivery Method Room Air BMI result Body Mass Index 37.3 vital signs stable, afebrile General: Well appearing, in no acute distress. Skin: Warm, dry, intact. No rashes or lesions. Head: Normocephalic, atraumatic. EENT: Hearing is intact b/l. Conjunctiva clear. PERRLA. EOM intact. Moist mucous membranes.? Neck: Supple without LAD Cardiac: Chest wall symmetric. RRR. Lungs: Normal respiratory effort without accessory muscle use. CTA bilaterally. No rales, rhonchi, or wheezes.? Abdomen: Soft, non-tender, non-distended. No rebound tenderness or guarding. Positive BS x4. Back: No midline spinous or paraspinal tenderness. No step off deformity. Ext: Upper and lower extremities atraumatic, without tenderness, deformity, swelling or erythema. Full ROM throughout. no calf tenderness b/l. Neuro: AOx3. Normal speech. Strength 4/5 intact throughout. No saddle anesthesia. Sensation intact to light touch. NV intact distally. finger to nose intact. heel to horta intact. Ambulating with steady gait. Psych: Appropriate mood and affect. Responds appropriately to questions. Course Course Course Narrative: 1410 -- cbc with slight leukocytosis to 11.8. there is no elft shift. this may be attributable to recent prednisone course. no anemia. h&h stable. chemistry without acute electrolyte abnormality requiring intervention. no krystal. random glucose 178 without gap - no conern for DKA. total bili 1.1 of unknown significance. initial troponin 4.6 > will repeat for delta however i have low suspicion for ACS at this time. ekg showing normal sinus rhythm with a rate of 71 beats per minute, QT 392, QTC 425, no acute ischemic changes or ST elevations. Chest x-ray does not demonstrate pneumonia. She tested negative for COVID, flu, RSV. ct head without fracture or bleed. > patient recieved tylenol for mild headache. IVF given. > ortho vitals pending. > GI panel pending > CT abd/pelvis pending 1601 -- CT abdomen without acute intra-abdominal findings. There is evidence of diverticulosis without diverticulitis. No evidence of colitis. GI panel still pending. > orthostatic vitals signs positive. will order 1 more liter of fluids with plant to repeat ortho vitals. > sign out given to my colleague Torrey SINGLETON pending repeat orthos, GI panel, and re- evaluation. Reevaluation(s) Reevaluation #1: Patient remains orthostatic despite receiving 2 L normal saline IV fluid. She reports it is still felt unwell when changing positions, unsteady and weak. She has had syncopal episodes over the past Bharat's she is not stable for discharge, I have concern for her persistent would like orthostatic ocean cyclobenzaprine as well as the syncopal episodes possibility for additional to occur at home. She has not had any further episodes of diarrhea to send GI panel/C diff testing. I spoke with hospitalist Dr. Houser who accepts patient for admission Medications Administered Discontinued Medications Generic Name Dose Route Start Last Admin Trade Name Freq PRN Reason Stop Dose Admin Acetaminophen 975 mg 01/12/24 12:21 01/12/24 12:43 Acetaminophen 325 Mg Tablet PO 01/12/24 12:22 975 mg ONCE ONE Administration Sodium Chloride 1,000 mls @ 999 mls/hr 01/12/24 10:45 01/12/24 13:51 Ns IV 01/12/24 11:45 Infused .Q1H1M CASSIA Infusion Sodium Chloride 1,000 mls @ 999 mls/hr 01/12/24 16:15 01/12/24 19:37 Ns IV 01/12/24 17:15 Infused .Q1H1M CASSIA Infusion Medical Decision Making Medical Decision Making MDM Narrative: 78-year-old female with pmhx significant for asthma, COPD, diabetes, HTN, HDL, GERD, BOB presents to the ED today for evaluation of multiple syncopal episodes. Vital signs stable. not tachycardic. not hypoxic. afebrile. she is non toxic appearing and in NAD. exam is nonfocal. cerebellum intact. rrr. no respiratory distress. lungs are cta b/l. congested cough noted on exam. abdomen is soft, ND/NT without rebound or guarding. normoactive bs x4. no cvat b/l. Differential diagnosis includes anemia, electrolyte abnormality, dehydration, orthostatic hypotension, pneumonia, viral syndrome ACS, arrhythmia, C diff, diverticulosis, diverticulitis. Low suspicion for PE. Plan for labs, viral testing, EKG, repeat chest x-ray, GI panel, C diff testing, CT head/brain, IV fluids, ortho vitals, re-evaluation. Differential Diagnosis Differential Diagnoses: The differential diagnosis associated with the presentation includes As above Admission/Observation Consideration of admission/observation: Escalation of care including admission/observation considered Admission considered on presentation Lab Data MDM Lab Attestation statement: I reviewed the patient's lab results. As above 01/12/24 09:36 01/12/24 09:36 Labs: Lab Results 01/12/24 01/12/24 01/12/24 Range/Units 09:36 11:28 14:27 WBC 11.8 H (4.8-10.8) X10*3/uL RBC 4.08 L (4.20-5.50) X10*6/uL Hgb 13.1 (12.0-16.0) g/dl Hct 38.9 (37.0-47.0) % MCV 95.3 (80.0-98.0) fL MCH 32.1 (27.0-33.0) pg MCHC 33.7 (31.0-35.0) g/dl RDW 12.3 (11.0-16.0) % Plt Count 200 (160-400) X10*3/uL MPV 9.5 (9.4-12.3) fL Immature Gran % (Auto) 0.3 (0.0-0.4) % Neut % (Auto) 63.9 (45-73) % Lymph % (Auto) 24.5 (20-40) % [place] % (Auto) 9.2 (2-11) % Eos % (Auto) 1.7 (0-4) % Baso % (Auto) 0.4 (0-2) % Lymph # (Auto) 2.9 (1.2-4.9) X10*3/uL [place] # (Auto) 1.1 (0.1-1.2) X10*3/uL Eos # (Auto) 0.2 (0.0-0.4) X10*3/uL Baso # (Auto) 0.1 (0.0-0.2) X10*3/uL Abs Immat Gran (auto) 0.04 H (0.00-0.03) X10*3/uL Absolute Neuts (auto) 7.5 (2.0-8.3) x10*3/uL Absolute Nucleated RBC 0.000 (0.0-0.012) X10*3/uL Nucleated RBC % (auto) 0.0 (0.0-0.2) /100WBC PT 11.1 (10.9-12.4) SEC INR 1.0 (0.9-1.1) Sodium 137 (135-145) mmol/L Potassium 4.4 (3.3-5.1) mmol/L Chloride 103 (96-108) mmol/L Carbon Dioxide 28 (22-29) mmol/L Anion Gap 10 L (12-20) BUN 16 (9-16) mg/dL Creatinine 0.80 (0.5-1.4) mg/dL Estim Creat Clear Calc 62.3 Estimated GFR > 60 Random Glucose 178 H (60-115) mg/dL Calcium 9.6 (8.4-10.2) mg/dL Magnesium 1.8 (1.6-2.6) mg/dL Total Bilirubin 1.1 H (0.0-1.0) mg/dL AST 19 (5-31) U/L ALT 18 (0-31) U/L Alkaline Phosphatase 37 L (39-117) U/L Troponin I High Sens 4.6 D 4.4 (<3.5-17.0) ng/L Total Protein 7.2 (6.5-8.0) g/dL Albumin 3.9 (3.5-5.0) g/dL Lipase 21 (8-78) U/L Influenza Type A (PCR) NEGATIVE (Negative) Influenza Type B (PCR) NEGATIVE (Negative) RSV RNA Qual (PCR) NEGATIVE (Negative) SARS-CoV-2 RNA (RT-PCR) NEGATIVE (Negative) Independent Interpretation I performed an independent interpretation of an: EKG, Plain X-Ray and CT Scan Interpretation: CT head/brain without bleed or mass EKG showing normal sinus rhythm with a rate of 71 beats per minute, QT 392, QTC 425, no acute ischemic changes or ST elevations. CXR without infiltrate or consolidation CT A/P without bowel edema Radiology Impression Discussion of test interpretation with radiology: I have reviewed the radiologist's reading. Radiologist Impression: EXAMINATION: XR CHEST CLINICAL INFORMATION: Known pneumonia COMPARISON: Chest radiograph 04/18/2023. TECHNIQUE: Frontal view of the chest was obtained. FINDINGS: The lungs are adequately expanded. No focal consolidation. No pleural effusions or pneumothorax. The cardiomediastinal silhouette is within normal limits. No acute osseous abnormality. Postsurgical changes related to right total shoulder arthroplasty. XR/XR chest 1V IMPRESSION: No acute pulmonary disease. Electronically signed by: Ryan Desai MD 01/12/2024 01:01 PM EST EXAMINATION: CT HEAD WITHOUT CONTRAST CLINICAL INFORMATION: Fall, headaches COMPARISON: None available. TECHNIQUE: Contiguous axial imaging was performed from the skull base to vertex without intravenous administration of contrast. This CT examination was performed using dose optimization techniques as appropriate, variously including the following: *Automated exposure control *Adjustment of mA and/or kV according to patient size (this includes techniques or standardized protocols for targeted exams where dose is matched to indication/reason for exam; i.e. extremities or head) *Use of iterative reconstruction technique DLP: 613 mGy-cm FINDINGS: There is no evidence of acute intracranial hemorrhage or edematous large vessel territorial infarction. No abnormal mass effect or midline shift is seen. Holley to white matter differentiation is well preserved. No abnormal extra-axial fluid collections are identified. The ventricles are normal in size. No abnormal attenuation in the brain parenchyma. No acute calvarial fracture.. Paranasal sinuses and mastoid air cells are well-aerated. CT/CT head/brain wo IV con IMPRESSION: No CT evidence of acute intracranial hemorrhage or edematous territorial infarction. Electronically signed by: Shiva Draper MD 01/12/2024 11:43 AM EST RP EXAMINATION: CT ABDOMEN AND PELVIS WITHOUT CONTRAST CLINICAL INFORMATION: Lower abdominal pain, diarrhea. COMPARISON: CT 11/24/2013. TECHNIQUE: Multidetector volumetric imaging was performed from the superior aspect of the liver through the pubic symphysis. Sagittal and coronal reformatted images were obtained on the technologist's workstation. This CT examination was performed using dose optimization techniques as appropriate, variously including the following: *Automated exposure control *Adjustment of mA and/or kV according to patient size (this includes techniques or standardized protocols for targeted exams where dose is matched to indication/reason for exam; i.e. extremities or head) *Use of iterative reconstruction technique DLP: 630 mGy-cm FINDINGS: LUNG BASES: The visualized lung bases are unremarkable. LIVER, GALLBLADDER, AND BILIARY TREE: The liver is normal in size, shape, and attenuation. No focal hepatic lesion or biliary ductal dilatation is present. Gallbladder is not visualized, likely surgically removed. PANCREAS: Unremarkable. SPLEEN: Unremarkable. ADRENAL GLANDS: Unremarkable. KIDNEYS AND URETERS: The kidneys are normal in size, shape, and attenuation. No hydronephrosis, hydroureter, or calculi seen. No perinephric stranding. BLADDER: Unremarkable. GASTROINTESTINAL TRACT: Stomach is nondistended. No dilated small bowel loops. Large colon is nondistended. Diverticulosis of the sigmoid colon. No findings to suggest definite diverticulitis. No free fluid. No free air. ABDOMINAL WALL: No significant hernia is appreciated. LYMPH NODES: No adenopathy is seen. VASCULAR: Atherosclerotic vascular calcification. No abdominal aortic aneurysm dilatation. PELVIC VISCERA: Unremarkable. OSSEOUS STRUCTURES: Multilevel degenerative changes in the spine. No destructive process seen. CT/CT abdomen pelvis wo IV con IMPRESSION: 1. Colonic diverticulosis. No CT findings to suggest definite diverticulitis. 2. Cause of the patient's symptoms has not been determined by CT. Fleischner guidelines were followed. Electronically signed by: Shiva Draper MD 01/12/2024 03:20 PM [facility] [place] Independent Historian Clinical information obtained from an independent historian. History obtained from or confirmed by: Spouse () and Other (Daughter) External Record Review External record reviewed: Inpatient record, Office record, Outpatient record, Prior outpatient labs, Prior outpatient radiology, Primary care record and Outside ED record Prescription Management I considered prescription management with: Pain Medication and Antibiotic Social Determinants Patient?s care significantly limited by Social Determinants of Health including: Other Social Determinant of Health Critical Care Time Critical Care Time Critical Care Time: No Discharge Plan Discharge Clinical Impression: Syncope, Orthostatic hypotension Patient Disposition: Admitted As Inpatient
[2024-01-12 11:03] LABS: Troponin-I High Sensitivity 4.6 ng/L (<3.5-17.0)
--- NOTE | 2024-01-12 11:20 | PC.NURSE ---
22G peripheral IV inserted to pt.'s L hand. Tolerated well. Good blood return and flushes without difficulty or pain.
[2024-01-12] MEDS: 0.9 % Sodium Chloride 1,000 ML 999 ML IV ×2 (11:26→16:53)
[2024-01-12 12:11] LABS: Influenza A PCR NEGATIVE (Negative); Influenza B PCR NEGATIVE (Negative); Resp Syncy Virus RNA Qual PCR NEGATIVE (Negative); SARS COV2 PCR INHOUSE NEGATIVE (Negative)
--- NOTE | 2024-01-12 12:39 | PC.NURSE ---
Pt presents to ED from home with family. Per family, pt had a syncopal episode friday and friday, after trying to have a BM, +head hit and +LOC. Reports she hit her left arm on friday, +abrasion and right hand yesterday (bruising to thumb). Recent pneumonia and on ABX, has been having diarrhea past 2 days. Alert and oriented, breathing even and unlabored, skin warm and dry. NSR on bedside hall monitor.
[2024-01-12] MEDS: Acetaminophen 325 MG TABLET 975 MG PO (12:43)
[2024-01-12 14:50] LABS: Troponin-I High Sensitivity 4.4 ng/L (<3.5-17.0)
--- NOTE | 2024-01-12 20:01 | PC.NURSE ---
Took over care from mya Alaniz complete and report to PA Torrey, provider into assess pt and disscuss plan of care.
--- NOTE | 2024-01-12 20:06 | PC.NURSE ---
pt given a sandwich and drink per request.
--- NOTE | 2024-01-12 20:44 | P.HPHOSP_ITS ---
History of Present Illness Date of Service: 01/12/24 Chief Complaint: Syncope This is a 78-year-old female with pertinent history of gastroesophageal reflux disease, asthma COPD overlap syndrome, rvl-otfizph-fyrmdxxbz diabetes mellitus, essential hypertension, mixed hyperlipidemia who presents to the emergency department for evaluation of syncope and fall. Patient was diagnosed with respiratory infection about 8 days prior to presentation at urgent Care. She was prescribed p.o. antibiotics which she has completed since. Patient states her symptoms have improved since antibiotic completion. Two days prior to presentation patient started having loose stools, nonbloody. No abdominal pain, nausea or vomiting. Patient also had an episode when she got dizzy/lightheaded when she stood up and subsequently passed out. Has had 3 such episodes in the last 3 days. On the day of presentation, patient got up from a seated position in the kitchen, got dizzy/lightheaded and passed out falling on the floor hitting her left knee. No fever, chills, chest pain, palpitations, shortness of breath, abdominal pain, changes in urinary habits. No rhythmic jerking movement of extremities. No palpitations or chest pain prior to the episodes of passing out. In the emergency department, orthostatic vital signs noted to be positive and patient resuscitated with IV crystalloids. Review of Systems 2 Constitutional: Constitutional: Reports fatigue and Reports malaise ENT: Reports dizziness Cardiovascular: Cardiovascular: Reports no additional cardiovascular complaints and Reports syncope Respiratory: Respiratory: Reports no additional respiratory complaints Gastrointestinal: Gastrointestinal: Reports diarrhea and Reports loose stools Genitourinary: Genitourinary: Reports no additional female genitourinary complaints Neurologic: Reports dizziness and Reports syncope Endocrine: Endocrine: Reports fatigue [facility] Medical History Cardiac murmur, unspecified Carotid bruit present HTN (hypertension) Frequent falls History of fall Lumbago Mixed stress and urge urinary incontinence Chronic restrictive lung disease Erythema intertrigo Type 2 diabetes mellitus without complication, without long-term current use of insulin Rib pain PONV (postoperative nausea and vomiting) Requires supplemental oxygen Preoperative examination Pulmonary nodules Family history of breast cancer gene mutation in first degree relative Diabetes mellitus with hyperglycemia, without long-term current use of insulin COVID-19 virus infection Asthma-COPD overlap syndrome Menopause Pulmonary nodule Obstructive sleep apnea Irritable bowel syndrome GERD (gastroesophageal reflux disease) Dyslipidemia Family History Father Stroke Mother HTN (hypertension) Diabetes mellitus Brother Kidney disease Brother Pneumonia Daughter Invasive ductal carcinoma of breast, Onset Age: 53 Surgical History Status post ablation of incompetent vein using laser (~2021) History of shoulder surgery History of total knee replacement History of appendectomy Hx of cholecystectomy Social History Housing: House Alcohol intake: never Patient Tobacco Use Status: Former Tobacco user Smoked in Last 30 Days: No e-Cigarette/Vaping Use: Never Used Use of substances other than those prescribed or required for medical reasons: No Advance Directives: No Advance Directives Information Provided: Yes Do you have a plan to hurt others: No Plan service: No Current occupational status: retired Cognitive needs: No Hearing needs: No Vision needs: Yes Meds Allergies Allergy/AdvReac Type Severity Reaction Status Date / Time oxycodone [Oxycodone] AdvReac Severe VOMITTING Verified 01/12/24 09:24 From OxyContin AdvReac Severe VOMITTING Uncoded 01/12/24 09:24 Home Medications ?Medication ?Instructions ?Recorded ?Confirmed ?Last Taken ?Type carvedilol 25 mg tablet 25 mg PO BID 12/15/19 08/25/23 07/07/23 06:45 History dicyclomine 10 mg capsule 10 mg PO QID PRN Indigestion 12/15/19 08/25/23 Unknown History one touch delica plus lancets subcut DAILY 05/16/20 08/25/23 Unknown History lorazepam 0.5 mg tablet 0.5 mg PO DAILY PRN anxiety 12/01/20 08/25/23 Unknown History escitalopram oxalate 20 mg tablet 20 mg PO DAILY 08/07/21 08/25/23 Unknown History esomeprazole magnesium 40 mg 40 mg PO DAILY 07/22/23 08/25/23 Unknown History capsule,delayed release spironolactone 25 mg tablet 25 mg PO DAILY 11/07/23 Unknown History Physical Exam 2 Vital Signs and Narrative: Vital Signs: Last Vital Signs Temp 97.5 F 01/12/24 20:26 Pulse 69 01/12/24 20:26 Resp 16 01/12/24 20:26 BP 164/59 H 01/12/24 20:26 Pulse Ox 96 01/12/24 20:26 O2 Del Method Room Air 01/12/24 20:26 BMI result Body Mass Index 37.3 Elderly female lying in bed in no distress Neck supple, no JVD Regular rate and rhythm, S1-S2 heard Regular breath sounds bilaterally, no wheezing or crackles appreciated Abdomen soft nontender, no guarding, no rigidity Patient is awake, alert and oriented to self, place, time and person ; no focal motor deficit Psych: Normal mood No pedal edema Results Labs 01/12/24 09:36 01/12/24 09:36 Labs: Laboratory Results - last 24 hr 01/12/24 01/12/24 01/12/24 09:36 11:28 14:27 MCV 95.3 MCH 32.1 MCHC 33.7 RDW 12.3 Plt Count 200 MPV 9.5 Immature Gran % (Auto) 0.3 Neut % (Auto) 63.9 Lymph % (Auto) 24.5 Chase % (Auto) 9.2 Eos % (Auto) 1.7 Baso % (Auto) 0.4 Lymph # (Auto) 2.9 Chase # (Auto) 1.1 Eos # (Auto) 0.2 Baso # (Auto) 0.1 Abs Immat Gran (auto) 0.04 H Absolute Neuts (auto) 7.5 Absolute Nucleated RBC 0.000 Nucleated RBC % (auto) 0.0 PT 11.1 INR 1.0 Anion Gap 10 L Estim Creat Clear Calc 62.3 Estimated GFR > 60 Random Glucose 178 H Calcium 9.6 Magnesium 1.8 Total Bilirubin 1.1 H AST 19 ALT 18 Alkaline Phosphatase 37 L Troponin I High Sens 4.6 D 4.4 Total Protein 7.2 Albumin 3.9 Lipase 21 Influenza Type A (PCR) NEGATIVE Influenza Type B (PCR) NEGATIVE RSV RNA Qual (PCR) NEGATIVE SARS-CoV-2 RNA (RT-PCR) NEGATIVE Imaging Radiologist's Impressions: Impressions Chest X-Ray 01/12/24 09:40 IMPRESSION: No acute pulmonary disease. Electronically signed by: Ryan Desai MD 01/12/2024 01:01 PM [facility] Head CT 01/12/24 10:16 IMPRESSION: No CT evidence of acute intracranial hemorrhage or edematous territorial infarction. Electronically signed by: Shiva Draper MD 01/12/2024 11:43 AM EST RP Abdomen/Pelvis CT 01/12/24 12:32 IMPRESSION: 1. Colonic diverticulosis. No CT findings to suggest definite diverticulitis. 2. Cause of the patient's symptoms has not been determined by CT. Fleischner guidelines were followed. Electronically signed by: Shiva Draper MD 01/12/2024 03:20 PM EST RP Assessment and Plan (1) Orthostatic hypotension: Status: Acute (2) Syncope: Status: Acute Plan This is a 78-year-old female with pertinent history of gastroesophageal reflux disease, asthma COPD overlap syndrome, wyr-rjtyvfr-dollyrdfc diabetes mellitus, essential hypertension, mixed hyperlipidemia who presents to the emergency department for evaluation of syncope and fall. #. Orthostatic syncope: Will admit patient for observation with cardiac monitoring. Orthostatic vital signs positive in the ER. Resuscitating with IV crystalloids. Repeat orthostatics in a.m. #. Fall due to above: CT head without any acute abnormality. Left Knee x-ray pending #. Diarrhea, acute: In the setting of recent antibiotic use. C diff and GI panel pending #. Gastroesophageal reflux disease: On PPI #. Idn-hfwlzqc-aqfmvhxpk diabetes mellitus: Initiating Accu-Cheks with sliding scale insulin before meals and at bedtime #. Mixed hyperlipidemia: On statin #. Asthma/COPD overlap syndrome: No exacerbation during admission. Continue home inhalers #. Essential hypertension: Optimize based on orthostatics in a.m. Med rec pending DVT prophylaxis: Lovenox Full code Quality Stroke Does the patient have a stroke diagnosis?: No VTE Prior VTE?: No VTE Risk Level:: Medical - moderate - high VTE Device Contraindication: Treatment Not Indicated VTE Drug Contraindication: N/A - Med Ordered
[2024-01-12 21:13] LABS: Glucose, Whole Blood 143 mg/dL (60-115)
[2024-01-12] MEDS: Enoxaparin Sodium 40 MG/0.4 ML SYRINGE SUBCUT (21:21)
--- NOTE | 2024-01-12 21:25 | PC.NURSE ---
Changed into hospital attire, medicated per may,
--- NOTE | 2024-01-12 21:26 | PC.NURSE ---
fall precautions in place.
--- NOTE | 2024-01-12 22:10 | PHA.MEDREC ---
Addendum entered by Bria August RPh 01/12/24 22:32: Med rec reviewed by this [facility]. Removed hydroclorthiazide from home list as patient has no claim history for medication and is currently taking chlorthalidone, which is also a thiazide diuretic. Original Note: Pharmacy Consult ? Medication Reconciliation Pharmacy has completed the medication reconciliation. Patient had a list with her that seemed outdated, I was able to confirm the medications with the patient using my list. Patient was able to confirm she takes her Carvedilol 25mg tab BID and states she takes her first dose around 0730 and her second dose at 1200 along with her Januvia 10mg tab. She confirmed she is taking her Dicyclomine 10mg tab 1 TIDWM as needed for indigestion. She confirmed she finished her Doxycycline 100mg, Azithromycin 250mg tab and Prednisone 20mg regimens this past Tuesday 01/09. She claims she is taking Hydrochlorothiazide 25mg tab, looking in claims we have nothing found for that medication. She states she is filling it consistently at [facility] on [facility] in [place], I called and spoke with [facility] on [facility] in [place] and they were able to check and stated they have no claims for that medication being filled for at least a year. She claims she is still using the Mirabergron 25mg tab once daily as needed for an overactive bladder. She confirmed she only took her morning medications today.
--- NOTE | 2024-01-12 23:18 | PC.NURSE ---
pt has two skin tears on her left elbow due to fall, left knee black and blue due to fall. provider aware.
[2024-01-13] VITALS (10 sets, daily range): BP systolic 145–192; BP diastolic 65–78; PULSE 61–75; RESP 18–20; TEMP 36.2–37.4; O2SAT 93–99; BMI 37.5
[2024-01-13] MEDS: Acetaminophen 325 MG TABLET 650 MG PO (05:14)
[2024-01-13] MEDS: 0.9 % Sodium Chloride Flush 3 ML SYRINGE IVFLUSH ×4 (05:14→21:11)
[2024-01-13 07:05] LABS: Glucose, Whole Blood 121 mg/dL (60-115)
[2024-01-13] MEDS: Mirabegron 25 MG TAB.ER.24H PO (08:45)
[2024-01-13] MEDS: Atorvastatin Calcium 10 MG TABLET PO (08:45)
[2024-01-13] MEDS: Escitalopram Oxalate 20 MG TABLET PO (08:46)
[2024-01-13] MEDS: Fluticasone/Umeclidinium/Vilanterol 200/62.5/25 BLST.W.DEV 1 PUFF INHALE (09:21)
[2024-01-13 09:34] LABS: Hematocrit 37.6 % (37.0-47.0); Hemoglobin 12.3 g/dl (12.0-16.0); Mean Corpuscular HGB Conc 32.7 g/dl (31.0-35.0); Mean Corpuscular Hemoglobin 31.2 pg (27.0-33.0); Mean Corpuscular Volume 95.4 fL (80.0-98.0); Platelet Count 192 X10*3/uL (160-400); Red Blood Count 3.94 X10*6/uL (4.20-5.50); Red Cell Distribution Width 12.1 % (11.0-16.0); White Blood Count 9.7 X10*3/uL (4.8-10.8)
--- NOTE | 2024-01-13 09:44 | MHC.CM.PN ---
GHISLAINE 01/13/24, EMR REVIEWED, PT W/SYNCOPE W/FALL, CM MET W/PT WHO REPORTS SHE LIVES W/HER , IS INDEP W/CARE, PT REPORTS SHE USES A CANE ONCE IN A WHILE WHEN HER KNEE IS ACTING UP HOWEVER NOT OFTEN, NO HOME SERVICES AND GOAL FOR DC IS HOME, PT OPEN TO SERVICES IF RECOMMENDED. PCP ON FILE VERIFIED, PT EDUCATED AND DECLINES TO COMPLETE A HCP HER SON WHO LIVES NEARBY IS AN [employer] AND SHE WILL HAVE HCP ETC DRAWN UP BY HIM OR HIS OFFICE.
[2024-01-13 10:03] LABS: Anion Gap 11 (12-20); Blood Urea Nitrogen 15 mg/dL (9-16); Calcium 9.2 mg/dL (8.4-10.2); Carbon Dioxide 28 mmol/L (22-29); Chloride 104 mmol/L (96-108); Creatinine Clr Calc Pharmacy 71.4; Estimated Glomerular Filt Rate > 60; Glucose Random 128 mg/dL (60-115); Potassium 4.3 mmol/L (3.3-5.1); Sodium 139 mmol/L (135-145)
[2024-01-13 11:04] LABS: Glucose, Whole Blood 119 mg/dL (60-115)
[2024-01-13 11:21] LABS: CDiff Gene PCR NEGATIVE (Negative)
[2024-01-13 12:25] LABS: Adenovirus F 40/41 Not Detected (Not Detect.); Astrovirus Not Detected (Not Detect.); Campylobacter Not Detected (Not Detect.); Cryptosporidium Not Detected (Not Detect.); Cyclospora cayetanensis Not Detected (Not Detect.); E. coli EAEC Not Detected (Not Detect.); E. coli EPEC Not Detected (Not Detect.); E. coli ETEC Not Detected (Not Detect.); E. coli STEC Not Detected (Not Detect.); Entamoeba histolytica Not Detected (Not Detect.); Norovirus GI/GII Not Detected (Not Detect.); Plesiomonas shigelloides Not Detected (Not Detect.); Rotavirus A Not Detected (Not Detect.); Salmonella Not Detected (Not Detect.); Sapovirus Not Detected (Not Detect.); Shigella sp./EIEC Not Detected (Not Detect.); Vibrio Not Detected (Not Detect.); Vibrio Cholerae Not Detected (Not Detect.); Yersinia enterocolitica Not Detected (Not Detect.)
[2024-01-13 13:10] LABS: Giardia lamblia Detected (Not Detect.)
--- NOTE | 2024-01-13 14:16 | P.PNIM_ITS ---
Subjective Subjective Date of Service: 01/13/24 Interval History: Admitted for syncope with positive orthostatic blood pressures Feeling better this morning no further bout of diarrhea, denies abdominal pain, no nausea no vomiting, still feel weak and tired, repeat orthostatic blood pressure showed significant drop in BP with standing, no significant change in pulse, stool studies positive for giardia. Review of Systems All other symptoms reviewed and are negative. Physical Exam 2 Vital Signs: Vital Signs: Last Vital Signs Temp 99.4 F 01/13/24 11:51 Pulse 75 01/13/24 11:53 Resp 20 01/13/24 11:51 BP 148/65 H 01/13/24 11:53 Pulse Ox 93 01/13/24 11:51 O2 Del Method Room Air 01/13/24 11:51 BMI result Body Mass Index 37.5 Const: Other: General resting comfortably in no acute distress. Neck supple no JVD. CVS regular rate rhythm, Respiratory lungs clear to auscultation, no respiratory distress, no wheeze, no rhonchi. Gastrointestinal abdomen soft, non tender, bowel sounds audible, no guarding , no rigidity. Extremities no edema. Neuro non focal Skin left knee bruise, old bruises right knee Psych appropriate affect Objective Data Active Medications Acetaminophen (Acetaminophen 325 Mg Tablet) 650 mg PO Q6H PRN PRN Reason: Pain, Mild (Pain Scale 1-3), fever or headache Last Admin: 01/13/24 05:14 Dose: 650 mg Documented By: BLAS Albuterol Sulfate (Albuterol Sulfate 90 Mcg 8 Gm Inhaler) 2 puff INHALE Q6H PRN PRN Reason: wheezing Atorvastatin Calcium (Atorvastatin Calcium 10 Mg Tablet) 10 mg PO DAILY [facility] Last Admin: 01/13/24 08:45 Dose: 10 mg Documented By: SHAI Calcium Carbonate (Calcium Carbonate 750 Mg Tab.Chew) 750 mg PO Q4H PRN PRN Reason: Heartburn Carvedilol (Carvedilol 25 Mg Tablet) 25 mg PO BID@0730,1200 [facility]; Protocol Dicyclomine HCl (Dicyclomine Hcl 10 Mg Capsule) 10 mg PO TIDWM PRN PRN Reason: INDEGESTION Enoxaparin Sodium (Enoxaparin Sodium 40 Mg/0.4 Ml Syringe) 40 mg SUBCUT Q24H [facility] Last Admin: 01/12/24 21:21 Dose: 40 mg Documented By: TERESA Escitalopram Oxalate (Escitalopram Oxalate 20 Mg Tablet) 20 mg PO DAILY [facility] Last Admin: 01/13/24 08:46 Dose: 20 mg Documented By: SHAI Fluticasone Propionate (Fluticasone Propionate Nasal 16 Gm [place]) 2 spray NOSTRIL-B DAILY PRN PRN Reason: allergies Fluticasone/Umeclidinium/Vilanterol (Fluticasone/Umeclidinium/Vilanterol 200/62.5/25 Blst.W.Dev) 1 puff INHALE RDAILY [facility] Last Admin: 01/13/24 09:21 Dose: 1 puff Documented By: ROBERT Glucose (Glucose Gel 15 Gm Gel..Gram.) 15 gm PO Q15M PRN; Protocol PRN Reason: per Hypoglycemia Standing Ord. Dextrose (D10) 250 mls @ 750 mls/hr IV Q15M PRN; Protocol PRN Reason: per Hypoglycemia Standing Ord. Insulin Human Lispro (Insulin Lispro 100 Unit/Ml 3 Ml Vial) 0 unit SUBCUT QIDACHS [facility]; Protocol Last Admin: 01/13/24 13:37 Dose: Not Given Documented By: SHAI Non-Admin Reason: No Insulin Coverage Lorazepam (Lorazepam 0.5 Mg Tablet) 0.5 mg PO DAILY PRN PRN Reason: anxiety Magnesium Hydroxide (Milk Of Magnesia 30 Ml Oral.Susp) 30 ml PO DAILY PRN PRN Reason: Constipation Melatonin (Melatonin 3 Mg Tablet) 6 mg PO BEDTIME PRN PRN Reason: Insomnia Mirabegron (Mirabegron 25 Mg Tab.Er.24h) 25 mg PO DAILY [facility] Last Admin: 01/13/24 08:45 Dose: 25 mg Documented By: SHAI Ondansetron HCl (Ondansetron Hcl 4 Mg/2 Ml Vial) 4 mg IVPUSH Q8H PRN PRN Reason: Nausea and Vomiting Sodium Chloride (0.9 % Sodium Chloride Flush 3 Ml Syringe) 3 ml IVFLUSH QSHIFT [facility] Last Admin: 01/13/24 08:47 Dose: 3 ml Documented By: SHAI Labs 01/13/24 08:20 01/13/24 08:20 Labs: Laboratory Results - last 24 hr 01/12/24 01/12/24 01/13/24 14:27 21:09 06:57 MCV MCH MCHC RDW Plt Count MPV Absolute Nucleated RBC Nucleated RBC % (auto) Anion Gap Estim Creat Clear Calc Estimated GFR POC Glucose 143 H 121 H Random Glucose Calcium Troponin I High Sens 4.4 Stl C. cayetanensis PCR Stool Rotavirus A PCR Stl Adenov F 40/ PCR Stool Astrovirus (PCR) Stool Campylobacter PCR Stool Cryptosporidium PCR Stl Sh Tox Pr E STEC PCR Stool E coli O157 PCR Stl Enterotoxigenic E PCR Stool EPEC (PCR) Stool EAEC (PCR) Stl E. histolytica PCR Stool Giardia Lamblia PCR Stl P. shigelloides PCR Stool Salmonella PCR Stool Sapovirus (PCR) Stl Shigella/EIEC PCR St Y.enterocolitica PCR Stool Vibrio (PCR) Stl Vibrio cholerae PCR Stl Norovirus GI/GII PCR C. difficile Tox B Gene 01/13/24 01/13/24 01/13/24 08:20 09:46 10:57 MCV 95.4 MCH 31.2 MCHC 32.7 RDW 12.1 Plt Count 192 MPV 10.0 Absolute Nucleated RBC 0.000 Nucleated RBC % (auto) 0.0 Anion Gap 11 L Estim Creat Clear Calc 71.4 Estimated GFR > 60 POC Glucose 119 H Random Glucose 128 H Calcium 9.2 Troponin I High Sens Stl C. cayetanensis PCR Not Detected Stool Rotavirus A PCR Not Detected Stl Adenov F 40/41 PCR Not Detected Stool Astrovirus (PCR) Not Detected Stool Campylobacter PCR Not Detected Stool Cryptosporidium PCR Not Detected Stl Sh Tox Pr E STEC PCR Not Detected Stool E coli O157 PCR Not applicable Stl Enterotoxigenic E PCR Not Detected Stool EPEC (PCR) Not Detected Stool EAEC (PCR) Not Detected Stl E. histolytica PCR Not Detected Stool Giardia Lamblia PCR Detected A Stl P. shigelloides PCR Not Detected Stool Salmonella PCR Not Detected Stool Sapovirus (PCR) Not Detected Stl Shigella/EIEC PCR Not Detected St Y.enterocolitica PCR Not Detected Stool Vibrio (PCR) Not Detected Stl Vibrio cholerae PCR Not Detected Stl Norovirus GI/GII PCR Not Detected C. difficile Tox B Gene NEGATIVE Assessment and Plan (1) Orthostatic hypotension: Status: Acute (2) Syncope: Status: Acute Plan 78-year-old female with pertinent history of gastroesophageal reflux disease, asthma COPD overlap syndrome, twr-vbbahkh-cekcjrjnd diabetes mellitus, essential hypertension, mixed hyperlipidemia who presents to the emergency department for evaluation of syncope and fall. #. Orthostatic syncope: Status post IV fluids, repeat orthostatic BP is improved will hold diuretics, recommend to drink fluids . Follow orthostatic BP. #. Fall due to above: CT head without any acute abnormality. Left Knee x-ray showed appropriate alignment of the left total knee arthroplasty without evidence of complications, trace joint effusion. Denies worsening pain. Ambulate and if difficulty in ambulation obtain PT eval #. Diarrhea, acute: Stool studies positive for Giardia will place on Flagyl 250 q.8 hours for total 5-7 days,C diff neg. #. Gastroesophageal reflux disease: Continue PPI #. Ucu-ttlgpzp-qfpjtqtzr diabetes mellitus: On Farxiga 10 mg daily, metformin 500 mg daily and Januvia 100 mg daily, continue sliding scale insulin before meals and at bedtime, and monitor blood sugars. #. Mixed hyperlipidemia: On statin #. Asthma/COPD overlap syndrome: No exacerbation during admission. Continue home inhalers #. Essential hypertension: Resume beta-blockers and low-dose losartan hold diuretics monitor blood pressure DVT prophylaxis: Lovenox Full code Quality Stroke Does the patient have a stroke diagnosis?: No VTE Prior VTE?: No VTE Risk Level:: Medical - moderate - high VTE Device Contraindication: Treatment Not Indicated VTE Drug Contraindication: N/A - Med Ordered
[2024-01-13 16:17] LABS: Glucose, Whole Blood 103 mg/dL (60-115)
[2024-01-13] MEDS: Losartan Potassium 50 MG TABLET PO (17:46)
[2024-01-13] MEDS: metroNIDAZOLE 250 MG TABLET PO (17:46)
[2024-01-13] MEDS: Fluticasone Propionate Nasal 16 GM SPRAY 2 SPRAY NOSTRIL-B (17:49)
[2024-01-13] MEDS: Enoxaparin Sodium 40 MG/0.4 ML SYRINGE SUBCUT (21:10)
[2024-01-13 21:29] LABS: Glucose, Whole Blood 138 mg/dL (60-115)
[2024-01-14] VITALS (13 sets, daily range): BP systolic 101–195; BP diastolic 54–77; PULSE 69–88; RESP 16–20; TEMP 36.3–36.8; O2SAT 96–97
[2024-01-14] MEDS: metroNIDAZOLE 250 MG TABLET PO ×4 (00:15→23:53)
[2024-01-14 07:32] LABS: Glucose, Whole Blood 112 mg/dL (60-115)
[2024-01-14] MEDS: Fluticasone/Umeclidinium/Vilanterol 200/62.5/25 BLST.W.DEV 1 PUFF INHALE (07:48)
[2024-01-14] MEDS: Escitalopram Oxalate 20 MG TABLET PO (09:00)
[2024-01-14] MEDS: Mirabegron 25 MG TAB.ER.24H PO (09:00)
[2024-01-14] MEDS: Atorvastatin Calcium 10 MG TABLET PO (09:00)
[2024-01-14] MEDS: carvediloL 25 MG TABLET PO ×2 (09:01→12:45)
[2024-01-14] MEDS: 0.9 % Sodium Chloride Flush 3 ML SYRINGE IVFLUSH ×2 (09:02→20:58)
[2024-01-14] MEDS: Losartan Potassium 50 MG TABLET PO (10:59)
--- NOTE | 2024-01-14 11:14 | MHC.CM.PN ---
EMR REVIEWED, PER HOSPITALIST PLAN FOR IV FLUIDS AND POSSIBLE DC HOME NO SERVICES LATER TODAY, PT WILL ARRANGE TRANSPORT.
[2024-01-14 11:42] LABS: Glucose, Whole Blood 143 mg/dL (60-115)
[2024-01-14] MEDS: 0.9 % Sodium Chloride 1,000 ML 100 ML IVCONT (12:45)
--- NOTE | 2024-01-14 15:59 | P.PNIM_ITS ---
Subjective Subjective Date of Service: 01/14/24 Interval History: Complaining of lightheadedness with standing, had 1 episode of loose stool, very anxious concern about falling, denies chest pain, no nausea, no vomiting tolerating diet, no fevers, no chills, no other acute issues overnight. Review of Systems All other symptoms reviewed and are negative. Physical Exam 2 Vital Signs: Vital Signs: Last Vital Signs Temp 97.9 F 01/14/24 15:22 Pulse 70 01/14/24 15:22 Resp 20 01/14/24 15:22 BP 110/56 L 01/14/24 15:22 Pulse Ox 96 01/14/24 15:22 O2 Del Method Room Air 01/14/24 15:22 BMI result Body Mass Index 37.5 Const: Other: General resting comfortably in no acute distress. Neck supple no JVD. CVS regular rate rhythm, Respiratory lungs clear to auscultation, no respiratory distress, no wheeze, no rhonchi. Gastrointestinal abdomen soft, non tender, bowel sounds audible, no guarding , no rigidity. Extremities no edema. Neuro non focal Skin left knee bruise, old bruises right knee Psych appropriate affect Objective Data Active Medications Acetaminophen (Acetaminophen 325 Mg Tablet) 650 mg PO Q6H PRN PRN Reason: Pain, Mild (Pain Scale 1-3), fever or headache Last Admin: 01/13/24 05:14 Dose: 650 mg Documented By: BLAS Albuterol Sulfate (Albuterol Sulfate 90 Mcg 8 Gm Inhaler) 2 puff INHALE Q6H PRN PRN Reason: wheezing Atorvastatin Calcium (Atorvastatin Calcium 10 Mg Tablet) 10 mg PO DAILY COUNTS INCLUDE 234 BEDS AT THE [facility] Last Admin: 01/14/24 09:00 Dose: 10 mg Documented By: MACHELLE Calcium Carbonate (Calcium Carbonate 750 Mg Tab.Chew) 750 mg PO Q4H PRN PRN Reason: Heartburn Carvedilol (Carvedilol 25 Mg Tablet) 25 mg PO BID@0730,1200 COUNTS INCLUDE 234 BEDS AT THE [facility]; Protocol Last Admin: 01/14/24 12:45 Dose: 25 mg Documented By: MACHELLE Dicyclomine HCl (Dicyclomine Hcl 10 Mg Capsule) 10 mg PO TIDWM PRN PRN Reason: INDEGESTION Enoxaparin Sodium (Enoxaparin Sodium 40 Mg/0.4 Ml Syringe) 40 mg SUBCUT Q24H COUNTS INCLUDE 234 BEDS AT THE [facility] Last Admin: 01/13/24 21:10 Dose: 40 mg Documented By: LEXIE Escitalopram Oxalate (Escitalopram Oxalate 20 Mg Tablet) 20 mg PO DAILY COUNTS INCLUDE 234 BEDS AT THE [facility] Last Admin: 01/14/24 09:00 Dose: 20 mg Documented By: MACHELLE Fluticasone Propionate (Fluticasone Propionate Nasal 16 Gm [place]) 2 spray NOSTRIL-B DAILY PRN PRN Reason: allergies Last Admin: 01/13/24 17:49 Dose: 2 spray Documented By: SHAI Fluticasone/Umeclidinium/Vilanterol (Fluticasone/Umeclidinium/Vilanterol 200/62.5/25 Blst.W.Dev) 1 puff INHALE RDAILY COUNTS INCLUDE 234 BEDS AT THE [facility] Last Admin: 01/14/24 07:48 Dose: 1 puff Documented By: KEVIN Glucose (Glucose Gel 15 Gm Gel..Gram.) 15 gm PO Q15M PRN; Protocol PRN Reason: per Hypoglycemia Standing Ord. Dextrose (D10) 250 mls @ 750 mls/hr IV Q15M PRN; Protocol PRN Reason: per Hypoglycemia Standing Ord. Sodium Chloride (Ns) 1,000 mls @ 100 mls/hr IVCONT .Q10H COUNTS INCLUDE 234 BEDS AT THE [facility] Last Admin: 01/14/24 12:45 Dose: 100 mls/hr Documented By: MACHELLE Insulin Human Lispro (Insulin Lispro 100 Unit/Ml 3 Ml Vial) 0 unit SUBCUT QIDACHS COUNTS INCLUDE 234 BEDS AT THE [facility]; Protocol Last Admin: 01/14/24 11:57 Dose: Not Given Documented By: MACHELLE Non-Admin Reason: No Insulin Coverage Lorazepam (Lorazepam 0.5 Mg Tablet) 0.5 mg PO DAILY PRN PRN Reason: anxiety Losartan Potassium (Losartan Potassium 50 Mg Tablet) 50 mg PO DAILY COUNTS INCLUDE 234 BEDS AT THE [facility]; Protocol Last Admin: 01/14/24 10:59 Dose: 50 mg Documented By: MACHELLE Magnesium Hydroxide (Milk Of Magnesia 30 Ml Oral.Susp) 30 ml PO DAILY PRN PRN Reason: Constipation Melatonin (Melatonin 3 Mg Tablet) 6 mg PO BEDTIME PRN PRN Reason: Insomnia Metronidazole (Metronidazole 250 Mg Tablet) 250 mg PO Q8H COUNTS INCLUDE 234 BEDS AT THE [facility] Last Admin: 01/14/24 09:00 Dose: 250 mg Documented By: MACHELLE Mirabegron (Mirabegron 25 Mg Tab.Er.24h) 25 mg PO DAILY COUNTS INCLUDE 234 BEDS AT THE [facility] Last Admin: 01/14/24 09:00 Dose: 25 mg Documented By: MACHELLE Ondansetron HCl (Ondansetron Hcl 4 Mg/2 Ml Vial) 4 mg IVPUSH Q8H PRN PRN Reason: Nausea and Vomiting Sodium Chloride (0.9 % Sodium Chloride Flush 3 Ml Syringe) 3 ml IVFLUSH QSHIFT COUNTS INCLUDE 234 BEDS AT THE [facility] Last Admin: 01/14/24 09:02 Dose: 3 ml Documented By: MACHELLE Labs 01/13/24 08:20 01/13/24 08:20 Labs: Laboratory Results - last 24 hr 01/13/24 01/13/24 01/14/24 16:07 21:05 07:25 POC Glucose 103 138 H 112 01/14/24 11:39 POC Glucose 143 H Assessment and Plan (1) Orthostatic hypotension: Status: Acute (2) Syncope: Status: Acute Plan 78-year-old female with pertinent history of gastroesophageal reflux disease, asthma COPD overlap syndrome, fmy-ypufovg-[id number] diabetes mellitus, essential hypertension, mixed hyperlipidemia who presents to the emergency department for evaluation of syncope and fall. #. Orthostatic syncope: Repeat orthostatic blood pressures positive this a.m., gave 1 unit of IV fluids and repeated orthostatic blood pressures that remains positive patient feels weak and not ready for discharge Recommend to drink plenty of fluids, will hold both diuretics, follow orthostatic BP at a.m. Tele monitor showed no arrhythmias, EKG benign, normal electrolytes and CBC #. Fall due to above: CT head without any acute abnormality. Left Knee x-ray showed appropriate alignment of the left total knee arthroplasty without evidence of complications, trace joint effusion. Denies worsening pain. Ambulate at a.m. once orthostatics are stable and if difficulty in ambulation obtain PT eval #. Diarrhea, acute: Stool studies positive for Giardia on Flagyl 250 q.8 hours for total 5-7 days,C diff neg. #. Gastroesophageal reflux disease: Continue PPI #. Kzs-mwbcgok-onovylfau diabetes mellitus: On Farxiga 10 mg daily, metformin 500 mg daily and Januvia 100 mg daily, continue sliding scale insulin before meals and at bedtime, and monitor blood sugars. #. Mixed hyperlipidemia: On statin #. Asthma/COPD overlap syndrome: No exacerbation during admission. Continue home inhalers #. Essential hypertension: Resume beta-blockers and low-dose losartan 50 mg, home dose 100 mg, hold diuretics monitor blood pressure DVT prophylaxis: Lovenox Full code Patient will require inpatient hospitalization to manage orthostatic hypotension with IV fluids and close clinical monitoring. Quality Stroke Does the patient have a stroke diagnosis?: No VTE Prior VTE?: No VTE Risk Level:: Medical - moderate - high VTE Device Contraindication: Treatment Not Indicated VTE Drug Contraindication: N/A - Med Ordered
[2024-01-14 16:15] LABS: Glucose, Whole Blood 138 mg/dL (60-115)
[2024-01-14 20:37] LABS: Glucose, Whole Blood 157 mg/dL (60-115)
[2024-01-14] MEDS: Insulin Lispro 100 UNIT/ML 3 ML VIAL SUBCUT (20:57)
[2024-01-14] MEDS: Enoxaparin Sodium 40 MG/0.4 ML SYRINGE SUBCUT (20:57)
[2024-01-15] VITALS (8 sets, daily range): BP systolic 113–167; BP diastolic 55–74; PULSE 71–84; RESP 16–18; TEMP 36.7–36.8; O2SAT 93–98
[2024-01-15 07:10] LABS: Glucose, Whole Blood 114 mg/dL (60-115)
[2024-01-15 07:53] LABS: Anion Gap 15 (12-20); Blood Urea Nitrogen 11 mg/dL (9-16); Calcium 9.6 mg/dL (8.4-10.2); Carbon Dioxide 24 mmol/L (22-29); Chloride 104 mmol/L (96-108); Creatinine Clr Calc Pharmacy 74.6; Estimated Glomerular Filt Rate > 60; Glucose Random 131 mg/dL (60-115); Potassium 3.8 mmol/L (3.3-5.1); Sodium 139 mmol/L (135-145)
[2024-01-15] MEDS: Fluticasone/Umeclidinium/Vilanterol 200/62.5/25 BLST.W.DEV 1 PUFF INHALE (08:27)
[2024-01-15] MEDS: Escitalopram Oxalate 20 MG TABLET PO (08:53)
[2024-01-15] MEDS: Mirabegron 25 MG TAB.ER.24H PO (08:53)
[2024-01-15] MEDS: Losartan Potassium 50 MG TABLET PO (08:53)
[2024-01-15] MEDS: Atorvastatin Calcium 10 MG TABLET PO (08:53)
[2024-01-15] MEDS: 0.9 % Sodium Chloride Flush 3 ML SYRINGE IVFLUSH (08:54)
[2024-01-15] MEDS: metroNIDAZOLE 250 MG TABLET PO (08:54)
[2024-01-15] MEDS: carvediloL 25 MG TABLET PO ×2 (08:57→11:21)
--- NOTE | 2024-01-15 10:50 | MHC.CM.PN ---
Addendum entered by Negar Marley RN 01/15/24 12:08: [facility] ALSO ORDERED, [facility] UPDATED VIA [employer] Original Note: PT FLIPPED TO INPT YESTERDAY AFTERNOON, IMM 01/15/24 DELIVERED, PER HOSPITALIST ANTIC PT WILL BE MEDICALLY CLEARED FOR DC HOME W/NEW [facility] FOR HOME PT, TO ARRANGE TRANSPORT.
[2024-01-15 10:58] LABS: Glucose, Whole Blood 183 mg/dL (60-115)
--- NOTE | 2024-01-15 11:09 | MHC.IC ---
For Giardia - Follow standard precautions. No contact precautions needed unless patient is incontinent of stool.
[2024-01-15] MEDS: Insulin Lispro 100 UNIT/ML 3 ML VIAL SUBCUT (11:20)
--- NOTE | 2024-01-15 11:34 | P.DS_ITS ---
DS: Providers Provider Date of Service: 01/15/24 Date of admission: 01/14/24 16:17 Date of discharge: 01/15/24 Primary care physician: Ramonita Douglas MD Attending physician on discharge: Washington Young Discharging clinician: Monserrat Carrera DS: Diagnosis Discharge Diagnosis (1) Orthostatic hypotension: Status: Acute (2) Syncope: Status: Acute DS: Summary Hospital Course Hospital Course: From H&P on the day of admission This is a 78-year-old female with pertinent history of gastroesophageal reflux disease, asthma COPD overlap syndrome, n ae-lcaeuon-zncsxxack diabetes mellitus, essential hypertension, mixed hyperlipidemia who presents to the emergency department for evaluation of syncope and fall. Patient was diagnosed with respiratory infection about 8 days prior to presentation at urgent Care. She was prescribed p.o. antibiotics which she has completed since. Patient states her symptoms have improved since antibiotic completion. Two days prior to presentation patient started having loose stools, nonbloody. No abdominal pain, nausea or vomiting. Patient also had an episode when she got dizzy/lightheaded when she stood up and subsequently passed out. Has had 3 such episodes in the last 3 days. On the day of presentation, patient got up from a seated position in the kitchen, got dizzy/lightheaded and passed out falling on the floor hitting her left knee. No fever, chills, chest pain, palpitations, shortness of breath, abdominal pain, changes in urinary habits. No rhythmic jerking movement of extremities. No pa lpitations or chest pain prior to the episodes of passing out. In the emergency department, orthostatic vital signs noted to be positive and patient resuscitated with IV crystalloids. Orthostatic syncope: orthostatic blood pressures positive, likey due to volume depletion from diarrhea and bp meds/diuretics. treated with IV fluid and orthostatic blood pressures on day of discharge were negative, patient able to ambulate without feeling lightheaded. Patient worked with Physical therapy who recommended a walker and discharge home with services PT services. She was able to ambulate 250 feet without assistance and was asymptomatic. Blood pressure remained stable at the end of ambulation - 147/72. Tele monitor showed no arrhythmias, normal electrolytes and CBC. Fall due to above: CT head without any acute abnormality. Left Knee x-ray showed appropriate alignment of the left total knee arthroplasty without evidence of complications, trace joint effusion. Diarrhea, acute: Stool studies positive for Giardia. started on on Flagyl 250 q.8 hours for total 7 days, C diff neg. HTN Losartan decreased to 50 mg, continued on baseline dose of Coreg. Diuretics placed on hold for now. Time Attestation Discharge Coordination Time (in mins): 40 Quality: Safe Use of Opioids Does Pt have an Active Cancer Diagnosis on the Problem List?: No Quality: Stroke Does the patient have a stroke diagnosis?: No Physical Exam Vital Signs: Vital Signs: Last Vital Signs Temp 98.1 F 01/15/24 11:02 Pulse 72 01/15/24 11:02 Resp 18 01/15/24 11:02 BP 113/55 L 01/15/24 11:02 Pulse Ox 93 01/15/24 11:02 O2 Del Method Room Air 01/15/24 11:02 O2 Flow Rate 3 01/15/24 04:00 BMI result Body Mass Index 37.5 Const: General: cooperative, comfortable, no acute distress, alert and awake Nutritional Appearance: obese Orientation/consciousness: patient oriented x3 Resp: Effort & Inspection: normal respiratory effort, able to speak in complete sentences, no respiratory distress and no use of accessory muscles Cardio: Rate: regular rate GI: Inspection: No distended Palpation (GI): Soft to palpation and nontender Neuro: General: patient oriented x3, moves all extremities and CN's II-XI intact bilaterally Extrem: General: Yes no pedal edema DS: Data Data Completed and Pending Labs on day of discharge: Laboratory Results - last 24 hr 01/14/24 01/14/24 01/14/24 11:39 16:05 20:33 Sodium Potassium Chloride Carbon Dioxide Anion Gap BUN Creatinine Estim Creat Clear Calc Estimated GFR POC Glucose 143 H 138 H 157 H Random Glucose Calcium 01/15/24 01/15/24 01/15/24 06:59 07:15 10:50 Sodium 139 Potassium 3.8 Chloride 104 Carbon Dioxide 24 Anion Gap 15 BUN 11 Creatinine 0.67 Estim Creat Clear Calc 74.6 Estimated GFR > 60 POC Glucose 114 183 H Random Glucose 131 H Calcium 9.6 Discharge Plan Discharge Anticipated Discharge Date/Time: 01/15/24 11:41 Patient Disposition: Home Health Service Discharge Diagnosis: diarrhea due to giardia orthostatic hypotension with syncope Referrals: Mindy QUIGLEY [Outside] - 1 Day (HOME PHYSICAL THERAPY AND [facility]) Ramonita Douglas MD [Primary Care Provider] - 1 Week Discharge Medications: New metronidazole 250 mg Tablet 250 mg PO Q8H 5 Days Qty: 15 0RF losartan 50 mg Tablet 50 mg PO DAILY 90 Days Qty: 90 0RF Protocol: Hold for SBP< HOLD for SBP < : 90 (DME) Ultra-Light Rollator Misc See Rx Instructions .Route Qty: 1 0RF Rx Instructions: As directed Continued loratadine 10 mg tablet 10 mg PO DAILY Qty: 90 1RF albuterol sulfate 90 mcg/actuation HFA aerosol inhaler 2 puff inhalation Q6H PRN (Reason: wheezing) Qty: 1 11RF cholecalciferol (vitamin D3) [Vitamin D3] 50 mcg (2,000 unit) capsule 50 mcg PO DAILY Qty: 90 1RF Januvia 100 mg tablet 100 mg PO DAILY Qty: 90 1RF Trelegy Ellipta 200-62.5-25 mcg blister with device 1 inh inhalation DAILY Qty: 60 12RF metformin 500 mg tablet 500 mg PO DAILY Qty: 90 1RF Rx Instructions: take with supper atorvastatin 10 mg tablet 10 mg PO DAILY Qty: 90 1RF fluticasone propionate 50 mcg/actuation spray,suspension 2 spray intranasal DAILY PRN (Reason: allergies) dapagliflozin propanediol [Farxiga] 10 mg tablet 10 mg PO DAILY coQ10 (ubiquinol) 100 mg Capsule 100 mg PO DAILY carvedilol 25 mg tablet 25 mg PO BID@0730,1200 dicyclomine 10 mg capsule 10 mg PO TIDWM PRN (Reason: INDEGESTION) nystatin 100,000 unit/gram powder 100,000 unit topical TID PRN (Reason: Vaginal Irritation) Qty: 60 0RF clotrimazole-betamethasone 1-0.05 % cream 1 appl topical BID PRN (Reason: rash) Qty: 45 1RF lorazepam 0.5 mg tablet 0.5 mg PO DAILY PRN (Reason: anxiety) escitalopram oxalate 20 mg tablet 20 mg PO DAILY Myrbetriq 25 mg tablet extended release 24 hr 25 mg PO DAILY 90 Days Qty: 90 3RF esomeprazole magnesium 40 mg capsule,delayed release(DR/EC) 40 mg PO DAILY@0630 Discontinued losartan 100 mg tablet 100 mg PO DAILY Qty: 90 1RF chlorthalidone 25 mg tablet 25 mg PO DAILY Qty: 90 1RF spironolactone 25 mg tablet 25 mg PO DAILY No Action (DME) blood-glucose meter Kit See Rx Instructions .ROUTE .MEDSUPPLY Qty: 1 0RF Rx Instructions: As directed (DME) OneTouch Ultra Blue Test Strip Strip See Rx Instructions .ROUTE .MEDSUPPLY Qty: 50 8RF Rx Instructions: use one test strip once a day and as needed to test blood sugar (DME) lancets [OneTouch Delica Plus Lancet] 30 gauge misc See Rx Instructions .ROUTE .MEDSUPPLY Qty: 100 6RF Rx Instructions: Use As directed twice a day (DME) OneTouch Ultra Test Strip See Rx Instructions .ROUTE .COMPLEX Qty: 50 6RF Dose Instruction: CHECKS BLOOD SUGAR ONCE A DAY A.C. Rx Instructions: CHECKS BLOOD SUGAR ONCE A DAY A.C. Discharge Orders: Discharge Order (Routine); Ordered 01/15/24 Ordered By: Monserrat Carrera Activity on Discharge: As tolerated Stand Alone Forms: Patient Portal Discharge page Print Language: Kitt[place] Care Plan Goals: See below Health Concerns: Syncope due to orthostatic hypotension Diarrhea due to Giardia Plan of Treatment: Complete course of antibiotics for Giardia Due to orthostatic hypotension dose of losartan has been reduced, chlorthalidone and spironolactone have been placed on hold for now orthostatic blood pressures on day of discharge were negative, but do recommend orthostatic precautions. sit for a minute or two before standing, and then educational administration teacher place for a minute or two before walking. can consider use of Teds stockings as outpatient if symptoms recur. Recommend outpatient follow-up with PCP, call to schedule an appointment home VNA services and PT services upon discharge Assessment: See discharge summary
--- NOTE | 2024-01-15 11:48 | W.MHC.F2F ---
Service Date Service Date: 01/15/24 Encounter Date of encounter: 01/15/24 Reasons for Services Signs and symptoms assessed: needs usp for monitoring of blood pressure;h/o orthostatic hypotension; diarrhea. diuretics on hold Reason for physical therapy: home safety and mobility, therapeutic exercises and gait/transfer training MD Overseeing Care: Ramonita Douglas Homebound: Leaving the home is medically contraindicated at this time without the asist of a device and/or another person due th the listed conditions above and below. Reason homebound: unsteady gait / fall risk Certification: Based on the above findings, I certify that this patient is confined to the home and needs intermittent usp care, physical therapy and/or speech therapy, or continues to need occupational therapy. The patient is under my care, and I have initiated the establishment of the plan of care. The patient will be followed by a physician who will periodically review the plan of care. Time Spent With Patient Time: Total time managing care of this patient today ____ minutes.
== END 2024-01-15 16:01 | disposition home health service (06) | DRG 312 ==
LOC: HO.ED 16:03 → HO.EDOVER 21:03 → HO.IMC 01-13 02:58
PROVIDERS: Hospitalist; Physician Assistant Medical; Admitting Provider Student in an Organized Health Care Education/Training Program; Emergency Provider Emergency Medicine; PCP Internal Medicine; Visit Provider Physician Assistant Medical
DX: I95.1 Orthostatic hypotension (principal); A07.1 Giardiasis [lambliasis]; J44.9 Chronic obstructive pulmonary disease, unspecified; G47.33 Obstructive sleep apnea (adult) (pediatric); I10 Essential (primary) hypertension; E78.2 Mixed hyperlipidemia; E11.9 Type 2 diabetes mellitus without complications; Z20.822 Contact with and (suspected) exposure to COVID-19; Z87.891 Personal history of nicotine dependence; Z79.84 Long term (current) use of oral hypoglycemic drugs; Z79.899 Other long term (current) drug therapy
CPT/HCPCS: 0241U; 36415; 70450; 71045; 73560; 74176; 80048; 80053; 82947; 83690; 83735; 84484; 85025; 85027; 85610; 87493; 87507; 93005; 94640; 97116; 97162; 99222; 99285; J1650

== ENCOUNTER → 2024-01-12 09:23 | Outpatient (BNV) | payer MEDICARE, SELFPAY | PROVIDERS: Emergency Provider Emergency Medicine; PCP Internal Medicine; Visit Provider Internal Medicine Cardiovascular Disease | DX: R55 Syncope and collapse (principal); R94.31 Abnormal electrocardiogram [ECG] [EKG] | CPT/HCPCS: 93010 ==

== ENCOUNTER → 2024-01-12 10:41 | Outpatient (BNV) | payer MEDICARE, SELFPAY | PROVIDERS: Emergency Provider Emergency Medicine; PCP Internal Medicine; Visit Provider Student in an Organized Health Care Education/Training Program | DX: I95.1 Orthostatic hypotension (principal) | CPT/HCPCS: 99222; 99232; 99239; G0180 ==

== ENCOUNTER 2024-02-02 10:02 | Outpatient (AMB) | payer MEDICARE, SELFPAY ==
[2024-02-02 10:30] VITALS: BP 162/78; PULSE 74; O2SAT 96; BMI 38.5
--- NOTE | 2024-02-02 10:30 | A.OFFVIS_ITS ---
Vital Signs 02/02/24 10:30 Height 5 ft 2 in Weight 210 lb 8.663 oz BMI 38.5 BP 162/78 H Blood Pressure Location Lt brachial Position Sitting Pulse 74 Pulse Source Pulse Oximeter Pulse Oximetry (%) 96 Oxygen Delivery Method Room Air Intake Visit Reasons: Asthma/COPD (ED FU [facility]) Allergies oxycodone [Oxycodone] Adverse Reaction (Severe, Verified 02/02/24 10:33) VOMITTING From OxyContin Adverse Reaction (Severe, Uncoded 02/02/24 10:33) VOMITTING HPI HPI Asthma/COPD (ED FU [facility]): Details: Shey is a pleasant 78 year old female, never smoker, with underlying asthma COPD overlap syndrome. At baseline, she is well controlled on Trelegy and albuterol MDI. She is under the care of Dr. Valencia and presents for a hospital follow up. She was treated at a non-[facility] Urgent Care in [place] for pneumonia with doxycycline, azithromycin and prednisone with moderate improvement in symptoms. Unfortunately shortly after completing medications, she developed significant GI symptoms, ultimately diagnosed with Giardia likely related to exposure on recent trip to [place]. During her hospitalization at [facility] 01/12-01/14 she was treated with Flagyl with resolution of GI symptoms. She did not receive any other medications related to prior pneumonia. She continues to report productive cough with green sputum, dyspnea on exertion, chest congestion and wheezing. She denies fevers or chills. She continues to report fatigue however improvements since discharge, receiving home PT twice weekly. [facility] Medical History Cardiac murmur, unspecified Carotid bruit present HTN (hypertension) Frequent falls History of fall Lumbago Mixed stress and urge urinary incontinence Chronic restrictive lung disease Erythema intertrigo Type 2 diabetes mellitus without complication, without long-term current use of insulin Rib pain PONV (postoperative nausea and vomiting) Requires supplemental oxygen Preoperative examination Pulmonary nodules Family history of breast cancer gene mutation in first degree relative Diabetes mellitus with hyperglycemia, without long-term current use of insulin COVID-19 virus infection Asthma-COPD overlap syndrome Menopause Pulmonary nodule Obstructive sleep apnea Irritable bowel syndrome GERD (gastroesophageal reflux disease) Dyslipidemia Surgical History Status post ablation of incompetent vein using laser (~2021) History of shoulder surgery History of total knee replacement History of appendectomy Hx of cholecystectomy Family History Father Stroke Mother HTN (hypertension) Diabetes mellitus Brother Kidney disease Brother Pneumonia Daughter Invasive ductal carcinoma of breast, Onset Age: 53 Social History Household Members: Spouse Housing: House Do you presently have visiting nurse or other home services: No Alcohol intake: never Patient Tobacco Use Status: Former Tobacco user e-Cigarette/Vaping Use: Never Used service: No Current occupational status: retired Cognitive needs: No Hearing needs: No Vision needs: Yes Review of Systems Const Denies chills, Denies excessive sweating, Denies fever(s), Denies headache(s) and Denies night sweats Eyes Denies dry eyes, Denies irritation and Denies itchy eyes ENT Reports Normal hearing present, Denies headache(s), Denies nasal congestion, Denies nasal discharge, Denies post nasal drip and Denies sore throat Card Denies chest pain, Denies chest pain at rest, Denies chest pain with activity, Denies claudication, Denies leg edema, Denies orthopnea and Denies paroxysmal nocturnal dyspnea Resp Denies excessive phlegm production, Denies pain on inspiration, Denies pain with cough and Denies stridor Musc Denies myalgias Neuro Reports Normal hearing present and Denies headache(s) Endo Denies excessive sweating Lloyd/Lymph Denies lymphadenopathy Aller/Immun Denies itchy eyes and Denies seasonal rhinorrhea Physical Exam Vital Signs: Last Vital Signs Pulse 74 02/02/24 10:30 BP 162/78 H 02/02/24 10:30 Pulse Ox 96 02/02/24 10:30 Oxygen Delivery Method Room Air 02/02/24 10:30 BMI result Body Mass Index 38.5 Const General: cooperative, healthy appearing, comfortable, no acute distress, well developed and alert Nutritional Appearance: obese Orientation/consciousness: patient oriented x3 Limitations: no limitations HEENT Head: Yes normal to inspection, Yes normocephalic and Yes atraumatic Ears: hearing grossly normal bilaterally and external ears normal Eyes General: appearance normal, both eyes and all related structures Eyelids: Yes eyelids normal Sclerae: sclerae normal EOM: EOMs intact bilaterally Neck Neck: Yes normal visual inspection and Yes no lymphadenopathy Lymphatic: no lymphadenopathy noted Chest Chest palpation & inspection: normal inspection of the chest Resp Effort & Inspection: normal respiratory effort, able to speak in complete sen tences, no audible wheezes, no cough, no stridor, not tachypneic, no tripod positioning and no use of accessory muscles Auscultation: clear to auscultation bilaterally Cardio Jugular venous distension: no JVD Rate: regular rate Rhythm: regular rhythm Skin Other: warm, dry General skin exam: no rashes or lesions noted Neuro General: patient oriented x3 Cranial nerves: Yes Normal hearing present Cognition (Neuro): normal cognition Gait exam (Neuro): Normal gait present Extrem General: Yes normal to inspection, Yes capillary refill normal, Yes no clubbing, cyanosis or edema and Yes no pedal edema Psych Appearance: grossly normal and well kempt Speech and movement: Normal speech and movement present and Clear speech present Affect: normal affect Attitude: cooperative Thought process: Normal thought process present Thought content: Normal thought content present Insight: Good insight present (Psych) Judgement: Good judgement present (Psych) Assessment & Plan Assessment & Plan (1) Asthma-COPD overlap syndrome: Code(s): J44.9 - Chronic obstructive pulmonary disease, unspecified Category: Medical (2) Chronic restrictive lung disease: Code(s): J98.4 - Other disorders of lung Category: Medical Plan Will treat bronchitic symptoms with Vantin and advised to use probiotic. She is aware to call if symptoms do not improve and will send for sputum culture. If symptoms worsen she will seek emergent care. All questions were answered and patient is in agreement of plan. Will follow up with Dr. Valencia for regularly scheduled appointment or sooner if needed. Medications: New cefpodoxime must administer with a meal/food 200 mg PO BID 14 tabs 0RF Coding Level of Care Code Est Pt Level 4 (37868) Diagnoses Asthma-COPD overlap syndrome J44.9 Chronic restrictive lung disease J98.4
== END 2024-02-02 13:20 | disposition home or self-care (01) ==
PROVIDERS: PCP Internal Medicine; Visit Provider Nurse Practitioner Family
DX: J44.9 Chronic obstructive pulmonary disease, unspecified (principal); J98.4 Other disorders of lung
CPT/HCPCS: 99214

== ENCOUNTER → 2024-02-02 10:02 | Outpatient (BNVA) | payer MEDICARE, SELFPAY | PROVIDERS: PCP Internal Medicine; Visit Provider Nurse Practitioner Family | DX: J44.89 Other specified chronic obstructive pulmonary disease (principal); J98.4 Other disorders of lung; R91.8 Other nonspecific abnormal finding of lung field | CPT/HCPCS: 99212 ==

== ENCOUNTER 2024-02-21 09:43 | Outpatient (REF) | payer MEDICARE, SELFPAY ==
[2024-02-21 10:12] LABS: Estimated Average Glucose 128 mg/dL; Hemoglobin A1C 135.9578 umol/L; Hemoglobin A1c % 6.1 % (<6.0); Total Hemoglobin (HGBA1C) 3175.9765 umol/L
[2024-02-21 10:46] LABS: Alanine Aminotransferase 16 U/L (0-31); Anion Gap 11 (12-20); Aspartate Amino Transferase 24 U/L (5-31); Blood Urea Nitrogen 12 mg/dL (9-16); Calcium 9.4 mg/dL (8.4-10.2); Carbon Dioxide 28 mmol/L (22-29); Chloride 107 mmol/L (96-108); Cholesterol 165 mg/dL (<200); Estimated Glomerular Filt Rate > 60; Glucose Fasting 138 mg/dL (60-99); HDL Cholesterol 49 mg/dL (>40); LDL Cholesterol Calculated 88 mg/dL (<100); Potassium 4.1 mmol/L (3.3-5.1); Sodium 142 mmol/L (135-145); Triglycerides 141 mg/dL (<150)
[2024-02-21 11:02] LABS: Vitamin D 25-OH Total 49.1 ng/mL (>30)
== END 2024-02-21 09:44 | disposition home or self-care (01) ==
LOC: HO.LAB 09:43
PROVIDERS: PCP Internal Medicine; Visit Provider Internal Medicine
DX: I10 Essential (primary) hypertension (principal); N39.46 Mixed incontinence; J98.4 Other disorders of lung; E11.9 Type 2 diabetes mellitus without complications; J44.9 Chronic obstructive pulmonary disease, unspecified; G47.33 Obstructive sleep apnea (adult) (pediatric); K58.9 Irritable bowel syndrome, unspecified; K21.9 Gastro-esophageal reflux disease without esophagitis; E78.5 Hyperlipidemia, unspecified
CPT/HCPCS: 36415; 80048; 80061; 82306; 83036; 84450; 84460

== ENCOUNTER 2024-03-18 09:09 | Outpatient (AMB) | payer MEDICARE, SELFPAY ==
[2024-03-18 10:05] VITALS: BP 102/60; PULSE 76; O2SAT 97; BMI 37.1
--- NOTE | 2024-03-18 10:05 | A.OFFPC_ITS ---
Vital Signs 03/18/24 10:05 Height 5 ft 2 in Weight 203 lb BMI 37.1 BP 102/60 Blood Pressure Location Lt brachial Position Sitting Pulse 76 Pulse Source Pulse Oximeter Pulse Oximetry (%) 97 Oxygen Delivery Method Room Air Comment b/p standing Intake Visit Reasons: Office visit - see comments Intake Note: Pt is here today for her f/u labs, also c/o a dry cough Allergies oxycodone [Oxycodone] Adverse Reaction (Severe, Verified 03/18/24 10:25) VOMITTING From OxyContin Adverse Reaction (Severe, Uncoded 03/18/24 10:25) VOMITTING Medication List - Last Reconciled 03/18/24 by Ramonita Douglas MD albuterol sulfate 90 mcg/actuation 2 puffs inhalation Q6H PRN atorvastatin 10 mg PO DAILY blood sugar diagnostic (BigRepuch Ultra Blue Test Strip) use one test strip once a day and as needed to test blood sugar blood sugar diagnostic (BigBadTouch Ultra Test strips) CHECKS BLOOD SUGAR ONCE A DAY A.C. blood-glucose meter As directed carvedilol 25 mg PO BID@0730,1200 cholecalciferol (vitamin D3) (Vitamin D3) 50 mcg PO DAILY clotrimazole-betamethasone 1-0.05 % 1 appl topical BID PRN coQ10 (ubiquinol) 100 mg PO DAILY dapagliflozin propanediol (Farxiga) 10 mg PO DAILY dicyclomine 10 mg PO TIDWM PRN escitalopram oxalate 20 mg PO DAILY esomeprazole magnesium 40 mg PO DAILY@0630 fluticasone propionate 50 mcg/actuation 2 sprays intranasal DAILY PRN lancets (BigBadTouch Delica Plus Lancet) Use As directed twice a day loratadine 10 mg PO DAILY lorazepam 0.5 mg PO DAILY PRN losartan 50 mg See Protocol PO DAILY 90 days metformin 500 mg PO DAILY mirabegron ER (Myrbetriq) 25 mg PO DAILY 90 days nystatin 100,000 units topical TID PRN sitagliptin phosphate (Januvia) 100 mg PO DAILY Trelegy Ellipta 200-62.5-25 mcg (adrmtjtmnyw-bygryphjs-rzulmbji) 1 inh inhalation DAILY NS walker (Ultra-Light Rollator mis) As directed Tobacco use date assessed: 03/18/24 Fall risk assessment: 2 + Falls in past year Last assessed Fall Risk: 03/18/24 Dental Screening Dental Screen Date: 03/18/24 Did you have a dental visit in the last 12 months?: No Did you have a dental problem in the last 6 months where you did not have access to dental care?: No Was dental information given to patient?: No HPI Office visit - see comments HPI Details 78-year-old lady here today for follow-u p on her dyslipidemia and diabetes mellitus. Currently taking atorvastatin 10 mg daily for lipids and takes Farxiga 10 mg once a day in the morning, metformin 500 mg daily and sitagliptin 100 mg daily for her diabetes. Latest fasting labs showed hemoglobin A1c at 6.1% and fasting lipids are within normal limits. Has been tolerating her medication well with no complaints at present time. [facility] Medical History Cardiac murmur, unspecified Carotid bruit present HTN (hypertension) Frequent falls History of fall Lumbago Mixed stress and urge urinary incontinence Chronic restrictive lung disease Erythema intertrigo Type 2 diabetes mellitus without complication, without long-term current use of insulin Rib pain PONV (postoperative nausea and vomiting) Requires supplemental oxygen Preoperative examination Pulmonary nodules Family history of breast cancer gene mutation in first degree relative Diabetes mellitus with hyperglycemia, without long-term current use of insulin COVID-19 virus infection Asthma-COPD overlap syndrome Menopause Pulmonary nodule Obstructive sleep apnea Irritable bowel syndrome GERD (gastroesophageal reflux disease) Dyslipidemia Surgical History Status post ablation of incompetent vein using laser (~2021) History of shoulder surgery History of total knee replacement History of appendectomy Hx of cholecystectomy Family History Father Stroke Mother HTN (hypertension) Diabetes mellitus Brother Kidney disease Brother Pneumonia Daughter Invasive ductal carcinoma of breast, Onset Age: 53 Social History Household Members: Spouse Housing: House Do you presently have visiting nurse or other home services: No Alcohol intake: never Patient Tobacco Use Status: Former Tobacco user e-Cigarette/Vaping Use: Never Used service: No Current occupational status: retired Cognitive needs: No Hearing needs: No Vision needs: Yes Questionnaire PHQ-9 Over the last 2 weeks, how often have you been bothered by any of the following problems? 1. Little interest or pleasure in doing things: not at all 2. Feeling down, depressed, or hopeless: not at all 3. Trouble falling or staying asleep, or sleeping too much: not at all 4. Feeling tired or having little energy: not at all 5. Poor appetite or overeating: not at all 6. Feeling bad about yourself - or that you are a failure or have let yourself or your family down: not at all 7. Trouble concentrating on things, such as reading the newspaper or watching television: not at all 8. Moving or speaking so slowly that other people could have noticed. Or the opposite - being so fidgety or restless that you have been moving around a lot more than usual: not at all 9. Thoughts that you would be better off or of hurting yourself in some way: not at all Total score: 0 Depression Screening Interpretation: Negative Depression Screening Done: Yes 73761 - PHQ-9 Billing: Yes Source: Developed by Drs. Low Retana, Janine Amador, Pj Mckeon and colleagues, with an educational nicole from [employer]. Thrive Questionnaire Date Thrive assessed: 03/18/24 I am a: Patient What is your living situation today?: I have a steady place to live Within the past 12 months, did the food you bought not last and you didn't have the money to get more?: Never true Within the past 12 months, did you worry whether your food would run out before you got money to buy more?: Never true Do you have trouble paying for medicines?: No Do you have trouble getting transportation to medical appointments?: No Do you have trouble paying your heating and electricity bill?: No Do you have trouble taking care of your child, family member or friend?: No Do you have trouble with day-to-day activities such as bathing, preparing meals, shopping, managing finances, etc.?: No Are you currently unemployed and looking for a job?: No Are you interested in more education?: No Currently or been in a relationship where the following occur: No concerns reported THRIVE Score: 0 AUDIT C Alcohol Use Questionnaire (AUDIT-C) 1. How often do you have a drink containing alcohol?: Never Total Score: 0 JAZMYN-7 AMB Questionnaire JAZMYN-7 Date JAZMYN - 7 assessed: 03/18/24 Feeling nervous, anxious, or on edge: 0 = Not at all Not being able to stop or control worryin = Not at all Worrying too much about different things: 0 = Not at all Trouble relaxin = Not at all Being so restless that it is hard to sit still: 0 = Not at all Becoming easily annoyed or irritable: 0 = Not at all Feeling afraid as if something awful might happen: 0 = Not at all Total JAZMYN-7 score (0-4 normal; 5-9 mild; 10-14 moderate; 15-21 severe): 0 Source: Developed by Drs. Low Retana, Janine Amador, Pj Mckeon and colleagues, with an educational nicole from [employer]. JAZMYN-7 Assessment Billing JAZMYN-7 Assessment Tool: JAZMYN-7 Assessment 59019 Review of Systems Const Reports no additional complaints Eyes Details: Goes to Dr. Benito for her routine eye exam and diabetes retinopathy screening Denies change in vision ENT Reports Normal hearing present and Reports nasal congestion Card Denies chest pain, Denies dyspnea and Denies dyspnea on exertion Resp Denies dyspnea, Denies dyspnea on exertion and Denies wheezing GI Denies abdominal pain Reports no additional complaints Musc Denies no additional complaints Skin/Breast Denies breast pain, Denies breast mass, Denies lesions and Denies rash Neuro Reports no additional complaints and Reports Normal hearing present Psych Denies no additional complaints Endo Reports no additional complaints Lloyd/Lymph Denies easy bleeding and Denies lymphadenopathy Aller/Immun Denies wheezing Physical exam (Primary Care) Vital Signs: Last Vital Signs Pulse 76 03/18/24 10:05 BP 102/60 03/18/24 10:05 Pulse Ox 97 03/18/24 10:05 Oxygen Delivery Method Room Air 03/18/24 10:05 BMI result Body Mass Index 37.1 Tobacco/Smoking Status: Tobacco use Status Tobacco use date assessed 03/18/24 03/18/24 10:16 Patient Tobacco Use Status Former Tobacco user 03/18/24 10:06 e-Cigarette/Vaping Use Never Used 03/18/24 10:06 PHQ-9: PHQ-9 Score PHQ-9: Total score 0 03/18/24 10:24 Depression Screening Interpretation: Negative Thrive Assessment: Date of Thrive Assessment Date Thrive assessed 03/18/24 03/18/24 10:06 Currently or been in a relationship where the following occur: No concerns reported Const General: comfortable, no acute distress and alert Orientation/consciousness: patient oriented x3 HENMT Mouth: Normal oral and palatal mucosa present and moist mucous membranes Eyes General: appearance normal, both eyes and all related structures Neck Neck: Yes full ROM, Yes no lymphadenopathy and Yes supple Thyroid: Thyroid normal Resp Effort & Inspection: normal respiratory effort and able to speak in complete sentences Cardio Rate: regular rate Rhythm: regular rhythm Heart sounds: S1 normal heart sound present, S2 normal heart sound present and Murmur heart sound present systolic GI Inspection: Yes obesity Palpation (GI): Soft to palpation, nontender, no guarding and no masses Auscultation: normal bowel sounds General: Yes no CVA tenderness Back/Spine/Pelvis Back: no CVA tenderness and No back tenderness Skin General skin exam: no rashes or lesions noted Neuro General: patient oriented x3, gait normal, tone normal, moves all extremities, Normal light touch and pain sensation and no focal motor deficits Cranial nerves: Yes Normal hearing present Cognition (Neuro): normal cognition Extrem General: Yes no joint enlargement and Yes no clubbing, cyanosis or edema Psych Appearance: grossly normal and well kempt Mental Status: mental status grossly normal Speech and movement: Normal speech and movement present Affect: normal affect Attitude: cooperative Thought process: Normal thought process present Results Reviewed Results Reviewed: Laboratory Tests 02/21/24 09:59 Estimat Average Glucose 128 Hemoglobin A1c % 6.1 H Name: Shey Ingram Age/Sex: 78/F : 1945 Unit#: [id number] Attend Dr: Ramonita Douglas MD Re02/21/24 Status: DEP REF Location: [facility] Disch: SPEC : [id number] LISA: 02/21/24 STATUS: COMP REQ : [id number] RECD: 02/21/[address]: Ramonita Douglas MD COMP: 02/21/24 ENTERED: 02/21/24-[address] [facility] [address]: ORDERED: Met Prof Fast, AST, ALT, Lipid Panel, Vitamin D 25-OH Test Result Flag Reference Sodium 142 135-145 mmol/L Potassium 4.1 3.3-5.1 mmol/L CL 107 96-108 mmol/L CO2 28 22-29 mmol/L Gap 11 L 12-20 BUN 12 9-16 mg/dL Creat 0.77 0.5-1.4 mg/dL eGFR > 60 Chronic Kidney Disease: Estimated GFR < 60 mL/min/1.73m2 Severe Kidney Disease: Estimated GFR < 15 mL/min/1.73m2 FBS 138 H 60-99 mg/dL A fasting glucose of 126 mg/dl or greater on more than one occasion is considered diagnostic of diabetes. CA 9.4 8.4-10.2 mg/dL AST (GOT) 24 5-31 U/L ALT (GPT) 16 0-31 U/L Triglyceride 141 <150 mg/dL Desirable Triglyceride: less than 150 mg/dL Borderline High Triglyceride 150-199 mg/dL High Triglyceride: 200-499 mg/dL Very High Triglyceride: greater than or equal to 5OO mg/dL Cholesterol 165 <200 mg/dL Desirable Cholesterol: less than 200 mg/dL Borderline High Cholesterol: 200-239 mg/dL High Cholesterol: greater than 239 mg/dL LDL Calculated 88 <100 mg/dL Desirable LDL: less than 100 mg/dL Near Optimal/Above Optimal LDL: 110-129 mg/dL Borderline High LDL: 130-159 mg/dL High LDL: 160-189 mg/dL Very High LDL: greater than or equal to 190 mg/dL HDL 49 >40 mg/dL Desirable HDL: greater than 40 mg/dL Note: This HDL assay may give artificially low results in patients with liver disease. Vit D 25-OH Tot 49.1 >30 ng/mL Health Based Reference Values* < 20 ng/mL Deficient 20-30 ng/mL Insufficient > 30 ng/mL Sufficient *Hilary JAIME. N Engl J Med. 2007;[id number] Name: Shey Ingram Age/Sex: 78/F : 1945 Unit#: [id number] Attend Dr: Monserrat Carrera Re01/14/24 Status: DIS IN Location: [facility] 474-1 Disch: 01/15/24 SPEC : [id number] LISA: 01/13/24 STATUS: COMP REQ : [id number] RECD: 01/13/[address] [facility] DR: Ismael Houser MD COMP: 01/13/24 ENTERED: 01/13/[address]: Ramonita Douglas MD ORDERED: CBC No Diff COMMENTS: Unable to obtain hard stick KALHOTP Test Result Flag Reference WBC 9.7 4.8-10.8 X10*3/uL RBC 3.94 L 4.20-5.50 X10*6/uL HGB 12.3 12.0-16.0 g/dl HCT 37.6 37.0-47.0 % MCV 95.4 80.0-98.0 fL MCH 31.2 27.0-33.0 pg MCHC 32.7 31.0-35.0 g/dl RDW 12.1 11.0-16.0 % PLT 192 160-400 X10*3/uL MPV 10.0 9.4-12.3 fL NRBC Pct Auto 0.0 0.0-0.2 /100WBC NRBC Abs Auto 0.000 0.0-0.012 X10*3/uL Coding Level of Care Code Est Pt Level 4 (43399) Complex EM visit Add On G2211 Diagnoses Dyslipidemia E78.5 Type 2 diabetes mellitus without complication, without long-term current use of insulin E11.9 Additional Codes PHQ-9 - 63374 - PHQ-9 Billing: Yes ([id number]) JAZMYN-7 Assessment Billing - JAZMYN-7 Assessment Tool: JAZMYN-7 Assessment 92798 ([id number]) Assessment & Plan Assessment & Plan (1) Dyslipidemia: Code(s): E78.5 - Hyperlipidemia, unspecified Category: Medical Plan: Fasting lipids within normal limits, continue with the atorvastatin taken together with Co Q10, repeat fasting lipids again in 06/2024 (2) Type 2 diabetes mellitus without complication, without long-term current use of insulin: Code(s): E11.9 - Type 2 diabetes mellitus without complications Category: Medical Plan: Recent lab results reviewed with patient, with sugar and hemoglobin A1c stable and at goal. Continued on metformin, and Farxiga as well as sitagliptin. continue to check fasting blood sugar at home, maintain log and bring to next appointment for review. Reinforced diabetic diet and regular exercise with patient. Counseled regarding importance of yearly diabetes retinopathy screening. Patient advised to inspect feet daily, for any signs of injury, callus or infection. Compliance with diet and regular exercise again stressed. Blood pressure goal is less than 130/80, goal LDL is less than 100 and goal hemoglobin A1c is less than 7% follow-up appointment made in--3-months, after fasting labs done. Orders: Orders Hemoglobin A1c 06/01/24 E11.9 - Type 2 diabetes mellitus without complications, E78.5 - Hyperlipidemia, unspecified, Z78.0 - Asymptomatic menopausal state Lipid Panel 06/01/24 E11.9 - Type 2 diabetes mellitus without complications, E78.5 - Hyperlipidemia, unspecified, Z78.0 - Asymptomatic menopausal state Microalbumin, Random (w Creat) 06/01/24 E11.9 - Type 2 diabetes mellitus without complications, E78.5 - Hyperlipidemia, unspecified, Z78.0 - Asymptomatic menopausal state Basic Metabolic Panel Fasting 06/01/24 E11.9 - Type 2 diabetes mellitus without complications, E78.5 - Hyperlipidemia, unspecified, Z78.0 - Asymptomatic menopausal state Aspartate Amino Transferase 06/01/24 E11.9 - Type 2 diabetes mellitus without complications, E78.5 - Hyperlipidemia, unspecified, Z78.0 - Asymptomatic menopausal state Alanine Aminotransferase 06/01/24 E11.9 - Type 2 diabetes mellitus without complications, E78.5 - Hyperlipidemia, unspecified, Z78.0 - Asymptomatic menopausal state Vitamin D 25-OH Total 06/01/24 E11.9 - Type 2 diabetes mellitus without complications, E78.5 - Hyperlipidemia, unspecified, Z78.0 - Asymptomatic menopausal state
== END 2024-03-18 10:43 | disposition home or self-care (01) ==
PROVIDERS: PCP Internal Medicine; Visit Provider Internal Medicine
DX: E78.5 Hyperlipidemia, unspecified (principal); E11.9 Type 2 diabetes mellitus without complications

== ENCOUNTER → 2024-03-18 09:09 | Outpatient (BNVA) | payer MEDICARE, SELFPAY | PROVIDERS: PCP Internal Medicine; Visit Provider Internal Medicine | DX: E78.5 Hyperlipidemia, unspecified (principal); E11.9 Type 2 diabetes mellitus without complications; Z78.0 Asymptomatic menopausal state; Z79.899 Other long term (current) drug therapy | CPT/HCPCS: 96127; 99212 ==

== ENCOUNTER 2024-03-30 12:23 | Outpatient (AMB) | payer MEDICARE, SELFPAY ==
--- NOTE | 2024-03-30 12:54 | MHC.OFFVIS ---
Intake Visit Reasons: 6m/PVR Intake Note: Patient is Present for Follow Up Urology Medication: Myrbetriq Antibiotic Allergies: None Blood Thinners: None Last PVR:0ml Todays PVR: 0ml [employer] Worker Required: No Accompanied by: Self / Same As Patient Allergies oxycodone [Oxycodone] Adverse Reaction (Severe, Verified 03/30/24 14:36) VOMITTING From OxyContin Adverse Reaction (Severe, Uncoded 03/30/24 14:36) VOMITTING Medication List - Last Reconciled 03/30/24 by RACHAEL Luong albuterol sulfate 90 mcg/actuation 2 puffs inhalation Q6H PRN atorvastatin 10 mg PO DAILY blood sugar diagnostic (AVST Ultra Blue Test Strip) use one test strip once a day and as needed to test blood sugar blood sugar diagnostic ([employer] Ultra Test strips) CHECKS BLOOD SUGAR ONCE A DAY A.C. blood-glucose meter As directed carvedilol 25 mg PO BID@0730,1200 cholecalciferol (vitamin D3) (Vitamin D3) 50 mcg PO DAILY clotrimazole-betamethasone 1-0.05 % 1 appl topical BID PRN coQ10 (ubiquinol) 100 mg PO DAILY dapagliflozin propanediol (Farxiga) 10 mg PO DAILY dicyclomine 10 mg PO TIDWM PRN escitalopram oxalate 20 mg PO DAILY esomeprazole magnesium 40 mg PO DAILY@0630 fluticasone propionate 50 mcg/actuation 2 sprays intranasal DAILY PRN lancets ([employer] Delica Plus Lancet) Use As directed twice a day loratadine 10 mg PO DAILY lorazepam 0.5 mg PO DAILY PRN losartan 50 mg See Protocol PO DAILY 90 days metformin 500 mg PO DAILY mirabegron ER (Myrbetriq) 25 mg PO DAILY 90 days nystatin 100,000 units topical TID PRN sitagliptin phosphate (Januvia) 100 mg PO DAILY Trelegy Ellipta 200-62.5-25 mcg (pyenhyapekk-ueukrxasl-uixohumf) 1 inh inhalation DAILY NS walker (Ultra-Light Rollator misc) As directed HPI Comments Details: Shey is a very pleasant 78-year-old female patient of Dr. Douglas. She has a past medical history of chronic restrictive lung disease, diabetes, pulmonary nodules, obstructive sleep apnea, irritable bowel syndrome, GERD, and dyslipidemia. She presents to the office today for a follow up of her urinary incontinence. In discussion with the patient today she discusses since her last office visit here approximately 6 months ago she was hospitalized for pneumonia as well as recurrent falls. She discusses following up with Dr. Moreira with [facility] cardiology due to ongoing issues with hypo and hypertension. She denies having had any bothersome urinary issues or concerns. She discusses how helpful in life changing she feels Kiara has been. She discusses feeling she no longer needs to bathroom plan as lower urinary tract symptoms are significantly improved. She discusses shortly after her travel to [place] with her family is when she was diagnosed with pneumonia. She also discusses her right lower leg laceration she experienced while in [place] prior to the holidays. Previous workup has included a retroperitoneal ultrasound 12/23 noting bilateral kidneys with no hydronephrosis or calculi noted. Partially distended, limiting evaluation. Right ureteral jet is demonstrated; left is not. Prevoid bladder volume is 230 mLs. Postvoid bladder volume is 10.5 mL. She has a previous history of 7 vaginal births. When asked she denies hematuria, dysuria, foul smelling urine, changes to urinary stream, flank pain, fever, and or chills. In office urinalysis results reviewed with the patient today. PVR 0 mL. She otherwise offers no issues or concerns at this time. [facility] Medical History Cardiac murmur, unspecified Carotid bruit present HTN (hypertension) Frequent falls History of fall Lumbago Mixed stress and urge urinary incontinence Chronic restrictive lung disease Erythema intertrigo Type 2 diabetes mellitus without complication, without long-term current use of insulin Rib pain PONV (postoperative nausea and vomiting) Requires supplemental oxygen Preoperative examination Pulmonary nodules Family history of breast cancer gene mutation in first degree relative Diabetes mellitus with hyperglycemia, without long-term current use of insulin COVID-19 virus infection Asthma-COPD overlap syndrome Menopause Pulmonary nodule Obstructive sleep apnea Irritable bowel syndrome GERD (gastroesophageal reflux disease) Dyslipidemia Surgical History Status post ablation of incompetent vein using laser (~2021) History of shoulder surgery History of total knee replacement History of appendectomy Hx of cholecystectomy Family History Father Stroke Mother HTN (hypertension) Diabetes mellitus Brother Kidney disease Brother Pneumonia Daughter Invasive ductal carcinoma of breast, Onset Age: 53 Social History Household Members: Spouse Housing: House Do you presently have visiting nurse or other home services: No Alcohol intake: never Patient Tobacco Use Status: Former Tobacco user e-Cigarette/Vaping Use: Never Used service: No Current occupational status: retired Cognitive needs: No Hearing needs: No Vision needs: Yes Review of Systems Const Reports no additional complaints Eyes Reports no additional complaints ENT Reports no additional complaints Card Reports as per HPI Resp Reports as per HPI GI Reports as per HPI Reports no additional complaints Musc Reports as per HPI Neuro Reports no additional complaints Psych Reports no additional complaints Endo Reports as per HPI Lloyd/Lymph Reports no additional complaints Aller/Immun Reports no additional complaints Physical Exam Const General: cooperative, healthy appearing, comfortable, no acute distress, well developed, alert and awake Nutritional Appearance: overweight Orientation/consciousness: patient oriented x3 Limitations: no limitations HEENT Head: Yes normal to inspection, Yes normocephalic and Yes atraumatic Ears: hearing grossly normal bilaterally Eyes General: appearance normal, both eyes and all related structures Neck Neck: Yes normal visual inspection and Yes trachea midline Chest Chest palpation & inspection: normal inspection of the chest Resp Effort & Inspection: normal respiratory effort and able to speak in complete sentences Cardio Rate: regular rate GI Inspection: Yes normal to inspection General: Yes no CVA tenderness Back/Spine/Pelvis Back: no CVA tenderness Skin General skin exam: no rashes or lesions noted Neuro General: patient oriented x3 Extrem General: Yes normal to inspection Psych Appearance: grossly normal and well kempt Mental Status: mental status grossly normal Speech and movement: Normal speech and movement present and Clear speech present Affect: normal affect Attitude: cooperative Thought process: Normal thought process present Thought content: Normal thought content present Insight: Fair insight present (Psych) Judgement: Fair judgement present (Psych) Office Procedures Post Void Residual Post Residual Void Post Void Residual (PVR): 0 [address]22-[place] Void Residual by ultrasound Results AMB Urinalysis, Automated UA Leukoctes 0 Annika/uL Last Edit by ROBIN Resendiz on 03/30/24 13:08 UA Nitrite Negative Last Edit by Lakshmi Higgins, RMA on 03/30/24 13:08 UA Urobilinogen 0.2 mg/dL Last Edit by Lakshmi Higgins, RMA on 03/30/24 13:08 UA Protein 0 mg/dL Last Edit by Lakshmi Higgins, RMA on 03/30/24 13:08 UA pH 6.5 Last Edit by Lakshmi Higgins, RMA on 03/30/24 13:08 UA Blood 0 Joe/uL Last Edit by Lakshmi Higgins, RMA on 03/30/24 13:08 UA Specific [place] 1.010 Last Edit by Lakshmi Higgins, RMA on 03/30/24 13:08 UA Ketone Negative Last Edit by Lakshmi Higgins, RMA on 03/30/24 13:08 UA Bilirubin 0 mg/dL Last Edit by Lakshmi Higgins, RMA on 03/30/24 13:08 UA Glucose 0 mg/dL Last Edit by Lakshmi Higgins, RMA on 03/30/24 13:08 Results Reviewed Results Reviewed: Laboratory Last Values Urine pH (Auto) 6.5 03/30/24 13:07 Specific [place] (Auto) 1.010 03/30/24 13:07 Urine Protein (Auto) 0 mg/dL 03/30/24 13:07 Glucose (UA)(Auto) 0 mg/dL 03/30/24 13:07 Urine Ketones (Auto) Negative 03/30/24 13:07 Urine Blood (Auto) 0 Joe/uL 03/30/24 13:07 Urine Nitrite (Auto) Negative 03/30/24 13:07 Urine Bilirubin (Auto) 0 mg/dL 03/30/24 13:07 Urine Urobilinogen (Auto) 0.2 mg/dL 03/30/24 13:07 Leukocyte Esterase (Auto) 0 Annika/uL 03/30/24 13:07 Assessment & Plan Assessment & Plan (1) Mixed stress and urge urinary incontinence: Code(s): N39.46 - Mixed incontinence Category: Medical Plan In office urinalysis results reviewed with the patient today; as noted above. PVR 0 mL. Patient currently denies any bothersome urinary issues or concerns. She reports be happy with current voiding parameters on 25 mg of Myrbetriq; will continue; refill provided. Discussed bladder triggers/irritants. Continue follow-up with pulmonology and cardiology as planned Discussed, educated, and stressed the importance of managing diabetes for improvement lower urinary tract symptoms as well as for overall health and wellbeing. Follow-up in 6 months with PVR; or sooner with any issues, concerns, and or questions. Orders: Orders AMB Urinalysis Automated Today Z13.9 - Encounter for screening, unspecified AMB Post Void Residual by ultrasound Today N39.46 - Mixed incontinence Medications: Refilled mirabegron ER (Myrbetriq) 25 mg PO DAILY 90 days 90 tabs 3RF N39.41 - Urge incontinence Patient Instructions: The patient had an opportunity to ask questions regarding the treatment plan. All questions were answered. Physical exam, labs, and imaging were discussed and reviewed in detail. As well as risks, benefits, and discussion of treatment choices. No major barriers to understanding were identified. The patient expressed understanding and agreement with the above treatment plan. The patient was made aware they should contact our office by phone for worsening of their current condition, the appearance of new symptoms, or with any questions or concerns. Compliance is encouraged with any medications and follow up testing that is ordered. It is a privilege to be allowed the opportunity to participate in? your urological care.? Again, if you have any questions or concerns If you have any questions or concerns please do not hesitate to contact me. The office is [phone]. This note is constructed using voice recognition software. While every effort has been made to ensure accuracy security control room officer errors may have been included. Yours sincerely, MIKE Luong Coding Level of Care Code Est Pt Level 3 (49989) Diagnoses Mixed stress and urge urinary incontinence N39.46 CPT Codes Post Residual Void - PVR CPT Code: 37696-Puqm Void Residual by ultrasound ([id number])
== END 2024-03-30 13:34 | disposition home or self-care (01) ==
PROVIDERS: PCP Internal Medicine; Visit Provider Nurse Practitioner Family
DX: N39.46 Mixed incontinence (principal); Z13.9 Encounter for screening, unspecified
CPT/HCPCS: 99213

== ENCOUNTER → 2024-03-30 12:23 | Outpatient (BNVA) | payer MEDICARE, SELFPAY | PROVIDERS: PCP Internal Medicine; Visit Provider Nurse Practitioner Family | DX: N39.46 Mixed incontinence (principal) | CPT/HCPCS: 51798; 81003; 99212 ==

== ENCOUNTER 2024-05-10 12:42 | Outpatient (REF) | payer MEDICARE, SELFPAY ==
--- NOTE | ~2024-05-10 | CT_ITS ---
CLINICAL HISTORY: R91.1 - Solitary pulmonary nodule CT chest without contrast Comparison: CT/NV/SR - CT CHEST WO IV CON - 05/27/23 12:45 EDT Findings: The heart is normal size. Calcification of the coronary vasculature. The visualized thyroid and mediastinum are unremarkable. No evidence of pneumonia or edema. No change in bilateral pulmonary nodules. For example, no change in the 4 mm nodule within the right upper lobe anteriorly (image 76). No new pulmonary nodules. The upper abdomen is unremarkable. The bones are intact. IMPRESSION: 1. Coronary artery disease. 2. Stable bilateral pulmonary nodules. This document has been electronically signed by: Mk Paris MD on 05/11/2024 13:58:20
== END 2024-05-10 12:43 | disposition home or self-care (01) ==
LOC: HO.CT 12:42
PROVIDERS: PCP Internal Medicine; Visit Provider Hospitalist
DX: R91.1 Solitary pulmonary nodule (principal)
CPT/HCPCS: 71250

== ENCOUNTER → 2024-05-10 12:44 | Outpatient (BNV) | payer MEDICARE, SELFPAY | PROVIDERS: PCP Internal Medicine; Visit Provider Radiology Diagnostic Radiology | DX: R91.1 Solitary pulmonary nodule (principal); I25.10 Atherosclerotic heart disease of native coronary artery without angina pectoris | CPT/HCPCS: 71250 ==

== ENCOUNTER 2024-06-08 09:40 | Outpatient (AMB) | payer MEDICARE, SELFPAY ==
[2024-06-08 10:13] VITALS: BP 148/60; PULSE 61; O2SAT 95; BMI 37.9
--- NOTE | 2024-06-08 10:13 | A.OFFVIS_ITS ---
Vital Signs 06/08/24 10:13 Height 5 ft 2 in Weight 207 lb 3.752 oz BMI 37.9 BP 148/60 H Blood Pressure Location Lt brachial Position Sitting Pulse 61 Pulse Source Pulse Oximeter Pulse Oximetry (%) 95 Oxygen Delivery Method Room Air Intake Visit Reasons: Asthma/COPD Allergies oxycodone [Oxycodone] Adverse Reaction (Severe, Verified 06/08/24 10:16) VOMITTING From OxyContin Adverse Reaction (Severe, Uncoded 06/08/24 10:16) VOMITTING HPI Comments Details: The patient is a 79year-old woman with a known history of COPD and pulmonary nodules. To note she did have a recent CT scan of the chest on November 20 2018 at [facility]. It appeared that her pulmonary nodules are stable measuring between 2 and 3 mm in size. The patient has been complaining of worsening cough productive in nature. Moderate in severity. She did get Zpak from her primary care. However, she is no better. Has had some subjective fevers and chills. Also has been complaining of worsening shortness of breath. She is concerned about her CT scan of the chest. We did look at her CT scan that she had at [facility] in November 2018 from October 2019 it appears that the left lower lobe nodular density is her largest nodule measuring about 7 mm in size. Is about the same size. The actual nodule her ever looks a little more dense. This may be techniques and we using different CT scans. However, further follow-up is warranted. 02/07/2020 the patient has a telephone visit. She states that she was in her usual state health until about 2 3 days ago when she started developing significant sinus discomfort. She is also having significant nasal congestion and has a upper respiratory illness. She denies any fevers or any sore throat. She is having a cough. Intermittent and mild to moderate. Denies any significant wheezing. Denies any exposure to anybody with COVID-19 infection. The patient will be treated for sinusitis at this time. If however her symptoms do not improved she patient needs to be tested for COVID-19. In the meantime we did talk about her CT scan demonstrating stable pulmonary nodules. She should have a repeat CT scan sometime in October of 2020. 12/01/2020 the patient is here for a pulmonary follow-up visit. She is complaining of worsening dyspnea on exertion [id number] severity. She has been using her rescue inhaler more often. Will start the patient on Anoro this time. In the meantime she also underwent a CT scan of the chest that was personally viewed by me in the office. It appears that she has stable pulmonary nodules, although, she has a new nodular density intermediate size in the right lower lobe. Will plan to follow this nodular density little closer. 06/06/2021 the patient is here for a pulmonary follow-up visit. She is complaining of increasing chest tightness and shortness of breath along with increasing wheezing. Moderate severity. She has been using all her respiratory medications including Symbicort and a rescue inhaler on a daily basis. The patient did have a CT scan of the chest that was personally by me demonstrating stable pulmonary nodules which is reassuring. Although, she did have evidence of mosaic pattern in her trapping. Explained to her that this is likely related to her asthma and small airways disease. She did undergo pulmonary function studies as well that we personally reviewed which demonstrated no definitive obstructive nor restrictive ventilatory defects. However, she did have evidence of small airways disease again likely consistent with asthma although they did not reverse after the bronchodilators were administered. She has been on Symbicort so for will going to switch over to a different inhaler such as Trelegy and hoping that the broader coverage will help her with bronchodilation. In addition to that based on her symptoms and the findings will go ahead and treated with a course of prednisone. She does have diabetes therefore she take half does and she can also stop in early if she does feel better. She can also consider singular as an option in the future. 12/18/2021 the patient is here for a pulmonary follow-up visit. She is complaining of significant nasal congestion and postnasal drip. She is couple more. Sometimes she does cough up some yellowish phlegm. Moderate severity. Complains about ear fullness. I did look at her years and she does have significant fluid buildup in along with some redness. The patient also continues use her respiratory therapy. She does complaint of dyspnea on exertion. We did look at her pulmonary function studies horta she does have a restrictive ventilatory defect consistent with restrictive lung disease. The patient needs to start pulmonary rehabilitation to strengthen her respiratory capacity in to additional stamina. Will make a referral at this time. The patient is willing and interested in doing so. The patient also had a CT scan back in June 2020 demonstrating pulmonary nodules in addition to some air trapping. Will go ahead and repeat the CT scan around the same time next year in order to follow-up with the pulmonary nodules hopefully to find stability. The 06/10/2022 the patient is here for pulmonary follow-up visit. The patient had been doing well until about a week or so prior to this visit. She continues use her Trelegy inhaler and a rescue medicine. She was exposed to a sick contact in started developing a worsening cough chest tightness and chest congestion with yellowish green sputum. She did have some amoxicillin left over and she did start taking it for the last 3 days. She has seen improvement. She does have a nebulizer machine at this point do not think she needs 1. Although an Acapella valve will be helpful with her mucus clearance. If she develops any chest tightness or wheezing she can always call the office will provide her with a nebulizer. The patient did have a CT scan of the chest in mid May and will personally viewed together. Appears that all her pulmonary nodules are stable. The largest nodule is an oval-shaped nodule in her left lower lobe that measures about 7 mm. Will back 2020 in the nodules specially the same. Therefore no significant findings tear. I did reassure her that her nodules appear to be benign as that they have been stable for more than 2 years. 12/04/2022 the patient is here for pulmonary follow-up visit. Overall she is doing well. She continues on the Trelegy inhaler. She has not had to use her rescue medication. She does complaint of sinus pressure and also earache. She has some sinus congestion and some nasal congestion as well. The patient has been like this for the last few days. Denies any sick contacts. The patient also is concerned about her CT scan of the chest. Was done back in May 2022 demonstrating stable pulmonary nodules. Will go ahead and repeat the CT scan in May of 2023 to make sure the nodules have not changed. Specially with worsening symptoms. The patient will be treated for sinusitis. She does have some fluid in ears suggesting some degree of nasal congestion sinusitis. If the patient is no better she can always call for further recommendations. She also needs to get vaccinated she will get her Prevnar 20 vaccine today change he is not too sick. Also needs to get her RSV vaccine and will get the other flu and COVID vaccine when available. She has a planned trip on a cruise and I did recommend she can get all her vaccines before going on the cruise. 06/03/2023 the patient is here for a pulmonary follow-up visit. She is feeling better now. The patient had a respiratory illness several weeks ago.She did call the office but we did not have any availability was recommended she go to an urgent care. The patient is reluctant to do so therefore she did not. Ultimately she ended up getting some antibiotics from primary care doctor. She did feel better afterwards. She was upset with the fact that we were not available to see her. Explained to her that we do our best to accommodate everyone, but, as difficult during a busy respiratory season. She continues respiratory therapy with good effect. she did undergo a CT scan of the chest that was pre plan to assess her pulmonary nodules. Has not been officially read but I did look at a. the largest nodule in the left lower lobe appears to be stable in size measuring 7-8 mm in size. The other nodules also appeared to be stable. No evidence of any airspace disease. 11/07/2023 the patient is here for a pulmonary follow-up visit. she has been dealing with a sinus pressure and headache. This has been going on for the last weeks. It has been slow to improve. Significant obstruction of the nasal passages. In addition to that she continues with respiratory medicine with good effect. She did have a CT scan of the chest which we personally reviewed from 05/2023 demonstrating pulmonary nodule measuring 8 mm in size. It has not changed. Will plan to follow-up with a CT scan in 05/20/2024 to make sure this continues stability of the nodule. If it has not changed by then we can follow it as needed. The patient will continue with current respiratory therapy will treat her for sinusitis and will follow-up after her CT scan. 06/08/2024 the patient is here for a pulmonary follow-up visit. Overall she is doing well. She continues on the Trelegy her respiratory medications with good effect. Denies any worsening symptoms. She does have dyspnea on exertion [id number] severity. Typically when going up an incline. Denies any significant wheezing or coughing. Denies any chest pain. She did have a CT scan of the chest that we personally reviewed in the office. I can appreciate the pulmonary nodules that appear to be pretty stable when compared to last year. Although when I went back to 2022 some of the nodules in the left lower lobe appeared to be slightly smaller. For that reason will go ahead and repeat a CAT scan in a year's time. The patient develops any worsening symptoms prior to that she will call for an evaluation. [facility] Medical History Cardiac murmur, unspecified Carotid bruit present HTN (hypertension) Frequent falls History of fall Lumbago Mixed stress and urge urinary incontinence Chronic restrictive lung disease Erythema intertrigo Type 2 diabetes mellitus without complication, without long-term current use of insulin Rib pain PONV (postoperative nausea and vomiting) Requires supplemental oxygen Preoperative examination Pulmonary nodules Family history of breast cancer gene mutation in first degree relative Diabetes mellitus with hyperglycemia, without long-term current use of insulin COVID-19 virus infection Asthma-COPD overlap syndrome Menopause Pulmonary nodule Obstructive sleep apnea Irritable bowel syndrome GERD (gastroesophageal reflux disease) Dyslipidemia Surgical History Status post ablation of incompetent vein using laser (~2021) History of shoulder surgery History of total knee replacement History of appendectomy Hx of cholecystectomy Family History Father Stroke Mother HTN (hypertension) Diabetes mellitus Brother Kidney disease Brother Pneumonia Daughter Invasive ductal carcinoma of breast, Onset Age: 53 Social History (Reviewed 06/08/24 @ 10:16 by Monserrat Ren [facility]) Household Members: Spouse Housing: House Do you presently have visiting nurse or other home services: No Alcohol intake: never Patient Tobacco Use Status: Former Tobacco user e-Cigarette/Vaping Use: Never Used service: No Current occupational status: retired Cognitive needs: No Hearing needs: No Vision needs: Yes Review of Systems Const Denies night sweats ENT Reports nasal congestion Card Denies chest pain and Reports dyspnea on exertion Resp Reports cough, Reports dyspnea on exertion and Reports wheezing GI Denies abdominal pain Musc Denies no additional complaints Neuro Denies Neuro-related abnormal movements Psych Denies no additional complaints Lloyd/Lymph Denies easy bleeding and Denies lymphadenopathy Aller/Immun Reports wheezing Physical Exam Vital Signs: Last Vital Signs Pulse 61 06/08/24 10:13 BP 148/60 H 06/08/24 10:13 Pulse Ox 95 06/08/24 10:13 Oxygen Delivery Method Room Air 06/08/24 10:13 BMI result Body Mass Index 37.9 Const General: alert Neck Neck: Yes normal visual inspection, Yes full ROM and Yes no lymphadenopathy Chest Chest palpation & inspection: normal inspection of the chest Resp Auscultation: no wheezes and diminished lung sounds Cardio Rate: regular rate Rhythm: regular rhythm Heart sounds: S1 normal heart sound present and S2 normal heart sound present GI Palpation (GI): Soft to palpation and nontender Auscultation: normal bowel sounds Skin General skin exam: rashes and/or lesions noted Assessment & Plan Assessment & Plan (1) Asthma-COPD overlap syndrome: Code(s): J44.9 - Chronic obstructive pulmonary disease, unspecified Category: Medical (2) Obstructive sleep apnea: Comment: unable to tolerate CPAP Code(s): G47.33 - Obstructive sleep apnea (adult) (pediatric) Category: Medical (3) Pulmonary nodules: Code(s): R91.8 - Other nonspecific abnormal finding of lung field Category: Medical (4) Chronic restrictive lung disease: Code(s): J98.4 - Other disorders of lung Category: Medical (5) Sinusitis: Code(s): J32.9 - Chronic sinusitis, unspecified Category: Medical Qualifiers: Chronicity: acute Recurrence: not specified as recurrent Sinusitis location: unspecified location Qualified Code(s): J01.90 - Acute sinusitis, unspecified Plan continue Trelegy inhaler short-acting beta agonist as needed continue fluticasone nasal spray Claritin for allergies CT chest 05/2025 Follow-up in 12 months Orders: Orders CT chest wo IV con 05/02/25 R91.1 - Solitary pulmonary nodule Coding Level of Care Code Est Pt Level 4 (09120) Diagnoses Asthma-COPD overlap syndrome J44.9 Obstructive sleep apnea G47.33 Pulmonary nodules R91.8 Chronic restrictive lung disease J98.4 Acute sinusitis, recurrence not specified, unspecified location J01.90 Chronicity: acute Recurrence: not specified as recurrent Sinusitis location: unspecified location Time Spent (min) 17
== END 2024-06-08 11:31 | disposition home or self-care (01) ==
LOC: HO.HPS 09:40
PROVIDERS: PCP Internal Medicine; Visit Provider Hospitalist
DX: J44.9 Chronic obstructive pulmonary disease, unspecified (principal); G47.33 Obstructive sleep apnea (adult) (pediatric); R91.8 Other nonspecific abnormal finding of lung field; J98.4 Other disorders of lung; J01.90 Acute sinusitis, unspecified
CPT/HCPCS: 99214

== ENCOUNTER → 2024-06-08 09:40 | Outpatient (BNVA) | payer MEDICARE, SELFPAY | PROVIDERS: PCP Internal Medicine; Visit Provider Hospitalist | DX: J44.89 Other specified chronic obstructive pulmonary disease (principal); J98.4 Other disorders of lung; J01.90 Acute sinusitis, unspecified; G47.33 Obstructive sleep apnea (adult) (pediatric); R91.8 Other nonspecific abnormal finding of lung field | CPT/HCPCS: 99212 ==

== ENCOUNTER 2024-06-10 09:18 | Outpatient (AMB) | payer MEDICARE, SELFPAY ==
--- NOTE | 2024-06-10 09:36 | AM.OFFWIN_ITS ---
Intake Vital Signs 06/10/24 09:37 Height 5 ft 2 in Weight 207 lb BMI 37.9 BP 118/64 Blood Pressure Location Lt brachial Position Sitting Respiration 20 Pulse 71 Pulse Source Pulse Oximeter Temp 97.8 F Temp Source Oral Pulse Oximetry (%) 97 Oxygen Delivery Method Room Air Intake Visit Reasons: EP-lt back of knee pain Intake Note: Pt is here today for a walk in visit. Pt c/o L knee pain for few weeks now. Pt states that she had knee replacement in that knee in 2012. Patient Tobacco Use Status: Former Tobacco user Allergies oxycodone [Oxycodone] Adverse Reaction (Severe, Verified 06/10/24 09:41) VOMITTING From OxyContin Adverse Reaction (Severe, Uncoded 06/10/24 09:41) VOMITTING HPI HPI Comments History of Present Illness Details 79 y/o female patient who presents to [facility] walk in clinic with c/o Left Knee pain x 2 weeks now. Reports that the Pain is located on the Back of Knee. S/P Left TKR 2012. Pt is waiting for an appointment at [facility] for second Opinion on her Left Knee pain. She was told she needed to Bring New Xray Images of the Knee before she can be scheduled. Pt asking for New Xrays of the Left Knee. Previous Images done 01/2024 - negative. [facility] Medical History Cardiac murmur, unspecified Carotid bruit present HTN (hypertension) Frequent falls History of fall Lumbago Mixed stress and urge urinary incontinence Chronic restrictive lung disease Erythema intertrigo Type 2 diabetes mellitus without complication, without long-term current use of insulin Rib pain PONV (postoperative nausea and vomiting) Requires supplemental oxygen Preoperative examination Pulmonary nodules Family history of breast cancer gene mutation in first degree relative Diabetes mellitus with hyperglycemia, without long-term current use of insulin COVID-19 virus infection Asthma-COPD overlap syndrome Menopause Pulmonary nodule Obstructive sleep apnea Irritable bowel syndrome GERD (gastroesophageal reflux disease) Dyslipidemia Surgical History Status post ablation of incompetent vein using laser (~2021) History of shoulder surgery History of total knee replacement History of appendectomy Hx of cholecystectomy Family History Father Stroke Mother HTN (hypertension) Diabetes mellitus Brother Kidney disease Brother Pneumonia Daughter Invasive ductal carcinoma of breast, Onset Age: 53 Social History Household Members: Spouse Housing: House Do you presently have visiting nurse or other home services: No Alcohol intake: never Patient Tobacco Use Status: Former Tobacco user e-Cigarette/Vaping Use: Never Used service: No Current occupational status: retired Cognitive needs: No Hearing needs: No Vision needs: Yes Review of Systems Const All systems reviewed & are unremarkable except as noted in HPI and below Physical Exam Vital Signs: Last Vital Signs Temp 97.8 F 06/10/24 09:37 Pulse 71 06/10/24 09:37 Resp 20 06/10/24 09:37 BP 118/64 06/10/24 09:37 Pulse Ox 97 06/10/24 09:37 Oxygen Delivery Method Room Air 06/10/24 09:37 BMI result Body Mass Index 37.9 Const General: no acute distress Nutritional Appearance: obese morbidly obese Orientation/consciousness: patient oriented x3 Limitations: other limitations (Walks with a slight Limp) Skin General skin exam: no rashes or lesions noted Neuro General: patient oriented x3 Extrem Right lower extremity: normal to inspection and full ROM Left lower extremity: knee Details: normal to inspection, tenderness Location: of the patella and of the lateral joint line and abnormal ROM Details: pain with active ROM and pain with passive ROM; no swelling and no crepitus Psych Speech and movement: Normal speech and movement present Assessment & Plan Assessment & Plan (1) Left knee pain: Code(s): M25.562 - Pain in left knee Qualifiers: Chronicity: acute Qualified Code(s): M25.562 - Pain in left knee Plan: Ordered New Xray Left Knee Advised to use her Knee Brace or Cane for Ambulation. Advised to Pick-up Images at [facility] NSAIDs for pain relief. Coding Level of Care Code Est Pt Level 4 (64744) Diagnoses Acute pain of left knee M25.562 Chronicity: acute Time Spent (min) 20
[2024-06-10 09:37] VITALS: BP 118/64; PULSE 71; RESP 20; TEMP 36.6; O2SAT 97; BMI 37.9
== END 2024-06-10 10:23 | disposition home or self-care (01) ==
PROVIDERS: PCP Internal Medicine; Visit Provider Nurse Practitioner Family
DX: M25.562 Pain in left knee (principal)

== ENCOUNTER 2024-06-10 09:18 | Outpatient (REF) | payer MEDICARE, SELFPAY ==
--- NOTE | ~2024-06-10 | XR_ITS ---
EXAMINATION: XR KNEE, LEFT CLINICAL INFORMATION: M25.562 - Pain in left knee COMPARISON: Report from 01/12/2024. Images are not available for direct review. TECHNIQUE: Four views of the left knee. FINDINGS: There is been total right knee arthroplasty. Femoral, and tibial components are intact in anatomic alignment. No fracture or bone lesion. On the lateral projection, there is subtle lucency involving the anterior aspect of the femoral component interface, suggesting possible early loosening. No tibial component periprosthetic lucency. Limited assessment for joint effusion due to obliquity on the lateral projection. Suspect a joint effusion. There are vascular calcifications in the soft tissues. XR/XR knee LT 4V IMPRESSION: 1. No fracture or dislocation. 2. Subtle periprosthetic lucency involving the anterior aspect of the femoral component, possible early loosening. 3. Limited assessment for joint effusion although suspect there is likely an effusion present. Electronically signed by: Franco Monroe MD 06/10/2024 10:34 AM EDT
== END 2024-06-10 09:19 | disposition home or self-care (01) ==
LOC: HO.HMGCX 09:18
PROVIDERS: PCP Internal Medicine; Visit Provider Nurse Practitioner Family
DX: M25.562 Pain in left knee (principal)
CPT/HCPCS: 73564; 99212

== ENCOUNTER → 2024-06-10 10:12 | Outpatient (BNV) | payer MEDICARE, SELFPAY | PROVIDERS: PCP Internal Medicine; Visit Provider Radiology Diagnostic Radiology | DX: M25.562 Pain in left knee (principal) | CPT/HCPCS: 73564 ==

== ENCOUNTER 2024-06-12 08:51 | Outpatient (REF) | payer MEDICARE, SELFPAY ==
[2024-06-12 10:57] LABS: Estimated Average Glucose 140 mg/dL; Hemoglobin A1C 156.5287 umol/L; Hemoglobin A1c % 6.5 % (<6.0)
[2024-06-12 11:24] LABS: Creatinine Urine 64.62 mg/dL; Microalbum/Creatinine Ratio Ur 9.2 ug/mg cr (<30)
[2024-06-12 11:26] LABS: Alanine Aminotransferase 13 U/L (0-31); Anion Gap 13 (12-20); Aspartate Amino Transferase 21 U/L (5-31); Blood Urea Nitrogen 19 mg/dL (9-16); Calcium 9.7 mg/dL (8.4-10.2); Carbon Dioxide 26 mmol/L (22-29); Chloride 107 mmol/L (96-108); Cholesterol 160 mg/dL (<200); Estimated Glomerular Filt Rate > 60; Glucose Fasting 143 mg/dL (60-99); HDL Cholesterol 47 mg/dL (>40); LDL Cholesterol Calculated 91 mg/dL (<100); Potassium 4.8 mmol/L (3.3-5.1); Sodium 141 mmol/L (135-145); Triglycerides 112 mg/dL (<150)
[2024-06-12 11:27] LABS: Vitamin D 25-OH Total 57.3 ng/mL (>30)
== END 2024-06-12 08:52 | disposition home or self-care (01) ==
LOC: HO.LAB 08:51
PROVIDERS: PCP Internal Medicine; Visit Provider Internal Medicine
DX: E11.9 Type 2 diabetes mellitus without complications (principal); E78.5 Hyperlipidemia, unspecified; Z78.0 Asymptomatic menopausal state
CPT/HCPCS: 36415; 80048; 80061; 82043; 82306; 82570; 83036; 84450; 84460

== ENCOUNTER 2024-06-17 10:33 | Outpatient (AMB) | payer MEDICARE, SELFPAY ==
[2024-06-17 11:40] VITALS: BP 116/60; PULSE 74; RESP 15; TEMP 36.6; O2SAT 96; BMI 37.9
--- NOTE | 2024-06-17 11:40 | A.OFFPC_ITS ---
Vital Signs 06/17/24 11:40 Height 5 ft 2 in Weight 207 lb BMI 37.9 BP 116/60 Blood Pressure Location Lt brachial Position Sitting Respiration 15 Pulse 74 Pulse Source Pulse Oximeter Temp 97.8 F Temp Source Oral Pulse Oximetry (%) 96 Oxygen Delivery Method Room Air Intake Visit Reasons: 3 months f/up - see comments Intake Note: Pt is here today for her 3mo. f/u Allergies oxycodone [Oxycodone] Adverse Reaction (Severe, Verified 06/17/24 11:57) VOMITTING From OxyContin Adverse Reaction (Severe, Uncoded 06/17/24 11:57) VOMITTING Medication List - Last Reconciled 06/17/24 by Ramonita Douglas MD albuterol sulfate 90 mcg/actuation 2 puffs inhalation Q6H PRN atorvastatin 10 mg PO DAILY blood sugar diagnostic ([employer] Ultra Blue Test Strip) use one test strip once a day and as needed to test blood sugar blood sugar diagnostic ([employer] Ultra Test strips) CHECKS BLOOD SUGAR ONCE A DAY A.C. blood-glucose meter As directed carvedilol 25 mg PO BID@0730,1200 cholecalciferol (vitamin D3) (Vitamin D3) 50 mcg PO DAILY clotrimazole-betamethasone 1-0.05 % 1 appl topical BID PRN dicyclomine 10 mg PO TIDWM PRN escitalopram oxalate 20 mg PO DAILY esomeprazole magnesium 40 mg PO DAILY@0630 fluticasone propionate 50 mcg/actuation 2 sprays intranasal DAILY PRN lancets (Absolute CommerceTouch Delica Plus Lancet) Use As directed twice a day loratadine 10 mg PO DAILY lorazepam 0.5 mg PO DAILY PRN losartan 50 mg See Protocol PO DAILY 90 days metformin 500 mg PO DAILY Myrbetriq ER (mirabegron) 25 mg PO DAILY 90 days NS nystatin 100,000 units topical TID PRN sitagliptin phosphate (Januvia) 100 mg PO DAILY Trelegy Ellipta 200-62.5-25 mcg (jrnzkdlcome-dagarursz-vaezrjxy) 1 inh inhalation DAILY NS walker (Ultra-Light Rollator misc) As directed Tobacco use date assessed: 06/17/24 Fall risk assessment: 2 + Falls in past year Last assessed Fall Risk: 06/17/24 Dental Screening Dental Screen Date: 06/17/24 Did you have a dental visit in the last 12 months?: No Did you have a dental problem in the last 6 months where you did not have access to dental care?: No Was dental information given to patient?: No HPI 3 months f/up - see comments HPI Details 79 year-old lady here today for follow-u p on her dyslipidemia and diabetes mellitus. Currently taking atorvastatin 10 mg daily for lipids and takes Farxiga 10 mg once a day in the morning, metformin 500 mg daily and januvia 100 mg daily for her diabetes. Latest fasting labs showed normal renal function, lipid panel, vitamin-D and hemoglobin A1c at 6.5%. No microalbuminuria seen.. She is up-to-date with her diabetes retinopathy screening, sees Dr. Benito with no retinopathy seen on last exam on May 2024. [facility] Medical History Left knee pain Cardiac murmur, unspecified Carotid bruit present HTN (hypertension) Frequent falls History of fall Lumbago Mixed stress and urge urinary incontinence Chronic restrictive lung disease Erythema intertrigo Type 2 diabetes mellitus without complication, without long-term current use of insulin Rib pain PONV (postoperative nausea and vomiting) Requires supplemental oxygen Preoperative examination Pulmonary nodules Family history of breast cancer gene mutation in first degree relative Diabetes mellitus with hyperglycemia, without long-term current use of insulin COVID-19 virus infection Asthma-COPD overlap syndrome Menopause Pulmonary nodule Obstructive sleep apnea Irritable bowel syndrome GERD (gastroesophageal reflux disease) Dyslipidemia Surgical History Status post ablation of incompetent vein using laser (~2021) History of shoulder surgery History of total knee replacement History of appendectomy Hx of cholecystectomy Family History Father Stroke Mother HTN (hypertension) Diabetes mellitus Brother Kidney disease Brother Pneumonia Daughter Invasive ductal carcinoma of breast, Onset Age: 53 Social History Household Members: Spouse Housing: House Do you presently have visiting nurse or other home services: No Alcohol intake: never Patient Tobacco Use Status: Former Tobacco user e-Cigarette/Vaping Use: Never Used service: No Current occupational status: retired Cognitive needs: No Hearing needs: No Vision needs: Yes Questionnaire PHQ-9 Over the last 2 weeks, how often have you been bothered by any of the following problems? 2. Feeling down, depressed, or hopeless: not at all 3. Trouble falling or staying asleep, or sleeping too much: not at all Depression Screening Interpretation: Negative Depression Screening Done: Yes Source: Developed by Drs. Low Retana, Janine Amador, Pj Mckeon and colleagues, with an educational nicole from [employer]. Thrive Questionnaire Date Thrive assessed: 03/18/24 Currently or been in a relationship where the following occur: No concerns reported THRIVE Score: 0 JAZMYN-7 AMB Questionnaire JAZMYN-7 Date JAZMYN - 7 assessed: 03/18/24 Source: Developed by Drs. Low Retana, Janine Amador, Pj Mckeon and colleagues, with an educational nicole from [employer]. Review of Systems Const Reports no additional complaints Eyes Details: Goes to Dr. Benito for her routine eye exam and diabetes retinopathy screening Denies change in vision ENT Reports no additional complaints and Reports Normal hearing present Card Denies chest pain, Denies dyspnea and Denies dyspnea on exertion Resp Denies dyspnea, Denies dyspnea on exertion and Denies wheezing GI Denies abdominal pain Reports no additional complaints Musc Denies no additional complaints Skin/Breast Denies breast pain, Denies breast mass, Denies lesions and Denies rash Neuro Reports no additional complaints and Reports Normal hearing present Psych Denies no additional complaints Endo Reports no additional complaints Lloyd/Lymph Denies easy bleeding and Denies lymphadenopathy Aller/Immun Denies wheezing Physical exam (Primary Care) Vital Signs: Last Vital Signs Temp 97.8 F 06/17/24 11:40 Pulse 74 06/17/24 11:40 Resp 15 06/17/24 11:40 BP 116/60 06/17/24 11:40 Pulse Ox 96 06/17/24 11:40 Oxygen Delivery Method Room Air 06/17/24 11:40 BMI result Body Mass Index 37.9 Tobacco/Smoking Status: Tobacco use Status Tobacco use date assessed 06/17/24 06/17/24 11:45 Patient Tobacco Use Status Former Tobacco user 06/17/24 11:45 e-Cigarette/Vaping Use Never Used 06/17/24 11:45 Depression Screening Interpretation: Negative Thrive Assessment: Date of Thrive Assessment Date Thrive assessed 03/18/24 06/17/24 11:45 Currently or been in a relationship where the following occur: No concerns reported Const General: comfortable, no acute distress and alert Orientation/consciousness: patient oriented x3 HENMT Mouth: Normal oral and palatal mucosa present and moist mucous membranes Eyes General: appearance normal, both eyes and all related structures Neck Neck: Yes full ROM, Yes no lymphadenopathy and Yes supple Thyroid: Thyroid normal Resp Effort & Inspection: normal respiratory effort and able to speak in complete sentences Cardio Rate: regular rate Rhythm: regular rhythm Heart sounds: S1 normal heart sound present, S2 normal heart sound present and Murmur heart sound present systolic GI Inspection: Yes obesity Palpation (GI): Soft to palpation, nontender, no guarding and no masses Auscultation: normal bowel sounds General: Yes no CVA tenderness Back/Spine/Pelvis Back: no CVA tenderness and No back tenderness Skin General skin exam: no rashes or lesions noted Neuro General: patient oriented x3, gait normal, tone normal, moves all extremities, Normal light touch and pain sensation and no focal motor deficits Cranial nerves: Yes Normal hearing present Cognition (Neuro): normal cognition Extrem General: Yes no joint enlargement and Yes no clubbing, cyanosis or edema Psych Appearance: grossly normal and well kempt Mental Status: mental status grossly normal Speech and movement: Normal speech and movement present Affect: normal affect Attitude: cooperative Thought process: Normal thought process present Results Reviewed Results Reviewed: Name: Shey Ingram Age/Sex: 79/F : 1945 Unit#: [id number] Attend Dr: Ramonita Douglas MD Re06/12/24 Status: DEP REF Location: .LAB Disch: SPEC : [id number] LISA: 06/12/24 STATUS: COMP REQ : [id number] RECD: 06/12/[address]: Ramonita Douglas MD COMP: 06/12/247 ENTERED: 06/12/[address]: ORDERED: Met Prof Fast, AST, ALT, Lipid Panel, Vitamin D 25-OH Test Result Flag Reference Sodium 141 135-145 mmol/L Potassium 4.8 3.3-5.1 mmol/L CL 107 96-108 mmol/L CO2 26 22-29 mmol/L Gap 13 12-20 BUN 19 H 9-16 mg/dL Creat 0.81 0.5-1.4 mg/dL eGFR > 60 Chronic Kidney Disease: Estimated GFR < 60 mL/min/1.73m2 Severe Kidney Disease: Estimated GFR < 15 mL/min/1.73m2 FBS 143 H 60-99 mg/dL A fasting glucose of 126 mg/dl or greater on more than one occasion is considered diagnostic of diabetes. CA 9.7 8.4-10.2 mg/dL AST (GOT) 21 5-31 U/L ALT (GPT) 13 0-31 U/L Triglyceride 112 <150 mg/dL Desirable Triglyceride: less than 150 mg/dL Borderline High Triglyceride 150-199 mg/dL High Triglyceride: 200-499 mg/dL Very High Triglyceride: greater than or equal to 5OO mg/dL Cholesterol 160 <200 mg/dL Desirable Cholesterol: less than 200 mg/dL Borderline High Cholesterol: 200-239 mg/dL High Cholesterol: greater than 239 mg/dL LDL Calculated 91 <100 mg/dL Desirable LDL: less than 100 mg/dL Near Optimal/Above Optimal LDL: 110-129 mg/dL Borderline High LDL: 130-159 mg/dL High LDL: 160-189 mg/dL Very High LDL: greater than or equal to 190 mg/dL HDL 47 >40 mg/dL Desirable HDL: greater than 40 mg/dL Note: This HDL assay may give artificially low results in patients with liver disease. Vitamin D 25-OH 57.3 >30 ng/mL Health Based Reference Values* < 20 ng/mL Deficient 20-30 ng/mL Insufficient > 30 ng/mL Sufficient Laboratory Tests 06/12/24 06/12/24 09:25 09:26 Estimat Average Glucose 140 Hemoglobin A1c % 6.5 H Urine Creatinine 64.62 Urine Microalbumin 6.0 Microalb/Creat Ratio 9.2 Coding Level of Care Code Est Pt Level 4 (43383) Complex EM visit Add On G2211 Diagnoses Dyslipidemia E78.5 Primary hypertension I10 Hypertension type: primary hypertension Type 2 diabetes mellitus without complication, without long-term current use of insulin E11.9 Assessment & Plan Assessment & Plan (1) Dyslipidemia: Code(s): E78.5 - Hyperlipidemia, unspecified Category: Medical Plan: Continue atorvastatin 10 mg daily (2) HTN (hypertension): Code(s): I10 - Essential (primary) hypertension Category: Medical Qualifiers: Hypertension type: primary hypertension Qualified Code(s): I10 - Essential (primary) hypertension Plan: Blood pressure at goal of less than 130/80. Continue with current medication. Reinforced importance of following a low sodium diet, getting regular exercise, and lowering stress levels. (3) Type 2 diabetes mellitus without complication, without long-term current use of insulin: Code(s): E11.9 - Type 2 diabetes mellitus without complications Category: Medical Plan: Recent lab results reviewed with patient, with sugar and hemoglobin A1c stable and at goal, continue metformin, Januvia, continue to check fasting blood sugar at home, maintain log and bring to next appointment for review. Reinforced diabetic diet and regular exercise with patient. Counseled regarding importance of yearly diabetes retinopathy screening. Patient advised to inspect feet daily, for any signs of injury, callus or infection. Compliance with diet and regular exercise again stressed. Blood pressure goal is less than 130/80, goal LDL is less than 100 and goal hemoglobin A1c is less than 7% follow-up appointment made in--5-months, after fasting labs done. Orders: Orders Hemoglobin A1c 11/06/24 E11.9 - Type 2 diabetes mellitus without complications, E78.5 - Hyperlipidemia, unspecified, I10 - Essential (primary) hypertension Lipid Panel 11/06/24 E11.9 - Type 2 diabetes mellitus without complications, E78.5 - Hyperlipidemia, unspecified, I10 - Essential (primary) hypertension Alanine Aminotransferase 11/06/24 E11.9 - Type 2 diabetes mellitus without complications, E78.5 - Hyperlipidemia, unspecified, I10 - Essential (primary) hypertension Aspartate Amino Transferase 11/06/24 E11.9 - Type 2 diabetes mellitus without complications, E78.5 - Hyperlipidemia, unspecified, I10 - Essential (primary) hypertension Basic Metabolic Panel Fasting 11/06/24 E11.9 - Type 2 diabetes mellitus without complications, E78.5 - Hyperlipidemia, unspecified, I10 - Essential (primary) hypertension Vitamin D 25-OH Total 11/06/24 E11.9 - Type 2 diabetes mellitus without complications, E78.5 - Hyperlipidemia, unspecified, I10 - Essential (primary) hypertension, Z78.0 - Asymptomatic menopausal state Medications: Changed From blood sugar diagnostic ([employer] Ultra Blue Test Strip) use one test strip once a day and as needed to test blood sugar 50 ea 8RF E11.9 - Type 2 diabetes mellitus without complications To blood sugar diagnostic use one test strip once a day and as needed to test blood sugar 50 ea 8RF E11.9 - Type 2 diabetes mellitus without complications
== END 2024-06-17 12:49 | disposition home or self-care (01) ==
LOC: HO.HMCC 10:34
PROVIDERS: PCP Internal Medicine; Visit Provider Internal Medicine
DX: E78.5 Hyperlipidemia, unspecified (principal); I10 Essential (primary) hypertension; E11.9 Type 2 diabetes mellitus without complications

== ENCOUNTER → 2024-06-17 10:33 | Outpatient (BNVA) | payer MEDICARE, SELFPAY | PROVIDERS: PCP Internal Medicine; Visit Provider Internal Medicine | DX: E78.5 Hyperlipidemia, unspecified (principal); I10 Essential (primary) hypertension; E11.9 Type 2 diabetes mellitus without complications; Z79.84 Long term (current) use of oral hypoglycemic drugs; Z79.899 Other long term (current) drug therapy | CPT/HCPCS: 99212 ==

== ENCOUNTER 2024-08-23 10:28 | Outpatient (REF) | payer MEDICARE, SELFPAY ==
--- NOTE | ~2024-08-23 | MM_ITS ---
EXAMINATION: MM SCREENING DIGITAL BREAST TOMOSYNTHESIS, BILATERAL CLINICAL INFORMATION: Screening. Asymptomatic. COMPARISON: Mammography: Comparison is made with available priors TECHNIQUE: Digital breast mammography with tomosynthesis is performed in both the craniocaudal and mediolateral oblique views along with computer-aided detection (CAD). FINDINGS: There are scattered areas of fibroglandular density (ACR BI-RADS breast composition Category b). There are no significant masses, abnormal calcifications, or other abnormalities. MM/MM tomosynthesis screening BI IMPRESSION: No mammographic evidence of malignancy. ASSESSMENT: BI-RADS BI-RADS 1 - Negative RECOMMENDATION: Routine annual mammography screening. 1 year F/U This examination should not preclude the clinical evaluation of a suspicious palpable abnormality. This patient's information was entered into a reminder system with a target due date for their next mammogram. Electronically signed by: Hina Villarreal DO 08/27/2024 01:07 PM EDT
--- OUTSIDE RECORDS SUMMARY | 2024-08-23 11:44 | XMS_ITS | Data Portability ---
Author Organization ZURDO Robbie Cunningham [facility], [facility] Address [address] [place] [address] Care Team Providers Care Manager Systems Name Role Phone GARY ASWYER Primary Care Provider Assessment Encounter Date Assessment Date Assessment LastModified by Organization Details LastModified Time 07/28/2024 07/28/2024 PROBLEM: Painful left total knee arthroplasty performed at outside institution HISTORY: The patient is a 79-year-old female whose is a patient of mine. She presents today for evaluation of her left knee. She underwent left total knee arthroplasty at [facility] in 2012. She reports that she has had ongoing pain in his knee. I saw her once in the past for her contralateral knee. Patient describes pain in the anterior aspect of her knee radiating downward. She did fall in June and x-rays were obtained at [place]. Patient is able to bear weight. She has difficulty climbing and descending stairs. She denies fevers or chills. She reports ongoing swelling of this knee that has been present since surgery. The patient's knee symptom profile form was reviewed and is part of the medical record. The patient remains symptomatic and has had an unsuccessful history of appropriate conservative therapy (non-surgical medical management). Non-surgical medical management has been implemented for 3 months or more to assess effectiveness. Conservative treatment as clinically appropriate for the patient s current episode of care including, but not limited to, one or more of the following: anti-inflammatory medications, analgesics, flexibility and muscle strengthening exercises, supervised physical therapy (Activities of daily living (ADLs) diminished despite completing a plan of care), activity restrictions as is reasonable, assistive device use, weight reduction as appropriate, and therapeutic injections into the joint as appropriate PFMSH and ROS have been reviewed, updated, and is located in the patient s chart. PAST MEDICAL HISTORY: Past medical history is significant for diabetes, asthma, shortness of breath, hypertension PAST SURGICAL HISTORY: Past surgical history includes bilateral total knees MEDICATIONS: Please see intake form. ALLERGIES: Patient reports an allergy to oxycodone does not report an allergy to metal, latex, Iodine, tape, or adhesives. SOCIAL HISTORY: The patient is retired. She does not consume tobacco, alcohol, or illegal drugs. She is . She lives alone. PHYSICAL EXAMINATION: Please see vitals recorded below Mental status: Alert and lucid. Normal insight, affect, and grooming. DERRICK HELPER: Gross motor coordination is intact. No spasticity or clonus noted. Extremities: Calves are soft and nontender. Skin intact. Palpable pedal pulses equal bilaterally. ORTHOPEDIC EXAMINATION: Negative SLR tests bilaterally. Full ROM of both hips without pain. No trochanteric tenderness. Evaluation of knees: Left Knee range of motion is 0-110 degrees. Knee is stable to varus/valgus loading, anterior/posterior drawer testing, Ashutosh testing. No erythema, no redness. There is moderate sub patellar crepitus. There is some some mild soft tissue swelling. There is tenderness to palpation around the patella. I think this is reproductive of symptoms. Patient has no palpable effusion. Knee is stable to varus/valgus loading. Peripheral vascular, lymphatic examination, skin, neurological coordination, reflexes, and sensation are within normal limits. IMAGING: X-rays ordered, obtained and reviewed in the office today on NEOS PACS: Weightbearing AP of both knees, lateral of the left knee, and sunrise view of both knees demonstrate; Show appropriate position of the patient's left total knee arthroplasty. Overall limb alignment is neutral. 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 Of note, on the lateral side of the tibia there appears to be osteolysis. This was actually not present films from earlier this year. Patient also has an unresurfaced patella. She has notable bilateral patellofemoral osteoarthritis. Contralateral total knee is a triathlon in good position. It is also on unresurfaced patella. X-rays ordered, obtained, and reviewed today on NEOS PACS: AP pelvis, Marking AP of the Right hip, and Direct Lateral of the Right Hip. Demonstrate mild osteoarthritis of the Right hip without bone on bone articulation IMPRESSION: Painful left total knee arthroplasty with patellofemoral osteoarthritis PLAN: I reviewed with the patient surgical and nonsurgical means to control symptoms this patient is in a complex clinical situation. She does have an unresurfaced patella. I do find that this can be a source of pain. Ironically arthritis of the contralateral patellofemoral joint is slightly worse. In addition, there appears to be some osteolysis of the base of the lateral tibial plateau. There is a relatively complex situation due to the fact that this is a block TM tibia. Removal of these implants is extraordinarily difficult. Isolated liner exchange cannot be performed due to the monoblock nature. At this point, I recommended we proceed with screening laboratory studies; ESR, CRP, CBC. In addition, we will obtain three-phase bone scan and CT scan of the left knee. For diagnostic and therapeutic benefit I have recommended a patellar stabilizing brace. I do think that there is a high likelihood that the patient does have an ongoing component of patellofemoral osteoarthritis which is symptomatic. The patient is ambulatory, but has weakness and/or instability of their extremity which requires stabilization from this semi-rigid/rigid orthosis to improve their function. Verbal and written instructions for the use and application of this item were given. Patient was instructed that should the brace result in increased pain, decreased sensation, increased swelling or an overall worsening of their medical condition, to please contact our office immediately. I will review findings with the patient once diagnostic testing is completed. At that point we will come up with a more detailed treatment plan. The patient knows I will be happy to meet with them at any time in order to review any additional questions or concerns that they might have. Patient was satisfied with this plan. I attempted to answer all of the patient's questions. [facility] [facility] speech recognition drum sander offbearer software was used to create portions of this document. An attempt at proofreading has been made to minimize errors. Please call for corrections. [email or web address] Not available 07/28/2024 10:47:50 Plan of Treatment Reminders Order Date Submit Date Provider Last Modified By Organization Details Last Modified Time Details Appointments None recorded. Lab ESR (erythrocyt e sedimentati on rate), blood 2024 025 ANGELINA [facility] (Centralized Electronic Ordering - All Locations), Patient Can Go To The Location Of Their Choice, [address] 06:05:21 C reactive protein, QN, serum or plasma 2024 ANGELINA [facility] (Centralized Electronic Ordering - All Locations), Patient Can Go To The Location Of Their Choice, 06:05:21 CBC w/ auto diff 2024 ANGELINA [facility] (Centralized Electronic Ordering - All Locations), Patient Can Go To The Location Of Their Choice, 06:05:20 Referral None recorded. Procedures None recorded. Surgeries None recorded. Imaging XR, hip + pelvis, unilateral, 2 or 3 view - rm 206, left hip per Dr. Deal 2024 025 [email or web address] [facility], [address], [address], [place], [address], 09:21:40 CT, knee, w/o contrast - LTKR eval implant position 2024 025 [email or web address] [facility] [place], [address], [address], [place], [address], 09:21:40 XR, knee, 4 or more view - Rm 206, left knee 2024 025 [facility], [address], [address], [place], [address], 09:21:40 Medication Orders None recorded. Patient TargetsNo targets recorded. Patient InstructionsNo instructions recorded. Reason for Referral None Reported. Results Created Date Observation Date Name Description Value Unit Range Abnormal Flag Note LastModifiedBy Organization Detail LastModifiedTime 07/29/1907/28/2024 CBC WITH DIFFE RENTI AL/PL ATELE T WBC 8.4 x10e3 /uL 3.4-10 .8 normal Not Available [facility] ([facility]) [address] [facility], [place], [address], 07/29/2024 06:05:20 07/29/1907/28/2024 CBC WITH DIFFE RENTI AL/PL ATELE T RBC 3.80 x10e6 /uL 3.77-5 .28 normal Not Available [facility] ([facility]) [address] [place], [address], 07/29/2024 06:05:20 07/29/19 25 07/28/2024 CBC WITH DIFFE RENTI AL/PL ATELE T hemoglobin 12.1 g/dL 11.1-1 5.9 normal Not Available [facility] ([facility]) [address] [place], [address], 07/29/2024 06:05:20 07/29/19 25 07/28/2024 CBC WITH DIFFE RENTI AL/PL ATELE T hematocrit 35.2 % 34.0-4 6.6 normal Not Available [facility] ([facility]) [address] [place], [address], 07/29/2024 06:05:20 07/29/19 25 07/28/2024 CBC WITH DIFFE RENTI AL/PL ATELE T MCV 93 fL 79-97 normal Not Available [facility] ([facility]) [address] [place], [address], 07/29/2024 06:05:20 07/29/19 25 07/28/2024 CBC WITH DIFFE RENTI AL/PL ATELE T MCH 31.8 pg 26.6-3 3.0 normal Not Available [facility] ([facility]) [address] [place], [address], 07/29/2024 06:05:20 07/29/19 25 07/28/2024 CBC WITH DIFFE RENTI AL/PL ATELE T MCHC 34.4 g/dL 31.5-3 5.7 normal Not Available [facility] ([facility]) [address] [place], [address], 07/29/2024 06:05:20 07/29/19 07/28/2024 CBC WITH DIFFE RENTI AL/PL ATELE T RDW 11.7 % 11.7-1 5.4 Not Available [facility] ([facility]) [address] [place], [address], 07/29/2024 06:05:20 07/29/19 25 07/28/2024 CBC WITH DIFFE RENTI AL/PL ATELE T platelets 218 x10e3 /uL 150-45 0 normal Not Available [facility] ([facility]) [address] [facility], [place], [address], 07/29/2024 06:05:20 07/29/19 25 07/28/2024 CBC WITH DIFFE RENTI AL/PL ATELE T neutrophils 55 % not estab. normal Not Available [facility] ([facility]) [address] [facility], [place], [address], 07/29/2024 06:05:20 07/29/19 25 07/28/2024 CBC WITH DIFFE RENTI AL/PL ATELE T lymphs 31 % not estab. normal Not Available [facility] ([facility]) [address] [facility], [place], [address], 07/29/2024 06:05:20 07/29/19 25 07/28/2024 CBC WITH DIFFE RENTI AL/PL ATELE T monocytes 10 % not estab. normal Not Available [facility] ([facility]) [address] [facility], [place], [address], 07/29/2024 06:05:20 07/29/19 25 07/28/2024 CBC WITH DIFFE RENTI AL/PL ATELE T eos 3 % not estab. normal Not Available [facility] ([facility]) [address] [facility], [place], [address], 07/29/2024 06:05:20 07/29/19 25 07/28/2024 CBC WITH DIFFE RENTI AL/PL ATELE T basos 1 % not estab. normal Not Available [facility] ([facility]) [address] [place], [address], 07/29/2024 06:05:20 07/29/19 25 07/28/2024 CBC WITH DIFFE RENTI AL/PL ATELE T immature cells FLIGHT ATTENDANT Not Available [facility] ([facility]) [address] [place], [address], 07/29/2024 06:05:20 07/29/19 25 07/28/2024 CBC WITH DIFFE RENTI AL/PL ATELE T neutrophils (absolute) 4.7 x10e3 /uL 1.4-7. 0 normal Not Available [facility] ([facility]) [address] [place], [address], 07/29/2024 06:05:20 07/29/19 25 07/28/2024 CBC WITH DIFFE RENTI AL/PL ATELE T lymphs (absolute) 2.6 x10e3 /uL 0.7-3. 1 normal Not Available [facility] ([facility]) [address] [place], [address], 07/29/2024 06:05:20 07/29/19 25 07/28/2024 CBC WITH DIFFE RENTI AL/PL ATELE T monocytes(ab solute) 0.9 x10e3 /uL 0.1-0. 9 normal Not Available [facility] ([facility]) [address] [place], [address], 07/29/2024 06:05:20 07/29/19 25 07/28/2024 CBC WITH DIFFE RENTI AL/PL ATELE T eos (absolute) 0.2 x10e3 /uL 0.0-0. 4 normal Not Available [facility] ([facility]) [address] [place], [address], 07/29/2024 06:05:20 07/29/19 25 07/28/2024 CBC WITH DIFFE RENTI AL/PL ATELE T baso (absolute) 0.1 x10e3 /uL 0.0-0. 2 normal Not Available [facility] ([facility]) [address] [facility], [place], [address], 07/29/2024 06:05:20 07/29/19 25 07/28/2024 CBC WITH DIFFE RENTI AL/PL ATELE T immature granulocytes 0 % not estab. Not Available [facility] ([facility]) [address] [facility], [place], [address], 07/29/2024 06:05:20 07/29/19 25 07/28/2024 CBC WITH DIFFE RENTI AL/PL ATELE T immature grans (abs) 0.0 x10e3 /uL 0.0-0. 1 Not Available [facility] ([facility]) [address] [facility], [place], [address], 07/29/2024 06:05:20 07/29/19 25 07/28/2024 CBC WITH DIFFE RENTI AL/PL ATELE T NRBC FLIGHT ATTENDANT Not Available [facility] ([facility]) [address] [facility], [place], [address], 07/29/2024 06:05:20 07/29/19 25 07/28/2024 CBC WITH DIFFE RENTI AL/PL ATELE T hematology comments: FLIGHT ATTENDANT Not Available [facility] ([facility]) [address] [place], [address], 07/29/2024 06:05:20 07/29/19 25 07/29/2024 SEDIM ENTAT ION RATE- WESTE RGREN sedimentatio n rate-westerg keila 33 mm/HR 0-40 normal Not Available [facility] ([facility]) [address] [facility], [place], [address], 07/29/2024 06:05:21 07/29/19 25 07/29/2024 C-RUBIN CTIVE PROTE IN, QUANT C-reactive protein, quant <1 mg/L 0-10 Not Available [facility] ([facility]) [address] [facility], [place], [address], 07/29/2024 06:05:21 07/29/19 25 07/28/2024 XR, hip + pelvi s, unila teral , 2 or 3 view http:/ [email or web address] ?Encry pted=s hAaTro YD8dLq bEUv6g %2BXZw aYqtaq 0bqfl% 2Fg9IQ a4ajBk vP9nXo QUaueC m3YtLR FvZl JJ8mAn HZtai3 1p0926 AC0Kla 3uEUKK iKiQtr MwF INTERFACE [facility] [address], [place], [address], 07/28/2024 10:14:13 07/29/19 25 07/28/2024 XR, hip + pelvi s, unila teral , 2 or 3 view http:/ [email or web address] ?Encry pted=s hAaTro YD8dLq bEUv6g %2BXZw aYqtaq 0bqfl% 2Fg9IQ a4ajBk vP9nXo QUaueC m3YtLR FvZl JJ8mAn HZtai3 9q3019 AC0Kla 3uEUKK iKiQtr MwF INTERFACE [facility] [address], [place], [address], 07/28/2024 10:14:14 07/29/19 25 07/28/2024 XR, knee, 4 or more view http:/ [email or web address] ?Encry pted=s hAaTro YD8dLq bEUv6g %2BXZw aYqtaq 0bqfl% 2Fg9IQ a4ajBk vP9nXo QUaueC m3YtLR FvZl JJ8mAn HZtai3 9j5215 AC0Kla 3uFWau hKiQtr MwF INTERFACE [facility] [address] [facility] [address], [place], [address], 07/28/2024 10:19:08 07/29/19 25 07/28/2024 XR, knee, 4 or more view http:/ [email or web address] ?Encry pted=s hAaTro YD8dLq bEUv6g %2BXZw aYqtaq 0bqfl% 2Fg9IQ a4ajBk vP9nXo QUaueC m3YtLR FvZlgJ JJ8mAn HZtai3 2o3457 AC0Kla 3uFWau hKiQtr MwF INTERFACE [facility] [address] [facility] [address], [place], [address], 07/28/2024 10:19:10 Result Notes Documentation Provider Name and Address Organization Details Recorded Time Xr, Hip + Pelvis, Unilateral, 2 Or 3 View : [email or web address]? Encrypted=xdWxCbgYD2fHetZ Uv6g%4DIFfjOfsug0sexl%2Fg 2CKb5suEgnS0sOiIQoliVi7Yw PIJoKniAQG1cDoNNbqe28r050 3VQ9Qbl9cRRMYlZiPeeXkL Not Available [facility] 07/28/2024 10:14: 13 Xr, Hip + Pelvis, Unilateral, 2 Or 3 View : [email or web address]? Encrypted=gfEgVeuCR2cIhtB Uv6g%8MUEytJbdhw0ohks%2Fg 7VHn2meNwhF6zYhPNlvoOu0Aq HKZwPtwITU7oRcNTnlq71s099 6HQ9Zqd9wNITTcPkFxdGaP Not Available [facility] 07/28/2024 10:14: 14 Xr, Knee, 4 Or More View : [email or web address]? Encrypted=wzUlNenFL2dAjlM Uv6g%4WSIubHnwzh7hwdi%2Fg 0TMv7ggBfjI6dAtJZbgzYl7Sw GRDnYjeUFO7iAnBFyuy42z497 8RD9Dwp3zOHisdLjFmwIsP Not Available [facility] 07/28/2024 10:19: 09 Xr, Knee, 4 Or More View : [email or web address]? Encrypted=nnCzZnoXP9iPcyJ Uv6g%2MDMaqNzixu6yuuj%2Fg 4XEh7rwCicR0vRnHAqeaNz0Ls YZSyRzeAKV0aXcTPuxj22j042 8IM4Qig9rXAwcqGwJyyZmF Not Available [facility] 07/28/2024 10:19: 10 Problems Name Problem SNOMED Code Status Onset Date Resolution Date Notes Provider Name and Address Organization Details Recorded Time Osteoarth ritis of left knee joint 052566956548 109 Active 2024 Romulo Deal MD [address] [facility] [address], [place], [address] , [facility] 5 08:27:19 Full thickness rotator cuff tear 289591246 Active 2017 Problem Code: M75.121; Problem Code Type: ICD-10; Status: 'A'; Not Available [facility] 4 11:42:48 Problem Notes None recorded. Medical Equipment None Reported. Allergies Allergen ID Allergen Name Allergen Category Reaction Reaction Severity Criticality Documentation Date Start Date Code Code System Note Provider Name and Address Organization Details Recorded Time 01428 oxycodone hydrochlo ride medicatio n Not available Not available Not available 05/05/20232021 58053 RxNorm Not Available [facility] 4 12:08:45 Medications Name Sig Start Date Stop Date Status Note LastModified by Organization Details LastModified Time losartan 50 mg tablet TAKE 1 TABLET BY MOUTH EVERY DAY active Not Available Not Available No t Available metformin 500 mg tablet TAKE 1 TABLET BY MOUTH EVERY DAY WITH SUPPER active Not Available Not Available No t Available carvedilol 25 mg tablet TAKE 1 TABLET BY MOUTH TWICE A DAY 07/28 completed Not Available Not Available Not Available doxycycline hyclate 100 mg capsule TAKE 1 CAPSULE BY MOUTH TWICE A DAY FOR 7 DAYS 07/28 completed Not Available Not Available Not Available carvedilol 12.5 mg tablet TAKE 1 TABLET BY MOUTH TWICE A DAY START WITH 1/2 TABLET TWICE A DAY FOR 2 WEEKS active Not Available Not Available No t Available atorvastati n 10 mg tablet TAKE 1 TABLET BY MOUTH EVERY DAY active Not Available Not Available No t Available cefpodoxime 200 mg tablet TAKE 1 TABLET BY MOUTH 2 TIMES A DAY WITH FOOD UNTIL FINISHED active Not Available Not Available No t Available azithromyci n 250 mg tablet TAKE 2 TABLETS BY MOUTH TODAY, THEN TAKE 1 TABLET DAILY FOR 4 DAYS DIRECTED 07/28 completed Not Available Not Available Not Available prednisone 20 mg tablet TAKE 2 TABLETS BY MOUTH DAILY FOR 5 DAYS active Not Available Not Available No t Available metronidazo le 250 mg tablet TAKE 1 TABLET BY MOUTH EVERY 8 HOURS FOR 5 DAYS 07/28 completed Not Available Not Available Not Available chlorthalid one 25 mg tablet TAKE 1 TABLET BY MOUTH EVERY DAY active Not Available Not Available No t Available doxycycline monohydrate 100 mg tablet TAKE 1 TABLET BY MOUTH TWICE A DAY FOR 2 WEEKS 07/28 completed Not Available Not Available Not Available spironolact one 25 mg tablet TAKE 1 TABLET BY MOUTH DAILY, TAKE HALF PILL FOR 1ST FOUR DAYS active Not Available Not Available No t Available carvedilol 3.125 mg tablet TAKE 1 TABLET BY MOUTH 2 TIMES A DAY, TAKE WITH FOOD AT BREAKFAST AND SUPPER 07/28 completed Not Available Not Available Not Available OneTouch Ultra Test strips CHECKS BLOOD SUGAR ONCE A DAY BEFORE MEALS active Not Available Not Available No t Available esomeprazol e magnesium 40 mg capsule,del ayed release TAKE 1 CAPSULE BY MOUTH EVERY DAY active Not Available Not Available No t Available clotrimazol e-betametha sone 1 %-0.05 % topical cream APPLY TO AFFECTED AREA TWICE A DAY NEEDED FOR RASH active Not Available Not Available No t Available nystatin-tr iamcinolone 100,000 unit/g-0.1 % topical cream APPLY TO AFFECTED AREAS TWICE DAILY FOR 2 WEEKS, REPEAT NEEDED active Not Available Not Available No t Available albuterol sulfate HFA 90 mcg/actuati on aerosol inhaler 2 PUFF INHALED EVERY 6 HOURS NEEDED FOR WHEEZING active Not Available Not Available No t Available losartan 100 mg tablet TAKE 1/2 TABLET BY MOUTH TWICE A DAY 07/28 completed Not Available Not Available Not Available dicyclomine 10 mg capsule TAKE 1 CAPSULE BY MOUTH 4 TIMES A DAY NEEDED active Not Available Not Available No t Available Sinus Nasal Wallace 0.05 % 2 SPRAY INTRANASA LLY EVERY 12 HOURS NEEDED FOR NASAL CONGESTIO N FOR 5 DAYS 07/28 completed Not Available Not Available Not Available escitalopra m 20 mg tablet TAKE 1 TABLET BY MOUTH EVERY DAY active Not Available Not Available No t Available Januvia 100 mg tablet TAKE 1 TABLET BY MOUTH EVERY DAY active Not Available Not Available No t Available cholecalcif paula (vitamin D3) 50 mcg (2,000 unit) capsule TAKE 1 CAPSULE BY MOUTH EVERY DAY active Not Available Not Available No t Available oxycodone HCl-oxycodo ne-ASA as directed 1-2 TABLETS EVERY 4-[address] WHILE ON THIS MEDICATIO N 2017 active Statu s: 'Curr ent'; Not Available Not Available Not Available Myrbetriq 25 mg tablet,exte nded release TAKE 1 TABLET ORALLY DAILY FOR 90 DAYS active Not Available Not Available No t Available Farxiga 10 mg tablet TAKE 1 TABLET BY MOUTH EVERY MORNING active Not Available Not Available No t Available Trelegy Ellipta Trelegy Ellipta 200-62.5- 25MCG/ACT Aerosol Powder Breath Activated 10/02 completed Statu s: 'Disc ontin ued'; Not Available Not Available Not Available Trelegy Ellipta 200 mcg-62.5 mcg-25 mcg powder for inhalation INHALE 1 PUFF DAILY active Not Available Not Available No t Available Paxlovid 300 mg (150 mg x 2)-100 mg tablets in a dose pack TAKE 2 TABLETS (NIRMATRE LVIR) AND TAKE 1 TABLET (RITONAVI R) BY MOUTH TWICE A DAY FOR 5 DAYS 07/28 completed Not Available Not Available Not Available Vitals None Recorded Social History Question Answer Notes LastModified by Organizat ion Details LastModified Time Tobacco Smoking Status Never Smoker Nayana mackay [place] - [facility] 07/28/2024 15:59:28 What Is Your Relationship Status? [email or web address] Information not available 07/28/2024 Sex: Unknown Functional Status Question Answer Note LastModified by Organizat ion Details LastModified Time Do you use any illicit or recreational drugs? No [email or web address] Information not available 07/28/2024 Do you or have you ever used any other forms of tobacco or nicotine? No Information not available 07/28/2024 What is your level of alcohol consumption? None [email or web address] Information not available 07/28/2024 Mental Status None recorded. Family History Nothing Reported. Medical History Condition Response Allergies/Hayfever N Coronary Artery Disease N Anxiety/Depression N Breathing or lung disorders N Emphysema N Nerve Disorders N Thyroid Problems N COPD N Pacemaker N Anemia N Kidney/Bladder Problems N Vascular Disease N Heart Trouble N Heart Attack (DE) N Gastrointestinal Disease N Cholesterol N Diabetes Y Autoimmune disease N Inflammatory Joint disease N Bleeding Disorder N Orthotics N Arthritis Y Seizures/Epilepsy N Blood Clot N AIDS/HIV N Congestive Heart Failure (CHF) N Acid Reflux (GERD) N Cancer N Stroke N Asthma Y Circulation Problems N Peripheral Vascular Disease N Sleep Apnea N Hepatitis N Heart Disease N Rheumatoid Arthritis N Arrhythmia N Pulmonary Embolism N Headaches N Fibromyalgia N Hypertension Y Osteoporosis N Gynecological HistoryNo gynecological history recorded. Obstetrics History GPAL:G 0 P 0 0 0 0 Past Encounters Encounter ID Performer Location Encounter Start Date Encounter Closed Date Diagnosis/Indication Diagnosis SNOMED-CT Code Diagnosis ICD10 Code Diagnosis Note [id number] MD [facility] [address] [facility] [address] [facility] [place] [address] 07/28/2024 09:41:17 08/04/2024 09:21:40 Osteoarthritis of left knee joint [id number] 00665 M17.12 Osteoarthr itis of left hip joint 9562500922 32353 M16.12 History of operative procedure on knee [id number] Z96.652 Health Concerns Section Related Observation LastModified by Organization Detai ls LastModified Time None Recorded Concern Status LastModified by Organization Details LastModified Time None Recorded Advance Directives Directive None Recorded Payers Insurance Date Sequence Insurance Name Policy Number Policy Benson Covered Member ID Benson Member ID Guarantor Name 08/04/2024 1 [facility] (MEDICARE REPLACEMENT/A DVANTAGE - PPO) [id number] Shey Ingram [id number] Shey Ingram OBGyn Episode No OBEpisode recorded.
== END 2024-08-23 10:29 | disposition home or self-care (01) ==
LOC: HO.MAMMO 10:28
PROVIDERS: PCP Internal Medicine; Visit Provider Internal Medicine
DX: Z12.31 Encounter for screening mammogram for malignant neoplasm of breast (principal)
CPT/HCPCS: 77063; 77067

== ENCOUNTER → 2024-08-23 10:45 | Outpatient (BNV) | payer MEDICARE, SELFPAY | PROVIDERS: PCP Internal Medicine; Visit Provider Internal Medicine | DX: Z12.31 Encounter for screening mammogram for malignant neoplasm of breast (principal) | CPT/HCPCS: 77063; 77067 ==

== ENCOUNTER 2024-09-27 11:33 | Outpatient (AMB) | payer MEDICARE, SELFPAY ==
--- NOTE | 2024-09-27 11:39 | MHC.OFFVIS ---
Intake Visit Reasons: 6 month follow up/ PVR Intake Note: Patient is present for 6M/PVR Urology Medication: MYRBETRIQ Antibiotic Allergy:NONE Blood Thinner:NONE TODAY'S PVR: 0ML'S Forestry Fire Aide Required: No Allergies oxycodone (Oxycodone) Adverse Reaction (Severe, Verified 09/27/24 12:21) VOMITTING From OxyContin Adverse Reaction (Severe, Uncoded 09/27/24 12:21) VOMITTING Medication List - Last Reconciled 09/27/24 by MIKE Luong albuterol sulfate 90 mcg/actuation 2 puffs inhalation Q6H PRN atorvastatin 10 mg PO DAILY blood sugar diagnostic (AMCADuch Ultra Test strips) CHECKS BLOOD SUGAR ONCE A DAY A.C. blood sugar diagnostic use one test strip once a day and as needed to test blood sugar blood-glucose meter As directed carvedilol 25 mg PO BID@0730,1200 cholecalciferol (vitamin D3) (Vitamin D3) 50 mcg PO DAILY clotrimazole-betamethasone 1-0.05 % 1 appl topical BID PRN dicyclomine 10 mg PO TIDWM PRN escitalopram oxalate 20 mg PO DAILY lancets (PSI SystemsTouch Delica Plus Lancet) Use As directed twice a day loratadine 10 mg PO DAILY lorazepam 0.5 mg PO DAILY PRN losartan 50 mg See Protocol PO DAILY 90 days metformin 500 mg PO DAILY Myrbetriq ER (mirabegron) 50 mg (2 x 25 mg) PO DAILY 90 days NS nystatin 100,000 units topical TID PRN sitagliptin phosphate (Januvia) 100 mg PO DAILY Trelegy Ellipta 200-62.5-25 mcg (nejtgrhowbj-gltrfkjqc-ujuqrdmc) 1 inh inhalation DAILY NS walker (Ultra-Light Rollator misc) As directed HPI Comments Details: Shey is a very pleasant 79-year-old female patient of Dr. Douglas. She has a past medical history of chronic restrictive lung disease, diabetes, pulmonary nodules, obstructive sleep apnea, irritable bowel syndrome, GERD, and dyslipidemia. She presents to the office today for a follow up of her urinary incontinence. In discussion with the patient today she reports significant improvement in lower urinary tract symptoms she had been experiencing. She reports less episodes of urinary urgency and frequency throughout the day however does feel she experienced episodes of urge incontinence at night. She discusses on days that she is not outlined about she attempts to take Myrbetriq later in the day and feels this is helpful with episodes of urge incontinence at night. She discusses her ongoing issues with orthostatic hypertension and follows with Dr. Moreira at [facility] cardiology. In office urinalysis results reviewed with the patient today. PVR 0 mL. Previous workup has included a retroperitoneal ultrasound 12/23 noting bilateral kidneys with no hydronephrosis or calculi noted. Partially distended, limiting evaluation. Right ureteral jet is demonstrated; left is not. Prevoid bladder volume is 230 mLs. Postvoid bladder volume is 10.5 mL. She has a previous history of 7 vaginal births. When asked she denies hematuria, dysuria, foul smelling urine, changes to urinary stream, flank pain, fever, and or chills. She discusses her travels to [place] last December. She otherwise offers no issues or concerns at this time. [facility] Medical History Left knee pain Cardiac murmur, unspecified Carotid bruit present HTN (hypertension) Frequent falls History of fall Lumbago Mixed stress and urge urinary incontinence Chronic restrictive lung disease Erythema intertrigo Type 2 diabetes mellitus without complication, without long-term current use of insulin Rib pain PONV (postoperative nausea and vomiting) Requires supplemental oxygen Preoperative examination Pulmonary nodules Family history of breast cancer gene mutation in first degree relative Diabetes mellitus with hyperglycemia, without long-term current use of insulin COVID-19 virus infection Asthma-COPD overlap syndrome Menopause Pulmonary nodule Obstructive sleep apnea Irritable bowel syndrome GERD (gastroesophageal reflux disease) Dyslipidemia Surgical History Status post ablation of incompetent vein using laser (~2021) History of shoulder surgery History of total knee replacement History of appendectomy Hx of cholecystectomy Family History Father Stroke Mother HTN (hypertension) Diabetes mellitus Brother Kidney disease Brother Pneumonia Daughter Invasive ductal carcinoma of breast, Onset Age: 53 Social History Household Members: Spouse Housing: House Do you presently have visiting nurse or other home services: No Alcohol intake: never Patient Tobacco Use Status: Former Tobacco user e-Cigarette/Vaping Use: Never Used service: No Current occupational status: retired Cognitive needs: No Hearing needs: No Vision needs: Yes Review of Systems Const Reports no additional complaints Eyes Reports no additional complaints ENT Reports no additional complaints Card Reports as per HPI Resp Reports as per HPI GI Reports as per HPI Reports no additional complaints Musc Reports as per HPI Neuro Reports no additional complaints Psych Reports no additional complaints Endo Reports as per HPI Lloyd/Lymph Reports no additional complaints Aller/Immun Reports no additional complaints Physical Exam Const General: cooperative, healthy appearing, comfortable, no acute distress, well developed, alert and awake Nutritional Appearance: overweight Orientation/consciousness: patient oriented x3 Limitations: no limitations HEENT Head: Yes normal to inspection, Yes normocephalic and Yes atraumatic Ears: hearing grossly normal bilaterally Eyes General: appearance normal, both eyes and all related structures Neck Neck: Yes normal visual inspection and Yes trachea midline Chest Chest palpation & inspection: normal inspection of the chest Resp Effort & Inspection: normal respiratory effort and able to speak in complete sentences Cardio Rate: regular rate GI Inspection: Yes normal to inspection General: Yes no CVA tenderness Back/Spine/Pelvis Back: no CVA tenderness Skin General skin exam: no rashes or lesions noted Neuro General: patient oriented x3 Extrem General: Yes normal to inspection Psych Appearance: grossly normal and well kempt Mental Status: mental status grossly normal Speech and movement: Normal speech and movement present and Clear speech present Affect: normal affect Attitude: cooperative Thought process: Normal thought process present Thought content: Normal thought content present Insight: Fair insight present (Psych) Judgement: Fair judgement present (Psych) Office Procedures Post Void Residual Post Residual Void Post Void Residual (PVR): 0 50746-Oxiz Void Residual by ultrasound Assessment & Plan Assessment & Plan (1) Mixed stress and urge urinary incontinence: Code(s): N39.46 - Mixed incontinence Category: Medical Plan In office urinalysis results reviewed with the patient today; as noted above. PVR 0 mL. Will increase Myrbetriq to 50 mg as discussed; prescription provided We discussed the importance of limiting fluids 2-3 hours prior to bed. Continue to follow-up with pulmonology, Cardiology, and PCP as planned. We did discuss further treatment options and risks and benefits of these treatment options. Discussed, educated, and stressed the importance of managing diabetes for improvement lower urinary tract symptoms as well as for overall health and wellbeing. Follow-up in 3 months with PVR; or sooner with any issues, concerns, and or questions. Medications: Changed From Myrbetriq ER (mirabegron) changed to brand name per insurance request 25 mg PO DAILY 90 days 90 tabs 3RF NS N39.41 - Urge incontinence To Myrbetriq ER (mirabegron) changed to brand name per insurance request 50 mg (2 x 25 mg) PO DAILY 180 tabs 1RF 90 days NS N39.41 - Urge incontinence Patient Instructions: The patient had an opportunity to ask questions regarding the treatment plan. All questions were answered. Physical exam, labs, and imaging were discussed and reviewed in detail. As well as risks, benefits, and discussion of treatment choices. No major barriers to understanding were identified. The patient expressed understanding and agreement with the above treatment plan. The patient was made aware they should contact our office by phone for worsening of their current condition, the appearance of new symptoms, or with any questions or concerns. Compliance is encouraged with any medications and follow up testing that is ordered. It is a privilege to be allowed the opportunity to participate in? your urological care.? Again, if you have any questions or concerns If you have any questions or concerns please do not hesitate to contact me. The office is [phone]. This note is constructed using voice recognition software. While every effort has been made to ensure accuracy sanding machine tender automatic errors may have been included. Yours sincerely, MIKE Luong Coding Level of Care Code Est Pt Level 3 (13654) Complex EM visit Add On G2211 Diagnoses Mixed stress and urge urinary incontinence N39.46 CPT Codes Post Residual Void - PVR CPT Code: 24079-Ukpu Void Residual by ultrasound ([id number])
--- OUTSIDE RECORDS SUMMARY | 2024-09-27 12:50 | XMS_ITS | Continuity of Care Document ---
Author Organization [facility], [address] Address [address] [place] [address] Care Team Providers Care Adult Basic Education Teacher Name Role Phone GARY SAWYER Primary Care Provider [phone] Assessment Encounter Date Assessment Date Assessment LastModified by Organization Details LastModified Time 09/23/2024 09/23/2024 Problem: Painful left total knee arthroplasty HPI: Patient returns the office today for follow-up diagnostic studies. She has a left monoblock James total knee. She has an unresurfaced patella. She reports ongoing pain in her knee. She reports pain with walking and pain at nighttime. Patient denies any motor weakness or numbness and tingling in her lower extremity. This has been present for a while. She also notes she is getting some symptoms in her contralateral knee. Past family, medical, social history and review of systems has been reviewed, updated and is located in the patient's chart. Examination: Patient's left knee surgical wound is well-healed. Left knee range of motion 0 to 110 degrees. There is no erythema, redness, or signs of infection. The knee is stable to varus/valgus loading. Imaging: Previously obtained X-rays reviewed in the office today on [facility] PACS: Weightbearing AP of both knees, lateral of the left knee, and sunrise view of both knees demonstrate; Show appropriate position of the patient's left total knee arthroplasty. Overall limb alignment is neutral. Implant position is satisfactory. Patellar tracking is midline. There is evidence of end-stage patellofemoral osteoarthritis bilaterally. Both patellas are not resurfaced. Images and Report of Outside CT of the knee reviewed and Consistent with patellofemoral arthritis no evidence of loosening of the monoblock tibial component. Outside three-phase bone scan shows no evidence of loosening. There is actually evidence of right patellofemoral osteoarthritis present. 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 I think that a portion of her symptoms would likely be alleviated by patellar resurfacing. I have discussed the success and failure of this operation with the patient. Her left tibial component cannot easily be ruled revised as it is a monoblock prosthesis. I explained this to her in the office today. I see no evidence of instability or wear. I would be cautiously optimistic about the outcome of revision surgery. Patient will call us if she wishes to proceed with surgical scheduling. The patient knows I will be happy to meet with them again at any time in order to review any additional questions or concerns that they might have. Patient was satisfied with this plan. I attempted to answer all of the patient's questions. [employer] speech recognition word processing machine operator software was used to create portions of this document. An attempt at proofreading has been made to minimize errors. Please call for corrections. kindly tell you this because I have a cutter grinder [email or web address] Not available 09/23/2024 15:29:55 Plan of Treatment Reminders Order Date Submit Date Provider Last Modified By Organization Details Last Modified Time Details Appointments None record ed. Lab None record ed. Referral None record ed. Procedures None record ed. Surgeries None record ed. Imaging None record ed. Medication Orders None record ed. Patient TargetsNo targets recorded. Patient InstructionsNo instructions recorded. Reason for Referral None Reported. Results Created Date Observation Date Name Description Value Unit Range Abnormal Flag Note LastModifiedBy Organization Detail LastModifiedTime 09/02/19 25 07/30/2024 CT, knee, w/o contr ast No observ ation record ed. [facility] [place] [address], [place], [address], 09/01/2024 10:11:44 09/02/19 25 08/25/2024 NM, bone scan, 3-pha se No observ ation record ed. [facility] (Scheduling, Multiplte Sites) [address], [place], [address], 09/01/2024 10:18:37 Result Notes None recorded. Problems Name Problem SNOMED Code Status Onset Date Resolution Date Notes Provider Name and Address Organization Details Recorded Time Full thickness rotator cuff tear 992763809 Active 2017 Problem Code: M75.121; Problem Code Type: ICD-10; Status: 'A'; Not Available [facility] 4 11:42:48 Osteoarth ritis of left knee joint 307333910041 109 Active 2024 Romulo Deal MD [address] [facility] [address], [place], [address] , [facility] 5 08:27:19 Problem Notes None recorded. Medical Equipment None Reported. Allergies Allergen ID Allergen Name Allergen Category Reaction Reaction Severity Criticality Documentation Date Start Date Code Code System Note Provider Name and Address Organization Details Recorded Time oxycodone hydrochlo ride medicatio n Not available Not available Not available 05/05/20232021 85676 RxNorm Not Available [facility] 12:08:45 Medications Name Sig Start Date Stop Date Status Note LastModified by Organization Details LastModified Time losartan 50 mg tablet TAKE 1 TABLET BY MOUTH EVERY DAY active Not Available Not Available No t Available metformin 500 mg tablet TAKE 1 TABLET BY MOUTH EVERY DAY WITH SUPPER active Not Available Not Available No t Available carvedilol 25 mg tablet TAKE 1/2 TABLET BY MOUTH TWICE A DAY active Not Available Not Available No t Available doxycycline hyclate 100 mg capsule TAKE [...] Available chlorthalid one 25 mg tablet TAKE 1/2 TABLET DAILY FOR 4 DAYS THEN TAKE 1 TABLET DAILY active Not Available Not Available No [...] Not Available No t Available Sinus Nasal [place] 0.05 % 2 SPRAY INTRANASA LLY EVERY [...] NOT DRIVE WHILE ON THIS MEDICATIO N 09/23 completed Statu s: 'Curr ent'; Not Available Not [...] Not Available Not Available Not Available Vitals Date Recorded Body height Body mass index (BMI) Body weight Provider Name and Address Organization Details Last Updated DateTime 09/23/2024 157.48 cm 38.4 kg/m2 69292.4 g [facility] 09/23/2024 14:36:37 Social History Question Answer Notes LastModified by [employer] Details LastModified Time Tobacco Smoking Status Never Smoker [facility] 07/28/2024 15:59:28 What Is Your Relationship Status? [email or web address] Information not available 07/28/2024 Sex: Unknown Functional Status Question Answer Note LastModified by [employer] Details LastModified Time Do you use any illicit or recreational drugs? No [email or web address] Information not available 07/28/2024 Do you or have you ever used any other forms of tobacco or nicotine? No [email or web address] Information not available 07/28/2024 What is your level of alcohol consumption? None [email or web address] Information not available 07/28/2024 Mental Status None recorded. Family History Nothing Reported. Medical History Condition Response Coronary Artery Disease N Anxiety/Depression N Emphysema N COPD N Pacemaker N Vascular Disease N Heart Trouble N Gastrointestinal Disease N Autoimmune disease N Inflammatory Joint disease N Orthotics N Arthritis Y Blood Clot N Acid Reflux (GERD) N Cancer N Stroke N Circulation Problems N Rheumatoid Arthritis N Arrhythmia N Headaches N Fibromyalgia N Allergies/Hayfever N Breathing or lung disorders N Nerve Disorders N Thyroid Problems N Kidney/Bladder Problems N Anemia N Heart Attack ([place]) N Cholesterol N Diabetes Y Bleeding Disorder N Seizures/Epilepsy N AIDS/HIV N Congestive Heart Failure (CHF) N Asthma Y Peripheral Vascular Disease N Sleep Apnea N Hepatitis N Heart Disease N Pulmonary Embolism N Hypertension Y Osteoporosis N Gynecological HistoryNo gynecological history recorded. Obstetrics History GPAL:G 0 P 0 0 0 0 Past Encounters Encounter ID Performer Location Encounter Start Date Encounter Closed Date Diagnosis/Indication Diagnosis SNOMED-CT Code Diagnosis ICD10 Code Diagnosis Note [id number] MD [facility] [address] [facility] [place] [address] 09/23/2024 14:09:13 09/23/2024 15:31:13 Osteoarthritis of left knee joint 5036942131 91112 M17.12 Health Concerns Section Related Observation LastModified by Organization Detai ls LastModified Time None Recorded Concern Status LastModified by Organization Details LastModified Time None Recorded Payers Encounter Date Sequence Insurance Name Policy Number Policy Benson Covered Member ID Benson Member ID Guarantor Name 09/23/2024 1 [facility] (MEDICARE REPLACEMENT/A DVANTAGE - PPO) [id number] Shey Ingram [id number] Shey Ingram OBYessenia Episode No OBEpisode recorded.
== END 2024-09-27 12:21 | disposition home or self-care (01) ==
LOC: HO.HUSH 11:33
PROVIDERS: PCP Internal Medicine; Visit Provider Nurse Practitioner Family
DX: N39.46 Mixed incontinence (principal)
CPT/HCPCS: 99213; G2211

== ENCOUNTER → 2024-09-27 11:33 | Outpatient (BNVA) | payer MEDICARE, SELFPAY | PROVIDERS: PCP Internal Medicine; Visit Provider Nurse Practitioner Family | DX: N39.46 Mixed incontinence (principal); Z79.899 Other long term (current) drug therapy | CPT/HCPCS: 51798; 99212 ==

== ENCOUNTER 2024-11-06 09:29 | Outpatient (REF) | payer MEDICARE, SELFPAY ==
[2024-11-06 11:34] LABS: Hemoglobin A1C 163.1144 umol/L; Total Hemoglobin (HGBA1C) 3120.1333 umol/L
[2024-11-06 12:19] LABS: Alanine Aminotransferase 12 U/L (0-31); Anion Gap 13 (12-20); Aspartate Amino Transferase 23 U/L (5-31); Blood Urea Nitrogen 14 mg/dL (9-16); Calcium 9.7 mg/dL (8.4-10.2); Carbon Dioxide 27 mmol/L (22-29); Chloride 105 mmol/L (96-108); Cholesterol 160 mg/dL (<200); Estimated Glomerular Filt Rate > 60; HDL Cholesterol 44 mg/dL (>40); Potassium 4.7 mmol/L (3.3-5.1); Sodium 140 mmol/L (135-145); Triglycerides 118 mg/dL (<150)
== END 2024-11-06 09:30 | disposition home or self-care (01) ==
LOC: HO.LAB 09:29
PROVIDERS: PCP Internal Medicine; Visit Provider Internal Medicine
DX: I10 Essential (primary) hypertension (principal); E11.9 Type 2 diabetes mellitus without complications; E78.5 Hyperlipidemia, unspecified; Z78.0 Asymptomatic menopausal state
CPT/HCPCS: 36415; 80048; 80061; 82306; 83036; 84450; 84460

== ENCOUNTER 2024-11-24 10:42 | Outpatient (AMB) | payer MEDICARE, SELFPAY ==
--- NOTE | 2024-11-24 11:14 | A.OFFPC_ITS ---
Vital Signs 11/24/24 11:18 Height 5 ft 2 in Weight 206 lb BMI 37.7 BP 100/60 Blood Pressure Location Lt brachial Position Sitting Respiration 15 Pulse 64 Pulse Source Pulse Oximeter Temp 97.9 F Temp Source Oral Pulse Oximetry (%) 94 Oxygen Delivery Method Room Air Intake Visit Reasons: Annual PE - see comments Intake Note: Pt is here today for her PE: Last mammogram 08/23/24, bone denisty scan 08/02/21, colonoscopy 05/30/16 Allergies oxycodone (Oxycodone) Adverse Reaction (Severe, Verified 11/24/24 11:39) VOMITTING From OxyContin Adverse Reaction (Severe, Uncoded 11/24/24 11:39) VOMITTING Medication List - Last Reconciled 11/24/24 by Ramonita Douglas MD albuterol sulfate 90 mcg/actuation 2 puffs inhalation Q6H PRN atorvastatin 10 mg PO DAILY blood sugar diagnostic (Front Desk HQuch Ultra Test strips) CHECKS BLOOD SUGAR ONCE A DAY A.C. blood sugar diagnostic use one test strip once a day and as needed to test blood sugar blood-glucose meter As directed carvedilol 25 mg PO BID@0730,1200 cholecalciferol (vitamin D3) (Vitamin D3) 50 mcg PO DAILY clotrimazole-betamethasone 1-0.05 % 1 appl topical BID PRN dicyclomine 10 mg PO TIDWM PRN escitalopram oxalate 20 mg PO DAILY lancets (CellBiosciencesTouch Delica Plus Lancet) Use As directed twice a day loratadine 10 mg PO DAILY lorazepam 0.5 mg PO DAILY PRN losartan 50 mg See Protocol PO DAILY 90 days metformin 500 mg PO DAILY Myrbetriq ER (mirabegron) 50 mg (2 x 25 mg) PO DAILY 90 days NS nystatin 100,000 units topical TID PRN sitagliptin phosphate (Januvia) 100 mg PO DAILY Trelegy Ellipta 200-62.5-25 mcg (elptixxiyoe-dnpsvtjhe-yycbhpch) 1 inh inhalation DAILY NS walker (Ultra-Light Rollator misc) As directed Tobacco use date assessed: 11/24/24 Fall risk assessment: 1 Fall in past year Last assessed Fall Risk: 11/24/24 Dental Screening Dental Screen Date: 11/24/24 Did you have a dental visit in the last 12 months?: No Did you have a dental problem in the last 6 months where you did not have access to dental care?: No Was dental information given to patient?: Patient declined HPI Annual PE - see comments HPI Details 79-year-old lady with history of diabete s mellitus, dyslipidemia, urinary incontinence, hypertension with episodes of orthostasis, chronic restrictive lung disease, asthma COPD overlap syndrome, obstructive sleep apnea, IBS, GERD, here today for her physical exam. She is up-to-date with her breast cancer screening, done earlier this year, last bone density scan was done in 2021 which showed normal bone density . No history of fractures She had a screening colonoscopy done by Dr. Ga in 2016 which showed normal findings, repeat colonoscopy due again in 2026. [facility] Medical History (Updated 11/28/24 @ 21:57 by Ramonita Douglas MD) Obesity (BMI 30.0-34.9) Left knee pain Cardiac murmur, unspecified Carotid bruit present HTN (hypertension) Frequent falls History of fall Lumbago Mixed stress and urge urinary incontinence Chronic restrictive lung disease Erythema intertrigo Type 2 diabetes mellitus without complication, without long-term current use of insulin Rib pain PONV (postoperative nausea and vomiting) Requires supplemental oxygen Preoperative examination Pulmonary nodules Family history of breast cancer gene mutation in first degree relative Diabetes mellitus with hyperglycemia, without long-term current use of insulin COVID-19 virus infection Asthma-COPD overlap syndrome Menopause Pulmonary nodule Obstructive sleep apnea Irritable bowel syndrome GERD (gastroesophageal reflux disease) Dyslipidemia Surgical History Status post ablation of incompetent vein using laser (~2021) History of shoulder surgery History of total knee replacement History of appendectomy Hx of cholecystectomy Family History Father Stroke Mother HTN (hypertension) Diabetes mellitus Brother Kidney disease Brother Pneumonia Daughter Invasive ductal carcinoma of breast, Onset Age: 53 Social History Household Members: Spouse Housing: House Do you presently have visiting nurse or other home services: No Alcohol intake: never Patient Tobacco Use Status: Former Tobacco user e-Cigarette/Vaping Use: Never Used service: No Current occupational status: retired Cognitive needs: No Hearing needs: No Vision needs: Yes Questionnaire PHQ-9 Over the last 2 weeks, how often have you been bothered by any of the following problems? 1. Little interest or pleasure in doing things: not at all 2. Feeling down, depressed, or hopeless: not at all 3. Trouble falling or staying asleep, or sleeping too much: not at all 4. Feeling tired or having little energy: not at all 5. Poor appetite or overeating: not at all 6. Feeling bad about yourself - or that you are a failure or have let yourself or your family down: not at all 7. Trouble concentrating on things, such as reading the newspaper or watching television: not at all 8. Moving or speaking so slowly that other people could have noticed. Or the opposite - being so fidgety or restless that you have been moving around a lot more than usual: not at all 9. Thoughts that you would be better off or of hurting yourself in some way: not at all Total score: 0 Depression Screening Interpretation: Positive (Sees Dr. Sarah Dillard q 2 months currently doing well on escitalopram) Depression Screening Follow-up: Existing condition and In treatment Depression Screening Done: Yes Source: Developed by Drs. Low Retana, Janine Amador, Pj Mckeon and colleagues, with an educational nicole from [employer]. Thrive Questionnaire Date Thrive assessed: 03/18/24 I am a: Patient What is your living situation today?: I have a steady place to live Within the past 12 months, did the food you bought not last and you didn't have the money to get more?: Never true Within the past 12 months, did you worry whether your food would run out before you got money to buy more?: Never true Do you have trouble paying for medicines?: No Do you have trouble getting transportation to medical appointments?: No Do you have trouble paying your heating and electricity bill?: No Do you have trouble taking care of your child, family member or friend?: No Do you have trouble with day-to-day activities such as bathing, preparing meals, shopping, managing finances, etc.?: No Are you currently unemployed and looking for a job?: No Are you interested in more education?: No Please select the resources that you would like help with: Utilities Currently or been in a relationship where the following occur: I choose not to answer THRIVE Score: 0 AUDIT C Alcohol Use Questionnaire (AUDIT-C) 1. How often do you have a drink containing alcohol?: Never Total Score: 0 JAZMYN-7 AMB Questionnaire JAZMYN-7 Date JAZMYN - 7 assessed: 03/18/24 Feeling nervous, anxious, or on edge: 0 = Not at all Not being able to stop or control worryin = Not at all Worrying too much about different things: 0 = Not at all Trouble relaxin = Not at all Being so restless that it is hard to sit still: 0 = Not at all Becoming easily annoyed or irritable: 0 = Not at all Feeling afraid as if something awful might happen: 0 = Not at all Total JAZMYN-7 score (0-4 normal; 5-9 mild; 10-14 moderate; 15-21 severe): 0 Source: Developed by Drs. Low Retana, Janine Amador, Pj Mckeon and colleagues, with an educational nicole from [employer]. ACT Questionnaire In the past 4 weeks, how much of the time did your asthma keep you from getting as much done at work, school or at home?: None of the time During the past 4 weeks, how often have you had shortness of breath?: Not at all During the past 4 weeks, how often did your asthma symptoms wake you up at night or earlier than usual in the morning?: Not at all During the past 4 weeks, how often have you had to use your rescue inhaler or nebulizer medication?: Not at all How would you rate your asthma control during the past 4 weeks?: Completely controlled ACT Interpretation: Negative Score: 25 Review of Systems Const Reports no additional complaints Eyes Denies change in vision ENT Reports no additional complaints and Reports Normal hearing present Card Denies chest pain, Denies chest pain with activity, Denies irregular heart rhythm, Denies lightheadedness and Reports dyspnea on exertion (walking on an incline, resolves with rest) Resp Reports dyspnea on exertion (walking on an incline, resolves with rest) GI Denies abdominal pain, Denies hematochezia, Denies change in bowel habits, Denies change in stool character and Denies heartburn Reports urinary incontinence (Controlled on Myrbetriq) Musc Denies no additional complaints Skin/Breast Denies breast pain, Denies breast mass and Reports rash (Occasional under both breasts) Neuro Reports Normal hearing present and Denies Neuro-related abnormal movements Psych Denies no additional complaints Endo Reports no additional complaints Lloyd/Lymph Denies easy bleeding and Denies lymphadenopathy Aller/Immun Reports seasonal rhinorrhea Physical exam (Primary Care) Vital Signs: Last Vital Signs Temp 97.9 F 11/24/24 11:18 Pulse 64 11/24/24 11:18 Resp 15 11/24/24 11:18 BP 100/60 11/24/24 11:18 Pulse Ox 94 11/24/24 11:18 Oxygen Delivery Method Room Air 11/24/24 11:18 BMI result Body Mass Index 37.7 Tobacco/Smoking Status: Tobacco use Status Tobacco use date assessed 11/24/24 11/24/24 11:19 Patient Tobacco Use Status Former Tobacco user 11/24/24 11:19 e-Cigarette/Vaping Use Never Used 11/24/24 11:19 PHQ-9: PHQ-9 Score PHQ-9: Total score 0 11/24/24 12:00 Depression Screening Interpretation: Positive (Sees Dr. Sarah Dillard q 2 months currently doing well on escitalopram) Depression Screening Follow-up: Existing condition and In treatment Thrive Assessment: Date of Thrive Assessment Date Thrive assessed 03/18/24 11/24/24 11:19 Currently or been in a relationship where the following occur: I choose not to answer Const General: comfortable, no acute distress and alert Orientation/consciousness: patient oriented x3 HENMT Mouth: Normal oral and palatal mucosa present and moist mucous membranes Eyes General: appearance normal, both eyes and all related structures Neck Neck: Yes full ROM, Yes no lymphadenopathy and Yes supple Thyroid: Thyroid normal Chest Chest palpation & inspection: normal inspection of the chest Breast/axilla palpation: normal palpation of the breasts Resp Effort & Inspection: normal respiratory effort and able to speak in complete sentences Cardio Rate: regular rate Rhythm: regular rhythm Heart sounds: S1 normal heart sound present, S2 normal heart sound present and Murmur heart sound present systolic GI Inspection: Yes obesity Palpation (GI): Soft to palpation, nontender, no guarding and no masses Auscultation: normal bowel sounds General: Yes no CVA tenderness Back/Spine/Pelvis Back: no CVA tenderness and No back tenderness Skin General skin exam: no rashes or lesions noted Neuro General: patient oriented x3, gait normal, tone normal, moves all extremities, Normal light touch and pain sensation and no focal motor deficits Cranial nerves: Yes Normal hearing present Cognition (Neuro): normal cognition Extrem General: Yes no joint enlargement and Yes no clubbing, cyanosis or edema Psych Appearance: grossly normal and well kempt Mental Status: mental status grossly normal Speech and movement: Normal speech and movement present Affect: normal affect Results Reviewed Results Reviewed: Laboratory Tests 01/13/24 06/12/24 11/06/24 08:20 09:25 09:54 WBC 9.7 Hgb 12.3 Hct 37.6 RDW 12.1 Plt Count 192 Estimat Average Glucose 151 Hemoglobin A1c % 6.9 H Urine Creatinine 64.62 Urine Microalbumin 6.0 Microalb/Creat Ratio 9.2 Name: Shey Ingram Age/Sex: 79/F : 1945 Unit#: [id number] Attend Dr: Ramonita Douglas MD Re11/06/24 Status: DEP [facility] Disch: SPEC : [id number] LISA: 11/06/24 STATUS: COMP REQ : [id number] RECD: 11/06/[address]: Rmaonita Douglas MD COMP: 11/06/245 ENTERED: 11/06/[address] [facility] DR: ORDERED: Met Prof Fast, AST, ALT, Lipid Panel, Vitamin D 25-OH Test Result Flag Reference Sodium 140 135-145 mmol/L Potassium 4.7 3.3-5.1 mmol/L CL 105 96-108 mmol/L CO2 27 22-29 mmol/L Gap 13 12-20 BUN 14 9-16 mg/dL Creat 0.81 0.5-1.4 mg/dL eGFR > 60 Chronic Kidney Disease: Estimated GFR < 60 mL/min/1.73m2 Severe Kidney Disease: Estimated GFR < 15 mL/min/1.73m2 FBS 134 H 60-99 mg/dL A fasting glucose of 126 mg/dl or greater on more than one occasion is considered diagnostic of diabetes. CA 9.7 8.4-10.2 mg/dL AST (GOT) 23 5-31 U/L ALT (GPT) 12 0-31 U/L Triglyceride 118 <150 mg/dL Desirable Triglyceride: less than 150 mg/dL Borderline High Triglyceride 150-199 mg/dL High Triglyceride: 200-499 mg/dL Very High Triglyceride: greater than or equal to 5OO mg/dL Cholesterol 160 <200 mg/dL Desirable Cholesterol: less than 200 mg/dL Borderline High Cholesterol: 200-239 mg/dL High Cholesterol: greater than 239 mg/dL LDL Calculated 93 <100 mg/dL Desirable LDL: less than 100 mg/dL Near Optimal/Above Optimal LDL: 110-129 mg/dL Borderline High LDL: 130-159 mg/dL High LDL: 160-189 mg/dL Very High LDL: greater than or equal to 190 mg/dL HDL 44 >40 mg/dL Desirable HDL: greater than 40 mg/dL Note: This HDL assay may give artificially low results in patients with liver disease. Vitamin D 25-OH 51.9 >30 ng/mL Health Based Reference Values* < 20 ng/mL Deficient 20-30 ng/mL Insufficient > 30 ng/mL Sufficient Coding Level of Care Code Est Pt Prev Care >65y(66149) Diagnoses Annual visit for general adult medical examination with abnormal findings Z00. Dyslipidemia E78.5 Obstructive sleep apnea G47.33 Asthma-COPD overlap syndrome J44.9 Primary hypertension I10 Hypertension type: primary hypertension Advance directive discussed with patient Z71.89 Type 2 diabetes mellitus without complication, without long-term current use of insulin E11.9 Erythema intertrigo L30.4 Additional Codes Asthma Control Questionnaire - ACT Interpretation: Negative ([id number]) Assessment & Plan Assessment & Plan (1) Annual visit for general adult medical examination with abnormal findings: Code(s): Z00.01 - Encounter for general adult medical examination with abnormal findings Plan: Reviewed recent fasting lab results with patient.. Recommended dental visit every 6 months and yearly eye exam to check for diabetes retinopathy . Take adequate calcium in diet and vitamin-D 3 at 2000 IU per cap once a day, in addition to weight-bearing exercises to help maintain good muscle tone and weight control. Instructed to do self-breast exam, and continue with yearly mammogram, up-to-date with her screening colonoscopy. Does not want to get a repeat bone density screening. Reminded to get her yearly flu vaccine and COVID booster. Up-to-date with her pneumococcal vaccination, RSV, shingles vaccine and Tdap (2) Dyslipidemia: Code(s): E78.5 - Hyperlipidemia, unspecified Category: Medical Plan: Reviewed recent fasting lipid profile with patient with levels within normal limits . Continue atorvastatin 10 mg daily , in addition to adherence to low-cholesterol diet and regular exercise, at least 30 minutes 3 to 4 times a week. Advised patient to make healthy food choices, eat more fruits, vegetables, whole grains, wild caught fish and low-fat dairy. Limit amount of meat and fried or fatty food products, as well as processed foods and fast foods. Follow-up scheduled with repeat fasting lipid panel in 3 months. (3) Obstructive sleep apnea: Comment: unable to tolerate CPAP Code(s): G47.33 - Obstructive sleep apnea (adult) (pediatric) Category: Medical Plan: Unable to tolerate CPAP, weight loss has been recommended, on Andrea to help with weight loss and better diabetes control (4) Asthma-COPD overlap syndrome: Code(s): J44.9 - Chronic obstructive pulmonary disease, unspecified Category: Medical Plan: Followed by Pulmonary Clinic, currently on Trelegy Ellipta and has albuterol inhaler to be used as needed for episodes of bronchospasm and wheezing (5) HTN (hypertension): Code(s): I10 - Essential (primary) hypertension Category: Medical Qualifiers: Hypertension type: primary hypertension Qualified Code(s): I10 - Essential (primary) hypertension Plan: Blood pressure at goal of less than 130/80. Continue with losartan 50 mg daily, carvedilol 25 mg b.i.d.. Reinforced importance of following a low sodium diet, getting regular exercise, and lowering stress levels. (6) Advance directive discussed with patient: Code(s): Z71.89 - Other specified counseling Plan: Initiated the conversation about Advanced Directives. Advanced Directives help patients prepare for current and future decisions about their medical treatment and place of care. Discussed with patient that it is a process where a patients current condition and prognosis are reviewed, their wishes for information re garding their illness are elicited, and likely medical dilemmas are presented and options discussed. Healthcare proxy form completed today. She already has a MOLST form completed on previous visit . These forms can be amended as needed, reviewed yearly and make changes as needed (7) Type 2 diabetes mellitus without complication, without long-term current use of insulin: Code(s): E11.9 - Type 2 diabetes mellitus without complications Category: Medical Plan: Diabetes control slipping, with hemoglobin A1c now at 6.9%. Will continue on metformin 500 mg once a day and will start on Mounjaro 2.5 mg injected once a week subcutaneously. Directions on administration of medication discussed with patient as well as possible side effects that she might encounter. Will see her back for follow-up here in 3 months (8) Erythema intertrigo: Code(s): L30.4 - Erythema intertrigo Category: Medical Plan: Continue with nystatin powder applied to affected areas as needed Orders: Orders Alanine Aminotransferase 02/05/25 E11.9 - Type 2 diabetes mellitus without complications, E78.5 - Hyperlipidemia, unspecified, I10 - Essential (primary) hypertension, Z78.0 - Asymptomatic menopausal state Hemoglobin A1c 02/05/25 E11.9 - Type 2 diabetes mellitus without complications, E78.5 - Hyperlipidemia, unspecified, I10 - Essential (primary) hypertension, Z78.0 - Asymptomatic menopausal state Vitamin D 25-OH Total 02/05/25 E11.9 - Type 2 diabetes mellitus without complications, E78.5 - Hyperlipidemia, unspecified, I10 - Essential (primary) hypertension, Z78.0 - Asymptomatic menopausal state Aspartate Amino Transferase 02/05/25 E11.9 - Type 2 diabetes mellitus without complications, E78.5 - Hyperlipidemia, unspecified, I10 - Essential (primary) hypertension, Z78.0 - Asymptomatic menopausal state Basic Metabolic Panel Fasting 02/05/25 E11.9 - Type 2 diabetes mellitus without complications, E78.5 - Hyperlipidemia, unspecified, I10 - Essential (primary) hypertension, Z78.0 - Asymptomatic menopausal state Lipid Panel 02/05/25 E11.9 - Type 2 diabetes mellitus without complications, E78.5 - Hyperlipidemia, unspecified, I10 - Essential (primary) hypertension, Z78.0 - Asymptomatic menopausal state Medications: New Mounjaro (tirzepatide) for 4 weeks 2.5 mg (0.5 mL) subcut QWEEK 2 mL 1RF 30 days NS E66.811 - Obesity, class 1, E78.5 - Hyperlipidemia, unspecified, G47.33 - Obstructive sleep apnea (adult) (pediatric), I10 - Essential (primary) hypertension, J44.9 - Chronic obstructive pulmonary disease, unspecified
[2024-11-24 11:18] VITALS: BP 100/60; PULSE 64; RESP 15; TEMP 36.6; O2SAT 94; BMI 37.7
--- OUTSIDE RECORDS SUMMARY | 2024-11-24 13:25 | XMS_ITS | Data Portability ---
Author Organization ZURDO Robbie Cunningham [facility] Surgeons [facility], [facility] Address [address] [place] [address] Care Team Providers Care Ticket Writer Name Role Phone GARY SAWYER Primary Care Provider [phone] Assessment Encounter Date Assessment Date Assessment LastModified by Organization Details LastModified Time 07/28/2024 07/28/2024 PROBLEM: Painful left total knee arthroplasty performed at outside institution HISTORY: The patient is a 79-year-old female whose is a patient of mine. She presents today for evaluation of her left knee. She underwent left total knee arthroplasty at [facility] in 2012. She reports that she has had ongoing pain in his knee. I saw her once in the past for her contralateral knee. Patient describes pain in the anterior aspect of her knee radiating downward. She did fall in June and x-rays were obtained at [place]. Patient is able to bear weight. She [...] and lucid. Normal insight, affect, and grooming. 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 No spasticity [...] to answer all of the patient's questions. [facility] speech recognition spa director software was used to create portions of this document. An attempt at proofreading has been made to minimize errors. Please call for corrections. Not available 07/28/2024 10:47:50 09/23/2024 09/23/2024 Problem: Painful left total knee [...] [facility]: Weightbearing AP of both knees, lateral [...] to answer all of the patient's questions. [facility] speech recognition spa director software was used to create portions of this document. An attempt at proofreading has been made to minimize errors. Please call for corrections. kindly tell you this because I have a lens assorter Not available 09/23/2024 15:29:55 Plan of Treatment Reminders Order Date Submit Date Provider Last Modified By Organization Details Last Modified Time Details Appointments None recorded. Lab ESR (erythrocyt e sedimentati on rate), blood 2024 [facility]), Patient Can Go To The Location Of Their Choice, 06:05:21 C reactive protein, QN, serum or plasma 2024 [facility]), Patient Can Go To The Location Of Their Choice, 06:05:21 CBC w/ auto diff 2024 [facility] (Centralized Electronic Ordering - All Locations), Patient Can Go To The Location Of Their Choice, 06:05:20 Referral None recorded. Procedures None recorded. Surgeries None recorded. Imaging XR, hip + pelvis, unilateral, 2 or 3 view - rm 206, left hip per Dr. Deal 2024 [facility], [address], [address], [place], [address], 5 09:21:40 CT, knee, w/o contrast - LTKR eval implant position 2024 [facility] [place], [address], [address], [place], [address], 5 10:11:43 XR, knee, 4 or more view - Rm 206, left knee 2024 [email or web address] [facility], [address], [address], [place], [address], 5 09:21:40 Medication Orders None recorded. Patient TargetsNo targets recorded. Patient InstructionsNo instructions recorded. Reason for Referral None Reported. Results Created Date Observation Date Name Description Value Unit Range Abnormal Flag Note LastModifiedBy Organization Detail LastModifiedTime 07/29/1907/28/2024 CBC WITH DIFFE RENTI AL/PL ATELE T WBC 8.4 x10e3 /uL 3.4-10 .8 normal Not Available [facility] ([facility]) [address] [place], [address], 07/29/2024 06:05:20 07/29/19 25 07/28/2024 CBC WITH DIFFE RENTI AL/PL ATELE T RBC 3.80 x10e6 /uL 3.77-5 .28 normal Not Available [facility] ([facility]) [address] [place], [address], 07/29/2024 06:05:20 07/29/19 25 07/28/2024 CBC WITH DIFFE RENTI AL/PL ATELE T hemoglobin 12.1 g/dL 11.1-1 5.9 normal Not Available [facility] ([facility]) [address] [place], [address], 07/29/2024 06:05:20 07/29/19 25 07/28/2024 CBC WITH DIFFE RENTI AL/PL ATELE T hematocrit 35.2 % 34.0-4 6.6 normal Not Available [facility] ([facility]) [address] [place], [address], 07/29/2024 06:05:20 07/29/1907/28/2024 CBC WITH DIFFE RENTI AL/PL ATELE T MCV 93 fL 79-97 normal Not Available [facility] ([facility]) [address] [place], [address], 07/29/2024 06:05:20 07/29/19 25 07/28/2024 CBC WITH DIFFE RENTI AL/PL ATELE T MCH 31.8 pg 26.6-3 3.0 normal Not Available [facility] ([facility]) [address] [place], [address], 07/29/2024 06:05:20 07/29/19 25 07/28/2024 CBC WITH DIFFE RENTI AL/PL ATELE T MCHC 34.4 g/dL 31.5-3 5.7 normal Not Available [facility] ([facility]) [address] [place], [address], 07/29/2024 06:05:20 07/29/19 25 07/28/2024 CBC WITH DIFFE RENTI AL/PL ATELE T RDW 11.7 % 11.7-1 5.4 Not Available [facility] ([facility]) [address] [facility], [place], [address], 07/29/2024 06:05:20 07/29/19 25 07/28/2024 CBC WITH DIFFE RENTI AL/PL ATELE T platelets 218 x10e3 /uL 150-45 0 normal Not Available [facility] ([facility]) [address] [place], [address], 07/29/2024 06:05:20 07/29/19 25 07/28/2024 CBC WITH DIFFE RENTI AL/PL ATELE T neutrophils 55 % not estab. normal Not Available [facility] ([facility]) [address] [place], [address], 07/29/2024 06:05:20 07/29/19 25 07/28/2024 CBC WITH DIFFE RENTI AL/PL ATELE T lymphs 31 % not estab. normal Not Available [facility] ([facility]) [address] [place], [address], 07/29/2024 06:05:20 07/29/19 25 07/28/2024 CBC WITH DIFFE RENTI AL/PL ATELE T monocytes 10 % not estab. normal Not Available [facility] ([facility]) [address] [place], [address], 07/29/2024 06:05:20 07/29/19 25 07/28/2024 CBC WITH DIFFE RENTI AL/PL ATELE T eos 3 % not estab. normal Not Available [facility] ([facility]) [address] [place], [address], 07/29/2024 06:05:20 07/29/19 25 07/28/2024 CBC WITH DIFFE RENTI AL/PL ATELE T basos 1 % not estab. normal Not Available [facility] ([facility]) [address] [facility], [place], [address], 07/29/2024 06:05:20 07/29/19 25 07/28/2024 CBC WITH DIFFE RENTI AL/PL ATELE T immature cells DIE MAKER BENCH STAMPING Not Available [facility] ([facility]) [address] [place], [address], 07/29/2024 06:05:20 07/29/19 25 07/28/2024 CBC WITH DIFFE RENTI AL/PL ATELE T neutrophils (absolute) 4.7 x10e3 /uL 1.4-7. 0 normal Not Available [facility] ([facility]) [address] [place], [address], 07/29/2024 06:05:20 07/29/19 25 07/28/2024 CBC WITH DIFFE RENTI AL/PL ATELE T lymphs (absolute) 2.6 x10e3 /uL 0.7-3. 1 normal Not Available [facility] ([facility]) [address] [place], [address], 07/29/2024 06:05:20 07/29/19 25 07/28/2024 CBC WITH DIFFE RENTI AL/PL ATELE T monocytes(ab solute) 0.9 x10e3 /uL 0.1-0. 9 normal Not Available [facility] ([facility]) [address] [place], [address], 07/29/2024 06:05:20 07/29/19 25 07/28/2024 CBC WITH DIFFE RENTI AL/PL ATELE T eos (absolute) 0.2 x10e3 /uL 0.0-0. 4 normal Not Available [facility] ([facility]) [address] [place], [address], 07/29/2024 06:05:20 07/29/19 25 07/28/2024 CBC WITH DIFFE RENTI AL/PL ATELE T baso (absolute) 0.1 x10e3 /uL 0.0-0. 2 normal Not Available [facility] ([facility]) [address] [facility], [place], [address], 07/29/2024 06:05:20 07/29/19 25 07/28/2024 CBC WITH DIFFE RENTI AL/PL ATELE T immature granulocytes 0 % not estab. Not Available [facility] ([facility]) [address] [facility], [place], [address], 07/29/2024 06:05:20 07/29/19 25 07/28/2024 CBC WITH DIFFE RENTI AL/PL ATELE T immature grans (abs) 0.0 x10e3 /uL 0.0-0. 1 Not Available [facility] ([facility]) [address] [place], [address], 07/29/2024 06:05:20 07/29/19 25 07/28/2024 CBC WITH DIFFE RENTI AL/PL ATELE T NRBC DIE MAKER BENCH STAMPING Not Available [facility] ([facility]) [address] [place], [address], 07/29/2024 06:05:20 07/29/19 25 07/28/2024 CBC WITH DIFFE RENTI AL/PL ATELE T hematology comments: DIE MAKER BENCH STAMPING Not Available [facility] ([facility]) [address] [place], [address], 07/29/2024 06:05:20 07/29/19 25 07/29/2024 SEDIM ENTAT ION RATE- RIDGEWAYE RGREN sedimentatio n rate-westerg keila 33 mm/HR 0-40 normal Not Available [facility] ([facility]) [address] [facility], [place], [address], 07/29/2024 06:05:21 07/29/19 25 07/29/2024 C-RUBIN CTIVE PROTE IN, QUANT C-reactive protein, quant <1 mg/L 0-10 Not Available [facility] ([facility]) [address] [facility], [place], [address], 07/29/2024 06:05:21 07/29/19 25 07/28/2024 XR, hip + pelvi s, unila teral , 2 or 3 view http:/ [email or web address] ?Encry pted=s hAaTro YD8dLq bEUv6g %2BXZw aYqtaq 0bqfl% 2Fg9IQ a4ajBk vP9nXo QUaueC m3YtLR FvZlg JJ8mAn HZtai3 7s9821 AC0Kla 3uEUKK iKiQtr MwF INTERFACE [facility] [address], [place], [address], 07/28/2024 10:14:13 07/29/19 25 07/28/2024 XR, hip + pelvi s, unila teral , 2 or 3 view http:/ [email or web address] ?Encry pted=s hAaTro YD8dLq bEUv6g %2BXZw aYqtaq 0bqfl% 2Fg9IQ a4ajBk vP9nXo QUaueC m3YtLR FvZl JJ8mAn HZtai3 2w1009 AC0Kla 3uEUKK iKiQtr MwF INTERFACE [facility] [address], [place], [address], 07/28/2024 10:14:14 07/29/19 25 07/28/2024 XR, knee, 4 or more view [email or web address]:/ [email or web address] ?Encry pted=s hAaTro YD8dLq bEUv6g %2BXZw aYqtaq 0bqfl% 2Fg9IQ a4ajBk vP9nXo QUaueC m3YtLR FvZlgJ JJ8mAn HZtai3 9d7238 AC0Kla 3uFWau hKiQtr MwF INTERFACE [facility] [address], [place], [address], 07/28/2024 10:19:08 07/29/19 25 07/28/2024 XR, knee, 4 or more view http:/ [email or web address] ?Encry pted=s hAaTro YD8dLq bEUv6g %2BXZw aYqtaq 0bqfl% 2Fg9IQ a4ajBk vP9nXo QUaueC m3YtLR FvZlgJ JJ8mAn HZtai3 9n0093 AC0Kla 3uFWau hKiQtr MwF INTERFACE [facility] [address], [place], [address], 07/28/2024 10:19:10 09/02/19 25 07/30/2024 CT, knee, w/o contr ast No observ ation record ed. [facility] [place] [address] [facility] [address], [place], [address], 09/01/2024 10:11:44 09/02/19 25 08/25/2024 NM, bone scan, 3-pha se No observ ation record ed. [facility] (Scheduling, Multipl[facility] Sites) [address], [place], [address], 09/01/2024 10:18:37 Result Notes Documentation Provider Name and Address Organization Details Recorded Time Xr, Hip + Pelvis, Unilateral, 2 Or 3 View : [email or web address] Encrypted=huHsLocUM6cNphP Uv6g%2NJPubMxhjo4kqoy%2Fg 1RFn8sjVeyH9kWlRInqzLr3Hb OYKtDlfWEJ5xGhTAnyy27j839 6EB8Bkb4pENHPtDeHgkAgK Not Available [facility] 07/28/2024 10:14: 13 Xr, Hip + Pelvis, Unilateral, 2 Or 3 View : [email or web address] Encrypted=taIjCxhTA8hSckN Uv6g%7RPZflGuelq0ayij%2Fg 4AEp3abUzoR0iEqHGpeoXc0Su LQQrRqpSDR4mPxUVckj15p611 4KI7End8cFNHTrKyPpzTpL Not Available [facility] 07/28/2024 10:14: 14 Xr, Knee, 4 Or More View : [email or web address] Encrypted=ckFnLloZN5aNrbC Uv6g%2VKZtvDqtmz7jdqk%2Fg 4QZm0gcAuhO8jUuTSochJm2Jv AMIbVocQMX3qVlVNbrg82c354 0LF5Wff8hJKcajEeRqpWcC Not Available [facility] 07/28/2024 10:19: 09 Xr, Knee, 4 Or More View : [email or web address] Encrypted=otTzYguZT8kDppG Uv6g%3IGCokMwjby2xrju%2Fg 6ELa6lbXzeW6sWdCYkggBm2Nt YPRsEzvWRU3kGvBEfvd65c777 6YC5Nom5lWQcooQxKozRtZ Not Available [facility] 07/28/2024 10:19: 10 Problems Name Problem SNOMED Code Status Onset Date Resolution Date Notes Provider Name and Address Organization Details Recorded Time Full thickness rotator cuff tear 130219673 Active 2017 Problem Code: M75.121; Problem Code Type: ICD-10; Status: 'A'; Not Available [facility] 11:42:48 Osteoarth ritis of left knee joint 915489695572 109 Active 2024 Romulo Deal MD [address] [facility] [address], [place], [address] , [facility] 5 08:27:19 Problem Notes None recorded. Medical Equipment None Reported. Allergies Allergen ID Allergen Name Allergen Category Reaction Reaction Severity Criticality Documentation Date Start Date Code Code System Note Provider Name and Address Organization Details Recorded Time 10375 oxycodone hydrochlo ride medicatio n Not available Not available Not available 05/05/20232021 85153 RxNorm Not Available [facility] 4 12:08:45 Medications Name Sig Start Date [...] Not Available No t Available Sinus Nasal Epsom 0.05 % 2 SPRAY INTRANASA LLY EVERY [...] Updated DateTime 09/23/2024 157.48 cm 38.4 kg/m2 92917.4 g [facility] 09/23/2024 14:36:37 Social History Question Answer Notes LastModified by [email or web address] Details LastModified Time Tobacco Smoking Status Never Smoker [facility] 07/28/2024 15:59:28 What Is Your Relationship Status? [email or web address] Information not available 07/28/2024 Sex: Unknown Functional Status Question Answer Note LastModified by [email or web address] Details LastModified Time Do you use any illicit or recreational drugs? No [email or web address] Information not available 07/28/2024 Do you or have you ever used any other forms of tobacco or nicotine? No [email or web address] Information not available 07/28/2024 What is your level of alcohol consumption? None [email or web address] Information not available 07/28/2024 Mental Status None recorded. Family History Nothing Reported. Medical History Condition Response Allergies/Hayfever N Coronary Artery Disease N Anxiety/Depression N Breathing or lung disorders N Emphysema N Nerve Disorders N Thyroid Problems N COPD N Pacemaker N Anemia N Kidney/Bladder Problems N Vascular Disease N Heart Trouble N Heart Attack (CT) N Gastrointestinal Disease N Cholesterol N Diabetes Y Autoimmune disease N Bleeding Disorder N Inflammatory Joint disease N Orthotics N Arthritis Y Seizures/Epilepsy N [...] Diagnosis SNOMED-CT Code Diagnosis ICD10 Code Diagnosis IMO Codes Diagnosis Note [id number] MD [facility] [address] [place] [address] 07/28/2024 09:41:17 08/04/2024 09:21:40 Osteoarthritis of left knee joint 6634416479 70719 M17.12 1063951 Osteoarthr itis of left hip joint 6726748988 40894 M16.12 17836524 History of operative procedure on knee 844068633 Z96.652 [id number] MD [facility] [address] [facility] [address] [place] [address] 09/23/2024 14:09:13 09/29/2024 11:44:59 Osteoarthritis of left knee joint 5784412591 87985 M17.12 [id number] Health Concerns Section Related Observation LastModified by Organization Detai ls LastModified Time None Recorded Concern Status LastModified by Organization Details LastModified Time None Recorded Advance Directives Directive None Recorded Payers Insurance Date Sequence Insurance Name Policy Number Policy Benson Covered Member ID Benson Member ID Guarantor Name 09/29/2024 1 [facility] (MEDICARE REPLACEMENT/A DVANTAGE - PPO) [id number] Shey Ingram [id number] Shey Ingram OBGyn Episode No OBEpisode recorded.
== END 2024-11-24 12:06 | disposition home or self-care (01) ==
LOC: HO.HMCC 10:43
PROVIDERS: PCP Internal Medicine; Visit Provider Internal Medicine
DX: Z00.01 Encounter for general adult medical examination with abnormal findings (principal); J44.9 Chronic obstructive pulmonary disease, unspecified; E11.69 Type 2 diabetes mellitus with other specified complication; E78.5 Hyperlipidemia, unspecified; G47.33 Obstructive sleep apnea (adult) (pediatric); I10 Essential (primary) hypertension; Z71.89 Other specified counseling; L30.4 Erythema intertrigo

== ENCOUNTER → 2024-11-24 10:42 | Outpatient (BNVA) | payer MEDICARE, SELFPAY | PROVIDERS: PCP Internal Medicine; Visit Provider Internal Medicine | DX: Z00.01 Encounter for general adult medical examination with abnormal findings (principal); E11.9 Type 2 diabetes mellitus without complications; E78.5 Hyperlipidemia, unspecified; R32 Unspecified urinary incontinence; I10 Essential (primary) hypertension; J44.89 Other specified chronic obstructive pulmonary disease; G47.33 Obstructive sleep apnea (adult) (pediatric); K58.9 Irritable bowel syndrome, unspecified; K21.9 Gastro-esophageal reflux disease without esophagitis; L30.4 Erythema intertrigo; Z71.89 Other specified counseling | CPT/HCPCS: 96127; 96160; 99397 ==

== ENCOUNTER → 2024-12-03 10:43 | Outpatient (BNVA) | payer MEDICARE, SELFPAY | PROVIDERS: PCP Internal Medicine | DX: E11.9 Type 2 diabetes mellitus without complications (principal); Z79.85 Long-term (current) use of injectable non-insulin antidiabetic drugs | CPT/HCPCS: 99211 ==

== ENCOUNTER 2025-01-15 09:04 | Outpatient (REF) | payer MEDICARE, SELFPAY ==
[2025-01-15 10:23] LABS: Alanine Aminotransferase 14 U/L (0-31); Anion Gap 16 (12-20); Aspartate Amino Transferase 24 U/L (5-31); Blood Urea Nitrogen 13 mg/dL (9-16); Calcium 10.0 mg/dL (8.4-10.2); Carbon Dioxide 25 mmol/L (22-29); Chloride 104 mmol/L (96-108); Cholesterol 151 mg/dL (<200); Estimated Glomerular Filt Rate > 60; HDL Cholesterol 42 mg/dL (>40); Potassium 4.6 mmol/L (3.3-5.1); Sodium 140 mmol/L (135-145); Triglycerides 106 mg/dL (<150)
== END 2025-01-15 09:05 | disposition home or self-care (01) ==
LOC: HO.LAB 09:04
PROVIDERS: PCP Internal Medicine; Visit Provider Internal Medicine
DX: I10 Essential (primary) hypertension (principal); E11.9 Type 2 diabetes mellitus without complications; E78.5 Hyperlipidemia, unspecified; Z78.0 Asymptomatic menopausal state
CPT/HCPCS: 36415; 80048; 80061; 82306; 83036; 84450; 84460

== ENCOUNTER 2025-02-23 10:52 | Outpatient (AMB) | payer MEDICARE, SELFPAY ==
[2025-02-23 11:02] VITALS: BP 98/50; PULSE 73; RESP 16; TEMP 36.3; O2SAT 94; BMI 35.3
--- NOTE | 2025-02-23 11:02 | A.OFFPC_ITS ---
Vital Signs 02/23/25 11:02 Height 5 ft 2 in Weight 193 lb BMI 35.3 BP 98/50 L Blood Pressure Location Lt brachial Position Sitting Respiration 16 Pulse 73 Pulse Source Pulse Oximeter Temp 97.4 F Temp Source Oral Pulse Oximetry (%) 94 Oxygen Delivery Method Room Air Intake Visit Reasons: 3 mo follow up Intake Note: Pt is here today for her 3mo. 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 blood sugar diagnostic use one test strip once a day and as needed to test blood sugar blood-glucose meter As directed carvedilol 12.5 mg PO BID cholecalciferol (vitamin D3) (Vitamin D3) 50 mcg PO DAILY clotrimazole-betamethasone 1-0.05 % 1 appl topical BID PRN dicyclomine 10 mg PO TIDWM PRN escitalopram oxalate 20 mg PO DAILY lancets (OneTouch Delica Plus Lancet) Use As directed twice a day loratadine 10 mg PO DAILY lorazepam 0.5 mg PO DAILY PRN losartan 50 mg See Protocol PO DAILY 90 days metformin 500 mg PO DAILY Mounjaro (tirzepatide) 2.5 mg (0.5 mL) subcut QWEEK 30 days NS Myrbetriq ER (mirabegron) 50 mg (2 x 25 mg) PO DAILY 90 days NS nystatin 100,000 units topical TID PRN Trelegy Ellipta 200-62.5-25 mcg (jqoomczpfdf-gjvcenotu-rovychka) 1 inh inhalation DAILY NS walker (Ultra-Light Rollator misc) As directed Tobacco use date assessed: 02/23/25 Fall risk assessment: No Falls in past year Last assessed Fall Risk: 02/23/25 Dental Screening Dental Screen Date: 02/23/25 Did you have a dental visit in the last 12 months?: No Did you have a dental problem in the last 6 months where you did not have access to dental care?: No Was dental information given to patient?: Patient declined HPI 3 mo follow up HPI Details The patient is a 79 year old female presenting for a three-month follow-up visit She has diabetes mellitus and has demonstrated significant improvement with her hemoglobin A1c decreasing to 6.2% from 6.9% since her last check in November. She is on metformin and 2.5mg dose of Mounjaro, which has led to a 13-pound weight loss. She reports feeling much better and having improved mobility. Side effects from Mounjaro include some constipation and a decreased appetite, though she notes increased hunger at night. Her kidney function is noted to be improving and has not been adversely affected by her diabetes. She had recent issues with her blood pressure dropping, which started last January, but it is now stabilize. Her senior director insight, Dr. Hung, adjusted her medication, decreasing her carvedilol dose from 25 mg twice daily to 12.5 mg twice daily. A stress test performed in January was abnormal, revealing a minor blockage, and she reported some chest tightness around that time, which has since improved. Her senior director insight is currently attempting medical management. She has a known history of aortic stenosis. Her cholesterol levels have also improved, currently on atorvastatin. Anxiety and depression controlled on escitalopram. She takes dicyclomine, loratadine, and lorazepam as needed. She is up-to-date on her vaccinations, including flu, COVID, shingles, RSV, and a Prevnar 20 pneumonia vaccine received two years ago following a hospitalization for pneumonia last January. Her last eye exam was normal. FORMERLY [facility], [facility]–1983 Medical History (Updated 02/23/25 @ 11:42 by Ramonita Douglas MD) Lumbago Obesity (BMI 30.0-34.9) HTN (hypertension) History of fall Mixed stress and urge urinary incontinence Chronic restrictive lung disease Type 2 diabetes mellitus without complication, without long-term current use of insulin PONV (postoperative nausea and vomiting) Pulmonary nodules Family history of breast cancer gene mutation in first degree relative COVID-19 virus infection Asthma-COPD overlap syndrome Menopause Pulmonary nodule Obstructive sleep apnea Irritable bowel syndrome GERD (gastroesophageal reflux disease) Dyslipidemia Surgical History Status post ablation of incompetent vein using laser (~2021) History of shoulder surgery History of total knee replacement History of appendectomy Hx of cholecystectomy Family History Father Stroke Mother HTN (hypertension) Diabetes mellitus Brother Kidney disease Brother Pneumonia Daughter Invasive ductal carcinoma of breast, Onset Age: 53 Social History Household Members: Spouse Housing: House Do you presently have visiting nurse or other home services: No Alcohol intake: never Patient Tobacco Use Status: Former Tobacco user e-Cigarette/Vaping Use: Never Used service: No Current occupational status: retired Cognitive needs: No Hearing needs: No Vision needs: Yes Questionnaire PHQ-9 Over the last 2 weeks, how often have you been bothered by any of the following problems? 1. Little interest or pleasure in doing things: not at all 2. Feeling down, depressed, or hopeless: not at all 3. Trouble falling or staying asleep, or sleeping too much: not at all 4. Feeling tired or having little energy: not at all 5. Poor appetite or overeating: not at all 6. Feeling bad about yourself - or that you are a failure or have let yourself or your family down: not at all 7. Trouble concentrating on things, such as reading the newspaper or watching television: not at all 8. Moving or speaking so slowly that other people could have noticed. Or the opposite - being so fidgety or restless that you have been moving around a lot more than usual: not at all 9. Thoughts that you would be better off or of hurting yourself in some way: not at all Total score: 0 Depression Screening Interpretation: Negative Depression Screening Done: Yes Source: Developed by Drs. Low Retana, Janine Amador, Pj Mckeon and colleagues, with an educational nicole from [employer]. Thrive Questionnaire Date Thrive assessed: 11/24/24 I am a: Patient What is your living situation today?: I have a steady place to live Within the past 12 months, did the food you bought not last and you didn't have the money to get more?: Never true Within the past 12 months, did you worry whether your food would run out before you got money to buy more?: Never true Do you have trouble paying for medicines?: No Do you have trouble getting transportation to medical appointments?: No Do you have trouble paying your heating and electricity bill?: No Do you have trouble taking care of your child, family member or friend?: No Do you have trouble with day-to-day activities such as bathing, preparing meals, shopping, managing finances, etc.?: No Are you currently unemployed and looking for a job?: No Are you interested in more education?: No Currently or been in a relationship where the following occur: I choose not to answer THRIVE Score: 0 AUDIT C Alcohol Use Questionnaire (AUDIT-C) 1. How often do you have a drink containing alcohol?: Never Total Score: 0 JAZMYN-7 AMB Questionnaire JAZMYN-7 Date JAZMYN - 7 assessed: 03/18/24 Feeling nervous, anxious, or on edge: 0 = Not at all Not being able to stop or control worryin = Not at all Worrying too much about different things: 0 = Not at all Trouble relaxin = Not at all Being so restless that it is hard to sit still: 0 = Not at all Becoming easily annoyed or irritable: 0 = Not at all Feeling afraid as if something awful might happen: 0 = Not at all Total JAZMYN-7 score (0-4 normal; 5-9 mild; 10-14 moderate; 15-21 severe): 0 Source: Developed by Drs. Low Retana, Janine Amador, Pj Mckeon and colleagues, with an educational nicole from [employer]. Review of Systems Const Details: Followed by Dr. Benito, no retinopathy seen Reports no additional complaints Eyes Denies change in vision ENT Reports no additional complaints and Reports Normal hearing present Card Denies chest pain, Denies chest pain with activity, Denies irregular heart rhythm, Denies lightheadedness and Reports dyspnea on exertion (walking on an incline, resolves with rest) Resp Reports dyspnea on exertion (walking on an incline, resolves with rest) GI Denies abdominal pain, Denies hematochezia, Denies change in bowel habits and Denies heartburn Reports urinary incontinence (Controlled on Myrbetriq) Musc Denies no additional complaints Skin/Breast Denies breast pain, Denies breast mass and Reports rash (Occasional under both breasts) Neuro Reports Normal hearing present and Denies Neuro-related abnormal movements Psych Denies no additional complaints Endo Reports no additional complaints Lloyd/Lymph Denies easy bleeding and Denies lymphadenopathy Aller/Immun Reports seasonal rhinorrhea Physical exam (Primary Care) Vital Signs: Last Vital Signs Temp 97.4 F 02/23/25 11:02 Pulse 73 02/23/25 11:02 Resp 16 02/23/25 11:02 BP 98/50 L 02/23/25 11:02 Pulse Ox 94 02/23/25 11:02 Oxygen Delivery Method Room Air 02/23/25 11:02 BMI result Body Mass Index 35.3 Tobacco/Smoking Status: Tobacco use Status Tobacco use date assessed 02/23/25 02/23/25 11:08 Patient Tobacco Use Status Former Tobacco user 02/23/25 11:08 e-Cigarette/Vaping Use Never Used 02/23/25 11:08 PHQ-9: PHQ-9 Score PHQ-9: Total score 0 02/23/25 11:43 Depression Screening Interpretation: Negative Thrive Assessment: Date of Thrive Assessment Date Thrive assessed 11/24/24 02/23/25 11:08 Currently or been in a relationship where the following occur: I choose not to answer Const General: no acute distress and alert Orientation/consciousness: patient oriented x3 HENMT Mouth: Normal oral and palatal mucosa present and moist mucous membranes Eyes General: appearance normal, both eyes and all related structures Neck Neck: Yes full ROM, Yes no lymphadenopathy and Yes supple Thyroid: Thyroid normal Resp Effort & Inspection: normal respiratory effort and able to speak in complete sentences Cardio Rate: regular rate Rhythm: regular rhythm Heart sounds: S1 normal heart sound present, S2 normal heart sound present and Murmur heart sound present systolic GI Inspection: Yes obesity Palpation (GI): Soft to palpation, nontender, no guarding and no masses Auscultation: normal bowel sounds General: Yes no CVA tenderness Back/Spine/Pelvis Back: no CVA tenderness and No back tenderness Skin General skin exam: no rashes or lesions noted Neuro General: patient oriented x3, gait normal, tone normal, moves all extremities, Normal light touch and pain sensation and no focal motor deficits Cranial nerves: Yes Normal hearing present Cognition (Neuro): normal cognition Extrem General: Yes no joint enlargement and Yes no clubbing, cyanosis or edema Psych Appearance: grossly normal and well kempt Mental Status: mental status grossly normal Speech and movement: Normal speech and movement present Affect: normal affect Results Reviewed Results Reviewed: Laboratory Tests 06/12/24 01/15/25 09:25 09:19 Estimat Average Glucose 131 Hemoglobin A1c % 6.2 H Microalb/Creat Ratio 9.2 Name: Shey Ingram Age/Sex: 79/F : 1945 Unit#: [id number] Attend Dr: Ramonita Douglas MD Re01/15/25 Status: DEP [facility] Disch: SPEC : [id number] LISA: 01/15/25 STATUS: COMP REQ : [id number] RECD: 01/15/[address]: Ramonita Douglas MD COMP: 01/15/25 ENTERED: 01/15/[address]: ORDERED: Met Prof Fast, AST, ALT, Lipid Panel, Vitamin D 25-OH Test Result Flag Reference Sodium 140 135-145 mmol/L Potassium 4.6 3.3-5.1 mmol/L CL 104 96-108 mmol/L CO2 25 22-29 mmol/L Gap 16 12-20 BUN 13 9-16 mg/dL Creat 0.85 0.5-1.4 mg/dL eGFR > 60 Chronic Kidney Disease: Estimated GFR < 60 mL/min/1.73m2 Severe Kidney Disease: Estimated GFR < 15 mL/min/1.73m2 FBS 113 H 60-99 mg/dL A fasting glucose from 100-125 mg/dl is considered impaired (pre-diabetes). CA 10.0 8.4-10.2 mg/dL AST (GOT) 24 5-31 U/L ALT (GPT) 14 0-31 U/L Triglyceride 106 <150 mg/dL Desirable Triglyceride: less than 150 mg/dL Borderline High Triglyceride 150-199 mg/dL High Triglyceride: 200-499 mg/dL Very High Triglyceride: greater than or equal to 5OO mg/dL Cholesterol 151 <200 mg/dL Desirable Cholesterol: less than 200 mg/dL Borderline High Cholesterol: 200-239 mg/dL High Cholesterol: greater than 239 mg/dL LDL Calculated 88 <100 mg/dL Desirable LDL: less than 100 mg/dL Near Optimal/Above Optimal LDL: 110-129 mg/dL Borderline High LDL: 130-159 mg/dL High LDL: 160-189 mg/dL Very High LDL: greater than or equal to 190 mg/dL HDL 42 >40 mg/dL Desirable HDL: greater than 40 mg/dL Note: This HDL assay may give artificially low results in patients with liver disease. Vitamin D 25-OH 52.3 >30 ng/mL Health Based Reference Values* < 20 ng/mL Deficient 20-30 ng/mL Insufficient > 30 ng/mL Sufficient Coding Level of Care Code Est Pt Level 4 (29107) Diagnoses Dyslipidemia E78.5 Primary hypertension I10 Hypertension type: primary hypertension Type 2 diabetes mellitus without complication, without long-term current use of insulin E11.9 Assessment & Plan Assessment & Plan (1) Dyslipidemia: Code(s): E78.5 - Hyperlipidemia, unspecified Category: Medical Plan: Continue atorvastatin 10 mg daily (2) HTN (hypertension): Code(s): I10 - Essential (primary) hypertension Category: Medical Qualifiers: Hypertension type: primary hypertension Qualified Code(s): I10 - Essential (primary) hypertension Plan: Followed by cardiology, currently on carvedilol 12.5 mg twice a day in addition to losartan 50 mg daily (3) Type 2 diabetes mellitus without complication, without long-term current use of insulin: Code(s): E11.9 - Type 2 diabetes mellitus without complications Category: Medical Plan: Improving glucose control. Continued on Mounjaro 2.5 mg once a week and metformin 500 mg once daily. up-to-date with her diabetes retinopathy screening Orders: Orders Microalbumin, Random (w Creat) 07/02/25 I10 - Essential (primary) hypertension, E78.5 - Hyperlipidemia, unspecified, E11.9 - Type 2 diabetes mellitus without complications Aspartate Amino Transferase 07/02/25 I10 - Essential (primary) hypertension, E78.5 - Hyperlipidemia, unspecified, E11.9 - Type 2 diabetes mellitus without c omplications Alanine Aminotransferase 07/02/25 I10 - Essential (primary) hypertension, E78.5 - Hyperlipidemia, unspecified, E11.9 - Type 2 diabetes mellitus without complica tions Vitamin D 25-OH Total 07/02/25 I10 - Essential (primary) hypertension, E78.5 - Hyperlipidemia, unspecified, E11.9 - Type 2 diabetes mellitus without complications Hemoglobin A1c 07/02/25 I10 - Essential (primary) hypertension, E78.5 - Hyperlipidemia, unspecified, E11.9 - Type 2 diabetes mellitus without complications Basic Metabolic Panel Fasting 07/02/25 I10 - Essential (primary) hypertension, E78.5 - Hyperlipidemia, unspecified, E11.9 - Type 2 diabetes mellitus without complications Lipid Panel 07/02/25 I10 - Essential (primary) hypertension, E78.5 - Hyperlipidemia, unspecified, E11.9 - Type 2 diabetes mellitus without complications Medications: New carvedilol 12.5 mg PO BID
== END 2025-02-23 11:31 | disposition home or self-care (01) ==
LOC: HO.HMCC 10:53
PROVIDERS: PCP Internal Medicine; Visit Provider Internal Medicine
DX: E78.5 Hyperlipidemia, unspecified (principal); I10 Essential (primary) hypertension; E11.9 Type 2 diabetes mellitus without complications

== ENCOUNTER → 2025-02-23 10:52 | Outpatient (BNVA) | payer MEDICARE, SELFPAY | PROVIDERS: PCP Internal Medicine; Visit Provider Internal Medicine | DX: I10 Essential (primary) hypertension (principal); E78.5 Hyperlipidemia, unspecified; E11.9 Type 2 diabetes mellitus without complications; Z13.31 Encounter for screening for depression; Z13.39 Encounter for screening examination for other mental health and behavioral disorders; Z79.899 Other long term (current) drug therapy | CPT/HCPCS: 96127; 99212 ==